=== PATIENT | male | born 1965 | race Caucasian/White ===

== ENCOUNTER 2021-02-02 06:10 | Day surgery (SDC) | payer MEDICARE, OTHER ==
[2021-01-31 15:20] VITALS: BMI 34.5
--- NOTE | 2021-02-01 19:02 | P.GSHP ---
History of Present Illness H&P Date: 02/01/21 55 yo with a history of urethral strictures. He has symptoms of bladder outlet obstruction. He refused in office cysto He comes for cysto with probable direct vision internal urethrotomy - Constitutional Constitutional: Denies chills, Denies fever - EENT Eyes: denies blurred vision, denies pain Ears, nose, mouth and throat: Denies headache, Denies sore throat - Cardiovascular Cardiovascular: Denies chest pain, Denies shortness of breath - Respiratory Respiratory: Denies cough, Denies 7 - Gastrointestinal Gastrointestinal: Denies abdominal pain, Denies diarrhea, Denies nausea, Denies vomiting - Genitourinary (Female) Genitourinary: Denies dysuria, Denies hematuria - Genitourinary (Male) Genitourinary: Denies dysuria, Denies hematuria - Musculoskeletal Musculoskeletal: Denies myalgias - Integumentary Integumentary: Denies pruritus, Denies rash - Neurological Neurological: Denies numbness, Denies weakness - Psychiatric Psychiatric: Denies anxiety, Denies depression - Endocrine Endocrine: Denies fatigue, Denies weight change Past Medical History Past Medical History: Hypertension, Neurologic Disorder, Sleep Apnea/CPAP/BIPAP Additional Past Medical History / Comment(s): developmentally delayed, infantile cerebral palsy, dysthmic disorder History of Any Multi-Drug Resistant Organisms: None Reported Past Surgical History: Joint Replacement Additional Past Surgical History / Comment(s): Right eye cataract surgery, left hip replacement Past Anesthesia/Blood Transfusion Reactions: No Reported Reaction Past Psychological History: Anxiety, Depression Additional Psychological History / Comment(s): lives in assisted living facility Smoking Status: Never smoker Past Alcohol Use History: None Reported Past Drug Use History: None Reported - Past Family History Mother Family Medical History: Cancer Additional Family Medical History / Comment(s): mother from lung cancer Father Family Medical History: No Reported History Brother(s) Family Medical History: Cancer Additional Family Medical History / Comment(s): from lung cancer Medications and Allergies Home Medications Medication Instructions Recorded Confirmed Type Cholecalciferol [Vitamin D3 (25 50 mcg PO DAILY 01/31/21 01/31/21 History Mcg = 1000 Iu)] FLUoxetine HCL [PROzac] 40 mg PO DAILY 01/31/21 01/31/21 History Levothyroxine Sodium [Synthroid] 50 mcg PO DAILY 01/31/21 01/31/21 History Losartan Potassium [Cozaar] 25 mg PO DAILY 01/31/21 01/31/21 History Metoprolol Succinate (ER) [Toprol 50 mg PO DAILY 01/31/21 01/31/21 History Xl] Multivitamins, Thera [Multivitamin 1 tab PO DAILY 01/31/21 01/31/21 History (formulary)] Nitrofurantoin Macrocrystal 100 mg PO BID 01/31/21 01/31/21 History [Nitrofurantoin] Tamsulosin [Flomax] 0.4 mg PO DAILY 01/31/21 01/31/21 History busPIRone HCL 10 mg PO TID 01/31/21 01/31/21 History risperiDONE [RisperDAL] 1 mg PO DAILY 01/31/21 01/31/21 History Allergies Allergy/AdvReac Type Severity Reaction Status Date / Time No Known Allergies Allergy Verified 01/31/21 14:57 Surgical - Exam - General well developed, well nourished - Eyes PERRL - ENT no hearing loss - Neck trachea midline - Respiratory normal expansion, normal respiratory effort - Cardiovascular Rhythm: regular - Abdomen Abdomen: soft, non tender - Genitourinary normal penis with no external lesions, testicles present - Integumentary no rash, no growths - Neurologic normal coordination, normal sensation - Musculoskeletal normal posture - Psychiatric oriented to time, oriented to person, oriented to place, speech is normal, memory intact Assessment and Plan Assessment: Impression: Hx of urethral stricture with symptoms of urinary outlet obstruction Plan: Cysto with possible direct vision urethrotomy
[~2021-02-02 06:10] MED LIST: AMPICILLIN 1,000 MG in SODIUM CHLORIDE 0.9% 50 ML IVPB PRN; DEXAMETHASONE SOD PHOSPHATE 4 MG/ML 1 ML VIAL IV ONE; GENTAMICIN 100 MG in SODIUM CHLORIDE 0.9% 100 ML IVPB PRN; LACTATED RINGERS 1,000 ML IV SCH; LIDOCAINE 1% (10MG/ML) FOR IV START INTRADERMA PRN
[2021-02-02] MEDS ORDERED: MORPHINE SULFATE 4 MG/ML SYRINGE IV PRN (07:00)
[2021-02-02] MEDS ORDERED: MIDAZOLAM 2 MG/2 ML VIAL IV PRN (07:00)
[2021-02-02] MEDS ORDERED: ONDANSETRON 4 MG/2 ML VIAL IVP PRN (07:00)
[2021-02-02] MEDS ORDERED: LIDOCAINE 1% INJ 10MG/ML (20 ML MDV) ONE (07:25)
[2021-02-02] MEDS ORDERED: fentaNYL (PF) 50 MCG/ML 2 ML AMP ONE (07:25)
[2021-02-02] MEDS ORDERED: PROPOFOL 10 MG/ML 20 ML VIAL IV ONE (07:25)
[2021-02-02 07:30] LABS: Basophils # (A) 0.1 k/uL (0-0.2); Basophils % (A) 1 %; Eosinophils # (A) 0.5 k/uL (0-0.7); Eosinophils % (A) 4 %; HGB 14.1 gm/dL (13.0-17.5); Lymphocytes # (A) 1.8 k/uL (1.0-4.8); Lymphocytes % (A) 17 %; MCHC 34.4 g/dL (31.0-37.0); Mean Platelet Volume 8.2; Monocytes # (A) 1.5 k/uL (0-1.0); Monocytes % (A) 14 %; Neutrophils # (A) 6.8 k/uL (1.3-7.7); Neutrophils % (A) 63 %; Platelet Count 218 k/uL (150-450); RBC 4.56 m/uL (4.30-5.90); RDW 13.5 % (11.5-15.5); WBC 10.8 k/uL (3.8-10.6)
[2021-02-02 07:43] LABS: Calcium 9.6 mg/dL (8.4-10.2); Potassium 4.3 mmol/L (3.5-5.1)
--- NOTE | 2021-02-02 08:09 | P.OP ---
Date of Procedure: 02/02/21 Preoperative Diagnosis: Recurrent urine infection, incomplete bladder emptying, history of bladder neck obstruction Postoperative Diagnosis: Same Procedure(s) Performed: Anesthetic cystoscopy Anesthesia: JUAN Surgeon: Lucien Blank Estimated Blood Loss (ml): 0 Pathology: none sent Condition: stable Disposition: PACU Indications for Procedure: The patient is a 55-year-old mentally handicapped individual who came to the office with recurring urinary infection. Apparently he had laser prostate surgery several years ago in [place]. He is not emptying his bladder adequately. He need cystoscopy but I did not feel that in office cystoscopy would be appropriate. Description of Procedure: The patient is brought to the operating suite. He was given general endotracheal anesthesia. The Smith catheter removed. Is prepped and draped sterilely. He is given preoperative antibiotics. Cystoscopy Foroblique lens and 22-Barbadian sheath identifies normal anterior urethra. The prostate shows previous work with a wide open bladder neck. There is a fair amount of fixation of the prostate and scarring probably due to the laser prostatectomy. The rest the bladder wall other than inflammation is unremarkable. the cystoscope was removed. The patient awake and returned recovery in good condition. A 16- Barbadian Smith catheter was introduced. Impression: I do not have an obvious cause for this patient's incomplete bladder emptying. He is on tamsulosin. I will have the [facility] remove his catheter in the next 24 hours and see him in the office in one week.
[2021-02-02 08:16] VITALS: TEMP 97
[2021-02-02 09:12] VITALS: BP 131/84; PULSE 71; RESP 16
== END 2021-02-02 09:42 ==
LOC: EEVIPCON 06:10 → OR 06:10
PROVIDERS: ATTEND Urology
DX: N39.0 Urinary tract infection, site not specified (principal); R33.9 Retention of urine, unspecified; I10 Essential (primary) hypertension; G47.30 Sleep apnea, unspecified; R62.50 Unspecified lack of expected normal physiological development in childhood; G80.8 Other cerebral palsy; F34.1 Dysthymic disorder; Z98.41 Cataract extraction status, right eye; Z96.642 Presence of left artificial hip joint; F41.9 Anxiety disorder, unspecified; F32.9 Major depressive disorder, single episode, unspecified; Z80.1 Family history of malignant neoplasm of trachea, bronchus and lung; J44.9 Chronic obstructive pulmonary disease, unspecified; E07.9 Disorder of thyroid, unspecified; Z79.890 Hormone replacement therapy; Z79.899 Other long term (current) drug therapy
CPT/HCPCS: 80048; 85025; 52000; J1100; J2405; J2001; J3010; J1580; J0290; J2704

== ENCOUNTER 2021-05-09 05:54 | Day surgery (SDC) | payer MEDICARE, OTHER ==
[2021-05-03 15:33] VITALS: BMI 34.6
[~2021-05-09 05:54] MED LIST changes: -AMPICILLIN 1,000 MG in SODIUM CHLORIDE 0.9% 50 ML IVPB PRN; -DEXAMETHASONE SOD PHOSPHATE 4 MG/ML 1 ML VIAL IV ONE; -GENTAMICIN 100 MG in SODIUM CHLORIDE 0.9% 100 ML IVPB PRN; -LACTATED RINGERS 1,000 ML IV SCH; -LIDOCAINE 1% (10MG/ML) FOR IV START INTRADERMA PRN; +metroNIDAZOLE-NS PMX 500 MG in SALINE 1 100ML.BAG IVPB PRN
[2021-05-09] MEDS ORDERED: LACTATED RINGERS 1,000 ML IV SCH (06:00)
[2021-05-09] MEDS ORDERED: ONDANSETRON 4 MG/2 ML VIAL ONE (07:03)
[2021-05-09] MEDS ORDERED: AMPICILLIN 2,000 MG in SODIUM CHLORIDE 0.9% 100 ML IVPB STA (07:30)
[2021-05-09] MEDS ORDERED: ePHEDrine SULFATE/0.9% NACL/PF 50 MG/5 ML SYRINGE IV ONE (07:40)
[2021-05-09] MEDS ORDERED: MIDAZOLAM 2 MG/2 ML VIAL ONE (07:40)
[2021-05-09] MEDS ORDERED: PROPOFOL 10 MG/ML 20 ML VIAL IV ONE (07:40)
[2021-05-09] MEDS ORDERED: HYDROmorphone (PF) 1 MG/ML ONE (07:40)
[2021-05-09] MEDS ORDERED: LIDOCAINE 1% INJ 10MG/ML (20 ML MDV) ONE (07:40)
[2021-05-09] MEDS ORDERED: fentaNYL (PF) 50 MCG/ML 2 ML AMP ONE (07:40)
[2021-05-09] MEDS ORDERED: SUCCINYLCHOLINE CHLORIDE 100 MG/5 ML SYR IV ONE (07:40)
[2021-05-09 09:39] VITALS: TEMP 97.5
[2021-05-09 10:11] VITALS: RESP 16
[2021-05-09 10:32] VITALS: BP 137/82; PULSE 88
--- NOTE | 2021-05-09 10:42 | P.GSCN ---
History of Present Illness Consult date: 05/09/21 Reason for Consult: -Periodic exam -#2 and #19 Root extractions -#4 MB, #5 DBM, #6 DB, #20 DO, #23 Core, #29 B, #30 B all resins with Filteck bulk shade A2. #20 and 23 had glass ionomer. Patient's parents and guardian given post op instruction. Called Ampicillin IV 2g 30 min before procedure, and prescribed Motrin 800 mg (24 tabs, Q6H PRN) for outdoor pharmacy where guardian would cook pickled meat. No complications. Past Medical History Past Medical History: Hypertension, Neurologic Disorder, Prostate Disorder, Sleep Apnea/CPAP/BIPAP Additional Past Medical History / Comment(s): has de jesus catheter,developmentally delayed, infantile cerebral palsy-uses walker, incontinent occas,able to follow simple directions,speech is understandible,OCD, dysthmic disorder History of Any Multi-Drug Resistant Organisms: None Reported Past Surgical History: Joint Replacement Additional Past Surgical History / Comment(s): cystoscopy,Right eye cataract surgery, left hip replacement Past Anesthesia/Blood Transfusion Reactions: No Reported Reaction Smoking Status: Never smoker - Past Family History Mother Family Medical History: Cancer Additional Family Medical History / Comment(s): mother from lung cancer Father Family Medical History: No Reported History Brother(s) Family Medical History: Cancer Additional Family Medical History / Comment(s): from lung cancer Medications and Allergies Home Medications Medication Instructions Recorded Confirmed Type Cholecalciferol [Vitamin D3 (25 50 mcg PO DAILY 01/31/21 05/03/21 History Mcg = 1000 Iu)] FLUoxetine HCL [PROzac] 40 mg PO QAM 01/31/21 05/03/21 History Levothyroxine Sodium [Synthroid] 50 mcg PO QAM 01/31/21 05/03/21 History Losartan Potassium [Cozaar] 25 mg PO 162901/31/21 05/09/21 History Metoprolol Succinate (ER) [Toprol 50 mg PO QAM 01/31/21 05/03/21 History Xl] Tamsulosin [Flomax] 0.4 mg PO 1630 01/31/21 05/03/21 History busPIRone HCL 10 mg PO TID 01/31/21 05/09/21 History risperiDONE [RisperDAL] 1 mg PO QAM 01/31/21 05/03/21 History Allergies Allergy/AdvReac Type Severity Reaction Status Date / Time No Known Allergies Allergy Verified 05/09/21 06:31 Surgical - Exam Vital Signs Temp Pulse Resp BP Pulse Ox 98.3 F 78 18 151/71 99 05/09/21 06:25 05/09/21 06:25 05/09/21 06:25 05/09/21 06:25 05/09/21 06:25
== END 2021-05-09 10:52 ==
LOC: OR 05:54
PROVIDERS: ATTEND Dentist
DX: K02.9 Dental caries, unspecified (principal); G80.9 Cerebral palsy, unspecified; I10 Essential (primary) hypertension; Z79.899 Other long term (current) drug therapy; Z80.1 Family history of malignant neoplasm of trachea, bronchus and lung
CPT/HCPCS: 41899; J2250; J2001; J3010; J0290; J1170; J0330; J2704; 80048; 81001; 85025; 87086

== ENCOUNTER 2021-05-18 07:49 | Day surgery (SDC) | payer MEDICARE, OTHER ==
[2021-05-03 15:14] VITALS: BMI 34.6
[2021-05-09 07:21] LABS: Basophils # (A) 0.1 k/uL (0-0.2); Basophils % (A) 1 %; Eosinophils # (A) 0.3 k/uL (0-0.7); Eosinophils % (A) 3 %; HCT 44.4 % (39.0-53.0); HGB 14.6 gm/dL (13.0-17.5); Hypochromasia Slight; Lymphocytes # (A) 2.8 k/uL (1.0-4.8); Lymphocytes % (A) 25 %; MCH 31.3 pg (25.0-35.0); MCV 94.8 fL (80.0-100.0); Mean Platelet Volume 8.8; Monocytes % (A) 9 %; Neutrophils # (A) 6.9 k/uL (1.3-7.7); Neutrophils % (A) 61 %; Platelet Count 218 k/uL (150-450); RBC 4.69 m/uL (4.30-5.90); RDW 14.6 % (11.5-15.5); WBC 11.3 k/uL (3.8-10.6)
[2021-05-09 07:32] LABS: Calcium 9.8 mg/dL (8.4-10.2); Potassium 4.4 mmol/L (3.5-5.1)
[2021-05-09 07:35] LABS: Appearance,Urine Turbid (Clear); Bacteria,Urine Occasional /hpf; Bilirubin,Urine Negative (Negative); Blood,Urine Small (Negative); Color,Urine Light Yellow; Glucose,Urine (UA) Negative (Negative); Ketones,Urine Negative (Negative); Leukocyte Esterase,Urine Large (Negative); Mucus,Urine Rare /hpf; Nitrite,Urine Positive (Negative); Protein,Urine 1+ (Negative); RBC,Urine 23 /hpf (0-5); Specific Gravity,Urine 1.012 (1.001-1.035); Urobilinogen,Urine <2.0 mg/dL (<2.0); WBC,Urine >182 /hpf (0-5)
--- NOTE | 2021-05-17 08:10 | P.GSHP ---
History of Present Illness H&P Date: 05/17/21 56 yo mentally handicapped male with chronic voiding difficulty. He had a laser turp years ago. He has recently had problems for urine retention. W appears to have shown some bladder function. The plan after discussing with the parents[guardians] is to proceed with a cystoscopy and probable turp if indicated. The risks and complications have been discussed. The patient is not a candidate for cic. - Review of Systems ROS unobtainable: Reports: due to mental status Past Medical History Past Medical History: Hypertension, Neurologic Disorder, Sleep Apnea/CPAP/BIPAP Additional Past Medical History / Comment(s): has de jesus catheter,developmentally delayed, infantile cerebral palsy-uses walker, incontinent occas,able to follow simple directions,speech is understandible,OCD, dysthmic disorder History of Any Multi-Drug Resistant Organisms: None Reported Past Surgical History: Joint Replacement Additional Past Surgical History / Comment(s): Right eye cataract surgery, left hip replacement Past Anesthesia/Blood Transfusion Reactions: No Reported Reaction Smoking Status: Never smoker - Past Family History Mother Family Medical History: Cancer Additional Family Medical History / Comment(s): mother from lung cancer Father Family Medical History: No Reported History Brother(s) Family Medical History: Cancer Additional Family Medical History / Comment(s): from lung cancer Medications and Allergies Home Medications Medication Instructions Recorded Confirmed Type Cholecalciferol [Vitamin D3 (25 50 mcg PO DAILY 01/31/21 05/13/21 History Mcg = 1000 Iu)] FLUoxetine HCL [PROzac] 40 mg PO QAM 01/31/21 05/13/21 History Levothyroxine Sodium [Synthroid] 50 mcg PO SUMOTUWETHFR 01/31/21 05/13/21 History Losartan Potassium [Cozaar] 25 mg PO 1630 01/31/21 05/13/21 History Metoprolol Succinate (ER) [Toprol 50 mg PO QAM 01/31/21 05/13/21 History Xl] Tamsulosin [Flomax] 0.4 mg PO 1630 01/31/21 05/13/21 History busPIRone HCL 10 mg PO TID 01/31/21 05/13/21 History risperiDONE [RisperDAL] 1 mg PO QAM 01/31/21 05/13/21 History Ibuprofen 800 mg PO Q8H PRN 05/13/21 05/13/21 History Multivitamins, Thera [Multivitamin 1 tab PO DAILY 05/13/21 05/13/21 History (formulary)] Allergies Allergy/AdvReac Type Severity Reaction Status Date / Time No Known Allergies Allergy Verified 05/09/21 06:31 Surgical - Exam - General well developed, well nourished, no distress - Eyes PERRL - ENT no hearing loss - Neck trachea midline - Respiratory normal expansion, normal respiratory effort - Cardiovascular Rhythm: regular - Abdomen Abdomen: soft, non tender - Genitourinary indwelling catheter. normal penis with no external lesions, testicles present - Integumentary no rash - Musculoskeletal normal posture - Psychiatric mentally handicapped. Knows his name. Is cooperative. other Results - Labs 05/09/21 06:48 05/09/21 06:48 Assessment and Plan Assessment: Impression: Urine retention acute and chronic. Plan: Cysto with possible turp
[~2021-05-18 07:49] MED LIST changes: +AMPICILLIN 1,000 MG in SODIUM CHLORIDE 0.9% 50 ML IVPB PRN; +DEXAMETHASONE SOD PHOSPHATE 4 MG/ML 1 ML VIAL IV ONE; +GENTAMICIN 100 MG in SODIUM CHLORIDE 0.9% 100 ML IVPB PRN; +HYDROmorphone 0.5 MG/0.5 ML SYRINGE IVP PRN; +LACTATED RINGERS 1,000 ML IV SCH; +LIDOCAINE 1% (10MG/ML) FOR IV START INTRADERMA PRN; +MIDAZOLAM 2 MG/2 ML VIAL IV PRN; +ONDANSETRON 4 MG/2 ML VIAL IVP ONE; -metroNIDAZOLE-NS PMX 500 MG in SALINE 1 100ML.BAG IVPB PRN
[2021-05-18] MEDS ORDERED: fentaNYL (PF) 50 MCG/ML 2 ML AMP ONE (09:00)
[2021-05-18] MEDS ORDERED: MIDAZOLAM 2 MG/2 ML VIAL ONE (09:00)
[2021-05-18] MEDS ORDERED: SUCCINYLCHOLINE CHLORIDE 100 MG/5 ML SYR IV ONE (09:00)
[2021-05-18] MEDS ORDERED: PROPOFOL 10 MG/ML 20 ML VIAL IV ONE (09:00)
--- NOTE | 2021-05-18 10:51 | P.OP ---
Date of Procedure: 05/18/21 Preoperative Diagnosis: Urine retention Postoperative Diagnosis: Same Procedure(s) Performed: Bipolar TURP Anesthesia: JUAN Surgeon: Lucien Blank Estimated Blood Loss (ml): 100 Pathology: other (Prostate) Condition: stable Disposition: PACU Indications for Procedure: The patient is 56. He is mentally handicapped and lives in an extended care facility. He is gone into urinary retention. Apparently the patient had a laser prostate surgery many years ago. He tried medication he still remain in retention. He come for cystoscopy and possible bipolar TURP Description of Procedure: The patient is brought to the operating suite. He is given a general endotracheal anesthesia. He's placed lithotomy position with sterile prep and drape. Attempts at passing the 25-Iraqi sheath and direct vision obturator failed due to scarring of the proximal urethra. I dilate the rectal urethra to 30-Iraqi. I then pass the direct vision obturator with a 25-Iraqi sheath into the day. Ross date is markedly scarred and distorted. There appears to be a l arge amount of left anterior wall tissue as well as right lateral tissue. The amount and seen. The bladder felton severely trabeculated.. The orientation is somewhat difficult. With the super sect bipolar loop I first resect the anterior and left lateral lobe down to more mobile looking prostatic tissue in orientation. I then resect into early in the right lobe. I make sure not to go the on what appears to be the scarred verumontanum. I the bladder of prostatic chips with the evacuator. I reinspecting control any bleeding. The prostate appears to be open at this point in time. I then pass an 18-Iraqi coud-tip catheter into the bladder with irrigation with clear to very minimally pink urine The patient's prostate no appears to be open. The scarring from the previous prostate surgery appears to be liberated. The patient is awake and returned recovery room good condition. Prostate blood loss is about 100 mL. The patient will be observed in the hospital for the next few hours and if he stable be discharged home later today.
[2021-05-18 10:57] VITALS: TEMP 96.8
[2021-05-18 12:36] VITALS: RESP 16
[2021-05-18] MEDS ORDERED: LACTATED RINGERS 1,000 ML IV ONE (12:39)
[2021-05-18 12:57] VITALS: BP 136/83; PULSE 91
== END 2021-05-18 13:20 ==
LOC: OR 07:49
PROVIDERS: ATTEND Urology
DX: N40.1 Benign prostatic hyperplasia with lower urinary tract symptoms (principal); R33.8 Other retention of urine; I10 Essential (primary) hypertension; G47.33 Obstructive sleep apnea (adult) (pediatric); E07.9 Disorder of thyroid, unspecified; R62.50 Unspecified lack of expected normal physiological development in childhood; G80.9 Cerebral palsy, unspecified; F34.1 Dysthymic disorder; F41.9 Anxiety disorder, unspecified; Z79.890 Hormone replacement therapy; Z79.899 Other long term (current) drug therapy; Z96.642 Presence of left artificial hip joint
CPT/HCPCS: 52601; 88305; 80048; 85025; 81001; 87086; C1769; J2250; J1100; J2405; J3010; J1580; J0290; J0330; J2704

== ENCOUNTER 2021-10-06 12:35 | Observation (INO) | payer MEDICARE, OTHER ==
[2021-10-06 13:32] LABS: Albumin 3.7 g/dL (3.5-5.0); Calcium 9.3 mg/dL (8.4-10.2); Potassium 3.9 mmol/L (3.5-5.1); Total Bilirubin 0.6 mg/dL (0.2-1.3); Total Protein 7.1 g/dL (6.3-8.2)
--- NOTE | 2021-10-06 13:47 | ED ---
Male Urogenital HPI - General Chief complaint: Urogenital Stated complaint: UTI Time Seen by Provider: 10/06/21 12:35 Source: EMS, RN notes reviewed, old records reviewed Mode of arrival: EMS Limitations: altered mental status - History of Present Illness Initial comments: 56-year-old male with a history of cervical palsy in neuro cognitive delay who was sent in from his facility due to having a positive urine culture for E. coli and Proteus he currently was sent in for IV antibiotics as the nature and I covered by oral medications reportedly. Patient himself is uncooperative per paramedics no reports of nausea vomiting fevers chills sweats or other symptoms patient himself is a poor historian. Information is gathered from the paperwork that was submitted. - Related Data Home Medications Medication Instructions Recorded Confirmed Cholecalciferol [Vitamin D3 (25 50 mcg PO HS 01/31/21 10/06/21 Mcg = 1000 Iu)] FLUoxetine HCL [PROzac] 40 mg PO QAM 01/31/21 10/06/21 Levothyroxine Sodium [Synthroid] 50 mcg PO SUMOTUWETHFR 01/31/21 10/06/21 Losartan Potassium [Cozaar] 25 mg PO DAILY@1630 01/31/21 10/06/21 Metoprolol Succinate (ER) [Toprol 50 mg PO QAM 01/31/21 10/06/21 Xl] Tamsulosin [Flomax] 0.4 mg PO DAILY@1630 01/31/21 10/06/21 busPIRone HCL 10 mg PO TID 01/31/21 10/06/21 risperiDONE [RisperDAL] 1 mg PO QAM 01/31/21 10/06/21 Multivitamins, Thera [Multivitamin 1 tab PO DAILY 05/13/21 10/06/21 (formulary)] Acetaminophen Tab [Tylenol Tab] 1,000 mg PO Q6H PRN 10/06/21 10/06/21 Allergies Allergy/AdvReac Type Severity Reaction Status Date / Time No Known Allergies Allergy Verified 10/06/21 13:31 Review of Systems ROS Statement: Those systems with pertinent positive or pertinent negative responses have been documented in the HPI. ROS Other: All systems not noted in ROS Statement are negative. Limitations: ROS unobtainable due to patients medical condition Past Medical History Past Medical History: Hypertension, Neurologic Disorder, Sleep Apnea/CPAP/BIPAP Additional Past Medical History / Comment(s): has de jesus catheter,developmentally delayed, infantile cerebral palsy-uses walker, incontinent occas,able to follow simple directions,speech is understandible,OCD, dysthmic disorder History of Any Multi-Drug Resistant Organisms: MRSA Date of last positivie culture/infection: 06/07/21 MDRO Source:: ESBL URINE Past Surgical History: Joint Replacement Additional Past Surgical History / Comment(s): Right eye cataract surgery, left hip replacement Past Anesthesia/Blood Transfusion Reactions: No Reported Reaction Past Psychological History: Anxiety, Depression Smoking Status: Never smoker - Past Family History Mother Family Medical History: Cancer Additional Family Medical History / Comment(s): mother from lung cancer Father Family Medical History: No Reported History Brother(s) Family Medical History: Cancer Additional Family Medical History / Comment(s): from lung cancer General Exam - General Exam Comments Initial Comments: Is a well-developed well-nourished pleasant 56-year-old male in no acute d istress Limitations: altered mental status General appearance: alert, in no apparent distress Head exam: Present: atraumatic, normocephalic, normal inspection Eye exam: Present: normal appearance, PERRL, EOMI. Absent: scleral icterus, conjunctival injection, periorbital swelling ENT exam: Present: mucous membranes dry Neck exam: Present: normal inspection. Absent: tenderness, meningismus, lymphadenopathy Respiratory exam: Present: normal lung sounds bilaterally. Absent: respiratory distress, wheezes, rales, rhonchi, stridor Cardiovascular Exam: Present: regular rate, normal rhythm, normal heart sounds. Absent: systolic murmur, diastolic murmur, rubs, gallop, clicks GI/Abdominal exam: Present: soft, normal bowel sounds. Absent: distended, tenderness, guarding, rebound, rigid Extremities exam: Present: normal inspection, full ROM, normal capillary refill. Absent: tenderness, pedal edema, joint swelling, calf tenderness Back exam: Present: normal inspection Neurological exam: Present: alert, altered, CN II-XII intact Psychiatric exam: Present: normal affect, normal mood Skin exam: Present: warm, dry, intact, normal color. Absent: rash Course Vital Signs 10/06/21 12:49 Temperature 97.4 F L Pulse Rate 89 Respiratory 18 Rate Blood Pressure 122/76 O2 Sat by Pulse 98 Oximetry Medical Decision Making - Medical Decision Making I did discuss the case with Dr. Espinoza patient did have a urine culture done showing E. coli as well as Proteus species. Since that the cefepime resistant to Unasyn and Rocephin. He does appear sensitive to Zosyn. - Lab Data Result diagrams: 10/06/21 13:01 10/06/21 13:01 Lab Results 10/06/21 10/06/21 Range/Units 13:01 13:01 WBC 8.6 (3.8-10.6) k/uL RBC 4.26 L (4.30-5.90) m/uL Hgb 13.2 (13.0-17.5) gm/dL Hct 40.9 (39.0-53.0) % MCV 96.0 (80.0-100.0) fL MCH 31.1 (25.0-35.0) pg MCHC 32.4 (31.0-37.0) g/dL RDW 14.4 (11.5-15.5) % Plt Count 205 (150-450) k/uL MPV 8.7 Neutrophils % 58 % Lymphocytes % 26 % Monocytes % 10 % Eosinophils % 2 % Basophils % 0 % Neutrophils # 5.0 (1.3-7.7) k/uL Lymphocytes # 2.2 (1.0-4.8) k/uL Monocytes # 0.9 (0-1.0) k/uL Eosinophils # 0.2 (0-0.7) k/uL Basophils # 0.0 (0-0.2) k/uL Sodium 136 L (137-145) mmol/L Potassium 3.9 (3.5-5.1) mmol/L Chloride 103 (98-107) mmol/L Carbon Dioxide 27 (22-30) mmol/L Anion Gap 6 mmol/L BUN 26 H (9-20) mg/dL Creatinine 1.37 H (0.66-1.25) mg/dL Est GFR (CKD-EPI)AfAm 66 (>60 ml/min/1.73 sqM) Est GFR (CKD-EPI)NonAf 57 (>60 ml/min/1.73 sqM) Glucose 96 (74-99) mg/dL Calcium 9.3 (8.4-10.2) mg/dL Total Bilirubin 0.6 (0.2-1.3) mg/dL AST 20 (17-59) U/L ALT 17 (4-49) U/L Alkaline Phosphatase 121 (38-126) U/L Total Protein 7.1 (6.3-8.2) g/dL Albumin 3.7 (3.5-5.0) g/dL Disposition Clinical Impression: Urinary tract infection Disposition: ADMITTED IP TO THIS HOSP Condition: Stable Referrals: Kyler Zaman MD [Primary Care Provider] - 1-2 days
[2021-10-06 13:52] LABS: HCT 40.9 % (39.0-53.0); HGB 13.2 gm/dL (13.0-17.5); MCH 31.1 pg (25.0-35.0); MCHC 32.4 g/dL (31.0-37.0); RBC 4.26 m/uL (4.30-5.90); RDW 14.4 % (11.5-15.5); WBC 8.6 k/uL (3.8-10.6)
[2021-10-06 13:53] LABS: Basophils % (A) 0 %; Eosinophils # (A) 0.2 k/uL (0-0.7); Eosinophils % (A) 2 %; Lymphocytes # (A) 2.2 k/uL (1.0-4.8); Lymphocytes % (A) 26 %; Mean Platelet Volume 8.7; Monocytes # (A) 0.9 k/uL (0-1.0); Monocytes % (A) 10 %; Neutrophils % (A) 58 %; Platelet Count 205 k/uL (150-450)
[2021-10-06] MEDS ORDERED: NALOXONE 0.4 MG/ML 1 ML VIAL IV PRN (14:50)
[2021-10-06] MEDS ORDERED: ACETAMINOPHEN TAB 325 MG TAB PO PRN (14:50)
[2021-10-06] MEDS ORDERED: PIPERACILLIN-TAZOBACTAM 3.375 GM in SODIUM CHLORIDE 0.9% 100 ML IVPB STA (14:52)
[2021-10-06] MEDS: SODIUM CHLORIDE 0.9% 1,000 ML IV SCH ×2 (15:24→23:32)
[2021-10-06 16:23] LABS: Appearance,Urine Turbid (Clear); Bacteria,Urine Occasional /hpf; Bilirubin,Urine Negative (Negative); Blood,Urine Small (Negative); Budding Yeast,Urine Many /hpf; Color,Urine Yellow; Glucose,Urine (UA) Negative (Negative); Ketones,Urine Negative (Negative); Leukocyte Esterase,Urine Large (Negative); Nitrite,Urine Positive (Negative); Protein,Urine 1+ (Negative); RBC,Urine 35 /hpf (0-5); Specific Gravity,Urine 1.018 (1.001-1.035); Urobilinogen,Urine <2.0 mg/dL (<2.0); WBC,Urine >182 /hpf (0-5)
[2021-10-06] MEDS ORDERED: ERTAPENEM 1 GM in SODIUM CHLORIDE 0.9% 50 ML IVPB SCH (17:30)
[2021-10-06] MEDS ORDERED: LEVOTHYROXINE 50 MCG TAB PO SCH (22:45)
[2021-10-06] MEDS ORDERED: CALCIUM CARBONATE 500 MG CHEWABLE PO PRN (22:46)
[2021-10-06] MEDS ORDERED: ONDANSETRON 4 MG/2 ML VIAL IVP PRN (22:46)
[2021-10-06] MEDS ORDERED: LACTULOSE 20 GM/30 ML CUP PO PRN (22:46)
--- NOTE | 2021-10-06 22:48 | P.HPIM ---
History of Present Illness H&P Date: 10/06/21 Chief Complaint: Positive urine culture for E. coli and Proteus. This is a pleasant 56-year-old patient who has known cerebral palsy with neurocognitive delay. He was sent in from his facility due to positive urine culture growing E. coli and Proteus. Cultures were not sensitizing oral antibiotic hence was sent in for IV antibiotic and IV consultation. Patient is not a detailed historian. There was no reported nausea vomiting no fever no chills or any urinary symptoms. Patient is able to answer simple questions. Appetite is fair. Possibly uses a walker. He said he has been in the past. Patient has known urinary bladder obstruction in the past with TURP done by Dr. Johnson Review of systems: GEN.: None EYES: None HEENT: None NECK: None RESPIRATORY: None CARDIOVASCULAR: None GASTROINTESTINAL: None GENITOURINARY: None MUSCULOSKELETAL: None LYMPHATICS: None HEMATOLOGICAL: None PSYCHIATRY: Cognitive impairment NEUROLOGICAL: None Past medical history to include: Hypertension, cerebral palsy with neurocognitive disorder, sleep apnea, infantile cerebral palsy, incontinent of urine sometimes, OCD, dysthymic disorder Social history: A sister living. No alcohol or smoking. Uses a walker. Family history: Mother had lung cancer Physical examination: VITAL SIGNS: 98.7, 93, 16, 125 with 78, 96% room air GENERAL: BMI 34.7, reclining in bed, awake, comfortable. EYES: Pupils equal. Conjunctiva normal. HEENT: External appearance of nose and ears normal, oral cavity grossly normal small lower jaw. NECK: JVD not raised; masses not palpable. HEART: First and second heart sounds are normal; no edema. LUNGS: Respiratory rate normal; clear to auscultation. ABDOMEN: Soft, nontender, liver spleen not palpable, no masses palpable. PSYCH: [Patient knows his name. Does not know where he is. Does not know why why he is here. MUSCULOSKELETAL:No Clubbing/cyanosis;muscles-grossly intact NEUROLOGICAL: Cranial nerves grossly intact; no facial asymmetry, power and sensation grossly intact. LYMPHATICS: No lymph nodes palpable in the axilla and neck INVESTIGATIONS, reviewed in the clinical context: White count 8.60 globin 13.2 platelets 205 potassium 3.9 BUN 26 creatinine 1.37 UA positive for leukoesterase, WBC, bacteria, yeast Coronavirus [PCR]: Not detected Assessment and plan: -Acute on chronic recurrent UTI with cultures growing Proteus and E. coli. I do not have access to the results. We'll obtain the same. Consult ID. -Cerebral palsy with neurocognitive delay -Essential hypertension Cozaar 25 mg daily Toprol-XL 50 mg daily -Chronic gait dysfunction uses a walker Fall precautions -Urinary bladder outflow obstruction Flomax 0.4 mg daily -Hypothyroid Synthroid 50 g -Depression Prozac 40 mg a day BuSpar 10 mg 3 times a day Resume all medications. IV ertapenem. I'll obtain culture results. IV fluids. Subcu Lovenox. Past Medical History Past Medical History: Hypertension, Neurologic Disorder, Sleep Apnea/CPAP/BIPAP Additional Past Medical History / Comment(s): has de jesus catheter,developmentally delayed, infantile cerebral palsy-uses walker, incontinent occas,able to follow simple directions,speech is understandible,OCD, dysthmic disorder History of Any Multi-Drug Resistant Organisms: MRSA Date of last positivie culture/infection: 06/07/21 MDRO Source:: ESBL URINE Past Surgical History: Joint Replacement Additional Past Surgical History / Comment(s): Right eye cataract surgery, left hip replacement Past Anesthesia/Blood Transfusion Reactions: No Reported Reaction Past Psychological History: Anxiety, Depression Smoking Status: Never smoker - Past Family History Mother Family Medical History: Cancer Additional Family Medical History / Comment(s): mother from lung cancer Father Family Medical History: No Reported History Brother(s) Family Medical History: Cancer Additional Family Medical History / Comment(s): from lung cancer Medications and Allergies Home Medications Medication Instructions Recorded Confirmed Type Cholecalciferol [Vitamin D3 (25 50 mcg PO HS 01/31/21 10/06/21 History Mcg = 1000 Iu)] FLUoxetine HCL [PROzac] 40 mg PO QAM 01/31/21 10/06/21 History Levothyroxine Sodium [Synthroid] 50 mcg PO SUMOTUWETHFR 01/31/21 10/06/21 History Losartan Potassium [Cozaar] 25 mg PO DAILY@162901/31/21 10/06/21 History Metoprolol Succinate (ER) [Toprol 50 mg PO QAM 01/31/21 10/06/21 History Xl] Tamsulosin [Flomax] 0.4 mg PO DAILY@162901/31/21 10/06/21 History busPIRone HCL 10 mg PO TID 01/31/21 10/06/21 History risperiDONE [RisperDAL] 1 mg PO QAM 01/31/21 10/06/21 History Multivitamins, Thera [Multivitamin 1 tab PO DAILY 05/13/21 10/06/21 History (formulary)] Acetaminophen Tab [Tylenol Tab] 1,000 mg PO Q6H PRN 10/06/21 10/06/21 History Allergies Allergy/AdvReac Type Severity Reaction Status Date / Time No Known Allergies Allergy Verified 10/06/21 13:31 Physical Exam Vitals: Vital Signs Temp Pulse Pulse Pulse Resp BP BP 10/06/21 20:00 93 16 10/06/21 19:16 98.7 F 93 16 125/78 10/06/21 17:10 86 18 10/06/21 16:37 97.6 F 85 18 152/91 10/06/21 12:49 97.4 F L 89 18 122/76 Pulse Ox 10/06/21 20:00 10/06/21 19:16 96 10/06/21 17:10 100 10/06/21 16:37 92 L 10/06/21 12:49 98 Intake and Output 10/06/21 10/06/21 10/06/21 06:59 14:59 22:59 Other: Voiding Method Toilet Urinal # Voids 1 Weight 88.813 kg 88.813 kg Results CBC & Chem 7: 10/06/21 13:01 10/06/21 13:01 Labs: Abnormal Lab Results - Last 24 Hours (Table) 10/06/21 10/06/21 10/06/21 Range/Units 13:01 13:01 13:01 RBC 4.26 L (4.30-5.90) m/uL Sodium 136 L (137-145) mmol/L BUN 26 H (9-20) mg/dL Creatinine 1.37 H (0.66-1.25) mg/dL Urine Protein 1+ H (Negative) Urine Blood Small H (Negative) Ur Leukocyte Esterase Large H (Negative) Urine RBC 35 H (0-5) /hpf Urine WBC >182 H (0-5) /hpf Urine WBC Clumps Many H (None) /hpf Urine Bacteria Occasional H (None) /hpf Urine Yeast (Budding) Many H (None) /hpf Thrombosis Risk Factor Assmnt - Choose All That Apply Any of the Below Risk Factors Present?: Yes Each Factor Represents 1 point: Age 41-60 years, Obesity (BMI >25) Other Risk Factors: No Thrombosis Risk Factor Assessment Total Risk Factor Score: 2 Thrombosis Risk Factor Assessment Level: Low Risk
[2021-10-06] MEDS: busPIRone HCl 10 MG TAB PO SCH (23:32)
[2021-10-06] MEDS: ENOXAPARIN 40 MG/0.4 ML SYRINGE SQ SCH (23:32)
--- NOTE | 2021-10-07 00:03 | P.CONS ---
History of Present Illness - Reason for Consult Consult date: 10/06/21 UTI Requesting physician: Bakari Espinoza - Chief Complaint mental status changes x 1 day - History of Present Illness History of Present Illness : Patient is a 56-year-old male with a history of cerebral palsy neurocognitive delay a assisted resident previous hi story of recurrent intake infection the patient has been sent to the ER from the assisted with concern for urine culture positive for E. coli and Proteus in need for IV antibiotic therapy, patient on presentation to the hospital was noncooperative with the ER physician however the patient did not have any fever or elevated white count did have a positive UA with large leukocyte esterase more than 182 WBC, patient received a dose of Zosyn and has been admitted to the hospital infectious disease was consulted for further management of antibiotic therapy patient at time of evaluation is not agitated however not a very good historian and answers no to most of the questions asked no vomiting or diarrhea has been reported and no De Jesus catheter Review of system: Positive points mentioned in history of present illness complete review could not be obtained because of his underlying medical condition Past medical history : Reviewed, documented below Past surgical history : Reviewed, documented below Social history: Reviewed, documented below Medications: Reviewed, as documented below EXAMINATION: Vital sigans= Reviewed and documented below GENERAL DESCRIPTION: Middle-aged male lying in bed, no distress. No tachypnea or accessory muscle of respiration use. HEENT: Shows Pallor , no scleral icterus. Oral mucous membrane is dry. NECK: Trachea central, no thyromegaly. LUNGS: Unlabored breathing. Clear to auscultation anteriorly. No wheeze or crackle. HEART: S1, S2, regular rate and rhythm. ABDOMEN: Soft, no tenderness , guarding or rigidity EXTREMITIES: No edema feet SKIN: No rash, no masses palpable. NEUROLOGICAL: The patient is awake, alert, orientation could not be determined because of underlying mental status LABS AND RADIOLOGY: Reviewed results see below Assessment : Patient presented to hospital with symptomatic urinary tract infection in this patient last urine culture positive for ESBL E. coli and will need to cover for while waiting for the repeat urine culture to finalize Plan: 1-Invanz 1 g daily 2-we will check ultrasound of the kidneys to make no sure evidence of any structural normality 3-gentle IV fluid We will follow on clinical condition and cultures to further adjust medication if needed Thank you for this consultation we will follow the patient along with you Past Medical History Past Medical History: Hypertension, Neurologic Disorder, Sleep Apnea/CPAP/BIPAP Additional Past Medical History / Comment(s): has de jesus catheter,developmentally delayed, infantile cerebral palsy-uses walker, incontinent occas,able to follow simple directions,speech is understandible,OCD, dysthmic disorder History of Any Multi-Drug Resistant Organisms: MRSA Year Discovered:: 06/07/21 MDRO Source:: ESBL URINE Past Surgical History: Joint Replacement Additional Past Surgical History / Comment(s): Right eye cataract surgery, left hip replacement Past Anesthesia/Blood Transfusion Reactions: No Reported Reaction Past Psychological History: Anxiety, Depression Smoking Status: Never smoker - Past Family History Mother Family Medical History: Cancer Additional Family Medical History / Comment(s): mother from lung cancer Father Family Medical History: No Reported History Brother(s) Family Medical History: Cancer Additional Family Medical History / Comment(s): from lung cancer Medications and Allergies Home Medications Medication Instructions Recorded Confirmed Type Cholecalciferol [Vitamin D3 (25 50 mcg PO HS 01/31/21 10/06/21 History Mcg = 1000 Iu)] FLUoxetine HCL [PROzac] 40 mg PO QAM 01/31/21 10/06/21 History Levothyroxine Sodium [Synthroid] 50 mcg PO SUMOTUWETHFR 01/31/21 10/06/21 History Losartan Potassium [Cozaar] 25 mg PO DAILY@1630 01/31/21 10/06/21 History Metoprolol Succinate (ER) [Toprol 50 mg PO QAM 01/31/21 10/06/21 History Xl] Tamsulosin [Flomax] 0.4 mg PO DAILY@1630 01/31/21 10/06/21 History busPIRone HCL 10 mg PO TID 01/31/21 10/06/21 History risperiDONE [RisperDAL] 1 mg PO QAM 01/31/21 10/06/21 History Multivitamins, Thera [Multivitamin 1 tab PO DAILY 05/13/21 10/06/21 History (formulary)] Acetaminophen Tab [Tylenol Tab] 1,000 mg PO Q6H PRN 10/06/21 10/06/21 History Allergies Allergy/AdvReac Type Severity Reaction Status Date / Time No Known Allergies Allergy Verified 10/06/21 13:31 Physical Exam Vitals: Vital Signs Temp Pulse Pulse Resp BP BP Pulse Ox 10/06/21 17:10 86 18 100 10/06/21 16:37 97.6 F 85 18 152/91 92 L 10/06/21 12:49 97.4 F L 89 18 122/76 98 Intake and Output 10/06/21 10/06/21 10/06/21 06:59 14:59 22:59 Other: Weight 88.813 kg Results CBC & Chem 7: 10/06/21 13:01 10/06/21 13:01 Labs: Abnormal Lab Results - Last 24 Hours (Table) 10/06/21 10/06/21 10/06/21 Range/Units 13:01 13:01 13:01 RBC 4.26 L (4.30-5.90) m/uL Sodium 136 L (137-145) mmol/L BUN 26 H (9-20) mg/dL Creatinine 1.37 H (0.66-1.25) mg/dL Urine Protein 1+ H (Negative) Urine Blood Small H (Negative) Ur Leukocyte Esterase Large H (Negative) Urine RBC 35 H (0-5) /hpf Urine WBC >182 H (0-5) /hpf Urine WBC Clumps Many H (None) /hpf Urine Bacteria Occasional H (None) /hpf Urine Yeast (Budding) Many H (None) /hpf
[2021-10-07] MEDS: LEVOTHYROXINE 50 MCG TAB PO SCH (05:28)
[2021-10-07] MEDS: SODIUM CHLORIDE 0.9% 1,000 ML IV SCH ×4 (05:29→17:27)
--- NOTE | 2021-10-07 07:53 | US ---
EXAMINATION TYPE: US kidneys/renal and bladder DATE OF EXAM: 10/07/2021 COMPARISON: CT 2014 CLINICAL HISTORY: uti and bacteremia. UTI EXAM MEASUREMENTS: Right Kidney: 8.6 x 4.5 x 4.8 cm Left Kidney: 8.7 x 4.5 x 4.0 cm Difficult scan, pt mentally challenged, gassy Right Kidney: No evidence of hydro, partially gassed out, small in size Left Kidney: No evidence of hydro, partially gassed, small in size, cortical thinning, possible calcu li lower pole Bladder: wnl Bilateral Jets seen: No IMPRESSION: 1. Limited renal ultrasound. No suspicious acute abnormality evident. 2. Possible left renal calcifications without obstruction.
[2021-10-07] MEDS: METOPROLOL SUCCINATE (ER) 50 MG TAB.ER.24H PO SCH (08:51)
[2021-10-07] MEDS: MULTIVITAMINS, THERA 1 EACH TAB PO SCH (08:52)
[2021-10-07] MEDS: busPIRone HCl 10 MG TAB PO SCH ×3 (08:52→21:15)
[2021-10-07] MEDS: risperiDONE 1 MG TAB PO SCH (08:52)
[2021-10-07] MEDS: FLUoxetine HCL 20 MG CAP PO SCH (08:52)
[2021-10-07] MEDS: TAMSULOSIN 0.4 MG CAP.ER.24H PO SCH (15:44)
[2021-10-07] MEDS: LOSARTAN 25 MG TAB PO SCH (15:44)
--- NOTE | 2021-10-07 15:45 | P.PN ---
Subjective Progress Note Date: 10/07/21 Principal diagnosis: Urinary tract infection Patient is a 56-year-old male with a past medical history of cerebral palsy, neurocognitive delay in a [facility] resident with a history of recurrent UTI has been admitted to the hospital with mental status changes and concern for a symptomatic urinary tract infection. On today's evaluation that is 10/07/2021, the patient is afebrile the patient seemed to be pleasantly confused and not a very good historian however no li mitation has been reported is currently has been on room air and no vomiting or diarrhea has been reported Objective - Vital Signs Vital signs: Vital Signs Temp 97.8 F 10/07/21 07:05 Pulse 82 10/07/21 07:05 Resp 15 10/07/21 07:05 BP 150/97 10/07/21 07:05 Pulse Ox 98 10/07/21 07:05 Intake & Output 10/06/21 10/07/21 10/07/21 18:59 06:59 18:59 Output Total 125 Balance -125 Weight 88.813 kg Output: Urine 125 Other: Voiding Method Toilet Diaper Urinal Incontinent # Voids 1 1 2 - Exam GENERAL DESCRIPTION:[ Patient is awake and alert in no distress] HEENT: [Oral mucosa is dry and no pharyngeal erythema] RESPIRATORY SYSTEM: [Unlabored breathing clear to auscultation] CARDIA VASCULAR SYSTEM: [S1-S2 regular rate and rhythm no murmur] GI: [Abdominal soft there's no tenderness no organomegaly] EXTREMITIES: [No edema feet] - Labs CBC & Chem 7: 10/06/21 13:01 10/06/21 13:01 Labs: Abnormal Lab Results - Last 24 Hours (Table) 10/06/21 10/06/21 10/06/21 Range/Units 13:01 13:01 13:01 RBC 4.26 L (4.30-5.90) m/uL Sodium 136 L (137-145) mmol/L BUN 26 H (9-20) mg/dL Creatinine 1.37 H (0.66-1.25) mg/dL Urine Protein 1+ H (Negative) Urine Blood Small H (Negative) Ur Leukocyte Esterase Large H (Negative) Urine RBC 35 H (0-5) /hpf Urine WBC >182 H (0-5) /hpf Urine WBC Clumps Many H (None) /hpf Urine Bacteria Occasional H (None) /hpf Urine Yeast (Budding) Many H (None) /hpf Microbiology - Last 24 Hours (Table) 10/06/21 13:01 Urine Culture - Preliminary Urine,Clean Catch Assessment and Plan (1) Urinary tract infection Current Visit: Yes Status: Acute Code(s): N39.0 - URINARY TRACT INFECTION, SITE NOT SPECIFIED SNOMED Code(s): 67364665 Plan: Patient with symptomatic urinary tract infection in this patient with a history of recurrent urinary tract infection, ultrasound did not show any structural abnormality, patient previous culture were positive for ESBL E. coli patient is currently covered with numerous to continue on waiting for the final culture to determine his discharge antibiotics Time with Patient: Less than 30
--- NOTE | 2021-10-07 16:36 | P.PN ---
Subjective This is a pleasant 56-year-old patient who has known cerebral palsy with neurocognitive delay. He was sent in from his facility due to positive urine culture growing E. coli and Proteus. Cultures were not sensitizing oral antibiotic hence was sent in for IV antibiotic and IV consultation. Patient is not a detailed historian. There was no reported nausea vomiting no fever no chills or any urinary symptoms. Patient is able to answer simple questions. Appetite is fair. Possibly uses a walker. He said he has been in the past. Patient has known urinary bladder obstruction in the past with TURP done by Dr. Johnson 10/07/2021 Patient was sent from his facility for urinary tract infection. He has history of ESBL E. coli and currently is covered with Invanz Clinically he is doing well, is awake and oriented, smiling and pleasant while s itting in chair, eating his diet very well, denies any specific symptoms, no dysuria or urgency. No suprapubic tenderness or fever. No sepsis. He is on normal saline was 30 mL per hour which can be discontinued today. He continued on Invanz as per ID team, urine culture is pending Objective - Vital Signs Vital signs: Vital Signs Temp 97.8 F 10/07/21 07:05 Pulse 82 10/07/21 07:05 Resp 15 10/07/21 07:05 BP 150/97 10/07/21 07:05 Pulse Ox 98 10/07/21 07:05 Intake & Output 10/06/21 10/07/21 10/07/21 18:59 06:59 18:59 Weight 88.813 kg Other: Voiding Method Toilet Diaper Urinal Incontinent # Voids 1 1 2 - Exam GENERAL: The patient is alert and oriented x3, not in any acute distress. Well developed, well nourished. HEENT: Pupils are round and equally reacting to light. EOMI. No scleral icterus. No conjunctival pallor. Normocephalic, atraumatic. No pharyngeal erythema. No thyromegaly. CARDIOVASCULAR: S1 and S2 present. No murmurs, rubs, or gallops. PULMONARY: Chest is clear to auscultation, no wheezing or crackles. ABDOMEN: Soft, nontender, nondistended, normoactive bowel sounds. No palpable organomegaly. MUSCULOSKELETAL: No joint swelling or deformity. EXTREMITIES: No cyanosis, clubbing, or pedal edema. NEUROLOGICAL: Gross neurological examination did not reveal any focal deficits. SKIN: No rashes. no petechiae. - Labs CBC & Chem 7: 10/06/21 13:10/06/21 13:01 Labs: Abnormal Lab Results - Last 24 Hours (Table) 10/06/21 10/06/21 10/06/21 Range/Units 13: 13: 13:01 RBC 4.26 L (4.30-5.90) m/uL Sodium 136 L (137-145) mmol/L BUN 26 H (9-20) mg/dL Creatinine 1.37 H (0.66-1.25) mg/dL Urine Protein 1+ H (Negative) Urine Blood Small H (Negative) Ur Leukocyte Esterase Large H (Negative) Urine RBC 35 H (0-5) /hpf Urine WBC >182 H (0-5) /hpf Urine WBC Clumps Many H (None) /hpf Urine Bacteria Occasional H (None) /hpf Urine Yeast (Budding) Many H (None) /hpf Microbiology - Last 24 Hours (Table) 10/06/21 13:01 Urine Culture - Preliminary Urine,Clean Catch Assessment and Plan Assessment: -Acute on chronic recurrent UTI with cultures growing Proteus and E. coli. I do not have access to the results. We'll obtain the same. Consult ID. -Cerebral palsy with neurocognitive delay -Essential hypertension Cozaar 25 mg daily Toprol-XL 50 mg daily -Chronic gait dysfunction uses a walker Fall precautions -Urinary bladder outflow obstruction Flomax 0.4 mg daily -Hypothyroid Synthroid 50 g -Depression Prozac 40 mg a day BuSpar 10 mg 3 times a day
[2021-10-07] MEDS: ERTAPENEM 1 GM in SODIUM CHLORIDE 0.9% 50 ML IVPB SCH (18:53)
[2021-10-07] MEDS: CHOLECALCIFEROL 25 MCG (1000 IU) TABLET PO SCH (21:15)
[2021-10-07] MEDS: ENOXAPARIN 40 MG/0.4 ML SYRINGE SQ SCH (21:15)
[2021-10-08] MEDS: MULTIVITAMINS, THERA 1 EACH TAB PO SCH (08:05)
[2021-10-08] MEDS: FLUoxetine HCL 20 MG CAP PO SCH (08:05)
[2021-10-08] MEDS: METOPROLOL SUCCINATE (ER) 50 MG TAB.ER.24H PO SCH (08:05)
[2021-10-08] MEDS: busPIRone HCl 10 MG TAB PO SCH ×3 (08:06→20:35)
[2021-10-08] MEDS: SODIUM CHLORIDE 0.9% 1,000 ML IV SCH (08:06)
[2021-10-08] MEDS: risperiDONE 1 MG TAB PO SCH (08:06)
[2021-10-08 13:01] LABS: African American GFR (CKD) 73.6 (60.0-200.0); BUN/Creat Ratio 14.16 Ratio (12.00-20.00); Blood Urea Nitrogen 17.7 mg/dL (9.0-27.0); C Reactive Protein 5.6 mg/dL (0.00-0.80); Calcium 9.3 mg/dL (8.7-10.3); Carbon Dioxide 23.8 mmol/L (20.0-27.5); Non-African American GFR(CKD) 63.5 (60.0-200.0); Potassium 4.4 mmol/L (3.5-5.5)
[2021-10-08] MEDS: LOSARTAN 25 MG TAB PO SCH (15:38)
[2021-10-08] MEDS: TAMSULOSIN 0.4 MG CAP.ER.24H PO SCH (15:38)
--- NOTE | 2021-10-08 20:05 | P.PN ---
Subjective This is a pleasant 56-year-old patient who has known cerebral palsy with neurocognitive delay. He was sent in from his facility due to positive urine culture growing E. coli and Proteus. Cultures were not sensitizing oral antibiotic hence was sent in for IV antibiotic and IV consultation. Patient is not a detailed historian. There was no reported nausea vomiting no fever no chills or any urinary symptoms. Patient is able to answer simple questions. Appetite is fair. Possibly uses a walker. He said he has been in the past. Patient has known urinary bladder obstruction in the past with TURP done by Dr. Johnson 10/07/2021 Patient was sent from his facility for urinary tract infection. He has history of ESBL E. coli and currently is covered with Invanz Clinically he is doing well, is awake and oriented, smiling and pleasant while s itting in chair, eating his diet very well, denies any specific symptoms, no dysuria or urgency. No suprapubic tenderness or fever. No sepsis. He is on normal saline was 30 mL per hour which can be discontinued today. He continued on Invanz as per ID team, urine culture is pending 10/08/2021 Urine culture came back with ESBL E. coli as expected. Patient remains on Invanz. Patient may need PICC line on discharge for IV antibiotics. If that is the case patient have to wait till Sunday to place a PICC line. We will await ID team final recommendation Objective - Vital Signs Vital signs: Vital Signs Temp 97.8 F 10/08/21 07:00 Pulse 83 10/08/21 07:00 Resp 18 10/08/21 07:00 BP 156/85 10/08/21 07:00 Pulse Ox 98 10/08/21 07:00 Intake & Output 10/07/21 10/08/21 10/08/21 18:59 06:59 18:59 Intake Total 118 1400 Output Total 125 Balance -7 1400 Intake: Intake, IV Titration 900 Amount Sodium Chloride 0.9% 1, 900 000 ml @ 75 mls/hr IV . [id number] [facility] Rx#:[id number] Oral 118 500 Output: Urine 125 Other: Voiding Method Diaper Diaper Diaper Incontinent Incontinent # Voids 2 1 2 - Exam GENERAL: The patient is alert and oriented x3, not in any acute distress. Well developed, well nourished. HEENT: Pupils are round and equally reacting to light. EOMI. No scleral icterus. No conjunctival pallor. Normocephalic, atraumatic. No pharyngeal erythema. No thyromegaly. CARDIOVASCULAR: S1 and S2 present. No murmurs, rubs, or gallops. PULMONARY: Chest is clear to auscultation, no wheezing or crackles. ABDOMEN: Soft, nontender, nondistended, normoactive bowel sounds. No palpable organomegaly. MUSCULOSKELETAL: No joint swelling or deformity. EXTREMITIES: No cyanosis, clubbing, or pedal edema. NEUROLOGICAL: Gross neurological examination did not reveal any focal deficits. SKIN: No rashes. no petechiae. - Labs CBC & Chem 7: 10/06/21 13:01 10/08/21 07:58 Labs: Abnormal Lab Results - Last 24 Hours (Table) 10/08/21 Range/Units 07:58 C-Reactive Protein 5.60 H (0.00-0.80) mg/dL Microbiology - Last 24 Hours (Table) 10/06/21 13:01 Urine Culture - Preliminary Urine,Clean Catch Gram Neg Bacilli 10/06/21 12:50 Blood Culture - Preliminary Blood No Growth after 24 hours Assessment and Plan Assessment: -Acute on chronic recurrent UTI with cultures growing ESBL E. coli. Continue with Emir. Consult ID. -Cerebral palsy with neurocognitive delay -Essential hypertension Cozaar 25 mg daily Toprol-XL 50 mg daily -Chronic gait dysfunction uses a walker Fall precautions -Urinary bladder outflow obstruction Flomax 0.4 mg daily -Hypothyroid Synthroid 50 g -Depression Prozac 40 mg a day BuSpar 10 mg 3 times a day
[2021-10-08] MEDS: ERTAPENEM 1 GM in SODIUM CHLORIDE 0.9% 50 ML IVPB SCH (20:34)
[2021-10-08] MEDS: CHOLECALCIFEROL 25 MCG (1000 IU) TABLET PO SCH (20:35)
[2021-10-08] MEDS: ENOXAPARIN 40 MG/0.4 ML SYRINGE SQ SCH (20:35)
[2021-10-09] MEDS: busPIRone HCl 10 MG TAB PO SCH ×3 (07:48→21:19)
[2021-10-09] MEDS: METOPROLOL SUCCINATE (ER) 50 MG TAB.ER.24H PO SCH (07:48)
[2021-10-09] MEDS: FLUoxetine HCL 20 MG CAP PO SCH (07:48)
[2021-10-09] MEDS: MULTIVITAMINS, THERA 1 EACH TAB PO SCH (07:49)
[2021-10-09] MEDS: LEVOTHYROXINE 50 MCG TAB PO SCH (07:49)
[2021-10-09] MEDS: risperiDONE 1 MG TAB PO SCH (07:49)
[2021-10-09] MEDS: LOSARTAN 25 MG TAB PO SCH (16:53)
[2021-10-09] MEDS: TAMSULOSIN 0.4 MG CAP.ER.24H PO SCH (16:53)
--- NOTE | 2021-10-09 17:24 | P.PN ---
Subjective Progress Note Date: 10/08/21 Principal diagnosis: Urinary tract infection Patient is a 56-year-old male with a past medical history of cerebral palsy, neurocognitive delay in a nursing home resident with a history of recurrent UTI has been admitted to the hospital with mental status changes and concern for a symptomatic urinary tract infection. On today's evaluation that is 10/08/2021, the patient remains to be afebrile the patient is breathing comfortably home, denies any chest pain shortness of breath or cough no abdominal pain and no diarrhea Objective - Vital Signs Vital signs: Vital Signs Temp 97.8 F 10/08/21 07:00 Pulse 83 10/08/21 07:00 Resp 18 10/08/21 07:00 BP 156/85 10/08/21 07:00 Pulse Ox 98 10/08/21 07:00 Intake & Output 10/07/21 10/08/21 10/08/21 18:59 06:59 18:59 Intake Total 118 1400 Output Total 125 Balance -7 1400 Intake: Intake, IV Titration 900 Amount Sodium Chloride 0.9% 1, 900 000 ml @ 75 mls/hr IV . [id number] [facility] Rx#:[id number] Oral 118 500 Output: Urine 125 Other: Voiding Method Diaper Diaper Diaper Incontinent Incontinent # Voids 2 1 2 - Exam GENERAL DESCRIPTION:[ Patient is awake and alert in no distress] HEENT: [Oral mucosa is dry and no pharyngeal erythema] RESPIRATORY SYSTEM: [Unlabored breathing clear to auscultation] CARDIA VASCULAR SYSTEM: [S1-S2 regular rate and rhythm no murmur] GI: [Abdominal soft there's no tenderness no organomegaly] EXTREMITIES: [No edema feet] - Labs CBC & Chem 7: 10/06/21 13:01 10/08/21 07:58 Labs: Abnormal Lab Results - Last 24 Hours (Table) 10/08/21 Range/Units 07:58 C-Reactive Protein 5.60 H (0.00-0.80) mg/dL Microbiology - Last 24 Hours (Table) 10/06/21 13:01 Urine Culture - Preliminary Urine,Clean Catch Gram Neg Bacilli 10/06/21 12:50 Blood Culture - Preliminary Blood No Growth after 24 hours Assessment and Plan (1) Urinary tract infection Current Visit: Yes Status: Acute Code(s): N39.0 - URINARY TRACT INFECTION, SITE NOT SPECIFIED SNOMED Code(s): 11485006 Plan: Patient with symptomatic urinary tract infection in this patient with a history of recurrent urinary tract infection, ultrasound did not show any structural abnormality, patient previous culture were positive for ESBL E. coli patient is currently covered with numerous to continue while waiting for the final culture to determine his discharge antibiotics and continue supportive care Time with Patient: Less than 30
--- NOTE | 2021-10-09 17:25 | P.PN ---
Subjective Progress Note Date: 10/09/21 Principal diagnosis: Urinary tract infection Patient is a 56-year-old male with a past medical history of cerebral palsy, neurocognitive delay in a custodial resident with a history of recurrent UTI has been admitted to the hospital with mental status changes and concern for a symptomatic urinary tract infection. On today's evaluation that is 10/09/2021, the patient continues to be afebrile the patient is breathing comfortably home, denies any chest pain shortness of breath or cough no abdominal pain and no diarrhea has been reported by nursing staff Objective - Vital Signs Vital signs: Vital Signs Temp 97.7 F 10/09/21 14:25 Pulse 84 10/09/21 14:25 Resp 18 10/09/21 14:25 BP 139/85 10/09/21 14:25 Pulse Ox 98 10/09/21 14:25 Intake & Output 10/08/21 10/09/21 10/09/21 18:59 06:59 18:59 Other: Voiding Method Toilet Toilet Diaper Diaper # Voids 2 4 2 # Bowel Movements 1 1 - Exam GENERAL DESCRIPTION:[ Patient is awake and alert in no distress] HEENT: [Oral mucosa is dry and no pharyngeal erythema] RESPIRATORY SYSTEM: [Unlabored breathing clear to auscultation] CARDIA VASCULAR SYSTEM: [S1-S2 regular rate and rhythm no murmur] GI: [Abdominal soft there's no tenderness no organomegaly] EXTREMITIES: [No edema feet] - Labs CBC & Chem 7: 10/06/21 13:01 10/08/21 07:58 Labs: Microbiology - Last 24 Hours (Table) 10/06/21 12:50 Blood Culture - Preliminary Blood No Growth after 72 hours 10/06/21 13:01 Urine Culture - Final Urine,Clean Catch Escherichia coli Assessment and Plan (1) Urinary tract infection Current Visit: Yes Status: Acute Code(s): N39.0 - URINARY TRACT INFECTION, SITE NOT SPECIFIED SNOMED Code(s): 25409251 Plan: Patient with symptomatic urinary tract infection in this patient with a history of recurrent urinary tract infection, ultrasound did not show any structural abnormality, patient previous culture were positive for ESBL E. coli patient cultures have been finalized with ESBL E. coli urinary , order midline and plan for a week of IV Invanz 1 g daily on discharge Time with Patient: Less than 30
--- NOTE | 2021-10-09 20:39 | P.PN ---
Subjective This is a pleasant 56-year-old patient who has known cerebral palsy with neurocognitive delay. He was sent in from his facility due to positive urine culture growing E. coli and Proteus. Cultures were not sensitizing oral antibiotic hence was sent in for IV antibiotic and IV consultation. Patient is not a detailed historian. There was no reported nausea vomiting no fever no chills or any urinary symptoms. Patient is able to answer simple questions. Appetite is fair. Possibly uses a walker. He said he has been in the past. Patient has known urinary bladder obstruction in the past with TURP done by Dr. Johnson 10/07/2021 Patient was sent from his facility for urinary tract infection. He has history of ESBL E. coli and currently is covered with Invanz Clinically he is doing well, is awake and oriented, smiling and pleasant while s itting in chair, eating his diet very well, denies any specific symptoms, no dysuria or urgency. No suprapubic tenderness or fever. No sepsis. He is on normal saline was 30 mL per hour which can be discontinued today. He continued on Invanz as per ID team, urine culture is pending 10/08/2021 Urine culture came back with ESBL E. coli as expected. Patient remains on Invanz. Patient may need PICC line on discharge for IV antibiotics. If that is the case patient have to wait till Sunday to place a PICC line. We will await ID team final recommendation 10/09/2021 Patient remains clinically stable. He is fully awake and oriented, he is asymptomatic. He does not have much insight into his illness, I tried to orient him and discussed with him his problems and management plan. Currently the plan is for him to be discharged on IV Invanz for his ESBL E. coli UTI Objective - Vital Signs Vital signs: Vital Signs Temp 97.4 F L 10/09/21 07:00 Pulse 74 10/09/21 07:00 Resp 17 10/09/21 07:00 BP 154/84 10/09/21 07:00 Pulse Ox 97 10/09/21 07:00 Intake & Output 10/08/21 10/09/21 10/09/21 18:59 06:59 18:59 Other: Voiding Method Toilet Toilet Diaper Diaper # Voids 2 4 # Bowel Movements 1 - Exam GENERAL: The patient is alert and oriented x3, not in any acute distress. Well developed, well nourished. HEENT: Pupils are round and equally reacting to light. EOMI. No scleral icterus. No conjunctival pallor. Normocephalic, atraumatic. No pharyngeal erythema. No thyromegaly. CARDIOVASCULAR: S1 and S2 present. No murmurs, rubs, or gallops. PULMONARY: Chest is clear to auscultation, no wheezing or crackles. ABDOMEN: Soft, nontender, nondistended, normoactive bowel sounds. No palpable organomegaly. MUSCULOSKELETAL: No joint swelling or deformity. EXTREMITIES: No cyanosis, clubbing, or pedal edema. NEUROLOGICAL: Gross neurological examination did not reveal any focal deficits. SKIN: No rashes. no petechiae. - Labs CBC & Chem 7: 10/06/21 13:01 10/08/21 07:58 Labs: Abnormal Lab Results - Last 24 Hours (Table) 10/08/21 Range/Units 07:58 C-Reactive Protein 5.60 H (0.00-0.80) mg/dL Microbiology - Last 24 Hours (Table) 10/06/21 13:01 Urine Culture - Final Urine,Clean Catch Escherichia coli 10/06/21 12:50 Blood Culture - Preliminary Blood No Growth after 48 hours Assessment and Plan Assessment: -Acute on chronic recurrent UTI with cultures growing ESBL E. coli. Continue with Emir. Consult ID. -Cerebral palsy with neurocognitive delay -Essential hypertension Cozaar 25 mg daily Toprol-XL 50 mg daily -Chronic gait dysfunction uses a walker Fall precautions -Urinary bladder outflow obstruction Flomax 0.4 mg daily -Hypothyroid Synthroid 50 g -Depression Prozac 40 mg a day BuSpar 10 mg 3 times a day
[2021-10-09] MEDS: CHOLECALCIFEROL 25 MCG (1000 IU) TABLET PO SCH (21:19)
[2021-10-09] MEDS: ENOXAPARIN 40 MG/0.4 ML SYRINGE SQ SCH (21:19)
[2021-10-09] MEDS: ERTAPENEM 1 GM in SODIUM CHLORIDE 0.9% 50 ML IVPB SCH (21:19)
[2021-10-10] MEDS: LEVOTHYROXINE 50 MCG TAB PO SCH (05:48)
[2021-10-10] MEDS: risperiDONE 1 MG TAB PO SCH (10:22)
[2021-10-10] MEDS: METOPROLOL SUCCINATE (ER) 50 MG TAB.ER.24H PO SCH (10:22)
[2021-10-10] MEDS: FLUoxetine HCL 20 MG CAP PO SCH (10:23)
[2021-10-10] MEDS: busPIRone HCl 10 MG TAB PO SCH (10:23)
[2021-10-10] MEDS: MULTIVITAMINS, THERA 1 EACH TAB PO SCH (10:23)
[2021-10-10] MEDS: ERTAPENEM 1 GM in SODIUM CHLORIDE 0.9% 50 ML IVPB SCH (12:56)
[2021-10-10 14:34] VITALS: BP 147/82; PULSE 94; RESP 18; TEMP 97.7
--- NOTE | 2021-10-10 21:54 | P.DS ---
Providers Date of admission: 10/06/21 14:52 Expected date of discharge: 10/10/21 Attending physician: Bakari Espinoza Consults: 10/06/21 14:51 Consult Physician Routine Consulting Provider: Sujatha Wilson Consult Reason/Comments: Antibiotics selection for urinary tract infection Do you want consulting provider notified?: Yes Primary care physician: Kyler Zaman MD Hospital Course: Chief Complaint: Positive urine culture for E. coli and Proteus. This is a pleasant 56-year-old patient who has known cerebral palsy with neurocognitive delay. He was sent in from his facility due to positive urine culture growing E. coli and Proteus. Cultures were not sensitizing oral antibiotic hence was sent in for IV antibiotic and IV consultation. Patient is not a detailed historian. There was no reported nausea vomiting no fever no chills or any urinary symptoms. Patient is able to answer simple questions. Appetite is fair. Possibly uses a walker. He said he has been in the past. Patient has known urinary bladder obstruction in the past with TURP done by Dr. Johnson Patient received IV Invanz. Midline was placed. October 10: Comfortable. Oral intake good. Patient did receive 7 more days of IV Invanz. Consultation: Dr. Wilson from ID Past medical history to include: Hypertension, cerebral palsy with neurocognitive disorder, sleep apnea, infantile cerebral palsy, incontinent of urine sometimes, OCD, dysthymic disorder Social history: senior living. No alcohol or smoking. Uses a walker. Family history: Mother had lung cancer Physical examination: VITAL SIGNS: 97.7, 94, 18, 1 4782, 97% room air GENERAL: , reclining in bed, awake, comfortable. EYES: Pupils equal. Conjunctiva normal. HEENT: External appearance of nose and ears normal, oral cavity grossly normal small lower jaw. NECK: JVD not raised; masses not palpable. HEART: First and second heart sounds are normal; no edema. LUNGS: Respiratory rate normal; clear to auscultation. ABDOMEN: Soft, nontender, liver spleen not palpable, no masses palpable. PSYCH: [Patient knows his name. Does not know where he is. Does not know why why he is here. MUSCULOSKELETAL:No Clubbing/cyanosis;muscles-grossly intact INVESTIGATIONS, reviewed in the clinical context: BUN 17.7 creatinine 1.3 CRP 5.6 Urine culture: Positive for E. coli/ESBL White count 8.60 globin 13.2 platelets 205 potassium 3.9 BUN 26 creatinine 1.37 UA positive for leukoesterase, WBC, bacteria, yeast Coronavirus [PCR]: Not detected Assessment and plan: -Acute on chronic recurrent UTI with cultures growing E. coli/ESBL 7 more days of IV Invanz -Cerebral palsy with neurocognitive delay -Essential hypertension Cozaar 25 mg daily Toprol-XL 50 mg daily -Chronic gait dysfunction uses a walker Fall precautions -Urinary bladder outflow obstruction Flomax 0.4 mg daily -Hypothyroid Synthroid 50 g -Depression Prozac 40 mg a day BuSpar 10 mg 3 times a day Disposition: senior living Plan - Discharge Summary Discharge Rx Participant: No New Discharge Prescriptions: New Ertapenem [INVanz] 1 gm IVPB Q24H #7 each Continue Cholecalciferol [Vitamin D3 (25 Mcg = 1000 Iu)] 50 mcg PO HS risperiDONE [RisperDAL] 1 mg PO QAM FLUoxetine HCL [PROzac] 40 mg PO QAM Acetaminophen Tab [Tylenol] 1,000 mg PO Q6H PRN PRN Reason: Fever busPIRone HCL 10 mg PO TID Tamsulosin [Flomax] 0.4 mg PO DAILY@1630 Levothyroxine Sodium [Synthroid] 50 mcg PO SUMOTUWETHFR Metoprolol Succinate (ER) [Toprol XL] 50 mg PO QAM Losartan Potassium [Cozaar] 25 mg PO DAILY@1630 Multivitamins, Thera [Multivitamin (formulary)] 1 tab PO DAILY Discharge Medication List Cholecalciferol [Vitamin D3 (25 Mcg = 1000 Iu)] 50 mcg PO HS 01/31/21 [History] FLUoxetine HCL [PROzac] 40 mg PO QAM 01/31/21 [History] Levothyroxine Sodium [Synthroid] 50 mcg PO SUMOTUWETHFR 01/31/21 [History] Losartan Potassium [Cozaar] 25 mg PO DAILY@162901/31/21 [History] Metoprolol Succinate (ER) [Toprol XL] 50 mg PO QAM 01/31/21 [History] Tamsulosin [Flomax] 0.4 mg PO DAILY@162901/31/21 [History] busPIRone HCL 10 mg PO TID 01/31/21 [History] risperiDONE [RisperDAL] 1 mg PO QAM 01/31/21 [History] Multivitamins, Thera [Multivitamin (formulary)] 1 tab PO DAILY 05/13/21 [History] Acetaminophen Tab [Tylenol] 1,000 mg PO Q6H PRN 10/06/21 [History] Ertapenem [INVanz] 1 gm IVPB Q24H #7 each 10/10/21 [Rx] Follow up Appointment(s)/Referral(s): Kyler Zaman MD [Primary Care Provider] - 1-2 days [facility], [REFERRING] - [facility] Cardoso [NON-STAFF] - Patient Instructions/Handouts: Heart Healthy Diet (DC) Activity/Diet/Wound Care/Special Instructions: heart healthy diet as tolerated. activity as tolerated. using walker. Home Care to continue Invanz antibiotic daily for 7 more days. via midline. follow up as directed, call the Primary Doctor with return or worsening of the symptoms that brought you here or any concerns. Discharge Disposition: HOME WITH HOME HEALTH SERVICES
--- NOTE | 2021-10-16 23:27 | P.PN ---
Subjective Progress Note Date: 10/10/21 Principal diagnosis: Urinary tract infection Patient is a 56-year-old male with a past medical history of cerebral palsy, neurocognitive delay in a shelter resident with a history of recurrent UTI has been admitted to the hospital with mental status changes and concern for a symptomatic urinary tract infection. On today's evaluation that is 09/12/2021, the patient remains to be afebrile the patient is breathing comfortably on room air, patient denies any chest pain shortness of breath or cough no abdominal pain and no diarrhea has been reported by nursing staff Objective - Vital Signs Vital signs: Vital Signs Temp 97.8 F 10/10/21 07:00 Pulse 72 10/10/21 10:25 Resp 17 10/10/21 07:00 BP 153/97 10/10/21 07:00 Pulse Ox 97 10/10/21 07:00 Intake & Output 10/09/21 10/10/21 10/10/21 18:59 06:59 18:59 Intake Total 118 Balance 118 Intake: Oral 118 Other: Voiding Method Toilet Diaper # Voids 2 2 # Bowel Movements 1 - Exam GENERAL DESCRIPTION:[ Patient is awake and alert in no distress] HEENT: [Oral mucosa is dry and no pharyngeal erythema] RESPIRATORY SYSTEM: [Unlabored breathing clear to auscultation] CARDIA VASCULAR SYSTEM: [S1-S2 regular rate and rhythm no murmur] GI: [Abdominal soft there's no tenderness no organomegaly] EXTREMITIES: [No edema feet] - Labs CBC & Chem 7: 10/06/21 13:01 10/08/21 07:58 Labs: Microbiology - Last 24 Hours (Table) 10/06/21 12:50 Blood Culture - Preliminary Blood No Growth after 72 hours Assessment and Plan (1) Urinary tract infection Status: Acute Code(s): N39.0 - URINARY TRACT INFECTION, SITE NOT SPECIFIED SNOMED Code(s): 28831578 Plan: Patient with symptomatic urinary tract infection in this patient with a history of recurrent urinary tract infection, ultrasound did not show any structural abnormality, patient previous culture were positive for ESBL E. coli patient cultures have been finalized with ESBL E. coli urinary , patient did got a midline and plan for a week of IV Invanz 1 g daily on discharge to finish his course of therapy Time with Patient: Less than 30
== END 2021-10-10 15:11 | disposition home health service (06) ==
LOC: EC 12:35 → 6NMEDSUR 14:52
PROVIDERS: ADMIT Hospitalist; ATTEND Hospitalist
DX: N39.0 Urinary tract infection, site not specified (principal); B96.20 Unspecified Escherichia coli [E. coli] as the cause of diseases classified elsewhere; B96.4 Proteus (mirabilis) (morganii) as the cause of diseases classified elsewhere; G80.9 Cerebral palsy, unspecified; I10 Essential (primary) hypertension; R26.9 Unspecified abnormalities of gait and mobility; N32.0 Bladder-neck obstruction; E03.9 Hypothyroidism, unspecified; R32 Unspecified urinary incontinence; F32.A Depression, unspecified; Z20.822 Contact with and (suspected) exposure to COVID-19; F41.9 Anxiety disorder, unspecified; F42.9 Obsessive-compulsive disorder, unspecified; F34.1 Dysthymic disorder; G47.30 Sleep apnea, unspecified; E66.9 Obesity, unspecified; Z68.34 Body mass index [BMI] 34.0-34.9, adult; Z79.890 Hormone replacement therapy; Z79.899 Other long term (current) drug therapy; Z96.642 Presence of left artificial hip joint; Z98.41 Cataract extraction status, right eye; Z16.12 Extended spectrum beta lactamase (ESBL) resistance; Z87.440 Personal history of urinary (tract) infections; Z96.1 Presence of intraocular lens; Z86.14 Personal history of Methicillin resistant Staphylococcus aureus infection; Z80.1 Family history of malignant neoplasm of trachea, bronchus and lung
CPT/HCPCS: 36410; 99285; 96361 ×2; 96366 ×4; 96367; 96372 ×4; 96365; 36415; 97162; 97166; 76937; 80053; 80048; 85025; 86140; 81001; 87040; 87086; 87077; 87186; 87635; 76770; G0378 ×5; C1751; J2543; J1650 ×4; J1335 ×5

== ENCOUNTER 2021-11-24 16:15 | Inpatient (IN) | payer MEDICARE, OTHER ==
[2021-11-24 17:41] LABS: Basophils # (A) 0.1 k/uL (0-0.2); Basophils % (A) 0 %; Eosinophils # (A) 0.1 k/uL (0-0.7); Eosinophils % (A) 1 %; HCT 41.9 % (39.0-53.0); HGB 13.8 gm/dL (13.0-17.5); Lymphocytes % (A) 9 %; MCH 31.1 pg (25.0-35.0); MCHC 32.9 g/dL (31.0-37.0); MCV 94.4 fL (80.0-100.0); Mean Platelet Volume 8.9; Monocytes # (A) 0.9 k/uL (0-1.0); Monocytes % (A) 4 %; Neutrophils # (A) 19.1 k/uL (1.3-7.7); Neutrophils % (A) 85 %; Platelet Count 212 k/uL (150-450); RBC 4.44 m/uL (4.30-5.90); RDW 13.7 % (11.5-15.5); WBC 22.3 k/uL (3.8-10.6)
[2021-11-24 17:45] LABS: Partial Thromboplastin Time 22.3 sec (22.0-30.0); Prothrombin Time 10.6 sec (9.0-12.0)
[2021-11-24 17:46] LABS: Albumin 3.9 g/dL (3.5-5.0); Calcium 9.4 mg/dL (8.4-10.2); Potassium 4.5 mmol/L (3.5-5.1); Total Bilirubin 0.4 mg/dL (0.2-1.3); Total Protein 7.5 g/dL (6.3-8.2)
[2021-11-24 17:52] LABS: Appearance,Urine Cloudy (Clear); Bacteria,Urine Many /hpf; Bilirubin,Urine Negative (Negative); Blood,Urine Trace (Negative); Color,Urine Yellow; Glucose,Urine (UA) Negative (Negative); Ketones,Urine Negative (Negative); Leukocyte Esterase,Urine Large (Negative); Mucus,Urine Few /hpf; Nitrite,Urine Positive (Negative); PH, Urine 5.5 (5.0-8.0); Protein,Urine Trace (Negative); RBC,Urine 10 /hpf (0-5); Specific Gravity,Urine 1.021 (1.001-1.035); Squamous Epithelial Cell,Urine 1 /hpf (0-4); Urobilinogen,Urine <2.0 mg/dL (<2.0); WBC,Urine >182 /hpf (0-5)
[2021-11-24] MEDS ORDERED: SODIUM CHLORIDE 0.9% 1,000 ML IV STA (18:13)
--- NOTE | 2021-11-24 18:47 | ED ---
General Adult HPI - General Chief complaint: Recheck/Abnormal Lab/Rx Stated complaint: Iv antibodics Time Seen by Provider: 11/24/21 16:46 Source: EMS Mode of arrival: wheelchair Limitations: altered mental status - History of Present Illness Initial comments: This 56-year-old male with past medical history of developmental delay presents emergency Department from his [place] [facility] for urinary tract infection. Facility states that he has an extensive history of urinary tract infections in his past and states that his urine culture came back today with ESBL positivity and sent him to the emergency department for IV antibiotics. They deny patient acting any different than usual and denies any changes in the patient. Patient denies any symptoms and is pleasant lying in bed. He denies any urinary changes, abdominal pain, chest pain, shortness of breath, change in appetite, change in bowel or bladder for headaches. Patient states "I feel great." - Related Data Home Medications Medication Instructions Recorded Confirmed Cholecalciferol [Vitamin D3 (25 50 mcg PO HS 01/31/21 10/06/21 Mcg = 1000 Iu)] FLUoxetine HCL [PROzac] 40 mg PO QAM 01/31/21 10/06/21 Levothyroxine Sodium [Synthroid] 50 mcg PO SUMOTUWETHFR 01/31/21 10/06/21 Losartan Potassium [Cozaar] 25 mg PO DAILY@1630 01/31/21 10/06/21 Metoprolol Succinate (ER) [Toprol 50 mg PO QAM 01/31/21 10/06/21 XL] Tamsulosin [Flomax] 0.4 mg PO DAILY@1630 01/31/21 10/06/21 busPIRone HCL 10 mg PO TID 01/31/21 10/06/21 risperiDONE [RisperDAL] 1 mg PO QAM 01/31/21 10/06/21 Multivitamins, Thera [Multivitamin 1 tab PO DAILY 05/13/21 10/06/21 (formulary)] Acetaminophen Tab [Tylenol] 1,000 mg PO Q6H PRN 10/06/21 10/06/21 Ammonium Lactate Lotion 1 applic TOPICAL BID PRN 11/24/21 11/24/21 [Lac-Hydrin 12% Lotion] Ibuprofen [Motrin] 800 mg PO Q6H PRN 11/24/21 11/24/21 Loperamide HCl [Loperamide] 2 - 4 mg PO QID PRN 11/24/21 11/24/21 Magnesium Hydroxide [Milk of 2,400 mg PO DAILY PRN 11/24/21 11/24/21 Magnesia] bisacodyL [Dulcolax] 10 mg RECTAL DAILY PRN 11/24/21 11/24/21 diphenhydrAMINE [Benadryl] 25 mg PO Q6H PRN 11/24/21 11/24/21 guaiFENesin SYRUP 100MG/5ML 200 mg PO Q6H PRN 11/24/21 11/24/21 [Robitussin] methylPREDNISolone [Medrol Dose See Taper PO DIRECTED 11/24/21 11/24/21 Pack] Allergies Allergy/AdvReac Type Severity Reaction Status Date / Time amoxicillin [From Augmentin] Allergy Rash/Hives Verified 11/24/21 19:04 clavulanic acid Allergy Rash/Hives Verified 11/24/21 19:04 [From Augmentin] Review of Systems ROS Statement: Those systems with pertinent positive or pertinent negative responses have been documented in the HPI. ROS Other: All systems not noted in ROS Statement are negative. Past Medical History Past Medical History: COPD, Hypertension, Neurologic Disorder, Sleep Apnea/CPAP/BIPAP Additional Past Medical History / Comment(s): has de jesus catheter,developmentally delayed, infantile cerebral palsy-uses walker, incontinent occas,able to follow simple directions,speech is understandible,OCD, dysthmic disorder History of Any Multi-Drug Resistant Organisms: ESBL Date of last positivie culture/infection: 10/06/21 ESBL E.coli MDRO Source:: URINE Past Surgical History: Joint Replacement Additional Past Surgical History / Comment(s): Right eye cataract surgery, left hip replacement Past Anesthesia/Blood Transfusion Reactions: No Reported Reaction Past Psychological History: Anxiety, Depression Smoking Status: Never smoker - Past Family History Mother Family Medical History: Cancer Additional Family Medical History / Comment(s): mother from lung cancer Father Family Medical History: No Reported History Brother(s) Family Medical History: Cancer Additional Family Medical History / Comment(s): from lung cancer General Exam Limitations: altered mental status General appearance: alert, in no apparent distress Head exam: Present: atraumatic, normocephalic, normal inspection Eye exam: Present: normal appearance, PERRL, EOMI. Absent: scleral icterus, conjunctival injection, periorbital swelling ENT exam: Present: normal exam, mucous membranes moist Neck exam: Present: normal inspection, full ROM. Absent: tenderness, me ningismus, lymphadenopathy Respiratory exam: Present: normal lung sounds bilaterally. Absent: respiratory distress, wheezes, rales, rhonchi, stridor Cardiovascular Exam: Present: regular rate, normal rhythm, normal heart sounds. Absent: systolic murmur, diastolic murmur, rubs, gallop, clicks GI/Abdominal exam: Present: soft, normal bowel sounds. Absent: distended, tenderness, guarding, rebound, rigid Extremities exam: Present: full ROM Back exam: Present: full ROM. Absent: CVA tenderness (R), CVA tenderness (L), paraspinal tenderness, vertebral tenderness Neurological exam: Present: alert, oriented X3 (Patient is able to say his name, his birthday and/or he is located at this time. Patient laughing with smile on his face.), CN II-XII intact Psychiatric exam: Present: normal affect, normal mood Skin exam: Present: warm, dry, intact, normal color. Absent: rash Course Vital Signs 11/24/21 16:16 Pulse Rate 84 Respiratory 16 Rate Blood Pressure 129/78 O2 Sat by Pulse 99 Oximetry Medical Decision Making - Medical Decision Making This 66-year-old male presents emergency Department presenting from his [place] [facility] for urinary tract infection. Labs reveal white blood cells 22.3, BUN 27, creatinine 1.40, last lactic acid 2.1, alkaline phosphatase 136. Urine with greater than 182 white blood cells, large leukocyte esterase, nitrite positive, many bacteria. Patient did bring culture report with sensitivity and resistance findings. Patient ESBL positive. Enterococcus faecialis, E. coli, Proteus mirabilis which were all sensitive to meropenem and Zosyn. Patient is ALLERGIC to amoxicillin therefore will not see Zosyn. I did speak to pharmacy who calculated meropenem dose to 500 every 8 hours and stated this medication would be the best due to his ALLERGIES. I did discuss case with my attending, . Patient will admitted to the hospital and assessed by infectious disease. I did speak with Dr. Espinoza who agreed to admit patient to his [facility] with infectious disease consulted. I did consult ID. Case was discussed in detail my attending, . Patient verbally agreed to be admitted to the hospital for further evaluation, workup and treatment. - Lab Data Result diagrams: 11/24/21 17:25 11/24/21 17:25 Lab Results 11/24/21 11/24/21 11/24/21 Range/Units 17:25 17:25 17:25 WBC 22.3 H (3.8-10.6) k/uL RBC 4.44 (4.30-5.90) m/uL Hgb 13.8 (13.0-17.5) gm/dL Hct 41.9 (39.0-53.0) % MCV 94.4 (80.0-100.0) fL MCH 31.1 (25.0-35.0) pg MCHC 32.9 (31.0-37.0) g/dL RDW 13.7 (11.5-15.5) % Plt Count 212 (150-450) k/uL MPV 8.9 Neutrophils % 85 % Lymphocytes % 9 % Monocytes % 4 % Eosinophils % 1 % Basophils % 0 % Neutrophils # 19.1 H (1.3-7.7) k/uL Lymphocytes # 2.0 (1.0-4.8) k/uL Monocytes # 0.9 (0-1.0) k/uL Eosinophils # 0.1 (0-0.7) k/uL Basophils # 0.1 (0-0.2) k/uL PT 10.6 (9.0-12.0) sec INR 1.0 (<1.2) APTT 22.3 (22.0-30.0) sec Sodium (137-145) mmol/L Potassium (3.5-5.1) mmol/L Chloride (98-107) mmol/L Carbon Dioxide (22-30) mmol/L Anion Gap mmol/L BUN (9-20) mg/dL Creatinine (0.66-1.25) mg/dL Est GFR (CKD-EPI)AfAm (>60 ml/min/1.73 sqM) Est GFR (CKD-EPI)NonAf (>60 ml/min/1.73 sqM) Glucose (74-99) mg/dL Plasma Lactic Acid Chris (0.7-2.0) mmol/L Calcium (8.4-10.2) mg/dL Total Bilirubin (0.2-1.3) mg/dL AST (17-59) U/L ALT (4-49) U/L Alkaline Phosphatase (38-126) U/L Total Protein (6.3-8.2) g/dL Albumin (3.5-5.0) g/dL Urine Color Yellow Urine Appearance Cloudy (Clear) Urine pH 5.5 (5.0-8.0) Ur Specific [place] 1.021 (1.001-1.035) Urine Protein Trace H (Negative) Urine Glucose (UA) Negative (Negative) Urine Ketones Negative (Negative) Urine Blood Trace H (Negative) Urine Nitrite Positive (Negative) Urine Bilirubin Negative (Negative) Urine Urobilinogen <2.0 (<2.0) mg/dL Ur Leukocyte Esterase Large H (Negative) Urine RBC 10 H (0-5) /hpf Urine WBC >182 H (0-5) /hpf Urine WBC Clumps Moderate H (None) /hpf Ur Squamous Epith Cells 1 (0-4) /hpf Urine Bacteria Many H (None) /hpf Urine Mucus Few H (None) /hpf 11/24/21 11/24/21 Range/Units 17:25 17:25 WBC (3.8-10.6) k/uL RBC (4.30-5.90) m/uL Hgb (13.0-17.5) gm/dL Hct (39.0-53.0) % MCV (80.0-100.0) fL MCH (25.0-35.0) pg MCHC (31.0-37.0) g/dL RDW (11.5-15.5) % Plt Count (150-450) k/uL MPV Neutrophils % % Lymphocytes % % Monocytes % % Eosinophils % % Basophils % % Neutrophils # (1.3-7.7) k/uL Lymphocytes # (1.0-4.8) k/uL Monocytes # (0-1.0) k/uL Eosinophils # (0-0.7) k/uL Basophils # (0-0.2) k/uL PT (9.0-12.0) sec INR (<1.2) APTT (22.0-30.0) sec Sodium 138 (137-145) mmol/L Potassium 4.5 (3.5-5.1) mmol/L Chloride 104 (98-107) mmol/L Carbon Dioxide 24 (22-30) mmol/L Anion Gap 10 mmol/L BUN 27 H (9-20) mg/dL Creatinine 1.40 H (0.66-1.25) mg/dL Est GFR (CKD-EPI)AfAm 64 (>60 ml/min/1.73 sqM) Est GFR (CKD-EPI)NonAf 56 (>60 ml/min/1.73 sqM) Glucose 109 H (74-99) mg/dL Plasma Lactic Acid Chris 2.1 H* (0.7-2.0) mmol/L Calcium 9.4 (8.4-10.2) mg/dL Total Bilirubin 0.4 (0.2-1.3) mg/dL AST 19 (17-59) U/L ALT 14 (4-49) U/L Alkaline Phosphatase 136 H (38-126) U/L Total Protein 7.5 (6.3-8.2) g/dL Albumin 3.9 (3.5-5.0) g/dL Urine Color Urine Appearance (Clear) Urine pH (5.0-8.0) Ur Specific [place] (1.001-1.035) Urine Protein (Negative) Urine Glucose (UA) (Negative) Urine Ketones (Negative) Urine Blood (Negative) Urine Nitrite (Negative) Urine Bilirubin (Negative) Urine Urobilinogen (<2.0) mg/dL Ur Leukocyte Esterase (Negative) Urine RBC (0-5) /hpf Urine WBC (0-5) /hpf Urine WBC Clumps (None) /hpf Ur Squamous Epith Cells (0-4) /hpf Urine Bacteria (None) /hpf Urine Mucus (None) /hpf Disposition Clinical Impression: ESBL (extended spectrum beta-lactamase) producing bacteria infection, Urinary tract infection Disposition: ADMITTED IP TO THIS HOSP Condition: Serious Referrals: Kyler Zaman MD [Primary Care Provider] - 1-2 days Time of Disposition: 19:48
[2021-11-24] MEDS ORDERED: NALOXONE 0.4 MG/ML 1 ML VIAL IV PRN (19:48)
[2021-11-24] MEDS: SODIUM CHLORIDE 0.9% 1,000 ML IV SCH (20:44)
[2021-11-24] MEDS: MEROPENEM 500 MG in SODIUM CHLORIDE 0.9% 100 ML IVPB SCH (20:44)
[2021-11-25] MEDS: MEROPENEM 500 MG in SODIUM CHLORIDE 0.9% 100 ML IVPB SCH ×3 (00:31→14:10)
[2021-11-25] MEDS: SODIUM CHLORIDE 0.9% 1,000 ML IV SCH ×3 (04:19→19:55)
[2021-11-25] MEDS ORDERED: ACETAMINOPHEN TAB 500 MG TAB PO PRN (10:25)
[2021-11-25] MEDS ORDERED: MAGNESIUM HYDROXIDE 2,400 MG/10 ML CUP PO PRN (10:25)
[2021-11-25] MEDS ORDERED: bisacodyL 10 MG SUPP RECTAL PRN (10:25)
[2021-11-25] MEDS ORDERED: AMMONIUM LACTATE 12% LOTION 225 GM BTL TOPICAL PRN (10:25)
[2021-11-25] MEDS ORDERED: diphenhydrAMINE 25 MG CAP PO PRN (10:25)
[2021-11-25] MEDS: LEVOTHYROXINE 50 MCG TAB PO SCH (12:06)
[2021-11-25] MEDS: risperiDONE 1 MG TAB PO SCH (12:06)
[2021-11-25] MEDS: METOPROLOL SUCCINATE (ER) 50 MG TAB.ER.24H PO SCH (12:06)
[2021-11-25] MEDS: FLUoxetine HCL 20 MG CAP PO SCH (12:06)
[2021-11-25] MEDS: busPIRone HCl 10 MG TAB PO SCH ×3 (12:07→19:54)
[2021-11-25] MEDS: ENOXAPARIN 40 MG/0.4 ML SYRINGE SQ SCH (12:09)
[2021-11-25] MEDS: ERTAPENEM 1 GM in SODIUM CHLORIDE 0.9% 50 ML IVPB SCH (16:41)
--- NOTE | 2021-11-25 17:35 | P.HPIM ---
History of Present Illness H&P Date: 11/25/21 Chief Complaint: Positive urine culture History of presenting complaint This is a pleasant 56-year-old patient who has known cerebral palsy with neurocognitive delay. Chronic stable medical conditions include hypertension, chronic gait dysfunction uses a walker, hypothyroid, depression. Patient's had multiple UTIs in the past. Patient urine culture came back positive for ESBL and patient sent of the ER for the same. Patient denies any fever or chills. Able tonsil simple questions. Appetite is good. Was started on meropenem in the ER. Denies any abdominal pain. Review of systems: GEN.: None EYES: None HEENT: None NECK: None RESPIRATORY: None CARDIOVASCULAR: None GASTROINTESTINAL: None GENITOURINARY: None MUSCULOSKELETAL: None LYMPHATICS: None HEMATOLOGICAL: None PSYCHIATRY: Cognitive impairment NEUROLOGICAL: None Past medical history to include: Hypertension, cerebral palsy with neurocognitive disorder, sleep apnea, infantile cerebral palsy, incontinent of urine sometimes, OCD, dysthymic disorder, recurrent UTI Social history: retirement. No alcohol or smoking. Uses a walker. Family history: Mother had lung cancer Physical examination: VITAL SIGNS: Afebrile, M.D. 1, 17, 156/88, 96% room air GENERAL: BMI 34.7, reclining in bed, awake, comfortable. EYES: Pupils equal. Conjunctiva normal. HEENT: External appearance of nose and ears normal, oral cavity grossly normal small lower jaw. NECK: JVD not raised; masses not palpable. HEART: First and second heart sounds are normal; no edema. LUNGS: Respiratory rate normal; clear to auscultation. ABDOMEN: Soft, nontender, liver spleen not palpable, no masses palpable. PSYCH: [Patient knows his name. Does not know where he is. Does not know why why he is here. MUSCULOSKELETAL:No Clubbing/cyanosis;muscles-grossly intact NEUROLOGICAL: Cranial nerves grossly intact; no facial asymmetry, power and sensation grossly intact. LYMPHATICS: No lymph nodes palpable in the axilla and neck INVESTIGATIONS, reviewed in the clinical context: White count 22.3 hemoglobin 13.8 left shift, platelets 212 potassium 4.5 BUN 27 creatinine 1.40 Lactic acid 2.1 UA positive Previous labs: Creatinine 1.3 on September 2021 Assessment and plan: -Acute on chronic recurrent UTI with cultures growing E. coli/ESBL IV ertapenem started -Cerebral palsy with neurocognitive delay -Essential hypertension Cozaar 25 mg daily Toprol-XL 50 mg daily -Chronic gait dysfunction uses a walker Fall precautions -Urinary bladder outflow obstruction Flomax 0.4 mg daily -Hypothyroid Synthroid 50 g -Depression Prozac 40 mg a day BuSpar 10 mg 3 times a day Resume home medications. IV ertapenem. Consult ID. Discussed with patient. Given the complexity and severity of patient's condition expect the patient to be in the hospital at least for 2 overnights Past Medical History Past Medical History: COPD, Hypertension, Neurologic Disorder, Sleep Apnea/CPAP/BIPAP Additional Past Medical History / Comment(s): developmentally delayed, infantile cerebral palsy-uses walker, incontinent occas,able to follow simple directions,speech is understandible,OCD, dysthmic disorder History of Any Multi-Drug Resistant Organisms: ESBL Date of last positivie culture/infection: 10/06/21 ESBL E.coli MDRO Source:: URINE Past Surgical History: Joint Replacement Additional Past Surgical History / Comment(s): Right eye cataract surgery, left hip replacement Past Anesthesia/Blood Transfusion Reactions: No Reported Reaction Past Psychological History: Anxiety, Depression Additional Psychological History / Comment(s): lives in assisted living facility Smoking Status: Never smoker Past Alcohol Use History: None Reported Past Drug Use History: None Reported - Past Family History Mother Family Medical History: Cancer Additional Family Medical History / Comment(s): mother from lung ca ncer Father Family Medical History: No Reported History Brother(s) Family Medical History: Cancer Additional Family Medical History / Comment(s): from lung cancer Medications and Allergies Home Medications Medication Instructions Recorded Confirmed Type Cholecalciferol [Vitamin D3 (25 50 mcg PO HS 01/31/21 11/24/21 History Mcg = 1000 Iu)] FLUoxetine HCL [PROzac] 40 mg PO DAILY 01/31/21 11/24/21 History Levothyroxine Sodium [Synthroid] 50 mcg PO SUMOTUWETHFR 01/31/21 11/24/21 History Losartan Potassium [Cozaar] 25 mg PO PC-SUPPER 01/31/21 11/24/21 History Metoprolol Succinate (ER) [Toprol 50 mg PO DAILY 01/31/21 11/24/21 History XL] Tamsulosin [Flomax] 0.4 mg PO PC-SUPPER 01/31/21 11/24/21 History busPIRone HCL 10 mg PO TID 01/31/21 11/24/21 History risperiDONE [RisperDAL] 1 mg PO DAILY 01/31/21 11/24/21 History Multivitamins, Thera [Multivitamin 1 tab PO DAILY 05/13/21 11/24/21 History (formulary)] Acetaminophen Tab [Tylenol] 1,000 mg PO Q6H PRN 10/06/21 11/24/21 History Ammonium Lactate Lotion 1 applic TOPICAL BID PRN 11/24/21 11/24/21 History [Lac-Hydrin 12% Lotion] Ibuprofen [Motrin] 800 mg PO Q6H PRN 11/24/21 11/24/21 History Loperamide HCl [Loperamide] 2 - 4 mg PO QID PRN 11/24/21 11/24/21 History Magnesium Hydroxide [Milk of 2,400 mg PO DAILY PRN 11/24/21 11/24/21 History Magnesia] bisacodyL [Dulcolax] 10 mg RECTAL DAILY PRN 11/24/21 11/24/21 History diphenhydrAMINE [Benadryl] 25 mg PO Q6H PRN 11/24/21 11/24/21 History guaiFENesin SYRUP 100MG/5ML 200 mg PO Q6H PRN 11/24/21 11/24/21 History [Robitussin] methylPREDNISolone [Medrol Dose See Taper PO DIRECTED 11/24/21 11/24/21 History Pack] Allergies Allergy/AdvReac Type Severity Reaction Status Date / Time amoxicillin [From Augmentin] Allergy Rash/Hives Verified 11/24/21 19:04 clavulanic acid Allergy Rash/Hives Verified 11/24/21 19:04 [From Augmentin] Physical Exam Vitals: Vital Signs Temp Pulse Pulse Resp BP BP Pulse Ox 11/25/21 04:20 97.5 F L 78 18 154/84 96 11/24/21 23:20 98.2 F 89 20 157/95 96 11/24/21 22:30 18 11/24/21 20:42 97.7 F 78 18 161/94 96 11/24/21 16:16 84 16 129/78 99 Intake and Output 11/24/21 11/25/21 11/25/21 22:59 06:59 14:59 Intake Total 1100 Balance 1100 Intake: Intake, IV Titration 1100 Amount Meropenem 500 mg In 100 Sodium Chloride 0.9% 100 ml @ 200 mls/hr IVPB Q8H [facility] Rx#:[id number] Sodium Chloride 0.9% 1, 1000 000 ml @ 130 mls/hr IV . [id number] [facility] Rx#:[id number] Other: Voiding Method Urinal Diaper # Voids 3 Weight 88.813 kg 88.813 kg Results CBC & Chem 7: 11/24/21 17:25 11/24/21 17:25 Labs: Abnormal Lab Results - Last 24 Hours (Table) 11/24/21 11/24/21 11/24/21 Range/Units 17:25 17:25 17:25 WBC 22.3 H (3.8-10.6) k/uL Neutrophils # 19.1 H (1.3-7.7) k/uL BUN 27 H (9-20) mg/dL Creatinine 1.40 H (0.66-1.25) mg/dL Glucose 109 H (74-99) mg/dL Plasma Lactic Acid Chris (0.7-2.0) mmol/L Alkaline Phosphatase 136 H (38-126) U/L Urine Protein Trace H (Negative) Urine Blood Trace H (Negative) Ur Leukocyte Esterase Large H (Negative) Urine RBC 10 H (0-5) /hpf Urine WBC >182 H (0-5) /hpf Urine WBC Clumps Moderate H (None) /hpf Urine Bacteria Many H (None) /hpf Urine Mucus Few H (None) /hpf 11/24/21 Range/Units 17:25 WBC (3.8-10.6) k/uL Neutrophils # (1.3-7.7) k/uL BUN (9-20) mg/dL Creatinine (0.66-1.25) mg/dL Glucose (74-99) mg/dL Plasma Lactic Acid Chris 2.1 H* (0.7-2.0) mmol/L Alkaline Phosphatase (38-126) U/L Urine Protein (Negative) Urine Blood (Negative) Ur Leukocyte Esterase (Negative) Urine RBC (0-5) /hpf Urine WBC (0-5) /hpf Urine WBC Clumps (None) /hpf Urine Bacteria (None) /hpf Urine Mucus (None) /hpf Microbiology - Last 24 Hours (Table) 11/24/21 17:25 Urine Culture - Preliminary Urine,Clean Catch Thrombosis Risk Factor Assmnt - Choose All That Apply Any of the Below Risk Factors Present?: Yes Each Factor Represents 1 point: Age 41-60 years, Obesity (BMI >25) Other Risk Factors: No Other congenital or acquired thrombophilia - If yes, enter type in comment: No Thrombosis Risk Factor Assessment Total Risk Factor Score: 2 Thrombosis Risk Factor Assessment Level: Low Risk
[2021-11-25] MEDS: TAMSULOSIN 0.4 MG CAP.ER.24H PO SCH (17:42)
[2021-11-25] MEDS: LOSARTAN 25 MG TAB PO SCH (17:44)
[2021-11-25] MEDS: CHOLECALCIFEROL 25 MCG (1000 IU) TABLET PO SCH (19:54)
--- NOTE | 2021-11-25 23:43 | P.CONS ---
History of Present Illness - Reason for Consult Consult date: 11/25/21 ESBL E. coli urinary tract infection Requesting physician: Bakari Espinoza - Chief Complaint Abnormal urine culture - History of Present Illness Patient is 56-year-old male with a past medical history significant for cerebral palsy with neurocognitive delay history of depression recurrent UTI and has been treated with multiple courses of antibiotic apparently the patient did have urine culture done in the outpatient setting and came back positive with ESBL with the patient was sent to the ER it is not clear what exactly the reason was for doing a UA as the ER report mention patient did not have any change needs mentation or any fever patient at the time of my evaluation is afebrile but not specifically patient denies having any headache no chest pain shortness of breath or cough no abdominal pain no diarrhea patient did not have any fever during this admission he did have a white count of 22.3.with a left shift BUN and creatinine was mildly elevated as well as elevated lactic acid repeat urine has been positive he was started on meropenem has been admitted to hospital infectious disease was consulted for further management of antibiotic therapy Review of Systems Positive points has been mentioned in HPI complete review could not be obtained because of his underlying mental status Past Medical History Past Medical History: COPD, Hypertension, Neurologic Disorder, Sleep Apnea /CPAP/BIPAP Additional Past Medical History / Comment(s): developmentally delayed, infantile cerebral palsy-uses walker, incontinent occas,able to follow simple directions,speech is understandible,OCD, dysthmic disorder History of Any Multi-Drug Resistant Organisms: ESBL Year Discovered:: 10/06/21 ESBL E.coli MDRO Source:: URINE Past Surgical History: Joint Replacement Additional Past Surgical History / Comment(s): Right eye cataract surgery, left hip replacement Past Anesthesia/Blood Transfusion Reactions: No Reported Reaction Past Psychological History: Anxiety, Depression Additional Psychological History / Comment(s): lives in assisted living facility Smoking Status: Never smoker Past Alcohol Use History: None Reported Past Drug Use History: None Reported - Past Family History Mother Family Medical History: Cancer Additional Family Medical History / Comment(s): mother from lung cancer Father Family Medical History: No Reported History Brother(s) Family Medical History: Cancer Additional Family Medical History / Comment(s): from lung cancer Medications and Allergies Home Medications Medication Instructions Recorded Confirmed Type Cholecalciferol [Vitamin D3 (25 50 mcg PO HS 01/31/21 11/24/21 History Mcg = 1000 Iu)] FLUoxetine HCL [PROzac] 40 mg PO DAILY 01/31/21 11/24/21 History Levothyroxine Sodium [Synthroid] 50 mcg PO SUMOTUWETHFR 01/31/21 11/24/21 History Losartan Potassium [Cozaar] 25 mg PO PC-SUPPER 01/31/21 11/24/21 History Metoprolol Succinate (ER) [Toprol 50 mg PO DAILY 01/31/21 11/24/21 History XL] Tamsulosin [Flomax] 0.4 mg PO PC-SUPPER 01/31/21 11/24/21 History busPIRone HCL 10 mg PO TID 01/31/21 11/24/21 History risperiDONE [RisperDAL] 1 mg PO DAILY 01/31/21 11/24/21 History Multivitamins, Thera [Multivitamin 1 tab PO DAILY 05/13/21 11/24/21 History (formulary)] Acetaminophen Tab [Tylenol] 1,000 mg PO Q6H PRN 10/06/21 11/24/21 History Ammonium Lactate Lotion 1 applic TOPICAL BID PRN 11/24/21 11/24/21 History [Lac-Hydrin 12% Lotion] Ibuprofen [Motrin] 800 mg PO Q6H PRN 11/24/21 11/24/21 History Loperamide HCl [Loperamide] 2 - 4 mg PO QID PRN 11/24/21 11/24/21 History Magnesium Hydroxide [Milk of 2,400 mg PO DAILY PRN 11/24/21 11/24/21 History Magnesia] bisacodyL [Dulcolax] 10 mg RECTAL DAILY PRN 11/24/21 11/24/21 History diphenhydrAMINE [Benadryl] 25 mg PO Q6H PRN 11/24/21 11/24/21 History guaiFENesin SYRUP 100MG/5ML 200 mg PO Q6H PRN 11/24/21 11/24/21 History [Robitussin] methylPREDNISolone [Medrol Dose See Taper PO DIRECTED 11/24/21 11/24/21 History Pack] Allergies Allergy/AdvReac Type Severity Reaction Status Date / Time amoxicillin [From Augmentin] Allergy Rash/Hives Verified 11/24/21 19:04 clavulanic acid Allergy Rash/Hives Verified 11/24/21 19:04 [From Augmentin] Physical Exam Vitals: Vital Signs Temp Pulse Pulse Resp BP BP Pulse Ox 11/25/21 12:36 97.8 F 71 17 156/88 96 11/25/21 04:20 97.5 F L 78 18 154/84 96 11/24/21 23:20 98.2 F 89 20 157/95 96 11/24/21 22:30 18 11/24/21 20:42 97.7 F 78 18 161/94 96 11/24/21 16:16 84 16 129/78 99 Intake and Output 11/24/21 11/25/21 11/25/21 22:59 06:59 14:59 Intake Total 1100 Balance 1100 Intake: Intake, IV Titration 1100 Amount Meropenem 500 mg In 100 Sodium Chloride 0.9% 100 ml @ 200 mls/hr IVPB Q8H [facility] Rx#:[id number] Sodium Chloride 0.9% 1, 1000 000 ml @ 130 mls/hr IV . Q7H42M [facility] Rx#:[id number] Other: Voiding Method Urinal Urinal Diaper Diaper # Voids 3 Weight 88.813 kg 88.813 kg GENERAL DESCRIPTION: Middle-aged male lying in bed, no distress. No tachypnea or accessory muscle of respiration use. HEENT: Shows Pallor , no scleral icterus. Oral mucous membrane is dry. No pharyngeal erythema or thrush NECK: Trachea central, no thyromegaly. LUNGS: Unlabored breathing. Clear to auscultation anteriorly. No wheeze or crackle. HEART: S1, S2, regular rate and rhythm. No loud murmur ABDOMEN: Soft, no tenderness , guarding or rigidity, no organomegaly EXTREMITIES: No edema of feet. SKIN: No rash, no masses palpable. NEUROLOGICAL: The patient is awake, alert, oriented x3, mood and affect normal. Results CBC & Chem 7: 11/24/21 17:25 11/24/21 17:25 Labs: Abnormal Lab Results - Last 24 Hours (Table) 11/24/21 11/24/21 11/24/21 Range/Units 17:25 17:25 17:25 WBC 22.3 H (3.8-10.6) k/uL Neutrophils # 19.1 H (1.3-7.7) k/uL BUN 27 H (9-20) mg/dL Creatinine 1.40 H (0.66-1.25) mg/dL Glucose 109 H (74-99) mg/dL Plasma Lactic Acid Chris (0.7-2.0) mmol/L Alkaline Phosphatase 136 H (38-126) U/L Urine Protein Trace H (Negative) Urine Blood Trace H (Negative) Ur Leukocyte Esterase Large H (Negative) Urine RBC 10 H (0-5) /hpf Urine WBC >182 H (0-5) /hpf Urine WBC Clumps Moderate H (None) /hpf Urine Bacteria Many H (None) /hpf Urine Mucus Few H (None) /hpf 11/24/21 Range/Units 17:25 WBC (3.8-10.6) k/uL Neutrophils # (1.3-7.7) k/uL BUN (9-20) mg/dL Creatinine (0.66-1.25) mg/dL Glucose (74-99) mg/dL Plasma Lactic Acid Chris 2.1 H* (0.7-2.0) mmol/L Alkaline Phosphatase (38-126) U/L Urine Protein (Negative) Urine Blood (Negative) Ur Leukocyte Esterase (Negative) Urine RBC (0-5) /hpf Urine WBC (0-5) /hpf Urine WBC Clumps (None) /hpf Urine Bacteria (None) /hpf Urine Mucus (None) /hpf Microbiology - Last 24 Hours (Table) 11/24/21 17:25 Urine Culture - Preliminary Urine,Clean Catch Assessment and Plan (1) Urinary tract infection Current Visit: Yes Status: Acute Code(s): N39.0 - URINARY TRACT INFECTION, SITE NOT SPECIFIED SNOMED Code(s): 08116564 Plan: 1patient presented to hospital with abnormal urine culture done in the outpatient setting in this patient on presentation to the hospital did have elevated white count elevated BUN/creatinine a slight lactic acidosis concerning for possible symptomatic and deep urinary tract infection. 2we will check ultrasound of the kidney and bladder to make sure no evidence of any structural normality responsible for these recurrent UTIs. 3gentle IV fluid 4discontinue meropenem 5start the patient on Invanz 1 g daily We will follow on clinical condition and cultures to further adjust medication if needed Thank you for this consultation will follow this patient along with you Time with Patient: Greater than 30
[2021-11-26] MEDS: SODIUM CHLORIDE 0.9% 1,000 ML IV SCH ×2 (05:10→12:09)
[2021-11-26] MEDS: ERTAPENEM 1 GM in SODIUM CHLORIDE 0.9% 50 ML IVPB SCH (08:15)
[2021-11-26] MEDS: METOPROLOL SUCCINATE (ER) 50 MG TAB.ER.24H PO SCH (08:15)
[2021-11-26] MEDS: FLUoxetine HCL 20 MG CAP PO SCH (08:15)
[2021-11-26] MEDS: MULTIVITAMINS, THERA 1 EACH TAB PO SCH (08:15)
[2021-11-26] MEDS: busPIRone HCl 10 MG TAB PO SCH ×3 (08:15→21:05)
[2021-11-26] MEDS: risperiDONE 1 MG TAB PO SCH (08:16)
[2021-11-26] MEDS: ENOXAPARIN 40 MG/0.4 ML SYRINGE SQ SCH (08:16)
[2021-11-26 08:56] LABS: HCT 41.1 % (39.6-50.0); MCH 30.2 pg (27.0-32.0); MCHC 31.6 g/dL (32.0-37.0); MCV 95.4 fL (80.0-97.0); Mean Platelet Volume 12.2 fL (9.5-12.2); NRBC Per 100 WBC 0 /100 WBCS (0.0-0.0); Platelet Count 214 X 10*3/uL (140-440); RBC 4.31 X 10*6/uL (4.40-5.60); RDW 13.7 % (11.5-14.5); WBC 17.09 X 10*3/uL (4.50-10.00)
[2021-11-26 09:21] LABS: African American GFR (CKD) 70.2 (60.0-200.0); Anion Gap 12.2 mmol/L (10.00-18.00); BUN/Creat Ratio 14.23 Ratio (12.00-20.00); Blood Urea Nitrogen 18.5 mg/dL (9.0-27.0); C Reactive Protein 5.5 mg/dL (0.00-0.80); Carbon Dioxide 20.8 mmol/L (20.0-27.5); Non-African American GFR(CKD) 60.6 (60.0-200.0); Potassium 4.1 mmol/L (3.5-5.5)
[2021-11-26 10:06] LABS: Basophils # (A) 0.05 X 10*3/uL (0.00-0.10); Basophils % (A) 0.3 %; Eosinophils # (A) 0.11 X 10*3/uL (0.04-0.35); Eosinophils % (A) 0.6 %; Immature Grans, Automated 0.5 %; Lymphocytes # (A) 3.69 X 10*3/uL (0.90-5.00); Lymphocytes % (A) 21.6 %; Monocytes # (A) 2.09 X 10*3/uL (0.20-1.00); Monocytes % (A) 12.2 %; Neutrophils # (A) 11.07 X 10*3/uL (1.80-7.70); Neutrophils % (A) 64.8 %; RBC Morphology NORMAL
--- NOTE | 2021-11-26 10:31 | US ---
EXAMINATION TYPE: US kidneys/renal and bladder DATE OF EXAM: 11/26/2021 COMPARISON: CT 2014 CLINICAL HISTORY: uti and bacteremia. UTI EXAM MEASUREMENTS: Right Kidney: 7.7 x 4.1 x 3.3 cm Left Kidney: 7.8 x 3.4 x 4.1 cm Llimited exam due to overlying bowel gas. Right Kidney: No hydronephrosis or masses seen limited due to bowel gas. Left Kidney: cortical thinning limited due to bowel gas. Bladder: Anechoic Bilateral Jets seen: no Suboptimal study. Kidneys symmetric and small in size. Increased cortical echogenicity and cortical t hinning in the left kidney is present. No suspicious masses on images saved. No hydronephrosis bilate rally. Bladder not greatly distended without intraluminal mass. Mild concentric wall thickening is fe lt present. Bilateral distal ureter jets are not not seen. IMPRESSION: Evidence of chronic medical renal disease. No hydronephrosis seen bilaterally. Mild nj ntric wall thickening in the bladder could be product of acute cystitis or bladder infection.
--- NOTE | 2021-11-26 13:19 | P.PN ---
Progress Note - Text Progress Note Date: 11/26/21 Chief Complaint: Positive urine culture History of presenting complaint This is a pleasant 56-year-old patient who has known cerebral palsy with neurocognitive delay. Chronic stable medical conditions include hypertension, chronic gait dysfunction uses a walker, hypothyroid, depression. Patient's had multiple UTIs in the past. Patient urine culture came back positive for ESBL and patient sent of the ER for the same. Patient denies any fever or chills. Able tonsil simple questions. Appetite is good. Was started on meropenem in the ER. Denies any abdominal pain. November 26: Getting IV ertapenem. Tolerating diet. Laying in bed, no acute. No pain or fever. Repeat cultures pending. Active Medications Acetaminophen (Acetaminophen Tab 500 Mg Tab) 1,000 mg PO Q6H PRN PRN Reason: Fever Bisacodyl (Bisacodyl 10 Mg Supp) 10 mg RECTAL DAILY PRN PRN Reason: Constipation Buspirone HCl (Buspirone Hcl 10 Mg Tab) 10 mg PO TID [facility] Last Admin: 11/26/21 08:15 Dose: 10 mg Documented by: Cholecalciferol (Cholecalciferol 25 Mcg (1000 Iu) Tablet) 50 mcg PO HS [facility] Last Admin: 11/25/21 19:54 Dose: 50 mcg Documented by: Diphenhydramine HCl (Diphenhydramine 25 Mg Cap) 25 mg PO Q6H PRN PRN Reason: Allergic Reaction Enoxaparin Sodium (Enoxaparin 40 Mg/0.4 Ml Syringe) 40 mg SQ DAILY [facility] Last Admin: 11/26/21 08:16 Dose: 40 mg Documented by: Fluoxetine HCl (Fluoxetine Hcl 20 Mg Cap) 40 mg PO DAILY [facility] Last Admin: 11/26/21 08:15 Dose: 40 mg Documented by: Sodium Chloride (Saline 0.9%) 1,000 mls @ 130 mls/hr IV .Q7H42M [facility] Last Admin: 11/26/21 12:09 Dose: 130 mls/hr Documented by: Ertapenem 1 gm/ Sodium (Chloride) 50 mls @ 100 mls/hr IVPB DAILY [facility]; Protocol Last Admin: 11/26/21 08:15 Dose: 100 mls/hr Documented by: Lactic Acid (Ammonium Lactate 12% Lotion 225 Gm Btl) 1 applic TOPICAL BID PRN; Protocol PRN Reason: Legs & Feet Levothyroxine Sodium (Levothyroxine 50 Mcg Tab) 50 mcg PO [id number]@0630 [facility] Last Admin: 11/25/21 12:06 Dose: 50 mcg Documented by: Losartan Potassium (Losartan 25 Mg Tab) 25 mg PO PC-SUPPER [facility] Last Admin: 11/25/21 17:44 Dose: 25 mg Documented by: Magnesium Hydroxide (Magnesium Hydroxide 2,400 Mg/10 Ml Cup) 2,400 mg PO DAILY PRN PRN Reason: Constipation Metoprolol Succinate (Metoprolol Succinate (Er) 50 Mg Tab.Er.24h) 50 mg PO DAILY [facility] Last Admin: 11/26/21 08:15 Dose: 50 mg Documented by: Multivitamins (Multivitamins, Thera 1 Each Tab) 1 each PO DAILY [facility] Last Admin: 11/26/21 08:15 Dose: 1 each Documented by: Naloxone HCl (Naloxone 0.4 Mg/Ml 1 Ml Vial) 0.2 mg IV Q2M PRN PRN Reason: Opioid Reversal Risperidone (Risperidone 1 Mg Tab) 1 mg PO DAILY [facility] Last Admin: 11/26/21 08:16 Dose: 1 mg Documented by: Tamsulosin HCl (Tamsulosin 0.4 Mg Cap.Er.24h) 0.4 mg PO PC-SUPPER [facility] Last Admin: 11/25/21 17:42 Dose: 0.4 mg Documented by: Past medical history to include: Hypertension, cerebral palsy with neurocognitive disorder, sleep apnea, infantile cerebral palsy, incontinent of urine sometimes, OCD, dysthymic disorder, recurrent UTI Social history: assisted. No alcohol or smoking. Uses a walker. Family history: Mother had lung cancer Physical examination: VITAL SIGNS: 97.8, 84, 18, 165-97, 95% room air GENERAL: reclining in bed, awake, comfortable. EYES: Pupils equal. Conjunctiva normal. HEENT: External appearance of nose and ears normal, oral cavity grossly normal small lower jaw. NECK: JVD not raised; masses not palpable. HEART: First and second heart sounds are normal; no edema. LUNGS: Respiratory rate normal; clear to auscultation. ABDOMEN: Soft, nontender, liver spleen not palpable, no masses palpable. PSYCH: [Patient knows his name. Does not know where he is. Does not know why why he is here. MUSCULOSKELETAL:No Clubbing/cyanosis;muscles-grossly intact NEUROLOGICAL: Cranial nerves grossly intact; no facial asymmetry, power and sensation grossly intact. INVESTIGATIONS, reviewed in the clinical context: November 26: White count 17.0 hemoglobin 13 potassium 4.1 creatinine 1.3 White count 22.3 hemoglobin 13.8 left shift, platelets 212 potassium 4.5 BUN 27 creatinine 1.40 Lactic acid 2.1 UA positive Previous labs: Creatinine 1.3 on September 2021 Assessment and plan: -Acute on chronic recurrent UTI with cultures growing E. coli/ESBL IV ertapenem -Sepsis from acute UTI IV fluids -Cerebral palsy with neurocognitive delay -Essential hypertension Cozaar 25 mg daily Toprol-XL 50 mg daily -Chronic gait dysfunction uses a walker Fall precautions -Urinary bladder outflow obstruction Flomax 0.4 mg daily -Hypothyroid Synthroid 50 g -Depression Prozac 40 mg a day BuSpar 10 mg 3 times a day IV ertapenem. Repeat cultures pending. Continue other medications.
[2021-11-26] MEDS: LOSARTAN 25 MG TAB PO SCH (17:23)
[2021-11-26] MEDS: TAMSULOSIN 0.4 MG CAP.ER.24H PO SCH (17:23)
[2021-11-26] MEDS: CHOLECALCIFEROL 25 MCG (1000 IU) TABLET PO SCH (21:05)
--- NOTE | 2021-11-27 00:03 | P.PN ---
Subjective Progress Note Date: 11/26/21 Principal diagnosis: ESBL E. coli urinary tract infection Patient is a 56-year-old male with developmental delay history of recurrent UTI admitted to the hospital with outpatient urine culture positive for ESBL in this patient did have a elevated white count and lactic acid. Patient did have ultrasound completed did not show any hydronephrosis or structural abnormality On today's evaluation that is 11/26/2021, the patient denies having any fever or any chills, the patient denies having any chest pain shortness of breath or cough no abdominal pain no diarrhea Objective - Vital Signs Vital signs: Vital Signs Temp 97.8 F 11/26/21 07:45 Pulse 84 11/26/21 07:45 Resp 18 11/26/21 07:45 BP 165/97 11/26/21 07:45 Pulse Ox 92 L 11/26/21 05:00 Intake & Output 11/25/21 11/26/21 11/26/21 18:59 06:59 18:59 Intake Total 1710 1560 Balance 1710 1560 Intake: Intake, IV Titration 1710 1560 Amount Ertapenem 1 gm In Sodium 50 Chloride 0.9% 50 ml @ 100 mls/hr IVPB DAILY [facility] Rx #:[id number] Meropenem 500 mg In 100 Sodium Chloride 0.9% 100 ml @ 200 mls/hr IVPB Q8H [facility] Rx#:[id number] Sodium Chloride 0.9% 1, 1560 1560 000 ml @ 130 mls/hr IV . Q7H42M [facility] Rx#:[id number] Other: Voiding Method Urinal Toilet Toilet Diaper Urinal Urinal Diaper Diaper Incontinent # Voids 3 2 1 # Bowel Movements 1 - Exam GENERAL DESCRIPTION: A middle-age male lying in bed in no distress RESPIRATORY SYSTEM: Unlabored breathing , decreased breath sounds at bases HEART: S1 S2 regular rate and rhythm , ABDOMEN: Soft , no tenderness EXTREMITIES: No edema feet - Labs CBC & Chem 7: 11/26/21 04:18 11/26/21 04:18 Labs: Abnormal Lab Results - Last 24 Hours (Table) 11/26/21 11/26/21 Range/Units 04:18 04:18 WBC 17.09 H (4.50-10.00) X 10*3/uL RBC 4.31 L (4.40-5.60) X 10*6/uL MCHC 31.6 L (32.0-37.0) g/dL Immature Gran # 0.08 H (0.00-0.04) X 10*3/uL Neutrophils # 11.07 H (1.80-7.70) X 10*3/uL Monocytes # 2.09 H (0.20-1.00) X 10*3/uL C-Reactive Protein 5.50 H (0.00-0.80) mg/dL Microbiology - Last 24 Hours (Table) 11/24/21 17:25 Blood Culture - Preliminary Blood No Growth after 24 hours 11/24/21 17:25 Blood Culture - Preliminary Blood No Growth after 24 hours Assessment and Plan (1) Urinary tract infection Current Visit: Yes Status: Acute Code(s): N39.0 - URINARY TRACT INFECTION, SITE NOT SPECIFIED SNOMED Code(s): 21958504 Plan: 1patient presented to hospital with abnormal urine culture done in the outpatient setting in this patient on presentation to the hospital did have elevated white count elevated BUN/creatinine a slight lactic acidosis concerning for possible symptomatic and deep urinary tract infection. 2 ultrasound of the kidney and bladder did not show any hydronephrosis and thickening of the bladder wall 3gentle IV fluid 4patient to continue with Invanz 1 g daily Time with Patient: Less than 30
[2021-11-27] MEDS: SODIUM CHLORIDE 0.9% 1,000 ML IV SCH ×3 (02:04→12:30)
[2021-11-27] MEDS: LEVOTHYROXINE 50 MCG TAB PO SCH (06:04)
[2021-11-27] MEDS: MULTIVITAMINS, THERA 1 EACH TAB PO SCH (07:13)
[2021-11-27] MEDS: FLUoxetine HCL 20 MG CAP PO SCH (07:13)
[2021-11-27] MEDS: busPIRone HCl 10 MG TAB PO SCH ×3 (07:13→20:00)
[2021-11-27] MEDS: ENOXAPARIN 40 MG/0.4 ML SYRINGE SQ SCH (07:13)
[2021-11-27] MEDS: ERTAPENEM 1 GM in SODIUM CHLORIDE 0.9% 50 ML IVPB SCH (07:14)
[2021-11-27] MEDS: risperiDONE 1 MG TAB PO SCH (07:15)
[2021-11-27] MEDS: METOPROLOL SUCCINATE (ER) 50 MG TAB.ER.24H PO SCH (07:15)
--- NOTE | 2021-11-27 16:17 | P.PN ---
Progress Note - Text Progress Note Date: 11/27/21 Chief Complaint: Positive urine culture History of presenting complaint This is a pleasant 56-year-old patient who has known cerebral palsy with neurocognitive delay. Chronic stable medical conditions include hypertension, chronic gait dysfunction uses a walker, hypothyroid, depression. Patient's had multiple UTIs in the past. Patient urine culture came back positive for ESBL and patient sent of the ER for the same. Patient denies any fever or chills. Able tonsil simple questions. Appetite is good. Was started on meropenem in the ER. Denies any abdominal pain. November 26: Getting IV ertapenem. Tolerating diet. Laying in bed, no acute. No pain or fever. Repeat cultures pending. November 27: Comfort. Up in a chair. No fever no chills. IV ertapenem. Cultures growing gram-negative bacilli. Active Medications Acetaminophen (Acetaminophen Tab 500 Mg Tab) 1,000 mg PO Q6H PRN PRN Reason: Fever Bisacodyl (Bisacodyl 10 Mg Supp) 10 mg RECTAL DAILY PRN PRN Reason: Constipation Buspirone HCl (Buspirone Hcl 10 Mg Tab) 10 mg PO TID [facility] Last Admin: 11/27/21 16:05 Dose: 10 mg Documented by: Cholecalciferol (Cholecalciferol 25 Mcg (1000 Iu) Tablet) 50 mcg PO HS [facility] Last Admin: 11/26/21 21:05 Dose: 50 mcg Documented by: Diphenhydramine HCl (Diphenhydramine 25 Mg Cap) 25 mg PO Q6H PRN PRN Reason: Allergic Reaction Enoxaparin Sodium (Enoxaparin 40 Mg/0.4 Ml Syringe) 40 mg SQ DAILY [facility] Last Admin: 11/27/21 07:13 Dose: 40 mg Documented by: Fluoxetine HCl (Fluoxetine Hcl 20 Mg Cap) 40 mg PO DAILY [facility] Last Admin: 11/27/21 07:13 Dose: 40 mg Documented by: Ertapenem 1 gm/ Sodium (Chloride) 50 mls @ 100 mls/hr IVPB DAILY [facility]; Protocol Last Admin: 11/27/21 07:14 Dose: 100 mls/hr Documented by: Lactic Acid (Ammonium Lactate 12% Lotion 225 Gm Btl) 1 applic TOPICAL BID PRN; Protocol PRN Reason: Legs & Feet Levothyroxine Sodium (Levothyroxine 50 Mcg Tab) 50 mcg PO [id number]@0630 [facility] Last Admin: 11/27/21 06:04 Dose: 50 mcg Documented by: Losartan Potassium (Losartan 25 Mg Tab) 25 mg PO PC-SUPPER [facility] Last Admin: 11/26/21 17:23 Dose: 25 mg Documented by: Magnesium Hydroxide (Magnesium Hydroxide 2,400 Mg/10 Ml Cup) 2,400 mg PO DAILY PRN PRN Reason: Constipation Metoprolol Succinate (Metoprolol Succinate (Er) 50 Mg Tab.Er.24h) 50 mg PO DAILY [facility] Last Admin: 11/27/21 07:15 Dose: 50 mg Documented by: Multivitamins (Multivitamins, Thera 1 Each Tab) 1 each PO DAILY [facility] Last Admin: 11/27/21 07:13 Dose: 1 each Documented by: Naloxone HCl (Naloxone 0.4 Mg/Ml 1 Ml Vial) 0.2 mg IV Q2M PRN PRN Reason: Opioid Reversal Risperidone (Risperidone 1 Mg Tab) 1 mg PO DAILY [facility] Last Admin: 11/27/21 07:15 Dose: 1 mg Documented by: Tamsulosin HCl (Tamsulosin 0.4 Mg Cap.Er.24h) 0.4 mg PO PC-SUPPER [facility] Last Admin: 11/26/21 17:23 Dose: 0.4 mg Documented by: Past medical history to include: Hypertension, cerebral palsy with neurocognitive disorder, sleep apnea, infantile cerebral palsy, incontinent of urine sometimes, OCD, dysthymic disorder, recurrent UTI Social history: half-way. No alcohol or smoking. Uses a walker. Family history: Mother had lung cancer Physical examination: VITAL SIGNS: 97.9, 76, 18, 145/87, 95% room air GENERAL: reclining in a recliner awake, comfortable. EYES: Pupils equal. Conjunctiva normal. HEENT: External appearance of nose and ears normal, oral cavity grossly normal small lower jaw. NECK: JVD not raised; masses not palpable. HEART: First and second heart sounds are normal; no edema. LUNGS: Respiratory rate normal; clear to auscultation. ABDOMEN: Soft, nontender, liver spleen not palpable, no masses palpable. PSYCH: [Patient knows his name. Does not know where he is. Does not know why why he is here. MUSCULOSKELETAL:No Clubbing/cyanosis;muscles-grossly intact NEUROLOGICAL: Cranial nerves grossly intact; no facial asymmetry, power and sensation grossly intact. INVESTIGATIONS, reviewed in the clinical context: Urine culture: E. coli/ESBL, Proteus mirabilis November 26: White count 17.0 hemoglobin 13 potassium 4.1 creatinine 1.3 White count 22.3 hemoglobin 13.8 left shift, platelets 212 potassium 4.5 BUN 27 creatinine 1.40 Lactic acid 2.1 UA positive Previous labs: Creatinine 1.3 on September 2021 Assessment and plan: -Acute on chronic recurrent UTI with cultures growing E. coli/ESBL and Proteus mirabilis IV ertapenem -Sepsis from acute UTI IV fluids -Cerebral palsy with neurocognitive delay -Essential hypertension Cozaar 25 mg daily Toprol-XL 50 mg daily -Chronic gait dysfunction uses a walker Fall precautions -Urinary bladder outflow obstruction Flomax 0.4 mg daily -Hypothyroid Synthroid 50 g -Depression Prozac 40 mg a day BuSpar 10 mg 3 times a day IV ertapenem. Continue other medications. DC antibiotics per Dr. Manrique
[2021-11-27] MEDS: TAMSULOSIN 0.4 MG CAP.ER.24H PO SCH (17:27)
[2021-11-27] MEDS: LOSARTAN 25 MG TAB PO SCH (17:27)
[2021-11-27] MEDS: CHOLECALCIFEROL 25 MCG (1000 IU) TABLET PO SCH (20:00)
--- NOTE | 2021-11-27 23:48 | P.PN ---
Subjective Progress Note Date: 11/27/21 Principal diagnosis: ESBL E. coli urinary tract infection Patient is a 56-year-old male with developmental delay history of recurrent UTI admitted to the hospital with outpatient urine culture positive for ESBL in this patient did have a elevated white count and lactic acid. Patient did have ultrasound completed did not show any hydronephrosis or structural abnormality On today's evaluation that is 11/27/2021, the patient remains to be afebrile, the patient denies having any chest pain shortness of breath or cough, the patient denies abdominal pain no diarrhea Objective - Vital Signs Vital signs: Vital Signs Temp 97.9 F 11/27/21 11:22 Pulse 76 11/27/21 11:22 Resp 18 11/27/21 11:22 BP 145/87 11/27/21 11:22 Pulse Ox 95 11/27/21 11:22 Intake & Output 11/26/21 11/27/21 11/27/21 18:59 06:59 18:59 Intake Total 3060 Balance 3060 Intake: Intake, IV Titration 1480 Amount Ertapenem 1 gm In Sodium 50 Chloride 0.9% 50 ml @ 100 mls/hr IVPB DAILY [facility] Rx #:[id number] Sodium Chloride 0.9% 1, 1430 000 ml @ 130 mls/hr IV . Q7H42M [facility] Rx#:[id number] Oral 1580 Other: Voiding Method Toilet Toilet Toilet Urinal Urinal Urinal Diaper Diaper Diaper Incontinent Incontinent Incontinent # Voids 8 3 2 - Exam GENERAL DESCRIPTION: A middle-age male lying in bed in no distress RESPIRATORY SYSTEM: Unlabored breathing , decreased breath sounds at bases HEART: S1 S2 regular rate and rhythm , ABDOMEN: Soft , no tenderness EXTREMITIES: No edema feet - Labs CBC & Chem 7: 11/26/21 04:18 11/26/21 04:18 Labs: Microbiology - Last 24 Hours (Table) 11/24/21 17:25 Blood Culture - Preliminary Blood No Growth after 48 hours 11/24/21 17:25 Blood Culture - Preliminary Blood No Growth after 48 hours 11/24/21 17:25 Urine Culture - Preliminary Urine,Clean Catch Gram Neg Bacilli Assessment and Plan (1) Urinary tract infection Current Visit: Yes Status: Acute Code(s): N39.0 - URINARY TRACT INFECTION, SITE NOT SPECIFIED SNOMED Code(s): 67172883 Plan: 1patient presented to hospital with abnormal urine culture done in the outpatient setting in this patient on presentation to the hospital did have elevated white count elevated BUN/creatinine a slight lactic acidosis concerning for possible symptomatic and deep urinary tract infection. 2 ultrasound of the kidney and bladder did not show any hydronephrosis and thickening of the bladder wall 3 patient to continue with Invanz 1 g daily, plan is for midline and outpatient IV antibiotics Time with Patient: Less than 30
[2021-11-28] MEDS: LEVOTHYROXINE 50 MCG TAB PO SCH (06:11)
[2021-11-28] MEDS: METOPROLOL SUCCINATE (ER) 50 MG TAB.ER.24H PO SCH (08:01)
[2021-11-28] MEDS: MULTIVITAMINS, THERA 1 EACH TAB PO SCH (08:01)
[2021-11-28] MEDS: FLUoxetine HCL 20 MG CAP PO SCH (08:01)
[2021-11-28] MEDS: busPIRone HCl 10 MG TAB PO SCH ×3 (08:01→21:03)
[2021-11-28] MEDS: ERTAPENEM 1 GM in SODIUM CHLORIDE 0.9% 50 ML IVPB SCH (08:02)
[2021-11-28] MEDS: risperiDONE 1 MG TAB PO SCH (08:02)
[2021-11-28] MEDS: ENOXAPARIN 40 MG/0.4 ML SYRINGE SQ SCH (08:02)
--- NOTE | 2021-11-28 16:37 | P.PN ---
Progress Note - Text Progress Note Date: 11/28/21 Chief Complaint: Positive urine culture History of presenting complaint This is a pleasant 56-year-old patient who has known cerebral palsy with neurocognitive delay. Chronic stable medical conditions include hypertension, chronic gait dysfunction uses a walker, hypothyroid, depression. Patient's had multiple UTIs in the past. Patient urine culture came back positive for ESBL and patient sent of the ER for the same. Patient denies any fever or chills. Able tonsil simple questions. Appetite is good. Was started on meropenem in the ER. Denies any abdominal pain. November 26: Getting IV ertapenem. Tolerating diet. Laying in bed, no acute. No pain or fever. Repeat cultures pending. November 27: Comfort. Up in a chair. No fever no chills. IV ertapenem. Cultures growing gram-negative bacilli. November 28: Midline was ordered this morning. Patient comfortable. No fever no chills. Eating well. Cleared for discharge. Active Medications Acetaminophen (Acetaminophen Tab 500 Mg Tab) 1,000 mg PO Q6H PRN PRN Reason: Fever Bisacodyl (Bisacodyl 10 Mg Supp) 10 mg RECTAL DAILY PRN PRN Reason: Constipation Buspirone HCl (Buspirone Hcl 10 Mg Tab) 10 mg PO TID [facility] Last Admin: 11/28/21 08:01 Dose: 10 mg Documented by: Cholecalciferol (Cholecalciferol 25 Mcg (1000 Iu) Tablet) 50 mcg PO HS [facility] Last Admin: 11/27/21 20:00 Dose: 50 mcg Documented by: Diphenhydramine HCl (Diphenhydramine 25 Mg Cap) 25 mg PO Q6H PRN PRN Reason: Allergic Reaction Enoxaparin Sodium (Enoxaparin 40 Mg/0.4 Ml Syringe) 40 mg SQ DAILY [facility] Last Admin: 11/28/21 08:02 Dose: 40 mg Documented by: Fluoxetine HCl (Fluoxetine Hcl 20 Mg Cap) 40 mg PO DAILY [facility] Last Admin: 11/28/21 08:01 Dose: 40 mg Documented by: Ertapenem 1 gm/ Sodium (Chloride) 50 mls @ 100 mls/hr IVPB DAILY [facility]; Protocol Last Admin: 11/28/21 08:02 Dose: 100 mls/hr Documented by: Lactic Acid (Ammonium Lactate 12% Lotion 225 Gm Btl) 1 applic TOPICAL BID PRN; Protocol PRN Reason: Legs & Feet Levothyroxine Sodium (Levothyroxine 50 Mcg Tab) 50 mcg PO [email or web address] [facility] Last Admin: 11/28/21 06:11 Dose: 50 mcg Documented by: Losartan Potassium (Losartan 25 Mg Tab) 25 mg PO PC-SUPPER [facility] Last Admin: 11/27/21 17:27 Dose: 25 mg Documented by: Magnesium Hydroxide (Magnesium Hydroxide 2,400 Mg/10 Ml Cup) 2,400 mg PO DAILY PRN PRN Reason: Constipation Metoprolol Succinate (Metoprolol Succinate (Er) 50 Mg Tab.Er.24h) 50 mg PO DAILY [facility] Last Admin: 11/28/21 08:01 Dose: 50 mg Documented by: Multivitamins (Multivitamins, Thera 1 Each Tab) 1 each PO DAILY [facility] Last Admin: 11/28/21 08:01 Dose: 1 each Documented by: Naloxone HCl (Naloxone 0.4 Mg/Ml 1 Ml Vial) 0.2 mg IV Q2M PRN PRN Reason: Opioid Reversal Risperidone (Risperidone 1 Mg Tab) 1 mg PO DAILY [facility] Last Admin: 11/28/21 08:02 Dose: 1 mg Documented by: Tamsulosin HCl (Tamsulosin 0.4 Mg Cap.Er.24h) 0.4 mg PO PC-SUPPER [facility] Last Admin: 11/27/21 17:27 Dose: 0.4 mg Documented by: Past medical history to include: Hypertension, cerebral palsy with neurocognitive disorder, sleep apnea, infantile cerebral palsy, incontinent of urine sometimes, OCD, dysthymic disorder, recurrent UTI Social history: custodial. No alcohol or smoking. Uses a walker. Family history: Mother had lung cancer Physical examination: VITAL SIGNS: 97.8, 74, 18, 120/70, 96% room air GENERAL: reclining in a recliner awake, comfortable. EYES: Pupils equal. Conjunctiva normal. HEENT: External appearance of nose and ears normal, oral cavity grossly normal small lower jaw. NECK: JVD not raised; masses not palpable. HEART: First and second heart sounds are normal; no edema. LUNGS: Respiratory rate normal; clear to auscultation. ABDOMEN: Soft, nontender, liver spleen not palpable, no masses palpable. PSYCH: [Patient knows his name. Does not know where he is. Does not know why why he is here. MUSCULOSKELETAL:No Clubbing/cyanosis;muscles-grossly intact NEUROLOGICAL: Cranial nerves grossly intact; no facial asymmetry, power and sensation grossly intact. INVESTIGATIONS, reviewed in the clinical context: Urine culture: E. coli/ESBL, Proteus mirabilis November 26: White count 17.0 hemoglobin 13 potassium 4.1 creatinine 1.3 White count 22.3 hemoglobin 13.8 left shift, platelets 212 potassium 4.5 BUN 27 creatinine 1.40 Lactic acid 2.1 UA positive Previous labs: Creatinine 1.3 on September 2021 Assessment and plan: -Acute on chronic recurrent UTI with cultures growing E. coli/ESBL and Proteus mirabilis IV ertapenem -Sepsis from acute UTI IV fluids -Cerebral palsy with neurocognitive delay -Essential hypertension Cozaar 25 mg daily Toprol-XL 50 mg daily -Chronic gait dysfunction uses a walker Fall precautions -Urinary bladder outflow obstruction Flomax 0.4 mg daily -Hypothyroid Synthroid 50 g -Depression Prozac 40 mg a day BuSpar 10 mg 3 times a day IV ertapenem. Midline was ordered this morning. Later was called and it cannot be done today. Discharge held till tomorrow.
[2021-11-28] MEDS: TAMSULOSIN 0.4 MG CAP.ER.24H PO SCH (17:44)
[2021-11-28] MEDS: LOSARTAN 25 MG TAB PO SCH (17:44)
[2021-11-28] MEDS: CHOLECALCIFEROL 25 MCG (1000 IU) TABLET PO SCH (21:03)
--- NOTE | 2021-11-28 22:50 | P.PN ---
Subjective Progress Note Date: 11/28/21 Principal diagnosis: ESBL E. coli urinary tract infection Patient is a 56-year-old male with developmental delay history of recurrent UTI admitted to the hospital with outpatient urine culture positive for ESBL in this patient did have a elevated white count and lactic acid. Patient did have ultrasound completed did not show any hydronephrosis or structural abnormality On today's evaluation that is 11/28/2021, the patient continues to be afebrile, the patient denies chest pain shortness of breath or cough, the patient denies abdominal pain and no diarrhea with antibiotic therapy Objective - Vital Signs Vital signs: Vital Signs Temp 97.8 F 11/28/21 13:00 Pulse 74 11/28/21 13:00 Resp 18 11/28/21 13:00 BP 128/70 11/28/21 13:00 Pulse Ox 96 11/28/21 13:00 Intake & Output 11/27/21 11/28/21 11/28/21 18:59 06:59 18:59 Intake Total 2250 Balance 2250 Intake: Intake, IV Titration 700 Amount Ertapenem 1 gm In Sodium 50 Chloride 0.9% 50 ml @ 100 mls/hr IVPB DAILY [facility] Rx #:[id number] Sodium Chloride 0.9% 1, 650 000 ml @ 130 mls/hr IV . Q7H42M [facility] Rx#:[id number] Oral 1550 Other: Voiding Method Toilet Toilet Toilet Urinal Urinal Urinal Diaper Diaper Diaper Incontinent Incontinent Incontinent # Voids 7 3 - Exam GENERAL DESCRIPTION: A middle-age male lying in bed in no distress RESPIRATORY SYSTEM: Unlabored breathing , decreased breath sounds at bases HEART: S1 S2 regular rate and rhythm , ABDOMEN: Soft , no tenderness EXTREMITIES: No edema feet - Labs CBC & Chem 7: 11/26/21 04:18 11/26/21 04:18 Labs: Microbiology - Last 24 Hours (Table) 11/24/21 17:25 Urine Culture - Final Urine,Clean Catch Escherichia coli Proteus mirabilis 11/24/21 17:25 Blood Culture - Preliminary Blood No Growth after 72 hours 11/24/21 17:25 Blood Culture - Preliminary Blood No Growth after 72 hours Assessment and Plan (1) Urinary tract infection Current Visit: Yes Status: Acute Code(s): N39.0 - URINARY TRACT INFECTION, SITE NOT SPECIFIED SNOMED Code(s): 64930411 Plan: 1patient presented to hospital with abnormal urine culture done in the outpatient setting in this patient on presentation to the hospital did have elevated white count elevated BUN/creatinine a slight lactic acidosis concerning for possible symptomatic and deep urinary tract infection. 2 ultrasound of the kidney and bladder did not show any hydronephrosis and thickening of the bladder wall 3 patient to continue with Invanz 1 g daily, plan is for midline and two-week course of IV Invanz on discharge, discussed with the admitting physician Time with Patient: Less than 30
[2021-11-29] MEDS: LEVOTHYROXINE 50 MCG TAB PO SCH (04:48)
[2021-11-29] MEDS: ENOXAPARIN 40 MG/0.4 ML SYRINGE SQ SCH (08:43)
[2021-11-29] MEDS: ERTAPENEM 1 GM in SODIUM CHLORIDE 0.9% 50 ML IVPB SCH (08:43)
[2021-11-29] MEDS: FLUoxetine HCL 20 MG CAP PO SCH (08:43)
[2021-11-29] MEDS: risperiDONE 1 MG TAB PO SCH (08:43)
[2021-11-29] MEDS: busPIRone HCl 10 MG TAB PO SCH (08:43)
[2021-11-29] MEDS: METOPROLOL SUCCINATE (ER) 50 MG TAB.ER.24H PO SCH (08:43)
[2021-11-29] MEDS: MULTIVITAMINS, THERA 1 EACH TAB PO SCH (08:43)
[2021-11-29 12:43] VITALS: BP 106/65; PULSE 77; RESP 16; TEMP 98.4
--- NOTE | 2021-11-29 17:29 | P.DS ---
Providers Date of admission: 11/24/21 18:35 Expected date of discharge: 11/29/21 Attending physician: Bakari Espinoza Consults: 11/24/21 19:49 Consult Physician Routine Consulting Provider: Sujatha Wilson Consult Reason/Comments: ESBL positive, urinary tract infection Do you want consulting provider notified?: Yes Primary care physician: Kyler Zaman MD Hospital Course: Chief Complaint: Positive urine culture History of presenting complaint This is a pleasant 56-year-old patient who has known cerebral palsy with neurocognitive delay. Chronic stable medical conditions include hypertension, chronic gait dysfunction uses a walker, hypothyroid, depression. Patient's had multiple UTIs in the past. Patient urine culture came back positive for ESBL and patient sent of the ER for the same. Patient denies any fever or chills. Able tonsil simple questions. Appetite is good. Was started on meropenem in the ER. Denies any abdominal pain. Repeat urine culture came back positive for ESBL/E. coli, Proteus mirabilis. Put on IV ertapenem. November 29: Patient has a midline.. We will complete 2 weeks of IV antibiotic. Discussed with ID. Discussion and discharge planning more than 35 minutes Past medical history to include: Hypertension, cerebral palsy with neurocognitive disorder, sleep apnea, infantile cerebral palsy, incontinent of urine sometimes, OCD, dysthymic disorder, recurrent UTI Social history: residential. No alcohol or smoking. Uses a walker. Family history: Mother had lung cancer Physical examination: VITAL SIGNS: 98.4, 77, 16, 106/65, 94% room air GENERAL: Sitting up, comfortable. EYES: Pupils equal. Conjunctiva normal. HEENT: External appearance of nose and ears normal, oral cavity grossly normal small lower jaw. NECK: JVD not raised; masses not palpable. HEART: First and second heart sounds are normal; no edema. LUNGS: Respiratory rate normal; clear to auscultation. ABDOMEN: Soft, nontender, liver spleen not palpable, no masses palpable. PSYCH: [Patient knows his name. Does not know where he is. Does not know why why he is here. MUSCULOSKELETAL:No Clubbing/cyanosis;muscles-grossly intact NEUROLOGICAL: Cranial nerves grossly intact; no facial asymmetry, power and sensation grossly intact. INVESTIGATIONS, reviewed in the clinical context: Urine culture: E. coli/ESBL, Proteus mirabilis November 26: White count 17.0 hemoglobin 13 potassium 4.1 creatinine 1.3 White count 22.3 hemoglobin 13.8 left shift, platelets 212 potassium 4.5 BUN 27 creatinine 1.40 Lactic acid 2.1 UA positive Previous labs: Creatinine 1.3 on September 2021 Assessment and plan: -Acute on chronic recurrent UTI with cultures growing E. coli/ESBL and Proteus mirabilis IV ertapenem-for 2 weeks -Sepsis from acute UTI IV fluids -Cerebral palsy with neurocognitive delay -Essential hypertension Cozaar 25 mg daily Toprol-XL 50 mg daily -Chronic gait dysfunction uses a walker Fall precautions -Urinary bladder outflow obstruction Flomax 0.4 mg daily -Hypothyroid Synthroid 50 g -Depression Prozac 40 mg a day BuSpar 10 mg 3 times a day Disposition: Home Plan - Discharge Summary Discharge Rx Participant: No New Discharge Prescriptions: New Ertapenem [INVanz] 1 gm IVPB DAILY #14 each Continue risperiDONE [RisperDAL] 1 mg PO DAILY FLUoxetine HCL [PROzac] 40 mg PO DAILY Acetaminophen Tab [Tylenol] 1,000 mg PO Q6H PRN PRN Reason: Fever Loperamide HCl [Loperamide] 2 - 4 mg PO QID PRN PRN Reason: Diarrhea Ibuprofen [Motrin] 800 mg PO Q6H PRN PRN Reason: Pain Ammonium Lactate Lotion [Lac-Hydrin 12% Lotion] 1 applic TOPICAL BID PRN PRN Reason: Legs & Feet busPIRone HCL 10 mg PO TID Tamsulosin [Flomax] 0.4 mg PO PC-SUPPER Levothyroxine Sodium [Synthroid] 50 mcg PO SUMOTUWETHFR Metoprolol Succinate (ER) [Toprol XL] 50 mg PO DAILY Losartan Potassium [Cozaar] 25 mg PO PC-SUPPER bisacodyL [Dulcolax] 10 mg RECTAL DAILY PRN PRN Reason: Constipation Magnesium Hydroxide [Milk of Magnesia] 2,400 mg PO DAILY PRN PRN Reason: Constipation diphenhydrAMINE [Benadryl] 25 mg PO Q6H PRN PRN Reason: Allergic Reaction guaiFENesin SYRUP 100MG/5ML [Robitussin] 200 mg PO Q6H PRN PRN Reason: Cough Discontinued methylPREDNISolone [Medrol Dose Pack] See Taper PO DIRECTED No Action Cholecalciferol [Vitamin D3 (25 Mcg = 1000 Iu)] 50 mcg PO HS Multivitamins, Thera [Multivitamin (formulary)] 1 tab PO DAILY Discharge Medication List Cholecalciferol [Vitamin D3 (25 Mcg = 1000 Iu)] 50 mcg PO HS 01/31/21 [History] FLUoxetine HCL [PROzac] 40 mg PO DAILY 01/31/21 [History] Levothyroxine Sodium [Synthroid] 50 mcg PO SUMOTUWETHFR 01/31/21 [History] Losartan Potassium [Cozaar] 25 mg PO PC-SUPPER 01/31/21 [History] Metoprolol Succinate (ER) [Toprol XL] 50 mg PO DAILY 01/31/21 [History] Tamsulosin [Flomax] 0.4 mg PO PC-SUPPER 01/31/21 [History] busPIRone HCL 10 mg PO TID 01/31/21 [History] risperiDONE [RisperDAL] 1 mg PO DAILY 01/31/21 [History] Multivitamins, Thera [Multivitamin (formulary)] 1 tab PO DAILY 05/13/21 [History] Acetaminophen Tab [Tylenol] 1,000 mg PO Q6H PRN 10/06/21 [History] Ammonium Lactate Lotion [Lac-Hydrin 12% Lotion] 1 applic TOPICAL BID PRN 11/24/21 [History] Ibuprofen [Motrin] 800 mg PO Q6H PRN 11/24/21 [History] Loperamide HCl [Loperamide] 2 - 4 mg PO QID PRN 11/24/21 [History] Magnesium Hydroxide [Milk of Magnesia] 2,400 mg PO DAILY PRN 11/24/21 [History] bisacodyL [Dulcolax] 10 mg RECTAL DAILY PRN 11/24/21 [History] diphenhydrAMINE [Benadryl] 25 mg PO Q6H PRN 11/24/21 [History] guaiFENesin SYRUP 100MG/5ML [Robitussin] 200 mg PO Q6H PRN 11/24/21 [History] Ertapenem [INVanz] 1 gm IVPB DAILY #14 each 11/29/21 [Rx] Follow up Appointment(s)/Referral(s): Kyler Zaman MD [Primary Care Provider] - 1-2 days (notified office of patient discharge.office will call patient to schedule house call) Patient Instructions/Handouts: Ertapenem (By injection), Urinary Tract Infection in Men (DC), Extended Spectrum Beta Lactamase (GEN) Activity/Diet/Wound Care/Special Instructions: [facility] - [phone] Discharge Disposition: HOME SELF-CARE
== END 2021-11-29 14:10 | disposition home or self-care (01) | DRG 872 ==
LOC: EC 16:15 → 5NMEDONC 18:35
PROVIDERS: ADMIT Hospitalist; ATTEND Hospitalist
DX: A41.51 Sepsis due to Escherichia coli [E. coli] (principal); N39.0 Urinary tract infection, site not specified; Z16.12 Extended spectrum beta lactamase (ESBL) resistance; E87.2 Acidosis; A41.89 Other specified sepsis; E03.9 Hypothyroidism, unspecified; F34.1 Dysthymic disorder; F41.9 Anxiety disorder, unspecified; F42.9 Obsessive-compulsive disorder, unspecified; G47.30 Sleep apnea, unspecified; R26.9 Unspecified abnormalities of gait and mobility; G80.8 Other cerebral palsy; I10 Essential (primary) hypertension; R62.50 Unspecified lack of expected normal physiological development in childhood; J44.9 Chronic obstructive pulmonary disease, unspecified; K59.00 Constipation, unspecified; N32.0 Bladder-neck obstruction; R32 Unspecified urinary incontinence; Z79.890 Hormone replacement therapy; Z79.899 Other long term (current) drug therapy; Z80.1 Family history of malignant neoplasm of trachea, bronchus and lung; Z87.440 Personal history of urinary (tract) infections; Z88.0 Allergy status to penicillin; Z96.642 Presence of left artificial hip joint; Z98.41 Cataract extraction status, right eye
CPT/HCPCS: 36415; 76770; 80048; 80053; 81001; 83605; 85025; 85610; 85730; 86140; 87040; 87077; 87086; 87186; 96360; 99285

== ENCOUNTER 2021-12-07 14:11 | Emergency (ER) | payer MEDICARE, OTHER ==
--- NOTE | 2021-12-07 14:21 | ED ---
General Adult HPI - General Stated complaint: Picc Line Procedure Time Seen by Provider: 12/07/21 14:13 Source: patient, EMS, RN notes reviewed Mode of arrival: EMS Limitations: altered mental status - History of Present Illness Initial comments: Patient is a pleasant 56-year-old male presenting to the emergency Department with nonfunctional PICC line. Patient recently had PICC line placed for urinary tract infection. They did try to use it today however unable to provide patient's antibiotics. Patient is extremely poor historian and available and offers no additional history. - Related Data Home Medications Medication Instructions Recorded Confirmed Cholecalciferol [Vitamin D3 (25 50 mcg PO HS 01/31/21 12/07/21 Mcg = 1000 Iu)] FLUoxetine HCL [PROzac] 40 mg PO DAILY 01/31/21 12/07/21 Levothyroxine Sodium [Synthroid] 50 mcg PO SUMOTUWETHFR 01/31/21 12/07/21 Losartan Potassium [Cozaar] 25 mg PO PC-SUPPER 01/31/21 12/07/21 Metoprolol Succinate (ER) [Toprol 50 mg PO DAILY 01/31/21 12/07/21 XL] Tamsulosin [Flomax] 0.4 mg PO PC-SUPPER 01/31/21 12/07/21 busPIRone HCL 10 mg PO TID 01/31/21 12/07/21 risperiDONE [RisperDAL] 1 mg PO DAILY 01/31/21 12/07/21 Multivitamins, Thera [Multivitamin 1 tab PO DAILY 05/13/21 12/07/21 (formulary)] Acetaminophen Tab [Tylenol] 1,000 mg PO Q6H PRN 10/06/21 12/07/21 Ammonium Lactate Lotion 1 applic TOPICAL BID PRN 11/24/21 12/07/21 [Lac-Hydrin 12% Lotion] Ibuprofen [Motrin] 800 mg PO Q6H PRN 11/24/21 12/07/21 Loperamide HCl [Loperamide] 2 - 4 mg PO QID PRN 11/24/21 12/07/21 Magnesium Hydroxide [Milk of 2,400 mg PO DAILY PRN 11/24/21 12/07/21 Magnesia] bisacodyL [Dulcolax] 10 mg RECTAL DAILY PRN 11/24/21 12/07/21 diphenhydrAMINE [Benadryl] 25 mg PO Q6H PRN 11/24/21 12/07/21 guaiFENesin SYRUP 100MG/5ML 200 mg PO Q6H PRN 11/24/21 12/07/21 [Robitussin] Previous Rx's Medication Instructions Recorded Ertapenem [INVanz] 1 gm IVPB DAILY #14 each 11/29/21 Allergies Allergy/AdvReac Type Severity Reaction Status Date / Time amoxicillin [From Augmentin] Allergy Rash/Hives Verified 12/07/21 14:44 clavulanic acid Allergy Rash/Hives Verified 12/07/21 14:44 [From Augmentin] Review of Systems ROS Statement: Those systems with pertinent positive or pertinent negative responses have been documented in the HPI. ROS Other: All systems not noted in ROS Statement are negative. Limitations: ROS unobtainable due to patients medical condition Past Medical History Past Medical History: Hypertension, Neurologic Disorder, Sleep Apnea/CPAP/BIPAP Additional Past Medical History / Comment(s): developmentally delayed, infantile cerebral palsy-uses walker, incontinent occas,able to follow simple directions,s peech is understandible,OCD, dysthmic disorder History of Any Multi-Drug Resistant Organisms: ESBL Date of last positivie culture/infection: 11/24/21 ESBL E.coli MDRO Source:: URINE Past Surgical History: Joint Replacement Additional Past Surgical History / Comment(s): Right eye cataract surgery, left hip replacement Past Anesthesia/Blood Transfusion Reactions: No Reported Reaction Past Psychological History: Anxiety, Depression Additional Psychological History / Comment(s): lives in assisted living facility Smoking Status: Never smoker Past Alcohol Use History: None Reported Past Drug Use History: None Reported - Past Family History Mother Family Medical History: Cancer Additional Family Medical History / Comment(s): mother from lung cancer Father Family Medical History: No Reported History Brother(s) Family Medical History: Cancer Additional Family Medical History / Comment(s): from lung cancer General Exam Limitations: altered mental status General appearance: alert, in no apparent distress Head exam: Present: atraumatic Eye exam: Present: normal appearance Neck exam: Present: normal inspection Respiratory exam: Present: normal lung sounds bilaterally Cardiovascular Exam: Present: regular rate, normal rhythm GI/Abdominal exam: Present: soft. Absent: tenderness Extremities exam: Present: other (PICC line right upper extremity without erythema or swelling or drainage) Neurological exam: Present: alert Psychiatric exam: Present: normal affect, normal mood Skin exam: Present: normal color Course Vital Signs 12/07/21 14:20 Temperature 98.3 F Pulse Rate 86 Respiratory 18 Rate Blood Pressure 133/80 O2 Sat by Pulse 99 Oximetry Medical Decision Making - Medical Decision Making Nursing did dressing change and found the line kinked. Was straightened and function properly. Patient will be given a dose of Invanz prior to discharge. Disposition Clinical Impression: Occluded PICC line Disposition: HOME SELF-CARE Condition: Stable Instructions (If sedation given, give patient instructions): How to Care for Your PICC (Peripherally Inserted Central Catheter) (ED) Additional Instructions: Please follow-up with primary care physician in the next day or 2 for recheck. Return for PICC line not working, fevers, worsening symptoms or other concerns. Is patient prescribed a controlled substance at d/c from ED?: No Referrals: Kyler Zaman MD [Primary Care Provider] - 1-2 days Time of Disposition: 15:37
[2021-12-07 14:24] VITALS: RESP 18; TEMP 98.3
[2021-12-07] MEDS ORDERED: ERTAPENEM 1 GM in SODIUM CHLORIDE 0.9% 50 ML IVPB STA (14:34)
[2021-12-07] MEDS: ALTEPLASE 2 MG VIAL (CATHFLO) IV STA ×2 (15:14→15:34)
[2021-12-07 17:44] VITALS: BP 142/82; PULSE 58
== END 2021-12-07 17:44 | disposition home or self-care (01) ==
LOC: EC 14:11
DX: T82.594A Other mechanical complication of infusion catheter, initial encounter (principal); I10 Essential (primary) hypertension; F32.A Depression, unspecified; F41.9 Anxiety disorder, unspecified; Z79.890 Hormone replacement therapy; Z79.899 Other long term (current) drug therapy
CPT/HCPCS: 99283; 96365; J1335

== ENCOUNTER 2023-10-25 13:17 | Inpatient (IN) | payer MEDICARE, OTHER ==
[2023-10-25] MEDS ORDERED: ACETAMINOPHEN TAB 325 MG TAB PO PRN (13:59)
[2023-10-25] MEDS ORDERED: NALOXONE 0.4 MG/ML 1 ML VIAL IV PRN (13:59)
[2023-10-25] MEDS ORDERED: ONDANSETRON 4 MG/2 ML VIAL IVP PRN (13:59)
--- NOTE | 2023-10-25 13:59 | ED ---
General Adult HPI - General Chief complaint: Recheck/Abnormal Lab/Rx Stated complaint: uti Time Seen by Provider: 10/25/23 13:19 Source: patient, EMS, RN notes reviewed Mode of arrival: EMS Limitations: no limitations - History of Present Illness Initial comments: 58-year-old male presents emergency department from [facility] for admission for UTI. Patient has suprapubic catheter in which he is unsure when this has been exchanged last. Patient tested positive for ESBL which she has had in the past culture reads that its only sensitive to meropenem and Zosyn. Patient reports allergy to Augmentin. Patient denies any fevers he states he has no other complaints. - Related Data Home Medications Medication Instructions Recorded Confirmed Cholecalciferol [Vitamin D3 (25 50 mcg PO HS 01/31/21 12/07/21 Mcg = 1000 Iu)] FLUoxetine HCL [PROzac] 40 mg PO DAILY 01/31/21 12/07/21 Levothyroxine Sodium [Synthroid] 50 mcg PO SUMOTUWETHFR 01/31/21 12/07/21 Losartan Potassium [Cozaar] 25 mg PO PC-SUPPER 01/31/21 12/07/21 Metoprolol Succinate (ER) [Toprol 50 mg PO DAILY 01/31/21 12/07/21 XL] Tamsulosin [Flomax] 0.4 mg PO PC-SUPPER 01/31/21 12/07/21 busPIRone HCL 10 mg PO TID 01/31/21 12/07/21 risperiDONE [RisperDAL] 1 mg PO DAILY 01/31/21 12/07/21 Multivitamins, Thera [Multivitamin 1 tab PO DAILY 05/13/21 12/07/21 (formulary)] Acetaminophen Tab [Tylenol] 1,000 mg PO Q6H PRN 10/06/21 12/07/21 Ammonium Lactate Lotion 1 applic TOPICAL BID PRN 11/24/21 12/07/21 [Lac-Hydrin 12% Lotion] Ibuprofen [Motrin] 800 mg PO Q6H PRN 11/24/21 12/07/21 Loperamide HCl [Loperamide] 2 - 4 mg PO QID PRN 11/24/21 12/07/21 Magnesium Hydroxide [Milk of 2,400 mg PO DAILY PRN 11/24/21 12/07/21 Magnesia] bisacodyL [Dulcolax] 10 mg RECTAL DAILY PRN 11/24/21 12/07/21 diphenhydrAMINE [Benadryl] 25 mg PO Q6H PRN 11/24/21 12/07/21 guaiFENesin SYRUP 100MG/5ML 200 mg PO Q6H PRN 11/24/21 12/07/21 [Robitussin] Previous Rx's Medication Instructions Recorded Ertapenem [INVanz] 1 gm IVPB DAILY #14 each 11/29/21 Allergies Allergy/AdvReac Type Severity Reaction Status Date / Time amoxicillin [From Augmentin] Allergy Rash/Hives Verified 12/07/21 14:44 clavulanic acid Allergy Rash/Hives Verified 12/07/21 14:44 [From Augmentin] Review of Systems ROS Statement: Those systems with pertinent positive or pertinent negative responses have been documented in the HPI. ROS Other: All systems not noted in ROS Statement are negative. Past Medical History Past Medical History: Hypertension, Neurologic Disorder, Sleep Apnea/CPAP/BIPAP Additional Past Medical History / Comment(s): developmentally delayed, infantile cerebral palsy-uses walker, incontinent occas,able to follow simple directions,speech is understandible,OCD, dysthmic disorder History of Any Multi-Drug Resistant Organisms: ESBL Date of last positivie culture/infection: 01/24/22 MDRO Source:: URINE ESBL Past Surgical History: Joint Replacement Additional Past Surgical History / Comment(s): Right eye cataract surgery, left hip replacement Past Anesthesia/Blood Transfusion Reactions: No Reported Reaction Past Psychological History: Anxiety, Depression Smoking Status: Never smoker Past Alcohol Use History: None Reported Past Drug Use History: None Reported - Past Family History Mother Family Medical History: Cancer Additional Family Medical History / Comment(s): mother from lung cancer Father Family Medical History: No Reported History Brother(s) Family Medical History: Cancer Additional Family Medical History / Comment(s): from lung cancer General Exam Limitations: no limitations General appearance: alert, in no apparent distress Head exam: Present: atraumatic, normocephalic, normal inspection Eye exam: Present: normal appearance, PERRL, EOMI. Absent: scleral icterus, conjunctival injection, periorbital swelling Respiratory exam: Present: normal lung sounds bilaterally. Absent: respiratory distress, wheezes, rales, rhonchi, stridor Cardiovascular Exam: Present: regular rate, normal rhythm, normal heart sounds. Absent: systolic murmur, diastolic murmur, rubs, gallop, clicks GI/Abdominal exam: Present: soft, normal bowel sounds. Absent: distended, tenderness, guarding, rebound, rigid Neurological exam: Present: alert Skin exam: Present: warm, dry, intact, normal color. Absent: rash Course Vital Signs 10/25/23 13:37 Temperature 98.0 F Pulse Rate 83 Respiratory 18 Rate Blood Pressure 121/77 O2 Sat by Pulse 98 Oximetry Medical Decision Making - Medical Decision Making Was pt. sent in by a medical professional or institution (, PA, PROOF LOAD MECHANIC, urgent care, hospital, or jail...) When possible be specific @ -[Visiting physician Did you speak to anyone other than the patient for history (EMS, parent, family, police, friend...)? What history was obtained from this source @ -No Did you review nursing and triage notes (agree or disagree)? Why? @ -I reviewed and agree with nursing and triage notes Were old charts reviewed (outside hosp., previous admission, EMS record, old EKG, old radiological studies, urgent care reports/EKG's, jail records)? Report findings @ -[Reviewed outpatient urinary culture, prior laboratory studies Differential Diagnosis (chest pain, altered mental status, abdominal pain women, abdominal pain men, vaginal bleeding, weakness, fever, dyspnea, syncope, headache, dizziness, GI bleed, back pain, seizure, CVA, palpatations, mental health, musculoskeletal)? @ -Differential Abdominal Pain Men: Appendicitis, cholecystitis, diverticulosis, ischemic bowel, pancreatitis, hepatitis, UTI, gastroenteritis, AAA, incarcerated hernia, bowel obstruction, constipation, inflammatory bowel, hepatitis, peptic ulcer disease, splenic infarction, perforated viscus, testicular torsion, this is not meant to be an all-inclusive list EKG interpreted by me (3pts min.). @ -None X-rays interpreted by me (1pt min.). @ -[None done CT interpreted by me (1pt min.). @ -None done U/S interpreted by me (1pt. min.). @ -None done What testing was considered but not performed or refused? (CT, X-rays, U/S, labs)? Why? @ -None What meds were considered but not given or refused? Why? @ -None Did you discuss the management of the patient with other professionals (professionals i.e. , PA, PROOF LOAD MECHANIC, lab, RT, psych nurse, psychiatric social worker supervisor, food service hotel runner, teacher, chief lending officer, shelter case manager)? Give summary @ -[Dr. Espinoza for admission Was smoking cessation discussed for >3mins.? @ -No Was critical care preformed (if so, how long)? @ -No Were there social determinants of health that impacted care today? How? (Homelessness, low income, unemployed, alcoholism, drug addiction, transportation, low edu. Level, literacy, decrease access to med. care, nursing home, rehab)? @ -No Was there de-escalation of care discussed even if they declined (Discuss DNR or withdrawal of care, Hospice)? DNR status @ -No What co-morbidities impacted this encounter? (DM, HTN, Smoking, COPD, CAD, Cancer, CVA, ARF, Chemo, Hep., AIDS, mental health diagnosis, sleep apnea, morbid obesity)? @ -None Was patient admitted / discharged? Hospital course, mention meds given and r oute, prescriptions, significant lab abnormalities, going to OR and other pertinent info. @ -Admitted patient has ESBL patient ESBL culture shows multiple resistance this. Patient will be started on meropenem patient will have infectious disease possible PICC line placed. Undiagnosed new problem with uncertain prognosis? @ -No Drug Therapy requiring intensive monitoring for toxicity (Heparin, Nitro, Insulin, Cardizem)? @ -No Were any procedures done? @ -No Diagnosis/symptom? @ -[ESBL UTI Acute, or Chronic, or Acute on Chronic? @ -Acute Uncomplicated (without systemic symptoms) or Complicated (systemic symptoms)? @ -[Complicated Side effects of treatment? @ -[No Exacerbation, Progression, or Severe Exacerbation? @ -No Poses a threat to life or bodily function? How? (Chest pain, [place], [place], pneumonia, PE, COPD, DKA, ARF, appy, cholecystitis, CVA, Diverticulitis, Homicidal, Suicidal, threat to staff... and all critical care pts) @ -No Disposition Clinical Impression: UTI due to extended-spectrum beta lactamase (ESBL) producing Escherichia coli Disposition: ADMITTED IP TO THIS HOSP Condition: Fair Referrals: Junie,Kyler Jabari, MD [Primary Care Provider] - 1-2 days Time of Disposition: 13:59
[2023-10-25 14:42] LABS: Basophils % (A) 0 %; Eosinophils # (A) 0.2 k/uL (0-0.7); Eosinophils % (A) 2 %; HCT 39.1 % (39.0-53.0); Lymphocytes # (A) 2.7 k/uL (1.0-4.8); Lymphocytes % (A) 23 %; MCH 30.8 pg (25.0-35.0); MCHC 33.3 g/dL (31.0-37.0); MCV 92.3 fL (80.0-100.0); Monocytes # (A) 0.9 k/uL (0-1.0); Monocytes % (A) 8 %; Neutrophils # (A) 7.4 k/uL (1.3-7.7); Neutrophils % (A) 64 %; Platelet Count 224 k/uL (150-450); RBC 4.24 m/uL (4.30-5.90); RDW 13.9 % (11.5-15.5); WBC 11.6 k/uL (3.8-10.6)
[2023-10-25 14:49] LABS: Appearance,Urine Cloudy (Clear); Bacteria,Urine Moderate /hpf; Bilirubin,Urine Negative (Negative); Blood,Urine Small (Negative); Color,Urine Yellow; Glucose,Urine (UA) Negative (Negative); Ketones,Urine Negative (Negative); Leukocyte Esterase,Urine Large (Negative); Mucus,Urine Occasional /hpf; Nitrite,Urine Positive (Negative); PH, Urine 6.5 (5.0-8.0); Protein,Urine 3+ (Negative); RBC,Urine 13 /hpf (0-5); Specific Gravity,Urine 1.027 (1.001-1.035); Urobilinogen,Urine <2.0 mg/dL (<2.0); WBC,Urine 137 /hpf (0-5)
[2023-10-25 15:04] LABS: ALT 13 U/L (4-49); AST 23 U/L (17-59); African American GFR (CKD) 59 (>60 ml/min/1.73 sqM); Albumin 1.8 g/dL (3.5-5.0); Alkaline Phosphatase 132 U/L (38-126); Anion Gap -1 mmol/L; Blood Urea Nitrogen 26 mg/dL (9-20); Calcium 8.3 mg/dL (8.4-10.2); Carbon Dioxide 26 mmol/L (22-30); Chloride 108 mmol/L (98-107); Glucose 93 mg/dL (74-99); Non-African American GFR(CKD) 51 (>60 ml/min/1.73 sqM); Potassium 4.4 mmol/L (3.5-5.1); Sodium 133 mmol/L (137-145); Total Bilirubin 0.3 mg/dL (0.2-1.3); Total Protein 4.4 g/dL (6.3-8.2)
[2023-10-25] MEDS: MEROPENEM 2 GM in SODIUM CHLORIDE 0.9% 100 ML IVPB ONE (15:29)
[2023-10-25] MEDS ORDERED: MELATONIN 3 MG TABLET PO PRN (18:00)
[2023-10-25] MEDS ORDERED: CALCIUM CARBONATE 500 MG CHEWABLE PO PRN (18:00)
[2023-10-25] MEDS ORDERED: LACTULOSE 20 GM/30 ML CUP PO PRN (18:00)
[2023-10-25] MEDS ORDERED: ALPRAZolam 0.25 MG TAB PO PRN (18:00)
[2023-10-25] MEDS: ENOXAPARIN 40 MG/0.4 ML SYRINGE SQ SCH (19:54)
[2023-10-25] MEDS: busPIRone HCl 10 MG TAB PO SCH (20:16)
--- NOTE | 2023-10-25 20:29 | P.HPIM ---
History of Present Illness H&P Date: 10/25/23 Chief Complaint: UTI This is a pleasant 58-year-old patient who has known cerebral palsy with neurocognitive delay. Followed by visiting physician Dr. Zaman Chronic stable medical conditions include hypertension, chronic gait dysfunction uses a walker, hypothyroid, depression. Has a suprapubic catheter. Patient's had multiple UTIs in the past. Patient urine culture came back positive for ESBL-only sensitive to meropenem and Zosyn. And patient sent of the ER for the same. Laying in bed. Pleasant. Unable to give much of a history. Can answer simple questions. Denies any abdominal pain. Review of systems: Difficult to obtain because of underlying cognitive impai rment Past medical history to include: Hypertension, cerebral palsy with neurocognitive disorder, sleep apnea, infantile cerebral palsy, i suprapubic catheter., OCD, dysthymic disorder, recurrent UTI Social history: [facility]. No alcohol or smoking. Uses a walker. Physical examination: VITAL SIGNS: 98, 83, 18, 1 3582, 97% room air GENERAL: Reclining in bed p, comfortable. EYES: Pupils equal. Conjunctiva normal. HEENT: External appearance of nose and ears normal, oral cavity grossly normal small lower jaw. NECK: JVD not raised; masses not palpable. HEART: First and second heart sounds are normal; no edema. LUNGS: Respiratory rate normal; clear to auscultation. ABDOMEN: Soft, nontender, liver spleen not palpable, no masses palpable. Suprapubic catheter. PSYCH: Patient cannot tell his name. Does not know why he is here or where he is.. MUSCULOSKELETAL:No Clubbing/cyanosis;muscles-grossly intact NEUROLOGICAL: Cranial nerves grossly intact; no facial asymmetry, power and sensation grossly intact. INVESTIGATIONS, reviewed in the clinical context: October 25: White count 11.6 hemoglobin 13 potassium 4.4 BUN 26 creatinine 1.49 Previous labs: Creatinine 1.10 November 2021 Outside labs reported to be positive for ESBL E. coli at Assessment and plan: -Acute on recurrent UTI with cultures growing E. coli/ESBL reported from outside. Caused by suprapubic catheter Reported only to be sensitive to meropenem and IV Zosyn. Started on IV ertapenem -Chronic bladder dysfunction with a suprapubic catheter -Cerebral palsy with neurocognitive delay -Essential hypertension Cozaar 25 mg daily Toprol-XL 50 mg daily -Chronic gait dysfunction uses a walker Fall precautions -Urinary bladder outflow obstruction Flomax 0.4 mg daily -Hypothyroid Synthroid 50 g -Depression BuSpar 10 mg 3 times daily. Risperdal 1 mg daily. Prozac 40 mg daily. -Full code Past Medical History Past Medical History: Hypertension, Neurologic Disorder, Sleep Apnea/CPAP/BIPAP Additional Past Medical History / Comment(s): developmentally delayed, infantile cerebral palsy-uses walker, incontinent occas,able to follow simple directions,speech is understandible,OCD, dysthmic disorder History of Any Multi-Drug Resistant Organisms: ESBL Date of last positivie culture/infection: 01/24/22 MDRO Source:: URINE ESBL Past Surgical History: Joint Replacement Additional Past Surgical History / Comment(s): Right eye cataract surgery, left hip replacement Past Anesthesia/Blood Transfusion Reactions: No Reported Reaction Past Psychological History: Anxiety, Depression Smoking Status: Never smoker Past Alcohol Use History: None Reported Past Drug Use History: None Reported - Past Family History Mother Family Medical History: Cancer Additional Family Medical History / Comment(s): mother from lung cancer Father Family Medical History: No Reported History Brother(s) Family Medical History: Cancer Additional Family Medical History / Comment(s): from lung cancer Medications and Allergies Home Medications Medication Instructions Recorded Confirmed Type Cholecalciferol [Vitamin D3 (25 50 mcg PO HS@212901/31/21 10/25/23 History Mcg = 1000 Iu)] FLUoxetine HCL [PROzac] 40 mg PO DAILY@0801/31/21 10/25/23 History Levothyroxine Sodium [Synthroid] 50 mcg PO DAILY@0801/31/21 10/25/23 History Losartan Potassium [Cozaar] 25 mg PO DAILY@159901/31/21 10/25/23 History Metoprolol Succinate (ER) [Toprol 50 mg PO DAILY@79901/31/21 10/25/23 History XL] busPIRone HCL 10 mg PO TID@0800,1600,212901/31/21 10/25/23 History risperiDONE [RisperDAL] 1 mg PO DAILY@79901/31/21 10/25/23 History Multivitamins, Thera [Multivitamin 1 tab PO DAILY@0800 05/13/21 10/25/23 History (formulary)] Ammonium Lactate Lotion 1 applic TOPICAL BID PRN 11/24/21 10/25/23 History [Lac-Hydrin 12% Lotion] Doxazosin [Cardura] 2 mg PO DAILY@0800 10/25/23 10/25/23 History Senna-Time 8.6mg 8.6 mg PO HS@2130 10/25/23 10/25/23 History Allergies Allergy/AdvReac Type Severity Reaction Status Date / Time amoxicillin [From Augmentin] Allergy Rash/Hives Verified 10/25/23 14:39 clavulanic acid Allergy Rash/Hives Verified 10/25/23 14:39 [From Augmentin] Physical Exam Vitals: Vital Signs Temp Pulse Resp BP Pulse Ox 10/25/23 19:33 77 18 135/82 97 10/25/23 16:56 77 18 147/91 95 10/25/23 13:37 98.0 F 83 18 121/77 98 Intake and Output 10/25/23 10/25/23 10/25/23 06:59 14:59 22:59 Other: Weight 86.001 kg Results CBC & Chem 7: 10/25/23 14:14 10/25/23 14:14 Labs: Abnormal Lab Results - Last 24 Hours (Table) 10/25/23 10/25/23 10/25/23 Range/Units 14:14 14:14 14:14 WBC 11.6 H (3.8-10.6) k/uL RBC 4.24 L (4.30-5.90) m/uL Sodium 133 L (137-145) mmol/L Chloride 108 H (98-107) mmol/L BUN 26 H (9-20) mg/dL Creatinine 1.49 H (0.66-1.25) mg/dL Calcium 8.3 L (8.4-10.2) mg/dL Alkaline Phosphatase 132 H (38-126) U/L Total Protein 4.4 L (6.3-8.2) g/dL Albumin 1.8 L (3.5-5.0) g/dL Urine Protein 3+ H (Negative) Urine Blood Small H (Negative) Ur Leukocyte Esterase Large H (Negative) Urine RBC 13 H (0-5) /hpf Urine WBC 137 H (0-5) /hpf Urine WBC Clumps Many H (None) /hpf Urine Bacteria Moderate H (None) /hpf Urine Mucus Occasional H (None) /hpf
--- NOTE | 2023-10-25 21:30 | P.CONS ---
History of Present Illness - Reason for Consult Consult date: 10/25/23 ESBL UTI Requesting physician: Rodney Corona - Chief Complaint Positive culture x 1 day - History of Present Illness Patient is a 58-year-old male with a past medical history significant for developmental delay infantile cerebral palsy patient is a [facility] re sident sleep apnea and hypertension, the patient did have a suprapubic catheter and apparently patient did have outpatient urine culture positive for ESBL E. coli that has been treated with oral Augmentin without improvement hence the patient has been sent to the ER for further evaluation. Patient elevated good historian with oral specifically denies any headache no URI symptoms no chest pain shortness of breath or cough no nausea no vomiting no abdominal pain he denies any problem with the suprapubic catheter is not very clear why the catheter was changed last on presentation the hospital the patient was afebrile patient was not tachycardic hypotensive or hypoxic he did have white count of 11.6 BUN/creatinine mildly elevated liver isms are normal urine has been positive patient was given a dose of meropenem 2 g x 1 continued at every 12 hours, infectious disease was consulted for further management of antibiotic therapy Review of Systems Positive point and negatives has been mentioned in the HPI, complete review of systems was performed and all other systems are negative Past Medical History Past Medical History: Hypertension, Neurologic Disorder, Sleep Apnea/CPAP/BIPAP Additional Past Medical History / Comment(s): developmentally delayed, infantile cerebral palsy-uses walker, incontinent occas,able to follow simple directions,speech is understandible,OCD, dysthmic disorder History of Any Multi-Drug Resistant Organisms: ESBL Year Discovered:: 01/24/22 MDRO Source:: URINE ESBL Past Surgical History: Joint Replacement Additional Past Surgical History / Comment(s): Right eye cataract surgery, left hip replacement Past Anesthesia/Blood Transfusion Reactions: No Reported Reaction Past Psychological History: Anxiety, Depression Smoking Status: Never smoker Past Alcohol Use History: None Reported Past Drug Use History: None Reported - Past Family History Mother Family Medical History: Cancer Additional Family Medical History / Comment(s): mother from lung cancer Father Family Medical History: No Reported History Brother(s) Family Medical History: Cancer Additional Family Medical History / Comment(s): from lung cancer Medications and Allergies Home Medications Medication Instructions Recorded Confirmed Type Cholecalciferol [Vitamin D3 (25 50 mcg PO HS@212901/31/21 10/25/23 History Mcg = 1000 Iu)] FLUoxetine HCL [PROzac] 40 mg PO DAILY@0800 01/31/21 10/25/23 History Levothyroxine Sodium [Synthroid] 50 mcg PO DAILY@0800 01/31/21 10/25/23 History Losartan Potassium [Cozaar] 25 mg PO DAILY@1600 01/31/21 10/25/23 History Metoprolol Succinate (ER) [Toprol 50 mg PO DAILY@0801/31/21 10/25/23 History XL] busPIRone HCL 10 mg PO TID@0800,1600,212901/31/21 10/25/23 History risperiDONE [RisperDAL] 1 mg PO DAILY@0801/31/21 10/25/23 History Multivitamins, Thera [Multivitamin 1 tab PO DAILY@0800 05/13/21 10/25/23 History (formulary)] Ammonium Lactate Lotion 1 applic TOPICAL BID PRN 11/24/21 10/25/23 History [Lac-Hydrin 12% Lotion] Doxazosin [Cardura] 2 mg PO DAILY@79910/25/23 10/25/23 History Senna-Time 8.6mg 8.6 mg PO HS@212910/25/23 10/25/23 History Allergies Allergy/AdvReac Type Severity Reaction Status Date / Time amoxicillin [From Augmentin] Allergy Rash/Hives Verified 10/25/23 14:39 clavulanic acid Allergy Rash/Hives Verified 10/25/23 14:39 [From Augmentin] Physical Exam Vitals: Vital Signs Temp Pulse Resp BP Pulse Ox 10/25/23 13:37 98.0 F 83 18 121/77 98 Intake and Output 10/25/23 10/25/23 10/25/23 06:59 14:59 22:59 Other: Weight 86.001 kg GENERAL DESCRIPTION: Middle-aged male lying in bed, no distress. No tachypnea or accessory muscle of respiration use. HEENT: Shows Pallor , no scleral icterus. Oral mucous membrane is dry. No pharyngeal erythema or thrush NECK: Trachea central, no thyromegaly. LUNGS: Unlabored breathing. Clear to auscultation anteriorly. No wheeze or crackle. HEART: S1, S2, regular rate and rhythm. No loud murmur ABDOMEN: Soft, no tenderness , guarding or rigidity, no organomegaly EXTREMITIES: No edema of feet. SKIN: No rash, no masses palpable. NEUROLOGICAL: The patient is awake, alert, mood and affect normal. Results CBC & Chem 7: 10/25/23 14:14 10/25/23 14:14 Labs: Abnormal Lab Results - Last 24 Hours (Table) 10/25/23 10/25/23 10/25/23 Range/Units 14:14 14:14 14:14 WBC 11.6 H (3.8-10.6) k/uL RBC 4.24 L (4.30-5.90) m/uL Sodium 133 L (137-145) mmol/L Chloride 108 H (98-107) mmol/L BUN 26 H (9-20) mg/dL Creatinine 1.49 H (0.66-1.25) mg/dL Calcium 8.3 L (8.4-10.2) mg/dL Alkaline Phosphatase 132 H (38-126) U/L Total Protein 4.4 L (6.3-8.2) g/dL Albumin 1.8 L (3.5-5.0) g/dL Urine Protein 3+ H (Negative) Urine Blood Small H (Negative) Ur Leukocyte Esterase Large H (Negative) Urine RBC 13 H (0-5) /hpf Urine WBC 137 H (0-5) /hpf Urine WBC Clumps Many H (None) /hpf Urine Bacteria Moderate H (None) /hpf Urine Mucus Occasional H (None) /hpf Assessment and Plan (1) UTI due to extended-spectrum beta lactamase (ESBL) producing Escherichia coli Current Visit: Yes Status: Acute Code(s): N39.0 - URINARY TRACT INFECTION, SITE NOT SPECIFIED; B96.29 - OTH ESCHERICHIA COLI THE CAUSE OF DISEASES CLASSD ELSWHR; Z16.12 - EXTENDED SPECTRUM BETA LACTAMASE (ESBL) RESISTANCE SNOMED Code(s): 825194610 Plan: 1patient presented to hospital for outpatient urine culture positive for ESBL E. coli in this patient who did have a mildly elevated white count however not regular fever question of possible cystitis not behaving as a deep infection 2-mild renal insufficiency 3-we will check an ultrasound of the kidney and bladder to make sure no evidence of any structural abnormality 4-discontinue meropenem and start the patient on Invanz 1 g daily We will follow on clinical condition and cultures to further adjust medication if needed Thank you for this consultation we will follow the patient along with you Dictation was produced using [employer] software. please excuse any grammatical, word or spelling errors. Time with Patient: Greater than 30
[2023-10-26] MEDS ORDERED: MEROPENEM 2 GM in SODIUM CHLORIDE 0.9% 100 ML IVPB SCH
[2023-10-26] MEDS: ERTAPENEM 1 GM in SODIUM CHLORIDE 0.9% 50 ML IVPB SCH (05:03)
[2023-10-26] MEDS: FLUoxetine HCL 20 MG CAP PO SCH (08:32)
[2023-10-26] MEDS: MULTIVITAMINS, THERA 1 EACH TAB PO SCH (08:32)
[2023-10-26] MEDS: DOXAZOSIN 2 MG TAB PO SCH (08:32)
[2023-10-26] MEDS: LEVOTHYROXINE 50 MCG TAB PO SCH (08:32)
[2023-10-26] MEDS: risperiDONE 1 MG TAB PO SCH (08:32)
[2023-10-26] MEDS: METOPROLOL SUCCINATE (ER) 50 MG TAB.ER.24H PO SCH (08:32)
--- NOTE | 2023-10-26 09:54 | US ---
EXAMINATION TYPE: US kidneys/renal and bladder DATE OF EXAM: 10/25/2023 COMPARISON: US 2021 CLINICAL INDICATION: Male, 58 years old with history of uti and bacteremia; UTI and bacteremia. EXAM MEASUREMENTS: Right Kidney: 8.7 x 4.6 x 4.6 cm Left Kidney: 11.1 x 5.4 x 5.3 cm Right Kidney: Measures small. Anechoic area seen upper pole: 1.7 x 0.7 x 0.9 cm. Left Kidney: Multiple anechoic and complex areas seen within. Largest complex area seen lower pole me asures: 4.1 x 3.5 x 2.7 cm. Hyperechoic area seen adjacent to anechoic areas: 1.4 x 0.8 x 0.5 cm. No hydronephrosis increased renal echotexture. Bladder: Catheter seen, unable to evaluate. Bilateral Jets seen: No Incidental finding: Complex area seen within the right lobe of the liver: 3.1 x 2.3 x 2.2 cm. IMPRESSION: 1. Bilateral renal cysts on the left slightly complex. Consider renal mass protocol MRI for complete evaluation of the kidneys. 2. No evidence for hydronephrosis.
--- NOTE | 2023-10-26 14:58 | P.PN ---
Subjective Progress Note Date: 10/26/23 Principal diagnosis: Reason for follow-up is ESBL E. coli UTI Patient is a 58-year-old male with a past medical history significant for developmental delay infantile cerebral palsy patient is a jail resident sleep apnea and hypertension, the patient did have a suprapubic catheter and apparently patient did have outpatient urine culture positive for ESBL E. coli 4 the patient has been admitted to the hospital. On today's evaluation that is 10/26/2023, the patient continues to be afebrile, the patient is on room air and breathing comfortably, the Pt denies having any chest pain or cough, the patient denies having any abdominal pain no vomiting or any diarrhea has been reported by the nursing staff No new labs has been obtained today repeat urine cultures pending Objective - Vital Signs Vital signs: Vital Signs Temp 97.6 F 10/26/23 07:12 Pulse 73 10/26/23 07:12 Resp 16 10/26/23 07:12 BP 137/88 10/26/23 07:12 Pulse Ox 96 10/26/23 07:12 FiO2 Intake & Output 10/25/23 10/26/23 10/26/23 18:59 06:59 18:59 Output Total 675 Balance -675 Weight 86.001 kg 86.001 kg Output: Urine 675 Other: Voiding Method Indwelling Catheter Indwelling Catheter - Exam GENERAL DESCRIPTION: Middle-age male lying in bed in no distress RESPIRATORY SYSTEM: Unlabored breathing , decreased breath sounds at bases HEART: S1 S2 regular rate and rhythm , ABDOMEN: Soft , no tenderness EXTREMITIES: No edema feet - Labs CBC & Chem 7: 10/25/23 14:14 10/25/23 14:14 Labs: Abnormal Lab Results - Last 24 Hours (Table) 10/25/23 10/25/23 Range/Units 14:14 14:14 Sodium 133 L (137-145) mmol/L Chloride 108 H (98-107) mmol/L BUN 26 H (9-20) mg/dL Creatinine 1.49 H (0.66-1.25) mg/dL Calcium 8.3 L (8.4-10.2) mg/dL Alkaline Phosphatase 132 H (38-126) U/L Total Protein 4.4 L (6.3-8.2) g/dL Albumin 1.8 L (3.5-5.0) g/dL Urine Protein 3+ H (Negative) Urine Blood Small H (Negative) Ur Leukocyte Esterase Large H (Negative) Urine RBC 13 H (0-5) /hpf Urine WBC 137 H (0-5) /hpf Urine WBC Clumps Many H (None) /hpf Urine Bacteria Moderate H (None) /hpf Urine Mucus Occasional H (None) /hpf Assessment and Plan (1) UTI due to extended-spectrum beta lactamase (ESBL) producing Escherichia coli Current Visit: Yes Status: Acute Code(s): N39.0 - URINARY TRACT INFECTION, SITE NOT SPECIFIED; B96.29 - OTH ESCHERICHIA COLI THE CAUSE OF DISEASES CLASSD ELSWHR; Z16.12 - EXTENDED SPECTRUM BETA LACTAMASE (ESBL) RESISTANCE SNOMED Code(s): 320080648 Plan: 1patient presented to hospital for outpatient urine culture positive for ESBL E. coli in this patient who did have a mildly elevated white count however not regular fever question of possible cystitis not behaving as a deep infection 2-mild renal insufficiency 3-ultrasound of the kidney bladder area tissues bilateral renal cyst no evidence of hydronephrosis 4-patient to continue with Invanz 1 g daily, while waiting for repeat culture to finalize Dictation was produced using [employer] dictation software. please excuse any grammatical, word or spelling errors. Time with Patient: Less than 30
--- NOTE | 2023-10-26 15:45 | P.PN ---
Progress Note - Text Progress Note Date: 10/26/23 Chief Complaint: UTI This is a pleasant 58-year-old patient who has known cerebral palsy with neurocognitive delay. Followed by visiting physician Dr. Zaman Chronic stable medical conditions include hypertension, chronic gait dysfunction uses a walker, hypothyroid, depression. Has a suprapubic catheter. Patient's had multiple UTIs in the past. Patient urine culture came back positive for ESBL-only sensitive to meropenem and Zosyn. And patient sent of the ER for the same. Laying in bed. Pleasant. Unable to give much of a history. Can answer simple questions. Denies any abdominal pain. October 26: Reclining in bed. Comfortable. Tolerating diet. Smiling. On IV ertapenem. Patient is arms are only very simple questions. Review of systems: Difficult to obtain because of underlying cognitive impairment Past medical history to include: Hypertension, cerebral palsy with neurocognitive disorder, sleep apnea, infantile cerebral palsy, i suprapubic catheter., OCD, dysthymic disorder, recurrent UTI Social history: [facility] home. No alcohol or smoking. Uses a walker. Physical examination: VITAL SIGNS: 97.6, 73, 16, 137 x 88, 96% room air GENERAL: Reclining in bed p, comfortable. EYES: Pupils equal. Conjunctiva normal. HEENT: External appearance of nose and ears normal, oral cavity grossly normal small lower jaw. NECK: JVD not raised; masses not palpable. HEART: First and second heart sounds are normal; no edema. LUNGS: Respiratory rate normal; clear to auscultation. ABDOMEN: Soft, nontender, liver spleen not palpable, no masses palpable. Suprapubic catheter. PSYCH: Patient cannot tell his name. Does not know why he is here or where he is.. Can answer some very simple questions MUSCULOSKELETAL:No Clubbing/cyanosis;muscles-grossly intact NEUROLOGICAL: Cranial nerves grossly intact; no facial asymmetry, power and se nsation grossly intact. INVESTIGATIONS, reviewed in the clinical context: October 25: White count 11.6 hemoglobin 13 potassium 4.4 BUN 26 creatinine 1.49 Previous labs: Creatinine 1.10 November 2021 Outside labs reported to be positive for ESBL E. coli at Assessment and plan: -Acute on recurrent UTI with cultures growing E. coli/ESBL reported from outside. Caused by suprapubic catheter Reported only to be sensitive to meropenem and IV Zosyn. IV ertapenem -Chronic bladder dysfunction with a suprapubic catheter -Cerebral palsy with neurocognitive delay -Chronic kidney disease stage III likely nephrosclerosis Baseline creatinine around 1.4 -Essential hypertension Cozaar 25 mg daily Toprol-XL 50 mg daily -Chronic gait dysfunction uses a walker Fall precautions -Urinary bladder outflow obstruction Flomax 0.4 mg daily -Hypothyroid Synthroid 50 g -Depression BuSpar 10 mg 3 times daily. Risperdal 1 mg daily. Prozac 40 mg daily. -Full code Continue current medication treatment plan. Follow with ID Past Medical History Past Medical History: Hypertension, Neurologic Disorder, Sleep Apnea/CPAP/BIPAP Additional Past Medical History / Comment(s): developmentally delayed, infantile cerebral palsy-uses walker, incontinent occas,able to follow simple directions,speech is understandible,OCD, dysthmic disorder History of Any Multi-Drug Resistant Organisms: ESBL Date of last positivie culture/infection: 01/24/22 MDRO Source:: URINE ESBL Past Surgical History: Joint Replacement Additional Past Surgical History / Comment(s): Right eye cataract surgery, left hip replacement Past Anesthesia/Blood Transfusion Reactions: No Reported Reaction Past Psychological History: Anxiety, Depression Smoking Status: Never smoker Past Alcohol Use History: None Reported Past Drug Use History: None Reported
[2023-10-26] MEDS: LOSARTAN 25 MG TAB PO SCH (16:02)
[2023-10-27 10:53] LABS: African American GFR (CKD) 52 (>60 ml/min/1.73 sqM); Anion Gap 3 mmol/L; Blood Urea Nitrogen 32 mg/dL (9-20); Carbon Dioxide 24 mmol/L (22-30); Chloride 109 mmol/L (98-107); Glucose 93 mg/dL (74-99); Non-African American GFR(CKD) 45 (>60 ml/min/1.73 sqM); Potassium 4.4 mmol/L (3.5-5.1); Sodium 136 mmol/L (137-145)
--- NOTE | 2023-10-27 12:06 | P.PN ---
Subjective Progress Note Date: 10/27/23 Principal diagnosis: Reason for follow-up is ESBL E. coli UTI Patient is a 58-year-old male with a past medical history significant for developmental delay infantile cerebral palsy patient is a long term resident sleep apnea and hypertension, the patient did have a suprapubic catheter and apparently patient did have outpatient urine culture positive for ESBL E. coli 4 the patient has been admitted to the hospital. On today's evaluation that is 10/27/2023, Patient is afebrile patient is currently on room air and denies having any shortness of breath, the patient d enies any chest pain or cough, the patient denies any nausea vomiting did not have any abdominal pain and no diarrhea. Creatinine 1.65 as of this morning blood culture negative Objective - Vital Signs Vital signs: Vital Signs Temp 97.9 F 10/27/23 06:59 Pulse 75 10/27/23 08:50 Resp 18 10/27/23 08:50 BP 141/86 10/27/23 06:59 Pulse Ox 95 10/27/23 06:59 FiO2 Intake & Output 10/26/23 10/27/23 10/27/23 18:59 06:59 18:59 Output Total 300 250 Balance -300 -250 Output: Urine 300 250 Other: Voiding Method Indwelling Catheter Indwelling Catheter Indwelling Catheter - Exam GENERAL DESCRIPTION: Middle-age male lying in bed in no distress RESPIRATORY SYSTEM: Unlabored breathing , decreased breath sounds at bases HEART: S1 S2 regular rate and rhythm , ABDOMEN: Soft , no tenderness EXTREMITIES: No edema feet - Labs CBC & Chem 7: 10/25/23 14:14 10/27/23 09:48 Labs: Abnormal Lab Results - Last 24 Hours (Table) 10/27/23 Range/Units 09:48 Sodium 136 L (137-145) mmol/L Chloride 109 H (98-107) mmol/L BUN 32 H (9-20) mg/dL Creatinine 1.65 H (0.66-1.25) mg/dL Calcium 8.0 L (8.4-10.2) mg/dL Microbiology - Last 24 Hours (Table) 10/25/23 13:50 Blood Culture - Preliminary Blood 10/25/23 14:14 Blood Culture - Preliminary Blood Assessment and Plan (1) UTI due to extended-spectrum beta lactamase (ESBL) producing Escherichia coli Current Visit: Yes Status: Acute Code(s): N39.0 - URINARY TRACT INFECTION, SITE NOT SPECIFIED; B96.29 - OTH ESCHERICHIA COLI THE CAUSE OF DISEASES CLAS SD ELSWHR; Z16.12 - EXTENDED SPECTRUM BETA LACTAMASE (ESBL) RESISTANCE SNOMED Code(s): 773744517 Plan: 1patient presented to hospital for outpatient urine culture positive for ESBL E. coli in this patient who did have a mildly elevated white count however not regular fever question of possible cystitis not behaving as a deep infection 2-mild renal insufficiency 3-ultrasound of the kidney bladder area tissues bilateral renal cyst no evidence of hydronephrosis 4-patient to continue with Invanz 1 g daily, nursing staff has been advised to change his Smith catheter and obtain urine culture for new Smith Dictation was produced using [employer] dictation software. please excuse any grammatical, word or spelling errors. Time with Patient: Less than 30
--- NOTE | 2023-10-27 13:57 | P.PN ---
Subjective Progress Note Date: 10/27/23 This is a 58-year-old male with history of cerebral palsy comes in for antibiotic treatment for an ESBL urinary tract infection found on outpatient urine culture. Infectious diseases following and is recommending to repeat the urine culture which is currently pending at this time. Suprapubic catheter rem ains in place. Patient has been afebrile. Review of Systems Constitutional: Denied any fatigue denied any fever. Cardio vascular: denied any chest pain, palpitations Gastrointestinal: denied any nausea, vomiting, diarrhea Pulmonary: Denied any shortness of breath cough Neurologic denied any new focal deficits All inpatient medications were reviewed and appropriate changes in these medications as dictated in the interval history and assessment and plan. PHYSICAL EXAMINATION: GENERAL: The patient is alert and oriented x2, not in any acute distress. Well developed, well nourished. HEENT: Pupils are round and equally reacting to light. EOMI. No scleral icterus. No conjunctival pallor. Normocephalic, atraumatic. No pharyngeal erythema. No thyromegaly. CARDIOVASCULAR: S1 and S2 present. No murmurs, rubs, or gallops. PULMONARY: Chest is clear to auscultation, no wheezing or crackles. ABDOMEN: Soft, nontender, nondistended, normoactive bowel sounds. No palpable organomegaly. MUSCULOSKELETAL: No joint swelling or deformity. EXTREMITIES: No cyanosis, clubbing, or pedal edema. NEUROLOGICAL: Gross neurological examination did not reveal any focal deficits. SKIN: No rashes. Assessment and plan: -Acute on recurrent UTI with cultures growing E. coli/ESBL reported from outside. Caused by suprapubic catheter sensitive to IV ertapenem, ID following and repeat urine culture pending. -Chronic bladder dysfunction with a suprapubic catheter -Cerebral palsy with neurocognitive delay -Chronic kidney disease stage III likely nephrosclerosis Baseline creatinine around 1.4 -Essential hypertension continue cozaar and toprol -Chronic gait dysfunction uses a walker -Urinary bladder outflow obstruction continue on flomax -Hypothyroid -Depression -Full code Continue current medication treatment plan. Follow with ID and pending repeat urine culture. Patient will return to shelter on discharge. The impression and plan of care has been dictated by Nurse Krystal Son ctitioner as directed. Dr. Louise MD I have performed a history and physical examination and medical decision making of this patient, discussed the same with the dictator, and agree with the dictat ors assessment and plan as written, documented as a scribe. Based on total visit time, I have performed more than 50% of this visit. Objective - Vital Signs Vital signs: Vital Signs Temp 97.9 F 10/27/23 06:59 Pulse 75 10/27/23 06:59 Resp 18 10/27/23 06:59 BP 141/86 10/27/23 06:59 Pulse Ox 95 10/27/23 06:59 FiO2 Intake & Output 10/26/23 10/27/23 10/27/23 18:59 06:59 18:59 Output Total 300 250 Balance -300 -250 Output: Urine 300 250 Other: Voiding Method Indwelling Catheter Indwelling Catheter - Labs CBC & Chem 7: 10/25/23 14:14 10/27/23 09:48 Labs: Microbiology - Last 24 Hours (Table) 10/25/23 13:50 Blood Culture - Preliminary Blood 10/25/23 14:14 Blood Culture - Preliminary Blood Assessment and Plan Time with Patient: Less than 30
[2023-10-28 09:53] LABS: Basophils # (A) 0.06 X 10*3/uL (0.00-0.10); Basophils % (A) 0.5 %; Eosinophils % (A) 1.8 %; HCT 44.3 % (39.6-50.0); HGB 14.2 g/dL (13.0-17.0); Lymphocytes # (A) 2.49 X 10*3/uL (0.90-5.00); Lymphocytes % (A) 22.5 %; MCH 30.1 pg (27.0-32.0); MCHC 32.1 g/dL (32.0-37.0); MCV 94.1 FL (80.0-97.0); Mean Platelet Volume 11.6 FL (9.5-12.2); Monocytes # (A) 1.33 X 10*3/uL (0.20-1.00); NRBC Per 100 WBC 0 X 10*3/uL (0.00-0.01); Neutrophils # (A) 6.94 X 10*3/uL (1.80-7.70); Neutrophils % (A) 62.8 %; Platelet Count 197 X 10*3/uL (140-440); RBC 4.71 X 10*6/uL (4.40-5.60); RDW 13.7 % (11.5-14.5); WBC 11.06 X 10*3/uL (4.50-10.00)
[2023-10-28 10:07] LABS: BUN/Creat Ratio 20.82 Ratio (12.00-20.00); Blood Urea Nitrogen 35.4 mg/dL (9.0-27.0); Calcium 7.6 mg/dL (8.7-10.3); Carbon Dioxide 23.5 mmol/L (21.6-31.8); Chloride 107 mmol/L (96-109); Glucose 100 mg/dL (70-110); Potassium 4.4 mmol/L (3.5-5.5); Sodium 137 mmol/L (135-145)
[2023-10-28] MEDS: SODIUM CHLORIDE 0.9% 1,000 ML IV SCH (14:47)
--- NOTE | 2023-10-28 16:09 | P.PN ---
Subjective Progress Note Date: 10/28/23 This is a 58-year-old male with history of cerebral palsy comes in for antibiotic treatment for an ESBL urinary tract infection found on outpatient urine culture. Infectious diseases following and is recommending to repeat the urine culture which is currently pending at this time. Suprapubic catheter rem ains in place. Patient has been afebrile. 10/28/2023 Patient is evaluated today resting in bed on the medical floor no acute complaints. His suprapubic catheter was changed out and a repeat urine culture has been taken. He remains on a course of IV Invanz with infectious disease following closely. His creatinine is up to 1.7 today he has been placed on IV fluids and will recommend repeat labs in the morning. Review of Systems Constitutional: Denied any fatigue denied any fever. Cardio vascular: denied any chest pain, palpitations Gastrointestinal: denied any nausea, vomiting, diarrhea Pulmonary: Denied any shortness of breath cough Neurologic denied any new focal deficits All inpatient medications were reviewed and appropriate changes in these medications as dictated in the interval history and assessment and plan. PHYSICAL EXAMINATION: GENERAL: The patient is alert and oriented x2, not in any acute distress. Well developed, well nourished. HEENT: Pupils are round and equally reacting to light. EOMI. No scleral icterus. No conjunctival pallor. Normocephalic, atraumatic. No pharyngeal erythema. No thyromegaly. CARDIOVASCULAR: S1 and S2 present. No murmurs, rubs, or gallops. PULMONARY: Chest is clear to auscultation, no wheezing or crackles. ABDOMEN: Soft, nontender, nondistended, normoactive bowel sounds. No palpable organomegaly. MUSCULOSKELETAL: No joint swelling or deformity. EXTREMITIES: No cyanosis, clubbing, or pedal edema. NEUROLOGICAL: Gross neurological examination did not reveal any focal deficits. SKIN: No rashes. Assessment and plan: -Acute on recurrent UTI with cultures growing E. coli/ESBL reported from outside. Caused by suprapubic catheter sensitive to IV ertapenem, ID following and repeat urine culture pending. Suprapubic catheter has been changed out and repeat culture is again taken. -Chronic bladder dysfunction with a suprapubic catheter -Cerebral palsy with neurocognitive delay -Chronic kidney disease stage III likely nephrosclerosis -Acute on chronic kidney injury likely prerenal, baseline creatinine is around 1.4 patient will be hydrated and recommend to repeat labs in the morning. -Essential hypertension continue cozaar and toprol, recommending to hold losartan at this time due to the acute kidney injury and normotensive blood pressure. -Chronic gait dysfunction uses a walker -Urinary bladder outflow obstruction continue on flomax -Hypothyroid -Depression -Full code Continue current medication treatment plan. Follow with ID and pending repeat urine culture. Patient will return to intermediate on discharge. The impression and plan of care has been dictated by Priyanka Kraus, Nurse Practitioner as directed. Dr. Louise MD I have performed a history and physical examination and medical decision making of this patient, discussed the same with the dictator, and agree with the dictators assessment and plan as written, documented as a scribe. Based on total visit time, I have performed more than 50% of this visit. Objective - Vital Signs Vital signs: Vital Signs Temp 97.6 F 10/28/23 07:07 Pulse 68 10/28/23 07:07 Resp 16 10/28/23 07:07 BP 124/87 10/28/23 07:07 Pulse Ox 100 10/28/23 07:07 FiO2 Intake & Output 10/27/23 10/28/23 10/28/23 18:59 06:59 18:59 Output Total 225 250 Balance -225 -250 Output: Urine 225 250 Other: Voiding Method Indwelling Catheter Indwelling Catheter # Voids 2 - Labs CBC & Chem 7: 10/28/23 05:52 10/28/23 05:52 Labs: Abnormal Lab Results - Last 24 Hours (Table) 10/27/23 Range/Units 09:48 Sodium 136 L (137-145) mmol/L Chloride 109 H (98-107) mmol/L BUN 32 H (9-20) mg/dL Creatinine 1.65 H (0.66-1.25) mg/dL Calcium 8.0 L (8.4-10.2) mg/dL Microbiology - Last 24 Hours (Table) 10/25/23 14:14 Urine Culture - Final Urine,Voided 10/25/23 13:50 Blood Culture - Preliminary Blood 10/25/23 14:14 Blood Culture - Preliminary Blood Assessment and Plan Time with Patient: Less than 30
--- NOTE | 2023-10-28 22:52 | P.PN ---
Subjective Progress Note Date: 10/28/23 Principal diagnosis: Reason for follow-up is ESBL E. coli UTI Patient is a 58-year-old male with a past medical history significant for developmental delay infantile cerebral palsy patient is a detention resident sleep apnea and hypertension, the patient did have a suprapubic catheter and apparently patient did have outpatient urine culture positive for ESBL E. coli 4 the patient has been admitted to the hospital. On today's evaluation that is 10/28/2023,the patient denies any fever or any chills, patient is breathing comfortably on room air, the patient denies chest pain shortness of breath and no significant cough, patient denies abdominal pain, no nausea vomiting or diarrhea. Patient did have white count of 11.06, creatinine is 1.7 urine culture so far ne gative Objective - Vital Signs Vital signs: Vital Signs Temp 97.6 F 10/28/23 07:07 Pulse 68 10/28/23 08:00 Resp 16 10/28/23 08:00 BP 124/87 10/28/23 07:07 Pulse Ox 100 10/28/23 07:07 FiO2 Intake & Output 10/27/23 10/28/23 10/28/23 18:59 06:59 18:59 Output Total 225 250 Balance -225 -250 Output: Urine 225 250 Other: Voiding Method Indwelling Catheter Indwelling Catheter Indwelling Catheter # Voids 2 - Exam GENERAL DESCRIPTION: Middle-age male lying in bed in no distress RESPIRATORY SYSTEM: Unlabored breathing , decreased breath sounds at bases HEART: S1 S2 regular rate and rhythm , ABDOMEN: Soft , no tenderness EXTREMITIES: No edema feet - Labs CBC & Chem 7: 10/28/23 05:52 10/28/23 05:52 Labs: Abnormal Lab Results - Last 24 Hours (Table) 10/28/23 10/28/23 Range/Units 05:52 05:52 WBC 11.06 H (4.50-10.00) X 10*3/uL Monocytes # 1.33 H (0.20-1.00) X 10*3/uL BUN 35.4 H (9.0-27.0) mg/dL Creatinine 1.7 H (0.6-1.5) mg/dL Est GFR (CKD-EPI) 46 L (>=60) BUN/Creatinine Ratio 20.82 H (12.00-20.00) Ratio Calcium 7.6 L (8.7-10.3) mg/dL Microbiology - Last 24 Hours (Table) 10/25/23 14:14 Urine Culture - Final Urine,Voided 10/25/23 13:50 Blood Culture - Preliminary Blood 10/25/23 14:14 Blood Culture - Preliminary Blood Assessment and Plan (1) UTI due to extended-spectrum beta lactamase (ESBL) producing Escherichia coli Current Visit: Yes Status: Acute Code(s): N39.0 - URINARY TRACT INFECTION, SITE NOT SPECIFIED; B96.29 - OTH ESCHERICHIA COLI THE CAUSE OF DISEASES CLASSD ELSWHR; Z16.12 - EXTENDED SPECTRUM BETA LACTAMASE (ESBL) RESISTANCE SNOMED Code(s): 509417508 Plan: 1patient presented to hospital for outpatient urine culture positive for ESBL E. coli in this patient who did have a mildly elevated white count however not regular fever question of possible cystitis not behaving as a deep infection 2-mild renal insufficiency 3-ultrasound of the kidney bladder area tissues bilateral renal cyst no evidence of hydronephrosis 4-patient Smith catheter has been changed repeat UA was requested but not done urine culture this admission has been negative so far, Invanz can be discontinued on discharge and no need for IV antibiotic on discharge Dictation was produced using [employer] dictation software. please excuse any grammatical, word or spelling errors.
[2023-10-29 11:11] LABS: BUN/Creat Ratio 22.53 Ratio (12.00-20.00); Blood Urea Nitrogen 38.3 mg/dL (9.0-27.0); Calcium 7.7 mg/dL (8.7-10.3); Carbon Dioxide 22.1 mmol/L (21.6-31.8); Chloride 107 mmol/L (96-109); Glucose 90 mg/dL (70-110); Potassium 4.4 mmol/L (3.5-5.5); Sodium 138 mmol/L (135-145)
--- NOTE | 2023-10-29 12:34 | P.PN ---
Subjective Progress Note Date: 10/29/23 Principal diagnosis: Reason for follow-up is ESBL E. coli UTI Patient is a 58-year-old male with a past medical history significant for developmental delay infantile cerebral palsy patient is a correction resident sleep apnea and hypertension, the patient did have a suprapubic catheter and apparently patient did have outpatient urine culture positive for ESBL E. coli 4 the patient has been admitted to the hospital. On today's evaluation that is 10/29/2023,the patient remains to be afebrile, patient is on room air not requiring supplemental oxygen and denies any sh ortness of breath no chest pain or cough.Patient denies having any nausea or vomiting, no abdominal pain and no diarrhea has been reported. Patient did have a creatinine 1.7 Objective - Vital Signs Vital signs: Vital Signs Temp 97.6 F 10/29/23 08:00 Pulse 80 10/29/23 08:00 Resp 18 10/29/23 08:00 BP 129/75 10/29/23 08:00 Pulse Ox 96 10/29/23 08:00 FiO2 Intake & Output 10/28/23 10/29/23 10/29/23 18:59 06:59 18:59 Intake Total 420 Output Total 300 300 Balance -300 -300 420 Intake: Oral 420 Output: Urine 300 300 Stool 0 Other: Voiding Method Indwelling Catheter Indwelling Catheter Indwelling Catheter - Exam GENERAL DESCRIPTION: Middle-age male lying in bed in no distress RESPIRATORY SYSTEM: Unlabored breathing , decreased breath sounds at bases HEART: S1 S2 regular rate and rhythm , ABDOMEN: Soft , no tenderness EXTREMITIES: No edema feet - Labs CBC & Chem 7: 10/28/23 05:52 10/29/23 06:06 Labs: Abnormal Lab Results - Last 24 Hours (Table) 10/29/23 Range/Units 06:06 BUN 38.3 H (9.0-27.0) mg/dL Creatinine 1.7 H (0.6-1.5) mg/dL Est GFR (CKD-EPI) 46 L (>=60) BUN/Creatinine Ratio 22.53 H (12.00-20.00) Ratio Calcium 7.7 L (8.7-10.3) mg/dL Microbiology - Last 24 Hours (Table) 10/25/23 14:14 Urine Culture - Final Urine,Voided 10/25/23 13:50 Blood Culture - Preliminary Blood 10/25/23 14:14 Blood Culture - Preliminary Blood Assessment and Plan (1) UTI due to extended-spectrum beta lactamase (ESBL) producing Escherichia coli Current Visit: Yes Status: Acute Code(s): N39.0 - URINARY TRACT INFECTION, SITE NOT SPECIFIED; B96.29 - OTH ESCHERICHIA COLI THE CAUSE OF DISEASES CLASSD ELSWHR; Z16.12 - EXTENDED SPECTRUM BETA LACTAMASE (ESBL) RESISTANCE SNOMED Code(s): 146014686 Plan: 1patient presented to hospital for outpatient urine culture positive for ESBL E. coli in this patient who did have a mildly elevated white count however not regular fever question of possible cystitis not behaving as a deep infection 2--ultrasound of the kidney bladder area tissues bilateral renal cyst no evidence of hydronephrosis 3-patient Smith catheter has been changed repeat UA was requested but not done urine culture this admission has been negative so far, no need for IV Invanz on discharge and can be safely discontinued Dictation was produced using [employer] dictation software. please excuse any grammatical, word or spelling errors. Time with Patient: Less than 30
[2023-10-29 14:15] VITALS: BP 108/76; PULSE 74; RESP 15; TEMP 97.3
== END 2023-10-29 16:27 | disposition home or self-care (01) | DRG 699 ==
LOC: EC 13:17 → 4SSUR 14:20
PROVIDERS: ADMIT Hospitalist; ATTEND Hospitalist
PROC: 05HA33Z Insertion of Infusion Device into Left Brachial Vein, Percutaneous Approach (ICD-10-PCS; principal; 2023-10-26 15:40)
DX: T83.518A Infection and inflammatory reaction due to other urinary catheter, initial encounter (principal); N17.9 Acute kidney failure, unspecified; N39.0 Urinary tract infection, site not specified; Z16.12 Extended spectrum beta lactamase (ESBL) resistance; Y84.6 Urinary catheterization as the cause of abnormal reaction of the patient, or of later complication, without mention of misadventure at the time of the procedure; B96.20 Unspecified Escherichia coli [E. coli] as the cause of diseases classified elsewhere; G80.9 Cerebral palsy, unspecified; E03.9 Hypothyroidism, unspecified; Z79.890 Hormone replacement therapy; F32.A Depression, unspecified; F42.9 Obsessive-compulsive disorder, unspecified; E11.22 Type 2 diabetes mellitus with diabetic chronic kidney disease; I12.9 Hypertensive chronic kidney disease with stage 1 through stage 4 chronic kidney disease, or unspecified chronic kidney disease; N18.30 Chronic kidney disease, stage 3 unspecified; N32.0 Bladder-neck obstruction; N28.1 Cyst of kidney, acquired; Z96.642 Presence of left artificial hip joint; Z88.1 Allergy status to other antibiotic agents; Z87.440 Personal history of urinary (tract) infections; Z80.1 Family history of malignant neoplasm of trachea, bronchus and lung; Z79.899 Other long term (current) drug therapy; F41.9 Anxiety disorder, unspecified; Z98.41 Cataract extraction status, right eye; Z88.0 Allergy status to penicillin; R26.2 Difficulty in walking, not elsewhere classified
CPT/HCPCS: 36410; 36415; 76770; 76937; 80048; 80053; 81001; 83605; 85025; 87040; 87086; 96365; 96366; 96372; 99285

== ENCOUNTER 2023-12-16 12:12 | Inpatient (IN) | payer MEDICARE, OTHER ==
[2023-12-16] MEDS: SODIUM CHLORIDE 0.9% 1,000 ML IV STA (12:57)
[2023-12-16 13:19] LABS: Basophils % (A) 0 %; Eosinophils # (A) 0.1 k/uL (0-0.7); Eosinophils % (A) 0 %; HCT 38.1 % (39.0-53.0); HGB 12.3 gm/dL (13.0-17.5); Lymphocytes # (A) 2.5 k/uL (1.0-4.8); Lymphocytes % (A) 14 %; MCH 30.9 pg (25.0-35.0); MCHC 32.2 g/dL (31.0-37.0); MCV 95.9 fL (80.0-100.0); Mean Platelet Volume 8.3; Monocytes # (A) 0.9 k/uL (0-1.0); Monocytes % (A) 5 %; Neutrophils # (A) 14.6 k/uL (1.3-7.7); Neutrophils % (A) 80 %; Platelet Count 298 k/uL (150-450); RBC 3.97 m/uL (4.30-5.90); RDW 14.3 % (11.5-15.5); WBC 18.4 k/uL (3.8-10.6)
--- NOTE | 2023-12-16 13:26 | ED ---
Recheck HPI - General Chief Complaint: Recheck/Abnormal Lab/Rx Stated Complaint: Fluid retention Time Seen by Provider: 12/16/23 12:26 Source: patient, RN notes reviewed, old records reviewed Mode of arrival: EMS Limitations: no limitations - History of Present Illness Initial Comments: This is a 58-year-old male to the ER for evaluation today. He presents today for evaluation of increasing swelling increasing abdominal pain decreased urinary output cloudy urine with altered mental status. Patient is unable to provide history secondary to underlying developmental delay MD Complaint: abnormal lab (Urinary retention cloudy urine, overall fluid retention and weight gain) Returns Today for: needs IV antibiotics Symptoms Since Prior Visit: worsening pain, worsening swelling Context: called for abnormal lab result Associated Symptoms: none - Related Data Home Medications Medication Instructions Recorded Confirmed Cholecalciferol [Vitamin D3 (25 50 mcg PO HS 01/31/21 12/20/23 Mcg = 1000 Iu)] FLUoxetine HCL [PROzac] 40 mg PO DAILY 01/31/21 12/20/23 Levothyroxine Sodium [Synthroid] 50 mcg PO DAILY 01/31/21 12/20/23 Metoprolol Succinate (ER) [Toprol 50 mg PO DAILY 01/31/21 12/20/23 XL] busPIRone HCL 10 mg PO TID 01/31/21 12/20/23 risperiDONE [RisperDAL] 1 mg PO DAILY 01/31/21 12/20/23 Multivitamins, Thera [Multivitamin 1 tab PO DAILY 05/13/21 12/20/23 (formulary)] Doxazosin [Cardura] 2 mg PO DAILY 10/25/23 12/20/23 Senna-Time 8.6mg 8.6 mg PO HS 10/25/23 12/20/23 Delsym Cough And Congestion Dm 10 ml PO Q6H PRN 12/16/23 12/20/23 Ipratropium-Albuterol Nebulize 3 ml INHALATION RT-Q4H PRN 12/16/23 12/20/23 [Duoneb 0.5 mg-3 mg/3 ml Soln] Loperamide HCl [Imodium A-D] 2 - 4 mg PO QID PRN 12/16/23 12/20/23 Potassium Chloride ER [K-Dur 20] 20 meq PO DAILY 12/16/23 12/20/23 Previous Rx's Medication Instructions Recorded Furosemide [Lasix] 40 mg PO DAILY #30 tablet 12/19/23 Sodium Bicarbonate Tab 650 mg PO BID #60 tablet 12/19/23 cefUROXime axetiL [Ceftin] 500 mg PO BID #8 tab 12/19/23 Allergies Allergy/AdvReac Type Severity Reaction Status Date / Time amoxicillin [From Augmentin] Allergy Rash/Hives Verified 12/16/23 16:24 clavulanic acid Allergy Rash/Hives Verified 12/16/23 16:24 [From Augmentin] Review of Systems ROS Statement: Those systems with pertinent positive or pertinent negative responses have been documented in the HPI. ROS Other: All systems not noted in ROS Statement are negative. Past Medical History Past Medical History: Hypertension, Neurologic Disorder, Sleep Apnea/CPAP/BIPAP Additional Past Medical History / Comment(s): developmentally delayed, infantile cerebral palsy-uses walker, incontinent occas,able to follow simple directions,speech is understandible,OCD, dysthmic disorder History of Any Multi-Drug Resistant Organisms: ESBL Date of last positivie culture/infection: 01/24/22 MDRO Source:: URINE ESBL Past Surgical History: Joint Replacement Additional Past Surgical History / Comment(s): Right eye cataract surgery, left hip replacement Past Anesthesia/Blood Transfusion Reactions: No Reported Reaction Past Psychological History: Anxiety, Depression Smoking Status: Never smoker Past Alcohol Use History: None Reported Past Drug Use History: None Reported - Past Family History Mother Family Medical History: Cancer Additional Family Medical History / Comment(s): mother from lung cancer Father Family Medical History: No Reported History Brother(s) Family Medical History: Cancer Additional Family Medical History / Comment(s): from lung cancer General Exam Limitations: no limitations General appearance: alert, in no apparent distress Head exam: Present: atraumatic, normocephalic, normal inspection Eye exam: Present: normal appearance, PERRL, EOMI. Absent: scleral icterus, conjunctival injection, periorbital swelling ENT exam: Present: normal exam, mucous membranes moist Neck exam: Present: normal inspection. Absent: tenderness, meningismus, lymphadenopathy Respiratory exam: Present: normal lung sounds bilaterally. Absent: respiratory distress, wheezes, rales, rhonchi, stridor Cardiovascular Exam: Present: regular rate, normal rhythm, normal heart sounds. Absent: systolic murmur, diastolic murmur, rubs, gallop, clicks GI/Abdominal exam: Present: soft, normal bowel sounds. Absent: distended, tenderness, guarding, rebound, rigid Extremities exam: Present: normal inspection, full ROM, normal capillary refill. Absent: tenderness, pedal edema, joint swelling, calf tenderness Back exam: Present: normal inspection Neurological exam: Present: alert, oriented X3, CN II-XII intact Psychiatric exam: Present: normal affect, normal mood Skin exam: Present: warm, dry, intact, normal color. Absent: rash Course Vital Signs 12/16/23 12/16/23 12/16/23 12:14 12:18 14:18 Temperature 98 F Pulse Rate 90 82 80 Pulse Rate [ Pulse Oximetery ] Respiratory 18 18 18 Rate Blood Pressure 136/87 116/70 126/78 Blood Pressure [Right Arm] O2 Sat by Pulse 99 98 98 Oximetry 12/16/23 17:40 Temperature 98.3 F Pulse Rate Pulse Rate [ 86 Pulse Oximetery ] Respiratory 16 Rate Blood Pressure Blood Pressure 126/75 [Right Arm] O2 Sat by Pulse 99 Oximetry - Reevaluation(s) Reevaluation #1: 12/16/23 14:32 Medical records reviewed Reevaluation #2: 12/16/23 14:32 Patient symptoms are unchanged Reevaluation #3: 12/16/23 14:32 Patient informed of results questions answered Reevaluation #4: 12/16/23 14:33 Was pt. sent in by a medical professional or institution (, PA, SECURITIES TRADER, urgent care, hospital, or jail...) When possible be specific @ -no Did you speak to anyone other than the patient for history (EMS, parent, family, police, friend...)? What history was obtained from this source @ -no Did you review nursing and triage notes (agree or disagree)? Why? @ -agree Are old charts reviewed (outside hosp., previous admission, EMS record, old EKG, old radiological studies, urgent care reports/EKG's, jail records)? Report findings @ -yes Differential Diagnosis (chest pain, altered mental status, abdominal pain women, abdominal pain men, vaginal bleeding, weakness, fever, dyspnea, syncope, headache, dizziness, GI bleed, back pain, seizure, CVA, palpatations, mental health, musculoskeletal)? @ -prior EKG interpreted by me (3pts min.). @ -yes X-rays interpreted by me (1pt min.). @ -yes negative for acute disease CT interpreted by me (1pt min.). @ -no U/S interpreted by me (1pt. min.). @ -no What testing was considered but not performed or refused? (CT, X-rays, U/S, labs)? Why? @ -none What meds were considered but not given or refused? Why? @ -none Did you discuss the management of the patient with other professionals (professionals i.e. DrChiqui, PA, SECURITIES TRADER, lab, RT, psych nurse, criminal justice social worker, cue selector, teacher, animal control officer, case reviewer)? Give summary @ -no Was smoking cessation discussed for >3mins.? @ -no Was critical care preformed (if so, how long)? @ -no Were there social determinants of health that impacted care today? How? (Homelessness, low income, unemployed, alcoholism, drug addiction, transportation, low edu. Level, literacy, decrease access to med. care, fci, rehab)? @ -none Was there de-escalation of care discussed even if they declined (Discuss DNR or withdrawal of care, Hospice)? DNR status @ -no What co-morbidities impacted this encounter? (DM, HTN, Smoking, COPD, CAD, Cancer, CVA, ARF, Chemo, Hep., AIDS, mental health diagnosis, sleep apnea, morbid obesity)? @ -none Was patient admitted / discharged? Hospital course, mention meds given and route, prescriptions, significant lab abnormalities, going to OR and other pertinent info. @ - 58 male to the ER for evaluation today. Patient presents today for evaluation regards to weakness. Does have urinary tract infection with his history of difficult urination, patient is a poor historian unable to provide history but does have a complicated medical history. Patient himself has no current complaints. Patient admitted for IV antibiotics Admitted Undiagnosed new problem with uncertain prognosis? @ -no Drug Therapy requiring intensive monitoring for toxicity (Heparin, Nitro, Insulin, Cardizem)? @ -no Were any procedures done? @ -no Diagnosis/symptom? @ -Urinary tract infection with significant resistance Acute, or Chronic, or Acute on Chronic? @ -Acute Uncomplicated (without systemic symptoms) or Complicated (systemic symptoms)? @ -Complicated Side effects of treatment? @ -no Exacerbation, Progression, or Severe Exacerbation? @ -exacerbation Poses a threat to life or bodily function? How? (Chest pain, USA, NV, pneumonia, PE, COPD, DKA, ARF, appy, cholecystitis, CVA, Diverticulitis, Homicidal, Suicidal, threat to staff... and all critical care pts) @ -yes Reevaluation #5: Differential Weakness: Hypoglycemia, shock, sepsis, hyponatremia, anemia, infection, NV, ETOH, adverse medicine reaction, overdose, stroke, this is not meant to be an all-inclusive list. - Consultations Consultation #1: spoke with Dr. Espinoza agrees to admit this patient Medical Decision Making - Medical Decision Making 58 male to the ER for evaluation today. Patient presents today for evaluation regards to weakness. Does have urinary tract infection with his history of difficult urination, patient is a poor historian unable to provide history but does have a complicated medical history. Patient himself has no current complaints. Patient admitted for IV antibiotics - Lab Data Result diagrams: 12/18/23 08:30 12/19/23 04:59 Lab Results 12/16/23 12/16/23 12/16/23 Range/Units 13:09 13:09 13:09 WBC 18.4 H (3.8-10.6) k/uL RBC 3.97 L (4.30-5.90) m/uL Hgb 12.3 L (13.0-17.5) gm/dL Hct 38.1 L (39.0-53.0) % MCV 95.9 (80.0-100.0) fL MCH 30.9 (25.0-35.0) pg MCHC 32.2 (31.0-37.0) g/dL RDW 14.3 (11.5-15.5) % Plt Count 298 (150-450) k/uL MPV 8.3 Neutrophils % 80 % Lymphocytes % 14 % Monocytes % 5 % Eosinophils % 0 % Basophils % 0 % Neutrophils # 14.6 H (1.3-7.7) k/uL Lymphocytes # 2.5 (1.0-4.8) k/uL Monocytes # 0.9 (0-1.0) k/uL Eosinophils # 0.1 (0-0.7) k/uL Basophils # 0.0 (0-0.2) k/uL PT 10.5 (10.0-12.5) sec INR 0.9 (<1.2) APTT 24.5 (22.0-30.0) sec Sodium 134 L (137-145) mmol/L Potassium 4.4 (3.5-5.1) mmol/L Chloride 115 H (98-107) mmol/L Carbon Dioxide 21 L (22-30) mmol/L Anion Gap -2 mmol/L BUN 34 H (9-20) mg/dL Creatinine 2.21 H (0.66-1.25) mg/dL Est GFR (CKD-EPI)AfAm 36 (>60 ml/min/1.73 sqM) Est GFR (CKD-EPI)NonAf 32 (>60 ml/min/1.73 sqM) Glucose 78 (74-99) mg/dL Calcium 7.5 L (8.4-10.2) mg/dL Phosphorus 4.9 H (2.5-4.5) mg/dL Magnesium 2.3 (1.6-2.3) mg/dL Total Bilirubin 0.2 (0.2-1.3) mg/dL AST 17 (17-59) U/L ALT 11 (4-49) U/L Alkaline Phosphatase 113 (38-126) U/L Troponin I (0.000-0.034) ng/mL NT-Pro-B Natriuret Pep 2710 pg/mL Total Protein 3.5 L (6.3-8.2) g/dL Albumin 1.4 L (3.5-5.0) g/dL Urine Color Urine Appearance (Clear) Urine pH (5.0-8.0) Ur Specific [place] (1.001-1.035) Urine Protein (Negative) Urine Glucose (UA) (Negative) Urine Ketones (Negative) Urine Blood (Negative) Urine Nitrite (Negative) Urine Bilirubin (Negative) Urine Urobilinogen (<2.0) mg/dL Ur Leukocyte Esterase (Negative) Urine RBC (0-5) /hpf Urine WBC (0-5) /hpf Urine WBC Clumps (None) /hpf Urine Bacteria (None) /hpf Granular Casts (0) /lpf 12/16/23 12/16/23 Range/Units 13:09 13:12 WBC (3.8-10.6) k/uL RBC (4.30-5.90) m/uL Hgb (13.0-17.5) gm/dL Hct (39.0-53.0) % MCV (80.0-100.0) fL MCH (25.0-35.0) pg MCHC (31.0-37.0) g/dL RDW (11.5-15.5) % Plt Count (150-450) k/uL MPV Neutrophils % % Lymphocytes % % Monocytes % % Eosinophils % % Basophils % % Neutrophils # (1.3-7.7) k/uL Lymphocytes # (1.0-4.8) k/uL Monocytes # (0-1.0) k/uL Eosinophils # (0-0.7) k/uL Basophils # (0-0.2) k/uL PT (10.0-12.5) sec INR (<1.2) APTT (22.0-30.0) sec Sodium (137-145) mmol/L Potassium (3.5-5.1) mmol/L Chloride (98-107) mmol/L Carbon Dioxide (22-30) mmol/L Anion Gap mmol/L BUN (9-20) mg/dL Creatinine (0.66-1.25) mg/dL Est GFR (CKD-EPI)AfAm (>60 ml/min/1.73 sqM) Est GFR (CKD-EPI)NonAf (>60 ml/min/1.73 sqM) Glucose (74-99) mg/dL Calcium (8.4-10.2) mg/dL Phosphorus (2.5-4.5) mg/dL Magnesium (1.6-2.3) mg/dL Total Bilirubin (0.2-1.3) mg/dL AST (17-59) U/L ALT (4-49) U/L Alkaline Phosphatase (38-126) U/L Troponin I <0.012 (0.000-0.034) ng/mL NT-Pro-B Natriuret Pep pg/mL Total Protein (6.3-8.2) g/dL Albumin (3.5-5.0) g/dL Urine Color Light Yellow Urine Appearance Turbid (Clear) Urine pH 6.5 (5.0-8.0) Ur Specific [place] 1.020 (1.001-1.035) Urine Protein 3+ H (Negative) Urine Glucose (UA) Negative (Negative) Urine Ketones Negative (Negative) Urine Blood Moderate H (Negative) Urine Nitrite Negative (Negative) Urine Bilirubin Negative (Negative) Urine Urobilinogen <2.0 (<2.0) mg/dL Ur Leukocyte Esterase Large H (Negative) Urine RBC 16 H (0-5) /hpf Urine WBC >182 H (0-5) /hpf Urine WBC Clumps Many H (None) /hpf Urine Bacteria Many H (None) /hpf Granular Casts 21 (0) /lpf - EKG Data -: EKG Interpreted by Me (EKG is sinus 79 IL 174 QRS 121 QTc 429) - Radiology Data Radiology results: report reviewed (Chest x-ray is negative for acute disease), image reviewed Disposition Clinical Impression: Urinary tract infection, ESBL (extended spectrum beta-lactamase) producing bacteria infection, UTI due to extended-spectrum beta lactamase (ESBL) producing Escherichia coli, Edema Disposition: HOME SELF-CARE Is patient prescribed a controlled substance at d/c from ED?: No
[2023-12-16 13:32] LABS: Appearance,Urine Turbid (Clear); Bacteria,Urine Many /hpf; Bilirubin,Urine Negative (Negative); Blood,Urine Moderate (Negative); Color,Urine Light Yellow; Glucose,Urine (UA) Negative (Negative); Granular Casts,Urine 21 /lpf (0); Ketones,Urine Negative (Negative); Leukocyte Esterase,Urine Large (Negative); Nitrite,Urine Negative (Negative); PH, Urine 6.5 (5.0-8.0); Protein,Urine 3+ (Negative); RBC,Urine 16 /hpf (0-5); Urobilinogen,Urine <2.0 mg/dL (<2.0); WBC,Urine >182 /hpf (0-5)
--- NOTE | 2023-12-16 13:35 | XR ---
EXAMINATION TYPE: XR chest 1V DATE OF EXAM: 12/16/2023 1:08 PM CLINICAL INDICATION:Male, 58 years old with history of chf; COMPARISON: Chest radiographs from 06/16/2016 TECHNIQUE: XR chest 1V Frontal view of the chest. FINDINGS: Lungs/Pleura: Scattered streaky atelectasis throughout the lungs. There is no evidence of pleural eff usion, focal consolidation, or pneumothorax. Pulmonary vascularity: Mild pulmonary vascular congestion. Heart/mediastinum: Cardiomediastinal silhouette is enlarged and stable. Musculoskeletal: No acute osseous pathology. Other findings: None IMPRESSION: Cardiomegaly and mild pulmonary vascular congestion. Correlate with BNP for congestive heart failure.
[2023-12-16 13:38] LABS: ALT 11 U/L (4-49); AST 17 U/L (17-59); African American GFR (CKD) 36 (>60 ml/min/1.73 sqM); Albumin 1.4 g/dL (3.5-5.0); Alkaline Phosphatase 113 U/L (38-126); Anion Gap -2 mmol/L; Blood Urea Nitrogen 34 mg/dL (9-20); Calcium 7.5 mg/dL (8.4-10.2); Carbon Dioxide 21 mmol/L (22-30); Chloride 115 mmol/L (98-107); Glucose 78 mg/dL (74-99); Magnesium 2.3 mg/dL (1.6-2.3); Non-African American GFR(CKD) 32 (>60 ml/min/1.73 sqM); Phosphorus 4.9 mg/dL (2.5-4.5); Potassium 4.4 mmol/L (3.5-5.1); Sodium 134 mmol/L (137-145); Total Bilirubin 0.2 mg/dL (0.2-1.3); Total Protein 3.5 g/dL (6.3-8.2)
[2023-12-16 13:47] LABS: NT-Pro-B-Type Natriuretic Pept 2710 pg/mL
[2023-12-16 14:11] LABS: INR 0.9 (<1.2); Partial Thromboplastin Time 24.5 sec (22.0-30.0); Prothrombin Time 10.5 sec (10.0-12.5)
[2023-12-16] MEDS ORDERED: NALOXONE 0.4 MG/ML 1 ML VIAL IV PRN (14:30)
[2023-12-16] MEDS ORDERED: MORPHINE SULFATE 4 MG/ML SYRINGE IV PRN (14:30)
[2023-12-16] MEDS ORDERED: ONDANSETRON 4 MG/2 ML VIAL IVP PRN (14:30)
[2023-12-16] MEDS: MEROPENEM 1 GM in SODIUM CHLORIDE 0.9% 100 ML IVPB STA (16:16)
[2023-12-16] MEDS ORDERED: IPRATROPIUM-ALBUTEROL 3 ML NEB INHALATION PRN (18:20)
[2023-12-16] MEDS: busPIRone HCl 10 MG TAB PO SCH (21:36)
[2023-12-16] MEDS: FUROSEMIDE 40 MG TAB PO SCH (21:36)
[2023-12-16] MEDS: CHOLECALCIFEROL 25 MCG (1000 IU) TABLET PO SCH (21:36)
[2023-12-17] MEDS: MEROPENEM 1 GM in SODIUM CHLORIDE 0.9% 100 ML IVPB SCH (05:35)
[2023-12-17] MEDS: LEVOTHYROXINE 50 MCG TAB PO SCH (05:35)
[2023-12-17 06:33] LABS: Basophils # (A) 0.1 k/uL (0-0.2); Basophils % (A) 1 %; Eosinophils # (A) 0.5 k/uL (0-0.7); Eosinophils % (A) 4 %; HCT 40.5 % (39.0-53.0); HGB 13.2 gm/dL (13.0-17.5); Lymphocytes # (A) 3.5 k/uL (1.0-4.8); Lymphocytes % (A) 24 %; MCH 30.8 pg (25.0-35.0); MCHC 32.5 g/dL (31.0-37.0); MCV 94.6 fL (80.0-100.0); Mean Platelet Volume 8.7; Monocytes # (A) 1.4 k/uL (0-1.0); Monocytes % (A) 10 %; Neutrophils # (A) 8.7 k/uL (1.3-7.7); Neutrophils % (A) 60 %; Platelet Count 282 k/uL (150-450); RBC 4.28 m/uL (4.30-5.90); RDW 14.7 % (11.5-15.5); WBC 14.5 k/uL (3.8-10.6)
[2023-12-17 06:53] LABS: ALT 9 U/L (4-49); AST 18 U/L (17-59); African American GFR (CKD) 42 (>60 ml/min/1.73 sqM); Albumin 1.3 g/dL (3.5-5.0); Albumin/Globulin Ratio 0.6; Alkaline Phosphatase 97 U/L (38-126); Anion Gap 2 mmol/L; Blood Urea Nitrogen 35 mg/dL (9-20); Calcium 7.3 mg/dL (8.4-10.2); Carbon Dioxide 15 mmol/L (22-30); Chloride 118 mmol/L (98-107); Globulin 2.2 g/dL; Glucose 71 mg/dL (74-99); Magnesium 2.2 mg/dL (1.6-2.3); Non-African American GFR(CKD) 36 (>60 ml/min/1.73 sqM); Phosphorus 4.3 mg/dL (2.5-4.5); Potassium 4.5 mmol/L (3.5-5.1); Sodium 135 mmol/L (137-145); Total Bilirubin 0.2 mg/dL (0.2-1.3); Total Protein 3.5 g/dL (6.3-8.2)
[2023-12-17] MEDS: MULTIVITAMINS, THERA 1 EACH TAB PO SCH (09:25)
[2023-12-17] MEDS: POTASSIUM CHLORIDE ER 20 MEQ TAB.ER PO SCH (09:25)
[2023-12-17] MEDS: FLUoxetine HCL 20 MG CAP PO SCH (09:25)
[2023-12-17] MEDS: METOPROLOL SUCCINATE (ER) 50 MG TAB.ER.24H PO SCH (09:25)
[2023-12-17] MEDS: DOXAZOSIN 2 MG TAB PO SCH (09:25)
[2023-12-17] MEDS: risperiDONE 1 MG TAB PO SCH (09:26)
[2023-12-17] MEDS: DEXTROSE 5% IN WATER 1,000 ML with SODIUM BICARB (1 MEQ/ML) 100 ML IV SCH (12:52)
[2023-12-17] MEDS: ENOXAPARIN 40 MG/0.4 ML SYRINGE SQ SCH (12:53)
--- NOTE | 2023-12-17 20:13 | P.HPIM ---
History of Present Illness H&P Date: 12/17/23 Chief Complaint: Abdominal pain decreased urine output This is a pleasant 58-year-old patient who has known cerebral palsy with neurocognitive delay. Followed by visiting physician Dr. Zaman Chronic stable medical conditions include hypertension, chronic gait dysfunction uses a walker, hypothyroid, depression. Has a suprapubic catheter. Patient's had multiple UTIs in the past. .. Can answer simple questions. Patient was sent to the ER for increasing abdominal discomfort pain decreased urine output. There was cloudy and some altered mentation. Found to have UTI. Started on meropenem in the ER. This morning patient is looking a bit better. Review of systems: Difficult to obtain because of underlying cognitive impairment Past medical history to include: Hypertension, cerebral palsy with neurocognitive disorder, sleep apnea, infantile cerebral palsy, i suprapubic catheter., OCD, dysthymic disorder, recurrent UTI Social history: [facility]. No alcohol or smoking. Uses a walker. Physical examination: VITAL SIGNS: 97.5, 79, 16, 132 x 75, 95% room air GENERAL: Reclining in bed , comfortable. EYES: Pupils equal. Conjunctiva normal. HEENT: External appearance of nose and ears normal, oral cavity grossly normal small lower jaw. NECK: JVD not raised; masses not palpable. HEART: First and second heart sounds are normal; no edema. LUNGS: Respiratory rate normal; clear to auscultation. ABDOMEN: Soft, nontender, liver spleen not palpable, no masses palpable. Suprapubic catheter. PSYCH: Patient can answer yes no one-word answers. MUSCULOSKELETAL:No Clubbing/cyanosis;muscles-grossly intact NEUROLOGICAL: Cranial nerves grossly intact; no facial asymmetry, power and sensation grossly intact. INVESTIGATIONS, reviewed in the clinical context: December 16: White count 14.5 hemoglobin 13.2 platelets 22 potassium 4.5 BUN 35 creatinine 1.98 bicarb 15 December 15: White count 18.4 platelets 298 potassium 4.4 BUN 34 creatinine 2.21 Previous labs: Creatinine 1.7 on October 29, 2023 Assessment and plan: -Acute on recurrent UTI-caused by suprapubic catheter IV meropenem. -Chronic bladder dysfunction with a suprapubic catheter -Cerebral palsy with neurocognitive delay -Acute kidney injury likely ATN IV fluids -Chronic kidney disease stage III likely nephrosclerosis Baseline creatinine around 1.7 on October 2023 -Essential hypertension Toprol-XL 50 mg daily -Chronic gait dysfunction uses a walker Fall precautions -Urinary bladder outflow obstruction Suprapubic catheter -Hypothyroid Synthroid 50 g -Depression BuSpar 10 mg 3 times daily. Risperdal 1 mg daily. Prozac 40 mg daily. -Full code IV meropenem. IV fluids. Cultures in progress. Past Medical History Past Medical History: Hypertension, Neurologic Disorder, Sleep Apnea/CPAP/BIPAP Additional Past Medical History / Comment(s): developmentally delayed, infantile cerebral palsy-uses walker, incontinent occas,able to follow simple directions,speech is understandible,OCD, dysthmic disorder History of Any Multi-Drug Resistant Organisms: ESBL Date of last positivie culture/infection: 01/24/22 MDRO Source:: URINE ESBL Past Surgical History: Joint Replacement Additional Past Surgical History / Comment(s): Right eye cataract surgery, left hip replacement Past Anesthesia/Blood Transfusion Reactions: No Reported Reaction Past Psychological History: Anxiety, Depression Additional Psychological History [facility] Comment[facility] Smoking Status: Never smoker Past Alcohol Use History: None Reported Past Drug Use History: None Reported - Past Family History Mother Family Medical History: Cancer Additional Family Medical History / Comment(s): mother from lung cancer Father Family Medical History: No Reported History Brother(s) Family Medical History: Cancer Additional Family Medical History / Comment(s): from lung cancer Medications and Allergies Home Medications Medication Instructions Recorded Confirmed Type Cholecalciferol [Vitamin D3 (25 50 mcg PO HS 01/31/21 12/16/23 History Mcg = 1000 Iu)] FLUoxetine HCL [PROzac] 40 mg PO DAILY 01/31/21 12/16/23 History Levothyroxine Sodium [Synthroid] 50 mcg PO DAILY 01/31/21 12/16/23 History Metoprolol Succinate (ER) [Toprol 50 mg PO DAILY 01/31/21 12/16/23 History XL] busPIRone HCL 10 mg PO TID 01/31/21 12/16/23 History risperiDONE [RisperDAL] 1 mg PO DAILY 01/31/21 12/16/23 History Multivitamins, Thera [Multivitamin 1 tab PO DAILY 05/13/21 12/16/23 History (formulary)] Doxazosin [Cardura] 2 mg PO DAILY 10/25/23 12/16/23 History Senna-Time 8.6mg 8.6 mg PO HS 10/25/23 12/16/23 History Cefpodoxime Proxetil [Vantin] 200 mg PO Q12HR 12/16/23 12/16/23 History Delsym Cough And Congestion Dm 10 ml PO Q6H PRN 12/16/23 12/16/23 History Furosemide [Lasix] 40 mg PO BID 12/16/23 12/16/23 History Ipratropium-Albuterol Nebulize 3 ml INHALATION RT-Q4H PRN 12/16/23 12/16/23 History [Duoneb 0.5 mg-3 mg/3 ml Soln] Loperamide HCl [Imodium A-D] 2 - 4 mg PO QID PRN 12/16/23 12/16/23 History Potassium Chloride ER [K-Dur 20] 20 meq PO DAILY 12/16/23 12/16/23 History methylPREDNISolone [Medrol Dose See Taper PO DIRECTED 12/16/23 12/16/23 H istory Pack] Allergies Allergy/AdvReac Type Severity Reaction Status Date / Time amoxicillin [From Augmentin] Allergy Rash/Hives Verified 12/16/23 16:24 clavulanic acid Allergy Rash/Hives Verified 12/16/23 16:24 [From Augmentin] Physical Exam Vitals: Vital Signs Temp Pulse Pulse Resp BP BP Pulse Ox 12/17/23 07:30 97.5 F L 71 18 144/90 98 12/17/23 01:10 97.5 F L 79 16 132/75 95 12/16/23 17:40 98.3 F 86 16 126/75 99 12/16/23 14:18 80 18 126/78 98 12/16/23 12:18 82 18 116/70 98 12/16/23 12:14 98 F 90 18 136/87 99 Intake and Output 12/16/23 12/17/23 12/17/23 22:59 06:59 14:59 Output Total 450 Balance -450 Output: Urine 450 Other: Voiding Method Indwelling Catheter # Voids 0 Weight 86.183 kg 90.9 kg Results CBC & Chem 7: 12/17/23 05:54 12/17/23 05:54 Labs: Abnormal Lab Results - Last 24 Hours (Table) 12/16/23 12/16/23 12/16/23 Range/Units 13:09 13:09 13:12 WBC 18.4 H (3.8-10.6) k/uL RBC 3.97 L (4.30-5.90) m/uL Hgb 12.3 L (13.0-17.5) gm/dL Hct 38.1 L (39.0-53.0) % Neutrophils # 14.6 H (1.3-7.7) k/uL Monocytes # (0-1.0) k/uL Sodium 134 L (137-145) mmol/L Chloride 115 H (98-107) mmol/L Carbon Dioxide 21 L (22-30) mmol/L BUN 34 H (9-20) mg/dL Creatinine 2.21 H (0.66-1.25) mg/dL Glucose (74-99) mg/dL Calcium 7.5 L (8.4-10.2) mg/dL Phosphorus 4.9 H (2.5-4.5) mg/dL Total Protein 3.5 L (6.3-8.2) g/dL Albumin 1.4 L (3.5-5.0) g/dL Urine Protein 3+ H (Negative) Urine Blood Moderate H (Negative) Ur Leukocyte Esterase Large H (Negative) Urine RBC 16 H (0-5) /hpf Urine WBC >182 H (0-5) /hpf Urine WBC Clumps Many H (None) /hpf Urine Bacteria Many H (None) /hpf 12/17/23 12/17/23 Range/Units 05:54 05:54 WBC 14.5 H (3.8-10.6) k/uL RBC 4.28 L (4.30-5.90) m/uL Hgb (13.0-17.5) gm/dL Hct (39.0-53.0) % Neutrophils # 8.7 H (1.3-7.7) k/uL Monocytes # 1.4 H (0-1.0) k/uL Sodium 135 L (137-145) mmol/L Chloride 118 H (98-107) mmol/L Carbon Dioxide 15 L (22-30) mmol/L BUN 35 H (9-20) mg/dL Creatinine 1.98 H (0.66-1.25) mg/dL Glucose 71 L (74-99) mg/dL Calcium 7.3 L (8.4-10.2) mg/dL Phosphorus (2.5-4.5) mg/dL Total Protein 3.5 L (6.3-8.2) g/dL Albumin 1.3 L (3.5-5.0) g/dL Urine Protein (Negative) Urine Blood (Negative) Ur Leukocyte Esterase (Negative) Urine RBC (0-5) /hpf Urine WBC (0-5) /hpf Urine WBC Clumps (None) /hpf Urine Bacteria (None) /hpf Thrombosis Risk Factor Assmnt - Choose All That Apply Any of the Below Risk Factors Present?: Yes Each Factor Represents 1 point: Age 41-60 years Thrombosis Risk Factor Assessment Total Risk Factor Score: 1 Thrombosis Risk Factor Assessment Level: Low Risk
[2023-12-18] MEDS: SODIUM CHLORIDE 0.9% 1,000 ML IV SCH (03:08)
[2023-12-18 08:59] LABS: Basophils # (A) 0.1 k/uL (0-0.2); Basophils % (A) 1 %; Eosinophils # (A) 0.5 k/uL (0-0.7); Eosinophils % (A) 4 %; HCT 38.3 % (39.0-53.0); Lymphocytes # (A) 2.8 k/uL (1.0-4.8); Lymphocytes % (A) 21 %; MCH 30.4 pg (25.0-35.0); MCHC 31.4 g/dL (31.0-37.0); MCV 96.8 fL (80.0-100.0); Mean Platelet Volume 8.4; Monocytes # (A) 1.4 k/uL (0-1.0); Monocytes % (A) 10 %; Neutrophils # (A) 8.5 k/uL (1.3-7.7); Neutrophils % (A) 62 %; Platelet Count 231 k/uL (150-450); RBC 3.96 m/uL (4.30-5.90); RDW 14.2 % (11.5-15.5); WBC 13.6 k/uL (3.8-10.6)
[2023-12-18 09:53] LABS: African American GFR (CKD) 42 (>60 ml/min/1.73 sqM); Anion Gap -2 mmol/L; Blood Urea Nitrogen 35 mg/dL (9-20); Calcium 7.1 mg/dL (8.4-10.2); Carbon Dioxide 20 mmol/L (22-30); Chloride 117 mmol/L (98-107); Glucose 84 mg/dL (74-99); Non-African American GFR(CKD) 36 (>60 ml/min/1.73 sqM); Sodium 135 mmol/L (137-145)
--- NOTE | 2023-12-18 16:33 | P.PN ---
Progress Note - Text Progress Note Date: 12/18/23 Chief Complaint: Abdominal pain decreased urine output This is a pleasant 58-year-old patient who has known cerebral palsy with neurocognitive delay. Followed by visiting physician Dr. Zaman Chronic stable medical conditions include hypertension, chronic gait dysfunction uses a walker, hypothyroid, depression. Has a suprapubic catheter. Patient's had multiple UTIs in the past. .. Can answer simple questions. Patient was sent to the ER for increasing abdominal discomfort pain decreased urine output. There was cloudy and some altered mentation. Found to have UTI. Started on meropenem in the ER. This morning patient is looking a bit better. December 17: Admitted with acute UTI. Cystitis. Remains on IV meropenem. Clinically doing better. Oral intake better. Continue with sodium bicarbonate drip for metabolic acidosis. Increase to 100 cc an hour. Active Medications Albuterol/Ipratropium (Ipratropium-Albuterol 3 Ml Neb) 3 ml INHALATION RT-Q4H PRN PRN Reason: Shortness Of Breath Buspirone HCl (Buspirone Hcl 10 Mg Tab) 10 mg PO TID [facility] Last Admin: 12/18/23 08:03 Dose: 10 mg Cholecalciferol (Cholecalciferol 25 Mcg (1000 Iu) Tablet) 50 mcg PO HS [facility] Last Admin: 12/17/23 21:04 Dose: 50 mcg Doxazosin Mesylate (Doxazosin 2 Mg Tab) 2 mg PO DAILY [facility] Last Admin: 12/18/23 08:03 Dose: 2 mg Enoxaparin Sodium (Enoxaparin 40 Mg/0.4 Ml Syringe) 40 mg SQ DAILY [facility] Last Admin: 12/18/23 08:03 Dose: 40 mg Fluoxetine HCl (Fluoxetine Hcl 20 Mg Cap) 40 mg PO DAILY [facility] Last Admin: 12/18/23 08:03 Dose: 40 mg Meropenem 1 gm/ Sodium (Chloride) 100 mls @ 33.3 mls/hr IVPB Q12H [facility]; Protocol Last Admin: 12/18/23 06:31 Dose: 33.3 mls/hr Sodium Bicarbonate 100 ml/ (Dextrose/Water) 1,100 mls @ 100 mls/hr IV .Q11H [facility] Last Admin: 12/18/23 12:12 Dose: Not Given Sodium Chloride (Saline 0.9%) 1,000 mls @ 100 mls/hr IV .Q10H [facility] Last Admin: 12/18/23 06:36 Dose: Not Given Levothyroxine Sodium (Levothyroxine 50 Mcg Tab) 50 mcg PO DAILY@0600 [facility] Last Admin: 12/18/23 06:31 Dose: 50 mcg Metoprolol Succinate (Metoprolol Succinate (Er) 50 Mg Tab.Er.24h) 50 mg PO DAILY [facility] Last Admin: 12/18/23 08:03 Dose: 50 mg Multivitamins (Multivitamins, Thera 1 Each Tab) 1 each PO DAILY [facility] Last Admin: 12/18/23 08:03 Dose: 1 each Naloxone HCl (Naloxone 0.4 Mg/Ml 1 Ml Vial) 0.2 mg IV Q2M PRN PRN Reason: Opioid Reversal Ondansetron HCl (Ondansetron 4 Mg/2 Ml Vial) 4 mg IVP Q8HR PRN PRN Reason: Nausea And Vomiting Potassium Chloride (Potassium Chloride Er 20 Meq Tab.Er) 20 meq PO DAILY [facility] Last Admin: 12/18/23 08:03 Dose: 20 meq Risperidone (Risperidone 1 Mg Tab) 1 mg PO DAILY [facility] Last Admin: 12/18/23 08:03 Dose: 1 mg Past medical history to include: Hypertension, cerebral palsy with neurocognitive disorder, sleep apnea, infantile cerebral palsy, i suprapubic catheter., OCD, dysthymic disorder, recurrent UTI Social history: [facility] home. No alcohol or smoking. Uses a walker. Physical examination: VITAL SIGNS: 98, 84, 18, 130/85, 98% room air GENERAL: Reclining in bed , comfortable. EYES: Pupils equal. Conjunctiva normal. HEENT: External appearance of nose and ears normal, oral cavity grossly normal small lower jaw. NECK: JVD not raised; masses not palpable. HEART: First and second heart sounds are normal; no edema. LUNGS: Respiratory rate normal; clear to auscultation. ABDOMEN: Soft, nontender, liver spleen not palpable, no masses palpable. Sup rapubic catheter. PSYCH: Patient can answer yes no one-word answers. MUSCULOSKELETAL:No Clubbing/cyanosis;muscles-grossly intact NEUROLOGICAL: Cranial nerves grossly intact; no facial asymmetry, power and sensation grossly intact. INVESTIGATIONS, reviewed in the clinical context: December 17: White count 13.6 hemoglobin 12 platelets 231 sodium 135 potassium 4 BUN 35 creatinine 1.97 December 16: White count 14.5 hemoglobin 13.2 platelets 22 potassium 4.5 BUN 35 creatinine 1.98 bicarb 15 December 15: White count 18.4 platelets 298 potassium 4.4 BUN 34 creatinine 2.21 Previous labs: Creatinine 1.7 on October 29, 2023 Assessment and plan: -Acute on recurrent UTI-caused by suprapubic catheter IV meropenem. -Chronic bladder dysfunction with a suprapubic catheter -Cerebral palsy with neurocognitive delay -Acute kidney injury likely ATN IV fluids -Metabolic acidosis secondary to kidney disease IV sodium bicarbonate drip running -Chronic kidney disease stage III likely nephrosclerosis Baseline creatinine around 1.7 on October 2023 -Essential hypertension Toprol-XL 50 mg daily -Chronic gait dysfunction uses a walker Fall precautions -Urinary bladder outflow obstruction Suprapubic catheter -Hypothyroid Synthroid 50 g -Depression BuSpar 10 mg 3 times daily. Risperdal 1 mg daily. Prozac 40 mg daily. -Full code IV meropenem. Increase sodium bicarbonate drip to 100 cc an hour. Doing better Past Medical History Past Medical History: Hypertension, Neurologic Disorder, Sleep Apnea/CPAP/BIPAP Additional Past Medical History / Comment(s): developmentally delayed, infantile cerebral palsy-uses walker, incontinent occas,able to follow simple directions,speech is understandible,OCD, dysthmic disorder History of Any Multi-Drug Resistant Organisms: ESBL Date of last positivie culture/infection: 01/24/22 MDRO Source:: URINE ESBL Past Surgical History: Joint Replacement Additional Past Surgical History / Comment(s): Right eye cataract surgery, left hip replacement Past Anesthesia/Blood Transfusion Reactions: No Reported Reaction Past Psychological History: Anxiety, Depression Additional [facility] Smoking Status: Never smoker Past Alcohol Use History: None Reported Past Drug Use History: None Reported
[2023-12-19 05:29] LABS: African American GFR (CKD) 45 (>60 ml/min/1.73 sqM); Anion Gap 0 mmol/L; Blood Urea Nitrogen 35 mg/dL (9-20); Carbon Dioxide 19 mmol/L (22-30); Chloride 115 mmol/L (98-107); Glucose 90 mg/dL (74-99); Non-African American GFR(CKD) 39 (>60 ml/min/1.73 sqM); Sodium 134 mmol/L (137-145)
[2023-12-19 08:02] VITALS: BP 127/85; PULSE 85; RESP 18; TEMP 98
--- NOTE | 2023-12-19 22:06 | P.DS ---
Providers Date of admission: 12/16/23 14:30 Expected date of discharge: 12/19/23 Attending physician: Bakari Espinoza Primary care physician: Kyler Zaman MD Hospital Course: Chief Complaint: Abdominal pain decreased urine output This is a pleasant 58-year-old patient who has known cerebral palsy with neurocognitive delay. Followed by visiting physician Dr. Zaman Chronic stable medical conditions include hypertension, chronic gait dysfunction uses a walker, hypothyroid, depression. Has a suprapubic catheter. Patient's had multiple UTIs in the past. .. Can answer simple questions. Patient was sent to the ER for increasing abdominal discomfort pain decreased urine output. There was cloudy and some altered mentation. Found to have UTI. Started on meropenem in the ER. This morning patient is looking a bit better. December 17: Admitted with acute UTI. Cystitis. Remains on IV meropenem. Clinically doing better. Oral intake better. Continue with sodium bicarbonate drip for metabolic acidosis. Increase to 100 cc an hour. December 18: Patient doing well. Will complete 4 more days of Ceftin. Tolerating diet. Patient is outpatient nephrology consultation. Past medical history to include: Hypertension, cerebral palsy with neurocognitive disorder, sleep apnea, infantile cerebral palsy, i suprapubic catheter., OCD, dysthymic disorder, recurrent UTI Social history: [facility] home. No alcohol or smoking. Uses a walker. Physical examination: VITAL SIGNS: 98, 85, 18, 127 x 85, 95% room air GENERAL: Reclining in bed , comfortable. EYES: Pupils equal. Conjunctiva normal. HEENT: External appearance of nose and ears normal, oral cavity grossly normal small lower jaw. NECK: JVD not raised; masses not palpable. HEART: First and second heart sounds are normal; no edema. LUNGS: Respiratory rate normal; clear to auscultation. ABDOMEN: Soft, nontender, liver spleen not palpable, no masses palpable. Suprapubic catheter. PSYCH: Patient can answer yes no one-word answers. MUSCULOSKELETAL:No Clubbing/cyanosis;muscles-grossly intact NEUROLOGICAL: Cranial nerves grossly intact; no facial asymmetry, power and sensation grossly intact. INVESTIGATIONS, reviewed in the clinical context: December 17: White count 13.6 hemoglobin 12 platelets 231 sodium 135 potassium 4 BUN 35 creatinine 1.97 December 16: White count 14.5 hemoglobin 13.2 platelets 22 potassium 4.5 BUN 35 creatinine 1.98 bicarb December 15: White count 18.4 platelets 298 potassium 4.4 BUN 34 creatinine 2.21 Previous labs: Creatinine 1.7 on October 29, 2023 Assessment and plan: -Acute on recurrent UTI-caused by suprapubic catheter IV meropenem. Complete 4 more days of Ceftin 5 mg twice daily -Chronic bladder dysfunction with a suprapubic catheter -Cerebral palsy with neurocognitive delay -Acute kidney injury likely ATN: Better IV fluids -Metabolic acidosis secondary to kidney disease IV sodium bicarbonate drip running -Chronic kidney disease stage III likely nephrosclerosis Baseline creatinine around 1.7 on October 2023 Due to follow-up with nephrology outpatient -Essential hypertension Toprol-XL 50 mg daily -Chronic gait dysfunction uses a walker Fall precautions -Urinary bladder outflow obstruction Suprapubic catheter -Hypothyroid Synthroid 50 g -Depression BuSpar 10 mg 3 times daily. Risperdal 1 mg daily. Prozac 40 mg daily. -Full code Disposition: [facility] Past Medical History Past Medical History: Hypertension, Neurologic Disorder, Sleep Apnea/CPAP/BIPAP Additional Past Medical History / Comment(s): developmentally delayed, infantile cerebral palsy-uses walker, incontinent occas,able to follow simple directions,speech is understandible,OCD, dysthmic disorder History of Any Multi-Drug Resistant Organisms: ESBL Date of last positivie culture/infection: 01/24/22 MDRO Source:: URINE ESBL Past Surgical History: Joint Replacement Additional Past Surgical History / Comment(s): Right eye cataract surgery, left hip replacement Past Anesthesia/Blood Transfusion Reactions: No Reported Reaction Past Psychological History: Anxiety, Depression Additional [facility] History / Comment[facility] Smoking Status: Never smoker Past Alcohol Use History: None Reported Past Drug Use History: None Reported Plan - Discharge Summary Discharge Rx Participant: Yes New Discharge Prescriptions: New Sodium Bicarbonate Tab 650 mg PO BID #60 tablet cefUROXime axetiL [Ceftin] 500 mg PO BID #8 tab Furosemide [Lasix] 40 mg PO DAILY #30 tablet Continue Cholecalciferol [Vitamin D3 (25 Mcg = 1000 Iu)] 50 mcg PO HS risperiDONE [RisperDAL] 1 mg PO DAILY FLUoxetine HCL [PROzac] 40 mg PO DAILY Doxazosin [Cardura] 2 mg PO DAILY Loperamide HCl [Imodium A-D] 2 - 4 mg PO QID PRN PRN Reason: Diarrhea busPIRone HCL 10 mg PO TID Levothyroxine Sodium [Synthroid] 50 mcg PO DAILY Metoprolol Succinate (ER) [Toprol XL] 50 mg PO DAILY Multivitamins, Thera [Multivitamin (formulary)] 1 tab PO DAILY Potassium Chloride ER [K-Dur 20] 20 meq PO DAILY Ipratropium-Albuterol Nebulize [Duoneb 0.5 mg-3 mg/3 ml Soln] 3 ml INHALATION RT-Q4H PRN PRN Reason: Shortness Of Breath Discontinued methylPREDNISolone [Medrol Dose Pack] See Taper PO DIRECTED Furosemide [Lasix] 40 mg PO BID Cefpodoxime Proxetil [Vantin] 200 mg PO Q12HR No Action Senna-Time 8.6mg 8.6 mg PO HS Delsym Cough And Congestion Dm 10 ml PO Q6H PRN PRN Reason: Cough Discharge Medication List Cholecalciferol [Vitamin D3 (25 Mcg = 1000 Iu)] 50 mcg PO HS 01/31/21 [History] FLUoxetine HCL [PROzac] 40 mg PO DAILY 01/31/21 [History] Levothyroxine Sodium [Synthroid] 50 mcg PO DAILY 01/31/21 [History] Metoprolol Succinate (ER) [Toprol XL] 50 mg PO DAILY 01/31/21 [History] busPIRone HCL 10 mg PO TID 01/31/21 [History] risperiDONE [RisperDAL] 1 mg PO DAILY 01/31/21 [History] Multivitamins, Thera [Multivitamin (formulary)] 1 tab PO DAILY 05/13/21 [History] Doxazosin [Cardura] 2 mg PO DAILY 10/25/23 [History] Senna-Time 8.6mg 8.6 mg PO HS 10/25/23 [History] Delsym Cough And Congestion Dm 10 ml PO Q6H PRN 12/16/23 [History] Ipratropium-Albuterol Nebulize [Duoneb 0.5 mg-3 mg/3 ml Soln] 3 ml INHALATION RT-Q4H PRN 12/16/23 [History] Loperamide HCl [Imodium A-D] 2 - 4 mg PO QID PRN 12/16/23 [History] Potassium Chloride ER [K-Dur 20] 20 meq PO DAILY 12/16/23 [History] Furosemide [Lasix] 40 mg PO DAILY #30 tablet 12/19/23 [Rx] Sodium Bicarbonate Tab 650 mg PO BID #60 tablet 12/19/23 [Rx] cefUROXime axetiL [Ceftin] 500 mg PO BID #8 tab 12/19/23 [Rx] Follow up Appointment(s)/Referral(s): Kyler Zaman MD [Primary Care Provider] - 1-2 days Norm Rodriguez DO [STAFF PHYSICIAN] - 1 Week Discharge Disposition: HOME WITH HOME HEALTH SERVICES
== END 2023-12-19 13:13 | disposition home health service (06) | DRG 698 ==
LOC: EC 12:12 → 5NMEDONC 14:30 → 4SSUR 15:36
PROVIDERS: ADMIT Hospitalist; ATTEND Hospitalist
DX: T83.518A Infection and inflammatory reaction due to other urinary catheter, initial encounter (principal); N17.0 Acute kidney failure with tubular necrosis; N39.0 Urinary tract infection, site not specified; Z16.12 Extended spectrum beta lactamase (ESBL) resistance; E87.20 Acidosis, unspecified; B96.20 Unspecified Escherichia coli [E. coli] as the cause of diseases classified elsewhere; G80.9 Cerebral palsy, unspecified; I12.9 Hypertensive chronic kidney disease with stage 1 through stage 4 chronic kidney disease, or unspecified chronic kidney disease; N18.30 Chronic kidney disease, stage 3 unspecified; E03.9 Hypothyroidism, unspecified; F32.A Depression, unspecified; F34.1 Dysthymic disorder; N32.0 Bladder-neck obstruction; N31.9 Neuromuscular dysfunction of bladder, unspecified; R26.9 Unspecified abnormalities of gait and mobility; F41.9 Anxiety disorder, unspecified; F42.9 Obsessive-compulsive disorder, unspecified; Z66 Do not resuscitate; G47.30 Sleep apnea, unspecified; F89 Unspecified disorder of psychological development; R33.9 Retention of urine, unspecified; R32 Unspecified urinary incontinence; Z96.642 Presence of left artificial hip joint; Z87.440 Personal history of urinary (tract) infections; Z79.899 Other long term (current) drug therapy; Z79.890 Hormone replacement therapy; Z88.0 Allergy status to penicillin; Z88.1 Allergy status to other antibiotic agents
CPT/HCPCS: 36415; 71045; 80048; 80053; 81001; 83735; 83880; 84100; 84484; 85025; 85610; 85730; 93005; 96361; 96365; 96366; 96367; 99285

== ENCOUNTER 2023-12-19 21:00 | Inpatient (IN) | payer MEDICARE, OTHER ==
[2023-12-19] MEDS ORDERED: ACETAMINOPHEN TAB 325 MG TAB PO PRN (21:31)
[2023-12-19] MEDS ORDERED: NALOXONE 0.4 MG/ML 1 ML VIAL IV PRN (21:31)
--- NOTE | 2023-12-19 21:47 | ED ---
General Adult HPI - General Chief complaint: Recheck/Abnormal Lab/Rx Stated complaint: FLUID RETENTION Time Seen by Provider: 12/19/23 21:07 Source: patient, EMS, RN notes reviewed, old records reviewed Mode of arrival: EMS Limitations: no limitations - History of Present Illness Initial comments: 58-year-old male transferred from [facility] for treatment of CHF, weight gain and fluid overload. Patient had presented to [facility] with 20 pound weight gain over the past several days. Apparently his lower Lasix dose had been adjusted recently. Patient himself has no complaints. He was noted to have pulmonary edema on x-ray, elevated BNP, and significant peripheral edema. - Related Data Home Medications Medication Instructions Recorded Confirmed Cholecalciferol [Vitamin D3 (25 50 mcg PO HS 01/31/21 12/16/23 Mcg = 1000 Iu)] FLUoxetine HCL [PROzac] 40 mg PO DAILY 01/31/21 12/16/23 Levothyroxine Sodium [Synthroid] 50 mcg PO DAILY 01/31/21 12/16/23 Metoprolol Succinate (ER) [Toprol 50 mg PO DAILY 01/31/21 12/16/23 XL] busPIRone HCL 10 mg PO TID 01/31/21 12/16/23 risperiDONE [RisperDAL] 1 mg PO DAILY 01/31/21 12/16/23 Multivitamins, Thera [Multivitamin 1 tab PO DAILY 05/13/21 12/16/23 (formulary)] Doxazosin [Cardura] 2 mg PO DAILY 10/25/23 12/16/23 Senna-Time 8.6mg 8.6 mg PO HS 10/25/23 12/16/23 Delsym Cough And Congestion Dm 10 ml PO Q6H PRN 12/16/23 12/16/23 Ipratropium-Albuterol Nebulize 3 ml INHALATION RT-Q4H PRN 12/16/23 12/16/23 [Duoneb 0.5 mg-3 mg/3 ml Soln] Loperamide HCl [Imodium A-D] 2 - 4 mg PO QID PRN 12/16/23 12/16/23 Potassium Chloride ER [K-Dur 20] 20 meq PO DAILY 12/16/23 12/16/23 Previous Rx's Medication Instructions Recorded Furosemide [Lasix] 40 mg PO DAILY #30 tablet 12/19/23 Sodium Bicarbonate Tab 650 mg PO BID #60 tablet 12/19/23 cefUROXime axetiL [Ceftin] 500 mg PO BID #8 tab 12/19/23 Allergies Allergy/AdvReac Type Severity Reaction Status Date / Time amoxicillin [From Augmentin] Allergy Rash/Hives Verified 12/16/23 16:24 clavulanic acid Allergy Rash/Hives Verified 12/16/23 16:24 [From Augmentin] Review of Systems ROS Statement: Those systems with pertinent positive or pertinent negative responses have been documented in the HPI. ROS Other: All systems not noted in ROS Statement are negative. Past Medical History Past Medical History: Hypertension, Neurologic Disorder, Sleep Apnea/CPAP/BIPAP Additional Past Medical History / Comment(s): developmentally delayed, infantile cerebral palsy-uses walker, incontinent occas,able to follow simple directions,speech is understandible,OCD, dysthmic disorder History of Any Multi-Drug Resistant Organisms: ESBL Date of last positivie culture/infection: 01/24/22 MDRO Source:: URINE ESBL Past Surgical History: Joint Replacement Additional Past Surgical History / Comment(s): Right eye cataract surgery, left hip replacement Past Anesthesia/Blood Transfusion Reactions: No Reported Reaction Past Psychological History: Anxiety, Depression Additional Psychological History / Comment[facility] Smoking Status: Never smoker Past Alcohol Use History: None Reported Past Drug Use History: None Reported - Past Family History Mother Family Medical History: Cancer Additional Family Medical History / Comment(s): mother from lung cancer Father Family Medical History: No Reported History Brother(s) Family Medical History: Cancer Additional Family Medical History / Comment(s): from lung cancer General Exam General appearance: alert, in no apparent distress Head exam: Present: atraumatic, normocephalic Eye exam: Present: normal appearance, PERRL ENT exam: Present: normal exam Neck exam: Present: normal inspection. Absent: tenderness, meningismus Respiratory exam: Present: rales, decreased breath sounds. Absent: respiratory distress Cardiovascular Exam: Present: regular rate, normal rhythm GI/Abdominal exam: Present: soft. Absent: distended, tenderness, guarding Extremities exam: Present: pedal edema Neurological exam: Present: alert Skin exam: Present: warm, dry Course Vital Signs 12/19/23 12/19/23 21:03 21:57 Temperature 97.7 F Pulse Rate 83 64 Respiratory 18 18 Rate Blood Pressure 119/68 121/66 O2 Sat by Pulse 98 97 Oximetry Medical Decision Making - Medical Decision Making Was pt. sent in by a medical professional or institution (MARA Gillespie, DRY CLEANER HELPER, urgent care, hospital, or long-term...) When possible be specific @ -Transfer from [facility] Did you speak to anyone other than the patient for history (EMS, parent, family, police, friend...)? What history was obtained from this source @ -No Did you review nursing and triage notes (agree or disagree)? Why? @ -I reviewed and agree with nursing and triage notes Were old charts reviewed (outside hosp., previous admission, EMS record, old EKG, old radiological studies, urgent care reports/EKG's, long-term records)? Report findings @ -No old charts were reviewed Differential Diagnosis (chest pain, altered mental status, abdominal pain women, abdominal pain men, vaginal bleeding, weakness, fever, dyspnea, syncope, headache, dizziness, GI bleed, back pain, seizure, CVA, palpatations, mental health, musculoskeletal)? @ -Differential Dyspnea: Coronary syndrome, arrhythmia, tamponade, asthma, COPD, pulmonary embolism, pneumonia, pneumothorax, pulmonary effusion, anaphylaxis, diabetic ketoacidosis, flailed chest, pulmonary contusion, diaphragmatic rupture, anemia, neuromuscular, this is not meant to be an all-inclusive list. EKG interpreted by me (3pts min.). @ -Sinus rhythm rate of 79, FL interval 171, QRS duration 126, QTc 431 right bundle branch block X-rays interpreted by me (1pt min.). @ -Chest x-ray from [facility] reported as CHF. CT interpreted by me (1pt min.). @ -None done U/S interpreted by me (1pt. min.). @ -None done What testing was considered but not performed or refused? (CT, X-rays, U/S, labs)? Why? @ -None What meds were considered but not given or refused? Why? @ -None Did you discuss the management of the patient with other professionals (professionals i.e. MARA Gillespie, DRY CLEANER HELPER, lab, RT, psych nurse, geriatric social work professor, tailer off, teacher, special weapons unit officer, shoe caser)? Give summary @ -Dr. Espinoza, familiar with this patient, will admit. Was smoking cessation discussed for >3mins.? @ -No Was critical care preformed (if so, how long)? @ -No Were there social determinants of health that impacted care today? How? (Homelessness, low income, unemployed, alcoholism, drug addiction, transportation, low edu. Level, literacy, decrease access to med. care, half-way, rehab)? @ -No Was there de-escalation of care discussed even if they declined (Discuss DNR or withdrawal of care, Hospice)? DNR status @ -No What co-morbidities impacted this encounter? (DM, HTN, Smoking, COPD, CAD, Cancer, CVA, ARF, Chemo, Hep., AIDS, mental health diagnosis, sleep apnea, morbid obesity)? @ -CHF. Was patient admitted / discharged? Hospital course, mention meds given and route, prescriptions, significant lab abnormalities, going to OR and other pertinent info. @ -58-year-old male transferred from [facility] for CHF, weight gain and fluid overload. Patient has no complaints. Vital signs are stable. Review of the medical record does indicate that the patient had chest x-ray consistent with CHF and elevated BNP. Repeat laboratory test will be obtained including CBC, CMP, troponin and BNP level. He will be admitted for IV diuresis. Case discussed with Dr. Espinoza who will admit. Undiagnosed new problem with uncertain prognosis? @ -No Drug Therapy requiring intensive monitoring for toxicity (Heparin, Nitro, Insulin, Cardizem)? @ -No Were any procedures done? @ -No Diagnosis/symptom? @ -[CHF, fluid overload Acute, or Chronic, or Acute on Chronic? @ -Acute on chronic Uncomplicated (without systemic symptoms) or Complicated (systemic symptoms)? @ -Default Side effects of treatment? @ -No Exacerbation, Progression, or Severe Exacerbation? @ -No Poses a threat to life or bodily function? How? (Chest pain, USA, MS, pneumonia, PE, COPD, DKA, ARF, appy, cholecystitis, CVA, Diverticulitis, Homicidal, Suicidal, threat to staff... and all critical care pts) @Yes, CHF - Lab Data Result diagrams: 12/19/23 21:48 Disposition Clinical Impression: Developmental delay, moderate, CHF (congestive heart failure) Disposition: ADMITTED IP TO THIS HOSP Condition: Stable Is patient prescribed a controlled substance at d/c from ED?: No Time of Disposition: 21:46
[2023-12-19 22:01] LABS: Basophils # (A) 0.1 k/uL (0-0.2); Basophils % (A) 0 %; Eosinophils # (A) 0.6 k/uL (0-0.7); Eosinophils % (A) 4 %; HCT 37.1 % (39.0-53.0); HGB 12.1 gm/dL (13.0-17.5); Lymphocytes # (A) 3.2 k/uL (1.0-4.8); Lymphocytes % (A) 21 %; MCHC 32.6 g/dL (31.0-37.0); Mean Platelet Volume 8.6; Monocytes # (A) 1.2 k/uL (0-1.0); Monocytes % (A) 8 %; Neutrophils # (A) 9.7 k/uL (1.3-7.7); Neutrophils % (A) 64 %; Platelet Count 246 k/uL (150-450); RDW 14.2 % (11.5-15.5); WBC 15.2 k/uL (3.8-10.6)
[2023-12-19] MEDS ORDERED: IPRATROPIUM-ALBUTEROL 3 ML NEB INHALATION PRN (22:09)
[2023-12-19 22:10] LABS: Appearance,Urine Cloudy (Clear); Bilirubin,Urine Negative (Negative); Blood,Urine Small (Negative); Color,Urine Colorless; Glucose,Urine (UA) Negative (Negative); Hyaline Casts,Urine 1 /lpf (0-2); Ketones,Urine Negative (Negative); Leukocyte Esterase,Urine Large (Negative); Nitrite,Urine Negative (Negative); PH, Urine 5.5 (5.0-8.0); Protein,Urine 2+ (Negative); RBC,Urine 7 /hpf (0-5); Urobilinogen,Urine <2.0 mg/dL (<2.0); WBC,Urine 141 /hpf (0-5)
[2023-12-19] MEDS ORDERED: LACTULOSE 20 GM/30 ML CUP PO PRN (22:11)
[2023-12-19] MEDS ORDERED: MELATONIN 3 MG TABLET PO PRN (22:11)
[2023-12-19] MEDS ORDERED: ONDANSETRON 4 MG/2 ML VIAL IVP PRN (22:11)
[2023-12-19] MEDS ORDERED: LORazepam 0.5 MG TAB PO PRN (22:11)
[2023-12-19] MEDS ORDERED: CALCIUM CARBONATE 500 MG CHEWABLE PO PRN (22:11)
[2023-12-19 22:13] LABS: Partial Thromboplastin Time 28.3 sec (22.0-30.0); Prothrombin Time 10.9 sec (10.0-12.5)
[2023-12-19 22:16] LABS: ALT 9 U/L (4-49); AST 16 U/L (17-59); African American GFR (CKD) 44 (>60 ml/min/1.73 sqM); Albumin 1.2 g/dL (3.5-5.0); Alkaline Phosphatase 104 U/L (38-126); Anion Gap -3 mmol/L; Blood Urea Nitrogen 32 mg/dL (9-20); Calcium 7.1 mg/dL (8.4-10.2); Carbon Dioxide 20 mmol/L (22-30); Chloride 116 mmol/L (98-107); Glucose 89 mg/dL (74-99); Magnesium 2.2 mg/dL (1.6-2.3); Non-African American GFR(CKD) 38 (>60 ml/min/1.73 sqM); Potassium 4.4 mmol/L (3.5-5.1); Sodium 133 mmol/L (137-145); Total Bilirubin 0.2 mg/dL (0.2-1.3); Total Protein 3.1 g/dL (6.3-8.2)
[2023-12-19 22:25] LABS: NT-Pro-B-Type Natriuretic Pept 1870 pg/mL
[2023-12-19] MEDS: SODIUM BICARBONATE TAB 650 MG TAB PO SCH (22:46)
[2023-12-19] MEDS: CEFDINIR 300 MG CAP PO SCH (22:46)
[2023-12-19] MEDS: SENNOSIDES 8.6 MG TAB PO SCH (22:46)
[2023-12-19] MEDS: busPIRone HCl 10 MG TAB PO SCH (22:46)
[2023-12-20] MEDS: LEVOTHYROXINE 50 MCG TAB PO SCH (06:15)
[2023-12-20 08:28] LABS: African American GFR (CKD) 48 (>60 ml/min/1.73 sqM); Anion Gap 1 mmol/L; Blood Urea Nitrogen 34 mg/dL (9-20); Calcium 7.3 mg/dL (8.4-10.2); Carbon Dioxide 19 mmol/L (22-30); Chloride 115 mmol/L (98-107); Glucose 79 mg/dL (74-99); Non-African American GFR(CKD) 42 (>60 ml/min/1.73 sqM); Potassium 4.5 mmol/L (3.5-5.1); Sodium 135 mmol/L (137-145)
[2023-12-20] MEDS: FLUoxetine HCL 20 MG CAP PO SCH (09:13)
[2023-12-20] MEDS: MULTIVITAMINS, THERA 1 EACH TAB PO SCH (09:13)
[2023-12-20] MEDS: FUROSEMIDE 10 MG/ML 4 ML VIAL IV SCH ×2 (09:13→14:21)
[2023-12-20] MEDS: ENOXAPARIN 40 MG/0.4 ML SYRINGE SQ SCH (09:13)
[2023-12-20] MEDS: DOXAZOSIN 2 MG TAB PO SCH (09:13)
[2023-12-20] MEDS: POTASSIUM CHLORIDE ER 20 MEQ TAB.ER PO SCH (09:13)
[2023-12-20] MEDS: METOPROLOL SUCCINATE (ER) 50 MG TAB.ER.24H PO SCH (09:13)
[2023-12-20] MEDS: risperiDONE 1 MG TAB PO SCH (09:13)
[2023-12-20] MEDS: SPIRONOLACTONE 25 MG TAB PO SCH (11:35)
[2023-12-20] MEDS: hydrALAZINE HCL 50 MG TAB PO SCH (11:35)
--- NOTE | 2023-12-20 12:18 | XR ---
EXAMINATION TYPE: XR chest 2V DATE OF EXAM: 12/20/2023 COMPARISON: 12/16/2023 TECHNIQUE: PA and lateral views submitted. HISTORY: Fluid overload FINDINGS: Heart size stable. Underlying COPD. No pneumothorax. Right lower lobe infiltrate and small effusion. Diffuse osteopenia. Degenerative change of the spine. Arthropathy of the shoulder. A nodular prominence along left hilum may be some due to slight rotation. IMPRESSION: 1. Right lower lobe infiltrate superimposed on a background of COPD. 2. A nodular prominence of the left hilum possibly related to rotation. Recommend short-term follow-u p PA and lateral views of the chest..
--- NOTE | 2023-12-20 13:55 | CA ---
Transthoracic Echo Report Name: Ander Hutton Age: 58 Gender: M : 1965 Exam Date: 12/20/2023 10:57 Exam Location: [facility] Ht (in): 64 Wt (lb): 231 Ordering Physician: Fortino Lincoln MD ([id number]) Attending/Referring Phys: Documentation Billing Clerk Genevieve Martel RDCS Procedure CPT: Indications: chf Cardiac Hx: Technical Quality: Fair Contrast 1: Total Dose (mL): Contrast 2: Total Dose (mL): MEASUREMENTS (Male / Female) Normal Values 2D ECHO LV Diastolic Diameter PLAX 4.6 cm 4.2 - 5.9 / 3.9 - 5.3 cm LV Systolic Diameter PLAX 3.0 cm IVS Diastolic Thickness 1.3 cm 0.6 - 1.0 / 0.6 - 0.9 cm LVPW Diastolic Thickness 1.4 cm 0.6 - 1.0 / 0.6 - 0.9 cm LV Relative Wall Thickness 0.6 RV Internal Dim ED PLAX 2.8 cm LA Systolic Diameter LX 3.5 cm 3.0 - 4.0 / 2.7 - 3.8 cm LV Diastolic Volume MOD 4C 132.2 cm??? LV Systolic Volume MOD 4C 63.1 cm??? LV Ejection Fraction MOD 4C 52.3 % LV Cardiac Index MOD 4C 2701.4 cm???/min???m??? LV Diastolic Length 4C 8.2 cm LV Systolic Length 4C 6.9 cm LV Diastolic Volume MOD 2C 87.2 cm??? LV Systolic Volume MOD 2C 42.2 cm??? LV Ejection Fraction MOD 2C 51.6 % LV Cardiac Index MOD 2C 1756.9 cm???/min???m??? LV Diastolic Length 2C 8.1 cm LV Systolic Length 2C 6.6 cm LA Volume 44.9 cm??? 18 - 58 / 22 - 52 cm??? LA Volume Index 20.1 cm???/m??? 16 - 28 cm???/m??? M-MODE Aortic Root Diameter MM 3.7 cm AV Cusp Separation MM 2.1 cm DOPPLER AV Peak Velocity 86.1 cm/s AV Peak Gradient 3.0 mmHg MV Area PHT 4.1 cm??? Mitral E Point Velocity 50.6 cm/s Mitral A Point Velocity 66.3 cm/s Mitral E to A Ratio 0.8 MV Deceleration Time 184.9 ms MV E' Velocity 6.4 cm/s Mitral E to MV E' Ratio 8.0 FINDINGS Left Ventricle Left ventricular ejection fraction is estimated at 50-55 %. Left ventricular cavity size normal. Moderate concentric left ventricular hypertrophy. No obvious regional wall motion abnormalities. Right Ventricle Normal right ventricular size. Unable to estimate the right ventricular systolic pressure. Right Atrium Right atrium not well visualized. Left Atrium Normal left atrial size. Mitral Valve Mitral annular calcification. Trace mitral regurgitation. Aortic Valve Trileaflet aortic valve. No aortic valve stenosis or regurgitation. Tricuspid Valve Structurally normal tricuspid valve. No tricuspid regurgitation. Pulmonic Valve Pulmonic valve not well visualized. No pulmonic regurgitation. Pericardium Small pericardial effusion. Aorta Normal size aortic root and proximal ascending aorta. CONCLUSIONS Technically difficult study. Left ventricle systolic function is well- preserved. There is probably some diastolic dysfunction. RV size is normal pressures could not be quantified. Doppler exam is suboptimal possible trivial pericardial effusion. Previewed by: Dr. Fortino Lincoln MD (Electronically Signed) Final Date: 20 December 2023 13:54
--- NOTE | 2023-12-20 17:18 | P.HPIM ---
History of Present Illness H&P Date: 12/20/23 Chief Complaint: Increase water retention This is a pleasant 58-year-old patient who has known cerebral palsy with neurocognitive delay. Followed by visiting physician Dr. Zaman Chronic stable medical conditions include hypertension, chronic gait dysfunction uses a walker, hypothyroid, depression. Has a suprapubic catheter. Patient's had multiple UTIs in the past. .. Can answer simple questions. Patient was just discharged from hospital yesterday. Being admitted from December 15 through December 18. Had a UTI. Cultures are negative. Received IV meropenem. Was discharged on Ceftin. Patient did receive IV fluids. Was: Patient was felt to be in fluid retention. No fever no chills. Has edema. Review of system: Difficult to obtain as patient only speaks a word here and there Past medical history to include: Hypertension, cerebral palsy with neurocognitive disorder, sleep apnea, infantile cerebral palsy, i suprapubic catheter., OCD, dysthymic disorder, recurrent UTI Social history: [facility] home. No alcohol or smoking. Uses a walker. Physical examination: VITAL SIGNS: 97.5, 84, 18, 161 x 67, 96% room air upon presentation GENERAL: Reclining in bed , comfortable. EYES: Pupils equal. Conjunctiva normal. HEENT: External appearance of nose and ears normal, oral cavity grossly normal small lower jaw. NECK: JVD not raised; masses not palpable. HEART: First and second heart sounds are normal; edema present LUNGS: Respiratory rate normal; clear to auscultation. ABDOMEN: Soft, nontender, liver spleen not palpable, no masses palpable. Supra pubic catheter. PSYCH: Patient can answer, one-word answers. MUSCULOSKELETAL:No Clubbing/cyanosis;muscles-grossly intact NEUROLOGICAL: Cranial nerves grossly intact; no facial asymmetry, power and s ensation grossly intact. INVESTIGATIONS, reviewed in the clinical context: 2D echocardiogram: EF 50-55%. Moderate concentric LVH. EKG tracing personally reviewed by me-normal sinus rhythm. Right bundle asahish block. Chest x-ray film personally reviewed by me-fluid in the fissure December 19: BUN 34 creatinine 1.75 December 18: White count 15.2 hemoglobin 12.1 platelets 246 sodium 133 BUN 32 creatinine 1.89 Recent labs December 17: White count 13.6 hemoglobin 12 platelets 231 sodium 135 potassium 4 BUN 35 creatinine 1.97 Assessment and plan: -Acute congestive heart failure exacerbation from diastolic dysfunction EF 50 to 55% precipitated by IV fluids IV Lasix 40 mg every 8 Fluid restriction 1500 cc a day -Send UTI caused by I-caused by suprapubic catheter Culture was negative Omnicef for 4 more doses -Chronic bladder dysfunction with a suprapubic catheter -Cerebral palsy with neurocognitive delay -Metabolic acidosis secondary to kidney disease Odium bicarbonate -Chronic kidney disease stage III likely nephrosclerosis Baseline creatinine around 1.7 on October 2023 Due to follow-up with nephrology outpatient -Essential hypertension Toprol-XL 50 mg daily -Chronic gait dysfunction uses a walker Fall precautions -Urinary bladder outflow obstruction Suprapubic catheter -Hypothyroid Synthroid 50 g -Depression BuSpar 10 mg 3 times daily. Risperdal 1 mg daily. Prozac 40 mg daily. -Full code IV Lasix. Follow renal function. Home medication resumed. Past Medical History Past Medical History: Hypertension, Neurologic Disorder, Sleep Apnea/CPAP/BIPAP Additional Past Medical History / Comment(s): developmentally delayed, infantile cerebral palsy-uses walker, incontinent occas,able to follow simple dir ections,speech is understandible,OCD, dysthmic disorder History of Any Multi-Drug Resistant Organisms: ESBL Date of last positivie culture/infection: 01/24/22 MDRO Source:: URINE ESBL Past Surgical History: Joint Replacement Additional Past Surgical History / Comment(s): Right eye cataract surgery, left hip replacement Past Anesthesia/Blood Transfusion Reactions: No Reported Reaction Past Psychological History: Anxiety, Depression Additional [facility] History / Comment[facility] Smoking Status: Never smoker Past Alcohol Use History: None Reported Past Drug Use History: None Reported Past Medical History Past Medical History: Hypertension, Neurologic Disorder, Sleep Apnea/CPAP/BIPAP Additional Past Medical History / Comment(s): developmentally delayed, infantile cerebral palsy-uses walker, incontinent occas,able to follow simple directions,speech is understandible,OCD, dysthmic disorder History of Any Multi-Drug Resistant Organisms: ESBL Date of last positivie culture/infection: 01/24/22 MDRO Source:: URINE ESBL Past Surgical History: Joint Replacement Additional Past Surgical History / Comment(s): Right eye cataract surgery, left hip replacement Past Anesthesia/Blood Transfusion Reactions: No Reported Reaction Past Psychological History: Anxiety, Depression Additional Psychological History / Comment(s[facility] Smoking Status: Never smoker Past Alcohol Use History: None Reported Past Drug Use History: None Reported - Past Family History Mother Family Medical History: Cancer Additional Family Medical History / Comment(s): mother from lung cancer Father Family Medical History: No Reported History Brother(s) Family Medical History: Cancer Additional Family Medical History / Comment(s): from lung cancer Medications and Allergies Home Medications Medication Instructions Recorded Confirmed Type Cholecalciferol [Vitamin D3 (25 50 mcg PO HS 01/31/21 12/20/23 History Mcg = 1000 Iu)] FLUoxetine HCL [PROzac] 40 mg PO DAILY 01/31/21 12/20/23 History Levothyroxine Sodium [Synthroid] 50 mcg PO DAILY 01/31/21 12/20/23 History Metoprolol Succinate (ER) [Toprol 50 mg PO DAILY 01/31/21 12/20/23 History XL] busPIRone HCL 10 mg PO TID 01/31/21 12/20/23 History risperiDONE [RisperDAL] 1 mg PO DAILY 01/31/21 12/20/23 History Multivitamins, Thera [Multivitamin 1 tab PO DAILY 05/13/21 12/20/23 History (formulary)] Doxazosin [Cardura] 2 mg PO DAILY 10/25/23 12/20/23 History Senna-Time 8.6mg 8.6 mg PO HS 10/25/23 12/20/23 History Delsym Cough And Congestion Dm 10 ml PO Q6H PRN 12/16/23 12/20/23 History Ipratropium-Albuterol Nebulize 3 ml INHALATION RT-Q4H PRN 12/16/23 12/20/23 History [Duoneb 0.5 mg-3 mg/3 ml Soln] Loperamide HCl [Imodium A-D] 2 - 4 mg PO QID PRN 12/16/23 12/20/23 History Potassium Chloride ER [K-Dur 20] 20 meq PO DAILY 12/16/23 12/20/23 History Furosemide [Lasix] 40 mg PO DAILY #30 tablet 12/19/23 12/20/23 Rx Sodium Bicarbonate Tab 650 mg PO BID #60 tablet 12/19/23 12/20/23 Rx cefUROXime axetiL [Ceftin] 500 mg PO BID #8 tab 12/19/23 12/20/23 Rx Allergies Allergy/AdvReac Type Severity Reaction Status Date / Time amoxicillin [From Augmentin] Allergy Rash/Hives Verified 12/16/23 16:24 clavulanic acid Allergy Rash/Hives Verified 12/16/23 16:24 [From Augmentin] Physical Exam Vitals: Vital Signs Temp Pulse Pulse Resp BP BP Pulse Ox 12/20/23 08:25 96 12/20/23 07:47 97.7 F 82 20 146/82 98 12/19/23 23:26 97.5 F L 84 18 161/67 96 12/19/23 21:57 64 18 121/66 97 12/19/23 21:03 97.7 F 83 18 119/68 98 Intake and Output 12/19/23 12/20/23 12/20/23 22:59 06:59 14:59 Intake Total 240 Balance 240 Intake: Oral 240 Other: Voiding Method Indwelling Catheter Indwelling Catheter Weight 104.78 kg 104.78 kg Results CBC & Chem 7: 12/19/23 21:48 12/20/23 07:24 Labs: Abnormal Lab Results - Last 24 Hours (Table) 12/19/23 12/19/23 12/19/23 Range/Units 21:48 21:48 21:48 WBC 15.2 H (3.8-10.6) k/uL RBC 3.90 L (4.30-5.90) m/uL Hgb 12.1 L (13.0-17.5) gm/dL Hct 37.1 L (39.0-53.0) % Neutrophils # 9.7 H (1.3-7.7) k/uL Monocytes # 1.2 H (0-1.0) k/uL Sodium 133 L (137-145) mmol/L Chloride 116 H (98-107) mmol/L Carbon Dioxide 20 L (22-30) mmol/L BUN 32 H (9-20) mg/dL Creatinine 1.89 H (0.66-1.25) mg/dL Calcium 7.1 L (8.4-10.2) mg/dL AST 16 L (17-59) U/L Total Protein 3.1 L (6.3-8.2) g/dL Albumin 1.2 L (3.5-5.0) g/dL Urine Protein 2+ H (Negative) Urine Blood Small H (Negative) Ur Leukocyte Esterase Large H (Negative) Urine RBC 7 H (0-5) /hpf Urine WBC 141 H (0-5) /hpf Urine WBC Clumps Occasional H (None) /hpf 12/20/23 Range/Units 07:24 WBC (3.8-10.6) k/uL RBC (4.30-5.90) m/uL Hgb (13.0-17.5) gm/dL Hct (39.0-53.0) % Neutrophils # (1.3-7.7) k/uL Monocytes # (0-1.0) k/uL Sodium 135 L (137-145) mmol/L Chloride 115 H (98-107) mmol/L Carbon Dioxide 19 L (22-30) mmol/L BUN 34 H (9-20) mg/dL Creatinine 1.75 H (0.66-1.25) mg/dL Calcium 7.3 L (8.4-10.2) mg/dL AST (17-59) U/L Total Protein (6.3-8.2) g/dL Albumin (3.5-5.0) g/dL Urine Protein (Negative) Urine Blood (Negative) Ur Leukocyte Esterase (Negative) Urine RBC (0-5) /hpf Urine WBC (0-5) /hpf Urine WBC Clumps (None) /hpf Thrombosis Risk Factor Assmnt - Choose All That Apply Any of the Below Risk Factors Present?: Yes Each Factor Represents 1 point: Age 41-60 years, Swollen legs (current) Other Risk Factors: No Other congenital or acquired thrombophilia - If yes, enter type in comment: No Thrombosis Risk Factor Assessment Total Risk Factor Score: 2 Thrombosis Risk Factor Assessment Level: Low Risk
[2023-12-20] MEDS ORDERED: FUROSEMIDE 10 MG/ML 10 ML VIAL IV SCH (17:30)
[2023-12-20] MEDS: CHOLECALCIFEROL 25 MCG (1000 IU) TABLET PO SCH (21:01)
[2023-12-20] MEDS: FUROSEMIDE 10 MG/ML 10 ML VIAL IV SCH (23:00)
--- NOTE | 2023-12-20 23:29 | CONS ---
CONSULTATION HISTORY OF PRESENT ILLNESS: Mr. Ander Hutton is a gentleman who is somewhat mentally challenged, 58 years of age, admitted because of exacerbation of congestive heart failure, apparently spent some time in [facility] recently and was discharged and then comes back in. Only available note is that of the emergency room doctor. The patient is not a good historian, indicates in the note that says a 20-pound weight gain. The patient has edema of lower extremities. He is not short of breath, is resting comfortably. He has chronic kidney disease I believe with a creatinine in the range of 1.6 or 1.7. He has also been started on diuretics and he is on 40 mg of Lasix IV push q.12 hours. The patient feels well. His BNP was modestly elevated at 1890, which is significant for somebody in his age group. PAST MEDICAL HISTORY: 1. The patient is somewhat mentally challenged and is not a good historian. He has obstructive sleep apnea, wears CPAP. 2. He is developmentally delayed, has infantile cerebral palsy. 3. Probable diastolic heart failure. 4. Left hip arthroplasty and right cataract surgery according to the chart. MEDICATIONS: At home include, 1. Metoprolol succinate 50 mg daily. 2. Risperdal. 3. Ceftin. 4. Prozac. 5. Cardura. 6. Levothyroxine. PHYSICAL EXAMINATION: VITAL SIGNS: Blood pressure is 140/70, pulse rate is 80 per minute. HEENT: Unremarkable, fundus was not examined. NECK: Supple. No JVD. HEART: Reveals S1, S2 with a short systolic murmur at left sternal border. LUNGS: Reveal bilateral diminished air entry. ABDOMEN: Soft, nontender. EXTREMITIES: Lower extremities reveal diminished pulses. NEUROLOGIC: Central nervous system is grossly within normal limits. I did not do a detailed exam. IMPRESSION: 1. Probable exacerbation of diastolic heart failure. 2. Hypertension. 3. The patient is mentally challenged, has some cerebral palsy by history, details unclear. 4. Benign hypertension. RECOMMENDATIONS: I am recommending hydralazine 50 mg t.i.d., Aldactone 12.5 mg daily and echocardiogram. Based on these findings and based on hospital course, I will make further recommendations. Thank you very much for the consult indication. MMODL / IJN: [id number] /
[2023-12-21 06:26] LABS: African American GFR (CKD) 45 (>60 ml/min/1.73 sqM); Anion Gap -3 mmol/L; Blood Urea Nitrogen 37 mg/dL (9-20); Calcium 7.2 mg/dL (8.4-10.2); Carbon Dioxide 22 mmol/L (22-30); Chloride 115 mmol/L (98-107); Glucose 84 mg/dL (74-99); Non-African American GFR(CKD) 39 (>60 ml/min/1.73 sqM); Potassium 4.5 mmol/L (3.5-5.1); Sodium 134 mmol/L (137-145)
--- NOTE | 2023-12-21 11:54 | P.NPCON ---
History of Present Illness - Reason for Consult chronic renal failure - History of Present Illness Reason for consultation: Chronic kidney disease History of present illness: Patient is a 58-year-old male seen in renal consultation for chronic kidney disease. Patient has chronic kidney disease stage IIIb with baseline creatinine 1.7-1.8. Etiology is glomerulonephritis. Patient is scheduled to have kidney biopsy January 08, 2024. Creatinine this admission has been stable in the range of 1.7-1.8. Patient came to the hospital on December 19, 2023 due to weight gain and fluid overload. Patient had apparently gained 20 pounds prior to coming to the hospital. Patient was transferred from [facility]. Patient is not a very reliable historian and has developmental delay. Patient is maintained on IV Lasix 60 mg every 8 hours. Echocardiogram showed ejection fraction of 50 to 55%. Albumin noted to be low at 1.2. UA shows 2+ protein with small blood and 7 RBCs this admission. Patient has history of urinary retention. Has indwelling catheter. Nonoliguric. No history of diabetes. I do not see any NSAIDs on his home medication list. Vital signs are stable. General: No acute distress. HEENT: Head exam is unremarkable. LUNGS: No audible rhonchi or wheezes. HEART: Rate and Rhythm are regular. ABDOMEN: Nontender. EXTREMITITES: 2+ edema. Past Medical History Past Medical History: Hypertension, Neurologic Disorder, Sleep Apnea/CPAP/BIPAP Additional Past Medical History / Comment(s): developmentally delayed, infantile cerebral palsy-uses walker, incontinent occas,able to follow simple directions,speech is understandible,OCD, dysthmic disorder History of Any Multi-Drug Resistant Organisms: ESBL Date of last positivie culture/infection: 01/24/22 MDRO Source:: URINE ESBL Past Surgical History: Joint Replacement Additional Past Surgical History / Comment(s): Right eye cataract surgery, left hip replacement Past Anesthesia/Blood Transfusion Reactions: No Reported Reaction Past Psychological History: Anxiety, Depression Additional Psychological History / Comment[facility] Smoking Status: Never smoker Past Alcohol Use History: None Reported Past Drug Use History: None Reported - Past Family History Mother Family Medical History: Cancer Additional Family Medical History / Comment(s): mother from lung cancer Father Family Medical History: No Reported History Brother(s) Family Medical History: Cancer Additional Family Medical History / Comment(s): from lung cancer Medications and Allergies Home Medications Medication Instructions Recorded Confirmed Type Cholecalciferol [Vitamin D3 (25 50 mcg PO HS 01/31/21 12/20/23 History Mcg = 1000 Iu)] FLUoxetine HCL [PROzac] 40 mg PO DAILY 01/31/21 12/20/23 History Levothyroxine Sodium [Synthroid] 50 mcg PO DAILY 01/31/21 12/20/23 History Metoprolol Succinate (ER) [Toprol 50 mg PO DAILY 01/31/21 12/20/23 History XL] busPIRone HCL 10 mg PO TID 01/31/21 12/20/23 History risperiDONE [RisperDAL] 1 mg PO DAILY 01/31/21 12/20/23 History Multivitamins, Thera [Multivitamin 1 tab PO DAILY 05/13/21 12/20/23 History (formulary)] Doxazosin [Cardura] 2 mg PO DAILY 10/25/23 12/20/23 History Senna-Time 8.6mg 8.6 mg PO HS 10/25/23 12/20/23 History Delsym Cough And Congestion Dm 10 ml PO Q6H PRN 12/16/23 12/20/23 History Ipratropium-Albuterol Nebulize 3 ml INHALATION RT-Q4H PRN 12/16/23 12/20/23 History [Duoneb 0.5 mg-3 mg/3 ml Soln] Loperamide HCl [Imodium A-D] 2 - 4 mg PO QID PRN 12/16/23 12/20/23 History Potassium Chloride ER [K-Dur 20] 20 meq PO DAILY 12/16/23 12/20/23 History Furosemide [Lasix] 40 mg PO DAILY #30 tablet 12/19/23 12/20/23 Rx Sodium Bicarbonate Tab 650 mg PO BID #60 tablet 12/19/23 12/20/23 Rx cefUROXime axetiL [Ceftin] 500 mg PO BID #8 tab 12/19/23 12/20/23 Rx Allergies Allergy/AdvReac Type Severity Reaction Status Date / Time amoxicillin [From Augmentin] Allergy Rash/Hives Verified 12/16/23 16:24 clavulanic acid Allergy Rash/Hives Verified 12/16/23 16:24 [From Augmentin] Physical Exam Vitals: Vital Signs Temp Pulse Resp BP Pulse Ox 12/21/23 07:41 98 F 82 17 124/89 97 12/21/23 06:43 118/82 12/21/23 02:00 97.5 F L 71 16 119/73 96 12/20/23 22:59 139/79 12/20/23 21:00 86 102/64 12/20/23 19:45 98.4 F 90 16 97/66 95 12/20/23 14:00 97.5 F L 59 L 20 112/73 Intake and Output 12/20/23 12/21/23 12/21/23 22:59 06:59 14:59 Intake Total 240 120 Output Total 600 Balance -360 120 Intake: Oral 240 120 Output: Urine 600 Other: Voiding Method Indwelling Catheter Indwelling Catheter # Bowel Movements 1 Weight 98.3 kg Results - Lab Results Most recent lab results Calcium 7.2 mg/dL (8.4-10.2) L 12/21/23 05:47 Magnesium 2.2 mg/dL (1.6-2.3) 12/19/23 21:48 12/19/23 21:48 12/21/23 05:47 Assessment and Plan Plan: Assessment: 1. Chronic kidney disease stage IIIb with baseline creatinine 1.7-1.8. Suspect underlying glomerulonephritis. 2. Volume overload secondary to nephrotic syndrome. 3. Hypervolemic hyponatremia. 4. Developmental delay. Plan: Decrease Lasix to 60 mg IV twice daily. Low-salt diet and fluid restriction. Add SGLT2 inhibitor. Add Lipitor. 25 g IV albumin x 2 doses today. Check serologies. Schedule for CT-guided renal biopsy. Will give IV DDAVP prior to biopsy. Patient scheduled to get the biopsy done January 08, 2024 but will try to get it done inpatient. Thank you for the consultation. I will continue to follow the patient with you during his hospital stay.
[2023-12-21] MEDS ORDERED: ALBUMIN HUMAN 25% 50 ML in EMPTY BAG 1 BAG IVPB SCH (12:00)
--- NOTE | 2023-12-21 12:44 | PN ---
PROGRESS NOTE SUBJECTIVE: Mr. Hutton is comfortable resting today, breathing easier. His edema is improved, but he still has bilateral lower extremity edema. I am not sure if this reflects any pulmonary hypertension. Ejection fraction is about 50%. He does not have any significant pulmonary hypertension. He may have some diastolic heart failure. Right- sided pressures were not easily quantified. I am suggesting that we can switch him from 60 mg q.8 hours IV Lasix that was increased by Dr. Espinoza to 40 mg p.o. b.i.d. from tomorrow. Continue his other medications including Aldactone and watch the potassium level. OBJECTIVE: VITALS: Stable. NECK: No JVD. HEART: S1-S2 heard normally, short systolic murmur noted. LUNGS: Revealed decent air entry. ABDOMEN: Soft. EXTREMITIES: Lower extremity edema is present, mild to moderate, but improved. I will see the patient as needed. Would recommend to switch him to oral Lasix from tomorrow and check his electrolytes and potassium. Dr. Espinoza, the admitting doctor will manage this, and I will be happy to see the patient if needed. MMODL / IJN: [id number] /
[2023-12-21] MEDS: ALBUMIN HUMAN 25% 50 ML in EMPTY BAG 1 BAG IVPB SCH ×2 (13:02→20:02)
[2023-12-21] MEDS: DAPAGLIFLOZIN PROPANEDIOL 5 MG TABLET PO SCH (13:13)
--- NOTE | 2023-12-21 15:37 | P.PN ---
Progress Note - Text Progress Note Date: 12/21/23 Chief Complaint: Increase water retention This is a pleasant 58-year-old patient who has known cerebral palsy with neurocognitive delay. Followed by visiting physician Dr. Zaman Chronic stable medical conditions include hypertension, chronic gait dysfunction uses a walker, hypothyroid, depression. Has a suprapubic catheter. Patient's had multiple UTIs in the past. .. Can answer simple questions. Patient was just discharged from hospital yesterday. Being admitted from December 15 through December 18. Had a UTI. Cultures are negative. Received IV meropenem. Was discharged on Ceftin. Patient did receive IV fluids. Was: Patient was felt to be in fluid retention. No fever no chills. Has edema. December 20: Remains on IV Lasix. [place] to be diastolic dysfunction. Given dose of desmopressin per nephrology. Some decrease in edema. Not short of breath significantly. IV Lasix 60 mg every 12. Active Medications Acetaminophen (Acetaminophen Tab 325 Mg Tab) 650 mg PO Q6HR PRN PRN Reason: Mild Pain or Fever > 100.5 Albuterol/Ipratropium (Ipratropium-Albuterol 3 Ml Neb) 3 ml INHALATION RT-Q4H PRN PRN Reason: Shortness Of Breath Atorvastatin Calcium (Atorvastatin 20 Mg Tab) 20 mg PO DAILY [facility] Buspirone HCl (Buspirone Hcl 10 Mg Tab) 10 mg PO TID [facility] Last Admin: 12/21/23 09:01 Dose: 10 mg Calcium Carbonate/Glycine (Calcium Carbonate 500 Mg Chewable) 1,000 mg PO Q4HR PRN PRN Reason: Dyspepsia Cholecalciferol (Cholecalciferol 25 Mcg (1000 Iu) Tablet) [address] [facility] Last Admin: 12/20/23 21:01 Dose: 50 mcg Dapagliflozin (Dapagliflozin Propanediol 5 Mg Tablet) 5 mg PO DAILY [facility] Last Admin: 12/21/23 13:13 Dose: 5 mg Doxazosin Mesylate (Doxazosin 2 Mg Tab) 2 mg PO DAILY [facility] Last Admin: 12/21/23 09:01 Dose: 2 mg Enoxaparin Sodium (Enoxaparin 40 Mg/0.4 Ml Syringe) 40 mg SQ DAILY [facility] Last Admin: 12/21/23 09:01 Dose: 40 mg Fluoxetine HCl (Fluoxetine Hcl 20 Mg Cap) 40 mg PO DAILY [facility] Last Admin: 12/21/23 09:01 Dose: 40 mg Furosemide (Furosemide 10 Mg/Ml 10 Ml Vial) 60 mg IV Q12HR [facility] Hydralazine HCl (Hydralazine Hcl 50 Mg Tab) 50 mg PO BID [facility] Last Admin: 12/21/23 09:01 Dose: 50 mg Desmopressin Acetate 28 mcg/ (Sodium Chloride) 57 mls @ 200 mls/hr IVPB ONCE ONE Stop: 12/24/23 08:17 Albumin Human 50 ml/ IV (Solution) 50 mls @ 50 mls/hr IVPB Q1H [facility] Stop: 12/21/23 21:59 Lactulose (Lactulose 20 Gm/30 Ml Cup) 20 gm PO DAILY PRN PRN Reason: Constipation Levothyroxine Sodium (Levothyroxine 50 Mcg Tab) 50 mcg PO DAILY@0630 [facility] Last Admin: 12/21/23 06:44 Dose: 50 mcg Lorazepam (Lorazepam 0.5 Mg Tab) 0.5 mg PO Q6HR PRN PRN Reason: Anxiety Melatonin (Melatonin 3 Mg Tablet) 3 mg PO HS PRN PRN Reason: Insomnia Metoprolol Succinate (Metoprolol Succinate (Er) 50 Mg Tab.Er.24h) 50 mg PO DAILY [facility] Last Admin: 12/21/23 09:01 Dose: 50 mg Multivitamins (Multivitamins, Thera 1 Each Tab) 1 each PO DAILY [facility] Last Admin: 12/21/23 09:01 Dose: 1 each Naloxone HCl (Naloxone 0.4 Mg/Ml 1 Ml Vial) 0.2 mg IV Q2M PRN PRN Reason: Opioid Reversal Ondansetron HCl (Ondansetron 4 Mg/2 Ml Vial) 4 mg IVP Q8HR PRN PRN Reason: Nausea And Vomiting Potassium Chloride (Potassium Chloride Er 20 Meq Tab.Er) 20 meq PO DAILY [facility] Last Admin: 12/21/23 09:01 Dose: 20 meq Risperidone (Risperidone 1 Mg Tab) 1 mg PO DAILY [facility] Last Admin: 12/21/23 09:01 Dose: 1 mg Senna (Sennosides 8.6 Mg Tab) 8.6 mg PO HS [facility] Last Admin: 12/20/23 21:01 Dose: 8.6 mg Sodium Bicarbonate (Sodium Bicarbonate Tab 650 Mg Tab) 650 mg PO BID [facility] Last Admin: 12/21/23 09:01 Dose: 650 mg Spironolactone (Spironolactone 25 Mg Tab) 12.5 mg PO DAILY [facility] Last Admin: 12/21/23 09:01 Dose: 12.5 mg Past medical history to include: Hypertension, cerebral palsy with neurocognitive disorder, sleep apnea, infantile cerebral palsy, i suprapubic catheter., OCD, dysthymic disorder, recurrent UTI Social history: [facility] home. No alcohol or smoking. Uses a walker. Physical examination: VITAL SIGNS: 97.7, 94, 20, 1 one 3 x 78, 97% room air GENERAL: Reclining in bed , comfortable. EYES: Pupils equal. Conjunctiva normal. HEENT: External appearance of nose and ears normal, oral cavity grossly normal small lower jaw. NECK: JVD not raised; masses not palpable. HEART: First and second heart sounds are normal; edema present LUNGS: Respiratory rate normal; clear to auscultation. ABDOMEN: Soft, nontender, liver spleen not palpable, no masses palpable. Suprapubic catheter. PSYCH: Patient can answer, one-word answers. MUSCULOSKELETAL:No Clubbing/cyanosis;muscles-grossly intact NEUROLOGICAL: Cranial nerves grossly intact; no facial asymmetry, power and sensation grossly intact. INVESTIGATIONS, reviewed in the clinical context: December 20: Sodium 134 potassium 4.5 BUN 37 creatinine 1.85 2D echocardiogram: EF 50-55%. Moderate concentric LVH. EKG tracing personally reviewed by me-normal sinus rhythm. Right bundle aashish block. Chest x-ray film personally reviewed by me-fluid in the fissure December 19: BUN 34 creatinine 1.75 December 18: White count 15.2 hemoglobin 12.1 platelets 246 sodium 133 BUN 32 creatinine 1.89 Recent labs December 17: White count 13.6 hemoglobin 12 platelets 231 sodium 135 potassium 4 BUN 35 creatinine 1.97 Assessment and plan: -Acute congestive heart failure exacerbation from diastolic dysfunction EF 50 to 55% precipitated by IV fluids: Slow to respond Increase IV Lasix history mg every 8 Fluid restriction 1500 cc a day -Recent UTI caused by I-caused by suprapubic catheter Culture was negative Omnicef f-complete course -Chronic bladder dysfunction with a suprapubic catheter -Cerebral palsy with neurocognitive delay -Metabolic acidosis secondary to kidney disease Sodium bicarbonate -Chronic kidney disease stage III likely nephrosclerosis Baseline creatinine around 1.7 on October 2023 Nephrology consulted -Essential hypertension Toprol-XL 50 mg daily -Chronic gait dysfunction uses a walker Fall precautions -Urinary bladder outflow obstruction Suprapubic catheter -Hypothyroid Synthroid 50 g -Depression BuSpar 10 mg 3 times daily. Risperdal 1 mg daily. Prozac 40 mg daily. -Full code IV Lasix. Continue. Not ready for discharge
[2023-12-21 17:54] LABS: Hepatitis A Antibody IgM Nonreactive (Nonreactive); Hepatitis B Core IgM Nonreactive (Nonreactive); Hepatitis B Surface Antigen Nonreactive (Nonreactive); Hepatitis C IgG Antibody Nonreactive (Nonreactive)
[2023-12-21 18:08] LABS: Protein, Total 2.9 g/dL (6.2-8.2)
[2023-12-21 19:59] LABS: Anti-DNA, DS unit <1.0 IU/mL; DNA Double-Stranded Negative (Negative)
[2023-12-21] MEDS: FUROSEMIDE 10 MG/ML 10 ML VIAL IV SCH (20:03)
[2023-12-22 06:38] LABS: African American GFR (CKD) 49 (>60 ml/min/1.73 sqM); Anion Gap 1 mmol/L; Blood Urea Nitrogen 34 mg/dL (9-20); Calcium 7.4 mg/dL (8.4-10.2); Carbon Dioxide 19 mmol/L (22-30); Chloride 116 mmol/L (98-107); Glucose 81 mg/dL (74-99); Non-African American GFR(CKD) 42 (>60 ml/min/1.73 sqM); Sodium 136 mmol/L (137-145)
[2023-12-22] MEDS ORDERED: FUROSEMIDE 40 MG TAB PO SCH (09:00)
--- NOTE | 2023-12-22 10:18 | P.PN ---
Subjective Patient is seen in follow-up for chronic kidney disease. Renal function stable. On IV Lasix. Nonoliguric. Oral intake fair. Vital signs are stable. General: No acute distress. HEENT: Head exam is unremarkable. LUNGS: No audible rhonchi or wheezes. HEART: Rate and Rhythm are regular. ABDOMEN: Nontender. EXTREMITITES: 2+ edema. Objective - Vital Signs Vital signs: Vital Signs Temp 98.2 F 12/22/23 07:35 Pulse 91 12/22/23 07:35 Resp 17 12/22/23 07:35 BP 136/82 12/22/23 07:35 Pulse Ox 96 12/22/23 07:35 FiO2 Intake & Output 12/21/23 12/22/23 12/22/23 18:59 06:59 18:59 Intake Total 600 Output Total 400 1220 Balance 200 -1220 Weight 96.9 kg Intake: Oral 600 Output: Urine 400 1220 Other: Voiding Method Indwelling Catheter Indwelling Catheter # Voids 1 - Labs CBC & Chem 7: 12/19/23 21:48 12/22/23 06:03 Labs: Abnormal Lab Results - Last 24 Hours (Table) 12/21/23 12/22/23 Range/Units 05:47 06:03 Sodium 136 L (137-145) mmol/L Chloride 116 H (98-107) mmol/L Carbon Dioxide 19 L (22-30) mmol/L BUN 34 H (9-20) mg/dL Creatinine 1.74 H (0.66-1.25) mg/dL Calcium 7.4 L (8.4-10.2) mg/dL Total Protein (PEP) 2.9 L (6.2-8.2) g/dL Assessment and Plan Plan: Assessment: 1. Chronic kidney disease stage IIIb with baseline creatinine 1.7-1.8. Suspect underlying glomerulonephritis. 2. Volume overload secondary to nephrotic syndrome. 3. Hypervolemic hyponatremia. Better. 4. Developmental delay. Plan: Maintain IV Lasix. Low-salt diet and fluid restriction. Maintain SGLT2 inhibitor. Maintain Lipitor. Status post IV albumin given December 21, 2023. Follow-up serologies. Negative so far. Kidney biopsy scheduled for Sunday. Will give IV DDAVP prior to biopsy.
[2023-12-22] MEDS: ATORVASTATIN 20 MG TAB PO SCH (10:29)
--- NOTE | 2023-12-22 18:44 | P.PN ---
Subjective Progress Note Date: 12/22/23 58-year-old patient who has known cerebral palsy with neurocognitive delay. Followed by visiting physician Dr. Zaman Chronic stable medical conditions include hypertension, chronic gait dysfunction uses a walker, hypothyroid, depression. Has a suprapubic catheter. Patient's had multiple UTIs in the past. .. Can answer simple questions. Patient was just discharged from hospital yesterday. Being admitted from December 15 through December 18. Had a UTI. Cultures are negative. Received IV meropenem. Was discharged on Ceftin. Patient did receive IV fluids. Was: Patient was felt to be in fluid retention. No fever no chills. Has edema. Objective - Vital Signs Vital signs: Vital Signs Temp 98.2 F 12/22/23 07:35 Pulse 91 12/22/23 10:30 Resp 17 12/22/23 07:35 BP 136/82 12/22/23 07:35 Pulse Ox 96 12/22/23 07:35 FiO2 Intake & Output 12/21/23 12/22/23 12/22/23 18:59 06:59 18:59 Intake Total 600 Output Total 400 1220 Balance 200 -1220 Weight 96.9 kg Intake: Oral 600 Output: Urine 400 1220 Other: Voiding Method Indwelling Catheter Indwelling Catheter Indwelling Catheter # Voids 1 # Bowel Movements 1 - Exam GENERAL: Reclining in bed , comfortable. EYES: Pupils equal. Conjunctiva normal. HEENT: External appearance of nose and ears normal, oral cavity grossly normal small lower jaw. NECK: JVD not raised; masses not palpable. HEART: First and second heart sounds are normal; edema present LUNGS: Respiratory rate normal; clear to auscultation. ABDOMEN: Soft, nontender, liver spleen not palpable, no masses palpable. Suprapubic catheter. PSYCH: Patient can answer, one-word answers. MUSCULOSKELETAL:No Clubbing/cyanosis;muscles-grossly intact NEUROLOGICAL: Cranial nerves grossly intact; no facial asymmetry, power and sensation grossly intact. - Labs CBC & Chem 7: 12/19/23 21:48 12/22/23 06:03 Labs: Abnormal Lab Results - Last 24 Hours (Table) 12/21/23 12/22/23 Range/Units 05:47 06:03 Sodium 136 L (137-145) mmol/L Chloride 116 H (98-107) mmol/L Carbon Dioxide 19 L (22-30) mmol/L BUN 34 H (9-20) mg/dL Creatinine 1.74 H (0.66-1.25) mg/dL Calcium 7.4 L (8.4-10.2) mg/dL Total Protein (PEP) 2.9 L (6.2-8.2) g/dL Assessment and Plan Assessment: 1. Acute congestive heart failure exacerbation from diastolic dysfunction EF 50 to 55% precipitated by IV fluids: Slow to respond Increase IV Lasix history mg every 8 Fluid restriction 1500 cc a day 2. Recent UTI caused by I-caused by suprapubic catheter Culture was negative Omnicef f-complete course 3. Cerebral palsy with neurocognitive delay 4. Metabolic acidosis secondary to kidney disease Sodium bicarbonate 5. Chronic kidney disease stage III likely nephrosclerosis; Baseline creatinine around 1.7 on October 2023 Nephrology consulted 6. Hypertension; Toprol-XL 50 mg daily 7. Urinary bladder outflow obstruction; patient has suprapubic catheter in place 8. Hypothyroidism; continue with home dose of Synthroid 50 g daily 9. Depression/anxiety; BuSpar 10 mg 3 times daily. Risperdal 1 mg daily. Prozac 40 mg daily. DVT prophylaxis; SCDs CODE STATUS full code
[2023-12-22] MEDS ORDERED: ZINC OXIDE PASTE (Z-GUARD) 1 APPLIC TOPICAL PRN (22:17)
[2023-12-23 09:29] LABS: ALT 8 U/L (10-49); AST 12 U/L (14-35); Albumin 1.6 g/dL (3.8-4.9); Albumin/Globulin Ratio 1.23 Ratio (1.60-3.17); Alkaline Phosphatase 96 U/L (41-126); Blood Urea Nitrogen 31.7 mg/dL (9.0-27.0); Calcium 7.3 mg/dL (8.7-10.3); Carbon Dioxide 22.2 mmol/L (21.6-31.8); Chloride 114 mmol/L (96-109); Globulin 1.3 g/dL (1.6-3.3); Glucose 91 mg/dL (70-110); Magnesium 2.1 mg/dL (1.5-2.4); Potassium 4.5 mmol/L (3.5-5.5); Sodium 144 mmol/L (135-145); Total Bilirubin 0.2 mg/dL (0.3-1.2); Total Protein 2.9 g/dL (6.2-8.2)
--- NOTE | 2023-12-23 10:34 | P.PN ---
Subjective Patient is seen in follow-up for chronic kidney disease. Renal function worse from diuresis. On IV Lasix. Nonoliguric. Oral intake fair. Kidney biopsy tomorrow. Vital signs are stable. General: No acute distress. HEENT: Head exam is unremarkable. LUNGS: No audible rhonchi or wheezes. HEART: Rate and Rhythm are regular. ABDOMEN: Nontender. EXTREMITITES: 1+ edema. Lower extremities wrapped. Objective - Vital Signs Vital signs: Vital Signs Temp 97.8 F 12/23/23 07:13 Pulse 88 12/23/23 07:13 Resp 17 12/23/23 07:13 BP 154/81 12/23/23 07:13 Pulse Ox 95 12/23/23 07:13 FiO2 Intake & Output 12/22/23 12/23/23 12/23/23 18:59 06:59 18:59 Intake Total 358 100 Output Total 700 850 Balance -342 -750 Weight 95.9 kg Intake: Oral 358 100 Output: Urine 700 850 Other: Voiding Method Indwelling Catheter Indwelling Catheter # Bowel Movements 3 1 1 - Labs CBC & Chem 7: 12/19/23 21:48 12/23/23 05:55 Labs: Abnormal Lab Results - Last 24 Hours (Table) 12/23/23 Range/Units 05:55 Chloride 114 H (96-109) mmol/L BUN 31.7 H (9.0-27.0) mg/dL Creatinine 2.1 H (0.6-1.5) mg/dL Est GFR (CKD-EPI) 36 L (>=60) Calcium 7.3 L (8.7-10.3) mg/dL Total Bilirubin 0.2 L (0.3-1.2) mg/dL AST 12 L (14-35) U/L ALT 8 L (10-49) U/L Total Protein 2.9 L (6.2-8.2) g/dL Albumin 1.6 L (3.8-4.9) g/dL Globulin 1.3 L (1.6-3.3) g/dL Albumin/Globulin Ratio 1.23 L (1.60-3.17) Ratio Assessment and Plan Plan: Assessment: 1. Chronic kidney disease stage IIIb with baseline creatinine 1.7-1.8. Suspect underlying glomerulonephritis. 2. Volume overload secondary to nephrotic syndrome. Improving with diuresis. 3. Hypervolemic hyponatremia. Better. 4. Developmental delay. 5. Acute kidney injury secondary to vasomotor nephropathy from diuresis. Creatinine 2.1 today. 6. Metabolic acidosis secondary to chronic kidney disease maintained on oral bicarb. Plan: Change Lasix to 60 mg orally twice daily. Low-salt diet and fluid restriction. Maintain SGLT2 inhibitor. Maintain Lipitor. Repeat IV albumin 25 g x 2 doses today. Follow-up serologies. Negative so far. Kidney biopsy scheduled for Sunday. Will give IV DDAVP prior to biopsy.
[2023-12-23] MEDS: ALBUMIN HUMAN 25% 50 ML in EMPTY BAG 1 BAG IVPB SCH (11:02)
[2023-12-23] MEDS: FUROSEMIDE 20 MG TAB PO SCH (15:58)
--- NOTE | 2023-12-23 17:36 | P.PN ---
Subjective Progress Note Date: 12/23/23 58-year-old patient who has known cerebral palsy with neurocognitive delay. Followed by visiting physician Dr. Zaman Chronic stable medical conditions include hypertension, chronic gait dysfunction uses a walker, hypothyroid, depression. Has a suprapubic catheter. Patient's had multiple UTIs in the past. .. Can answer simple questions. Patient was just discharged from hospital yesterday. Being admitted from December 15 through December 18. Had a UTI. Cultures are negative. Received IV meropenem. Was discharged on Ceftin. Patient did receive IV fluids. Was: Patient was felt to be in fluid retention. No fever no chills. Has edema. 12/23/2023 Patient is seen and evaluated in room at bedside; no specific complaints reported Signs are stable temperature 97.8, pulse 88, respirations 17 and blood pressure 154/81 Lab review shows sodium 144, potassium 4.5, BUNs/creatinine of 31.7/2.1 Nephrology is on board; it is scheduled for renal biopsy tomorrow Objective - Vital Signs Vital signs: Vital Signs Temp 97.8 F 12/23/23 07:13 Pulse 88 12/23/23 07:13 Resp 17 12/23/23 07:13 BP 154/81 12/23/23 07:13 Pulse Ox 95 12/23/23 07:13 FiO2 Intake & Output 12/22/23 12/23/23 12/23/23 18:59 06:59 18:59 Intake Total 358 100 Output Total 700 850 Balance -342 -750 Weight 95.9 kg Intake: Oral 358 100 Output: Urine 700 850 Other: Voiding Method Indwelling Catheter Indwelling Catheter Indwelling Catheter # Bowel Movements 3 1 1 - Exam GENERAL: Reclining in bed , comfortable. EYES: Pupils equal. Conjunctiva normal. HEENT: External appearance of nose and ears normal, oral cavity grossly normal small lower jaw. NECK: JVD not raised; masses not palpable. HEART: First and second heart sounds are normal; edema present LUNGS: Respiratory rate normal; clear to auscultation. ABDOMEN: Soft, nontender, liver spleen not palpable, no masses palpable. Suprapubic catheter. PSYCH: Patient can answer, one-word answers. MUSCULOSKELETAL:No Clubbing/cyanosis;muscles-grossly intact NEUROLOGICAL: Cranial nerves grossly intact; no facial asymmetry, power and sensation grossly intact. - Labs CBC & Chem 7: 12/19/23 21:48 12/23/23 05:55 Labs: Abnormal Lab Results - Last 24 Hours (Table) 12/23/23 Range/Units 05:55 Chloride 114 H (96-109) mmol/L BUN 31.7 H (9.0-27.0) mg/dL Creatinine 2.1 H (0.6-1.5) mg/dL Est GFR (CKD-EPI) 36 L (>=60) Calcium 7.3 L (8.7-10.3) mg/dL Total Bilirubin 0.2 L (0.3-1.2) mg/dL AST 12 L (14-35) U/L ALT 8 L (10-49) U/L Total Protein 2.9 L (6.2-8.2) g/dL Albumin 1.6 L (3.8-4.9) g/dL Globulin 1.3 L (1.6-3.3) g/dL Albumin/Globulin Ratio 1.23 L (1.60-3.17) Ratio Assessment and Plan Assessment: 1. Acute congestive heart failure exacerbation from diastolic dysfunction EF 50 to 55% precipitated by IV fluids: Slow to respond Increase IV Lasix history mg every 8 Fluid restriction 1500 cc a day 2. Recent UTI caused by I-caused by suprapubic catheter Culture was negative Omnicef f-complete course 3. Cerebral palsy with neurocognitive delay 4. Metabolic acidosis secondary to kidney disease Sodium bicarbonate 5. Chronic kidney disease stage III likely nephrosclerosis; Baseline creatinine around 1.7 on October 2023 Nephrology consulted 6. Hypertension; Toprol-XL 50 mg daily 7. Urinary bladder outflow obstruction; patient has suprapubic catheter in place 8. Hypothyroidism; continue with home dose of Synthroid 50 g daily 9. Depression/anxiety; BuSpar 10 mg 3 times daily. Risperdal 1 mg daily. Prozac 40 mg daily. DVT prophylaxis; SCDs CODE STATUS full code
[2023-12-24 08:52] LABS: ALT 8 U/L (10-49); AST 11 U/L (14-35); Albumin 1.7 g/dL (3.8-4.9); Albumin/Globulin Ratio 1.31 Ratio (1.60-3.17); Alkaline Phosphatase 89 U/L (41-126); BUN/Creat Ratio 13.57 Ratio (12.00-20.00); Blood Urea Nitrogen 28.5 mg/dL (9.0-27.0); Calcium 7.4 mg/dL (8.7-10.3); Carbon Dioxide 21.8 mmol/L (21.6-31.8); Chloride 114 mmol/L (96-109); Globulin 1.3 g/dL (1.6-3.3); Glucose 91 mg/dL (70-110); Magnesium 2.1 mg/dL (1.5-2.4); Potassium 4.5 mmol/L (3.5-5.5); Sodium 143 mmol/L (135-145); Total Bilirubin 0.3 mg/dL (0.3-1.2)
[2023-12-24] MEDS: DESMOPRESSIN ACETATE 28 MCG in SODIUM CHLORIDE 0.9% 50 ML IVPB ONE (09:40)
--- NOTE | 2023-12-24 11:18 | CT ---
EXAMINATION TYPE: CT biopsy renal LT DATE OF EXAM: 12/24/2023 11:15 AM CLINICAL INDICATION:Male, 58 years old with history of nephrotic syndrome; left renal biopsy COMPARISON: 01/21/2015 CT DLP: 1739 mGycm, Automated exposure control for dose reduction was used. Contrast used: mL of , none Oral contrast used: none ATTENDING: Dr. Elvin Ray TECHNIQUE: CT guided percutaneous biopsy of using coaxial method. One or more CT dose reduction strategies were utilized during this examination. Total CT dose 1739 mGycm. Total fluoroscopy time was 0 seconds. FINDINGS: The procedure was explained to the patient including risks of bleeding, bruising, infection, damage t o nearby organs and need for additional therapy including potential surgery. All questions were answ ered and consent was obtained. The previous studies were reviewed. The patient was placed on the CT couch in the supine position. The overlying skin was marked and prepped using sterile method. Timeout was taken per protocol. Follo wing administration of conscious sedation and local anesthesia a 19 gauge coaxial needle was introd uced on the left kidney cortex. The coaxial needle tip was directed into the left kidney: with CT gu idance. Multiple 20 gauge coaxial biopsies were then obtained. Touch prep of portions of the speci men were reviewed by pathology department personnel during the procedure to evaluate for cellularity of the samples. The biopsy samples were sent in appropriate containers for lab analysis. Following t he procedure the needle was removed and sterile dressing was applied to the percutaneous site. Patien t was taken for postprocedure observation in stable condition. IMPRESSIONS: Status post percutaneous drain and left kidney cortex biopsy as described above. Pathology results leah pina.
[2023-12-24 14:46] LABS: C-ANCA <1:20 Titer (<1:20)
[2023-12-24 17:53] LABS: Albumin 1.14 g/dL (3.80-4.90); Gamma Globulin 0.32 g/dL (0.70-1.50)
--- NOTE | 2023-12-25 06:08 | P.PN ---
Subjective Progress Note Date: 12/24/23 58-year-old patient who has known cerebral palsy with neurocognitive delay. Followed by visiting physician Dr. Zaman Chronic stable medical conditions include hypertension, chronic gait dysfunction uses a walker, hypothyroid, depression. Has a suprapubic catheter. Patient's had multiple UTIs in the past. .. Can answer simple questions. Patient was just discharged from hospital yesterday. Being admitted from December 15 through December 18. Had a UTI. Cultures are negative. Received IV meropenem. Was discharged on Ceftin. Patient did receive IV fluids. Was: Patient was felt to be in fluid retention. No fever no chills. Has edema. 12/23/2023 Patient is seen and evaluated in room at bedside; no specific complaints reported Signs are stable temperature 97.8, pulse 88, respirations 17 and blood pressure 154/81 Lab review shows sodium 144, potassium 4.5, BUNs/creatinine of 31.7/2.1 Nephrology is on board; it is scheduled for renal biopsy tomorrow 12/24/2023 Patient is seen in follow-up this morning currently undergoing renal biopsy today. Nephrology following and will need follow-up in the outpatient setting for biopsy results. Patient has been transition to oral Lasix with worsening kidney functions. Patient continues with some volume overload and will monitor overnight and discussed possible discharge planning in 24 hours. Patient is afebrile with no reports of chest pain or shortness of breath. Tolerating oral diet. review of systems: Unable to completely assess Physical exam: GENERAL: Reclining in bed , comfortable. Awake and alert, elderly appearing, obese EYES: Pupils equal. Conjunctiva normal. HEENT: External appearance of nose and ears normal, oral cavity grossly normal small lower jaw. NECK: JVD not raised; masses not palpable. HEART: First and second heart sounds are normal; edema present LUNGS: Respiratory rate normal; clear to auscultation. ABDOMEN: Soft, nontender, liver spleen not palpable, no masses palpable. Suprapubic catheter. PSYCH: Patient can answer, one-word answers. MUSCULOSKELETAL:No Clubbing/cyanosis;muscles-grossly intact NEUROLOGICAL: Cranial nerves grossly intact; no facial asymmetry, power and sensation grossly intact. Assessment: 1. Acute congestive heart failure exacerbation from diastolic dysfunction EF 50 to 55%, precipitated by IV fluids: Slow to respond transition to oral Lasix, continue fluid restrictions 2. Recent UTI caused by suprapubic catheter 3. Cerebral palsy with neurocognitive delay 4. Metabolic acidosis secondary to kidney disease 5. Chronic kidney disease stage III likely nephrosclerosis; Baseline creatinine around 1.7 on October 2023, nephrology following, renal biopsy today 6. Hypertension 7. Urinary bladder outflow obstruction; patient has suprapubic catheter in place 8. Hypothyroidism 9. Depression/anxiety history DVT prophylaxis; SCDs GI prophylaxis No code Plan: Patient is status post renal biopsy today which is pending and we will follow-up with nephrology outpatient. Nephrology following and patient has been transition to oral Lasix and will continue Continue fluid restrictions Monitor overnight with likely discharge planning in 24 hours Due to multiple complex medical issues, prognosis is guarded The impression and plan of care has been dictated by Dipti Gaytan, Nurse Practitioner as directed. Dr. Hoang MD I have performed a history and examination and MDM of this patient, discussed the same with the dictator, and agree with the dictator's assessment and plan as written ,documented as a scribe. Based on total visit time, I have performed more than 50% of the visit. Objective - Vital Signs Vital signs: Vital Signs Temp 97.8 F 12/24/23 11:08 Pulse 87 12/24/23 11:53 Resp 18 12/24/23 11:08 BP 115/69 12/24/23 12:08 Pulse Ox 96 12/24/23 11:08 FiO2 Intake & Output 12/23/23 12/24/23 12/24/23 18:59 06:59 18:59 Intake Total 240 240 120 Output Total 500 325 Balance -260 -85 120 Intake: Oral 240 240 120 Output: Urine 500 325 Other: Voiding Method Indwelling Catheter Indwelling Catheter Indwelling Catheter # Bowel Movements 1 1 - Labs CBC & Chem 7: 12/19/23 21:48 12/24/23 06:10 Labs: Abnormal Lab Results - Last 24 Hours (Table) 12/24/23 Range/Units 06:10 Chloride 114 H (96-109) mmol/L BUN 28.5 H (9.0-27.0) mg/dL Creatinine 2.1 H (0.6-1.5) mg/dL Est GFR (CKD-EPI) 36 L (>=60) Calcium 7.4 L (8.7-10.3) mg/dL AST 11 L (14-35) U/L ALT 8 L (10-49) U/L Total Protein 3.0 L (6.2-8.2) g/dL Albumin 1.7 L (3.8-4.9) g/dL Globulin 1.3 L (1.6-3.3) g/dL Albumin/Globulin Ratio 1.31 L (1.60-3.17) Ratio
[2023-12-25 09:48] LABS: African American GFR (CKD) 42 (>60 ml/min/1.73 sqM); Anion Gap 4 mmol/L; Blood Urea Nitrogen 30 mg/dL (9-20); Calcium 7.4 mg/dL (8.4-10.2); Carbon Dioxide 15 mmol/L (22-30); Chloride 119 mmol/L (98-107); Glucose 81 mg/dL (74-99); Magnesium 2.1 mg/dL (1.6-2.3); Non-African American GFR(CKD) 37 (>60 ml/min/1.73 sqM); Potassium 4.4 mmol/L (3.5-5.1); Sodium 138 mmol/L (137-145)
[2023-12-25 10:43] LABS: Basophils # (A) 0.1 k/uL (0-0.2); Basophils % (A) 1 %; Eosinophils # (A) 0.4 k/uL (0-0.7); Eosinophils % (A) 3 %; HCT 37.8 % (39.0-53.0); HGB 11.2 gm/dL (13.0-17.5); Hypochromasia Marked; Lymphocytes # (A) 2.3 k/uL (1.0-4.8); Lymphocytes % (A) 18 %; MCH 31.3 pg (25.0-35.0); MCHC 29.6 g/dL (31.0-37.0); Macrocytosis Moderate; Mean Platelet Volume 9.4; Monocytes # (A) 1.1 k/uL (0-1.0); Monocytes % (A) 8 %; Neutrophils # (A) 8.4 k/uL (1.3-7.7); Neutrophils % (A) 67 %; Platelet Count 212 k/uL (150-450); RBC 3.57 m/uL (4.30-5.90); RDW 14.3 % (11.5-15.5); WBC 12.5 k/uL (3.8-10.6)
[2023-12-25 10:48] LABS: MCV 105.9 fL (80.0-100.0)
--- NOTE | 2023-12-25 12:24 | P.PN ---
Subjective patient is seen for follow-up for chronic kidney disease and volume overload. He is currently being diuresed. Status post kidney biopsy performed yesterday. patient is comfortable with no acute distress. He has an indwelling Smith catheter. renal function is fairly stable with serum creatinine at 1.9 which is down from 2.1 yesterday. Objective - Vital Signs Vital signs: Vital Signs Temp 98.4 F 12/25/23 07:13 Pulse 91 12/25/23 07:13 Resp 24 12/25/23 07:13 BP 144/84 12/25/23 07:13 Pulse Ox 96 12/25/23 07:49 FiO2 Intake & Output 12/24/23 12/25/23 12/25/23 18:59 06:59 18:59 Intake Total 480 240 Output Total 350 300 Balance 130 -60 Weight 96.2 kg Intake: Oral 480 240 Output: Urine 350 300 Other: Voiding Method Indwelling Catheter Indwelling Catheter Indwelling Catheter # Bowel Movements 1 - Exam patient is awake, comfortable, no acute distress Intellectual disability Examination of the heart S1 and S2 Examination of the lungs decreased breath sounds at the bases Abdomen is soft nontender Examination lower extremity shows edema 2-3+ bilaterally. Both extremities are wrapped - Labs CBC & Chem 7: 12/25/23 08:00 12/25/23 08:00 Labs: Abnormal Lab Results - Last 24 Hours (Table) 12/21/23 12/25/23 12/25/23 Range/Units 05:47 08:00 08:00 WBC 12.5 H (3.8-10.6) k/uL RBC 3.57 L (4.30-5.90) m/uL Hgb 11.2 L (13.0-17.5) gm/dL Hct 37.8 L (39.0-53.0) % MCV 105.9 H D (80.0-100.0) fL MCHC 29.6 L (31.0-37.0) g/dL Neutrophils # 8.4 H (1.3-7.7) k/uL Monocytes # 1.1 H (0-1.0) k/uL Chloride 119 H (98-107) mmol/L Carbon Dioxide 15 L (22-30) mmol/L BUN 30 H (9-20) mg/dL Creatinine 1.95 H (0.66-1.25) mg/dL Calcium 7.4 L (8.4-10.2) mg/dL Albumin (PEP) 1.14 L (3.80-4.90) g/dL Beta Globulins 0.46 L (0.60-1.30) g/dL Gamma Globulins 0.32 L (0.70-1.50) g/dL Assessment and Plan Assessment: 1. Chronic kidney disease stage IIIb with baseline creatinine 1.7-1.8. Suspect underlying glomerulonephritis. status post kidney biopsy 12/24/2023 2. Volume overload secondary to nephrotic syndrome. Improving with diuresis. 3. Hypervolemic hyponatremia. Better. 4. Developmental delay. 5. Acute kidney injury secondary to vasomotor nephropathy from diuresis. Creatinine 1.9 today. 6. Metabolic acidosis secondary to chronic kidney disease maintained on oral bicarb. Plan: increase sodium bicarb Follow-up on results of kidney biopsy Add oral steroids
[2023-12-25] MEDS: predniSONE 50 MG TAB PO SCH (12:57)
[2023-12-25 13:55] VITALS: RESP 16
--- NOTE | 2023-12-26 06:23 | P.PN ---
Subjective Progress Note Date: 12/25/23 58-year-old patient who has known cerebral palsy with neurocognitive delay. Followed by visiting physician Dr. Zaman Chronic stable medical conditions include hypertension, chronic gait dysfunction uses a walker, hypothyroid, depression. Has a suprapubic catheter. Patient's had multiple UTIs in the past. .. Can answer simple questions. Patient was just discharged from hospital yesterday. Being admitted from December 15 through December 18. Had a UTI. Cultures are negative. Received IV meropenem. Was discharged on Ceftin. Patient did receive IV fluids. Was: Patient was felt to be in fluid retention. No fever no chills. Has edema. 12/23/2023 Patient is seen and evaluated in room at bedside; no specific complaints reported Signs are stable temperature 97.8, pulse 88, respirations 17 and blood pressure 154/81 Lab review shows sodium 144, potassium 4.5, BUNs/creatinine of 31.7/2.1 Nephrology is on board; it is scheduled for renal biopsy tomorrow 12/24/2023 Patient is seen in follow-up this morning currently undergoing renal biopsy today. Nephrology following and will need follow-up in the outpatient setting for biopsy results. Patient has been transition to oral Lasix with worsening kidney functions. Patient continues with some volume overload and will monitor overnight and discussed possible discharge planning in 24 hours. Patient is afebrile with no reports of chest pain or shortness of breath. Tolerating oral diet. 12/25/2023 Patient is seen this morning status post doing relatively well with no reported issues per nursing staff. Patient is tolerating diet as of breath. Initial plan was for discharge today although [facility] unable to obtain his medications that are new to him until a.m. and prefer discharge planning in the morning so they can arrange for transportation as well. Will monitor overnight and work on discharge planning in the a.m. Nephrology following and will need outpatient follow-up regarding biopsy results. Medications adjusted and will need repeat labs as well. review of systems: Unable to completely assess Physical exam: GENERAL: Reclining in bed , comfortable. Awake and alert, elderly appearing, obese EYES: Pupils equal. Conjunctiva normal. HEENT: External appearance of nose and ears normal, oral cavity grossly normal small lower jaw. NECK: JVD not raised; masses not palpable. HEART: First and second heart sounds are normal; edema present LUNGS: Respiratory rate normal; clear to auscultation. ABDOMEN: Soft, nontender, liver spleen not palpable, no masses palpable. Suprapubic catheter. PSYCH: Patient can answer, one-word answers. MUSCULOSKELETAL:No Clubbing/cyanosis;muscles-grossly intact NEUROLOGICAL: Cranial nerves grossly intact; no facial asymmetry, power and sensation grossly intact. Assessment: -Acute congestive heart failure exacerbation from diastolic dysfunction EF 50 to 55%, precipitated by IV fluids: Slow to respond transition to oral Lasix, continue fluid restrictions -Recent UTI caused by suprapubic catheter -Cerebral palsy with neurocognitive delay -Metabolic acidosis secondary to kidney disease -Chronic kidney disease stage III likely nephrosclerosis; Baseline creatinine around 1.7 on October 2023, nephrology following, renal biopsy done on 12/24/2023 -Hypertension -Urinary bladder outflow obstruction; patient has suprapubic catheter in place -Hypothyroidism -Depression/anxiety history -DVT prophylaxis; SCDs -GI prophylaxis -No code Plan: Patient is status post renal biopsy on 12/23 which is pending and will follow-up with nephrology outpatient. Nephrology following and patient has been transitioned to oral Lasix and will continue, continue sodium bicarb tablets Continue fluid restrictions Monitor overnight with discharge planning in 24 hours. [facility] arranging for transportation as well as picking up his medications that are new to him Due to multiple complex medical issues, prognosis is guarded The impression and plan of care has been dictated by Dipti Gaytan, Nurse Practitioner as directed. Dr. Hoang MD I have performed a history and examination and MDM of this patient, discussed the same with the dictator, and agree with the dictator's assessment and plan as written ,documented as a scribe. Based on total visit time, I have performed more than 50% of the visit. Objective - Vital Signs Vital signs: Vital Signs Temp 97.5 F L 12/25/23 12:43 Pulse 78 12/25/23 12:43 Resp 16 12/25/23 12:43 BP 137/83 12/25/23 12:43 Pulse Ox 95 12/25/23 12:43 FiO2 Intake & Output 12/24/23 12/25/23 12/25/23 18:59 06:59 18:59 Intake Total 480 240 Output Total 350 300 Balance 130 -60 Weight 96.2 kg Intake: Oral 480 240 Output: Urine 350 300 Other: Voiding Method Indwelling Catheter Indwelling Catheter Indwelling Catheter # Bowel Movements 1 - Labs CBC & Chem 7: 12/25/23 08:00 12/25/23 08:00 Labs: Abnormal Lab Results - Last 24 Hours (Table) 12/21/23 12/25/23 12/25/23 Range/Units 05:47 08:00 08:00 WBC 12.5 H (3.8-10.6) k/uL RBC 3.57 L (4.30-5.90) m/uL Hgb 11.2 L (13.0-17.5) gm/dL Hct 37.8 L (39.0-53.0) % MCV 105.9 H D (80.0-100.0) fL MCHC 29.6 L (31.0-37.0) g/dL Neutrophils # 8.4 H (1.3-7.7) k/uL Monocytes # 1.1 H (0-1.0) k/uL Chloride 119 H (98-107) mmol/L Carbon Dioxide 15 L (22-30) mmol/L BUN 30 H (9-20) mg/dL Creatinine 1.95 H (0.66-1.25) mg/dL Calcium 7.4 L (8.4-10.2) mg/dL Albumin (PEP) 1.14 L (3.80-4.90) g/dL Beta Globulins 0.46 L (0.60-1.30) g/dL Gamma Globulins 0.32 L (0.70-1.50) g/dL
[2023-12-26 08:09] LABS: Basophils % (A) 0 %; Eosinophils % (A) 0 %; HCT 38.5 % (39.0-53.0); Hypochromasia Slight; Lymphocytes # (A) 2.1 k/uL (1.0-4.8); Lymphocytes % (A) 19 %; MCH 30.9 pg (25.0-35.0); MCHC 31.1 g/dL (31.0-37.0); Macrocytosis Slight; Mean Platelet Volume 9.3; Monocytes # (A) 0.6 k/uL (0-1.0); Monocytes % (A) 6 %; Neutrophils # (A) 8.5 k/uL (1.3-7.7); Neutrophils % (A) 74 %; Platelet Count 217 k/uL (150-450); RBC 3.89 m/uL (4.30-5.90); RDW 14.6 % (11.5-15.5); WBC 11.4 k/uL (3.8-10.6)
[2023-12-26 08:10] LABS: MCV 99.2 fL (80.0-100.0)
[2023-12-26 08:16] LABS: African American GFR (CKD) 41 (>60 ml/min/1.73 sqM); Anion Gap 2 mmol/L; Blood Urea Nitrogen 32 mg/dL (9-20); Calcium 7.4 mg/dL (8.4-10.2); Carbon Dioxide 18 mmol/L (22-30); Chloride 117 mmol/L (98-107); Glucose 103 mg/dL (74-99); Non-African American GFR(CKD) 35 (>60 ml/min/1.73 sqM); Potassium 4.6 mmol/L (3.5-5.1); Sodium 137 mmol/L (137-145)
[2023-12-26 08:23] VITALS: PULSE 96; TEMP 98.3
[2023-12-26] MEDS: FAMOTIDINE 20 MG TAB PO SCH (09:18)
[2023-12-26 09:50] VITALS: BP 127/95
--- NOTE | 2023-12-26 11:45 | P.PN ---
Subjective patient is seen for follow-up for chronic kidney disease and volume overload. He is currently being diuresed. Status post kidney biopsy performed yesterday. patient is comfortable with no acute distress. He has an indwelling Smith catheter. renal function is fairly stable with serum creatinine at 1.9-2 Objective - Vital Signs Vital signs: Vital Signs Temp 98.3 F 12/26/23 08:00 Pulse 96 12/26/23 08:45 Resp 16 12/26/23 08:45 BP 127/95 12/26/23 09:33 Pulse Ox 96 12/26/23 08:00 FiO2 Intake & Output 12/25/23 12/26/23 12/26/23 18:59 06:59 18:59 Intake Total 240 110 Output Total 400 400 Balance -400 -160 110 Weight 96.7 kg Intake: Oral 240 110 Output: Urine 400 400 Other: Voiding Method Indwelling Catheter Indwelling Catheter Indwelling Catheter # Bowel Movements 1 - Exam patient is awake, comfortable, no acute distress Intellectual disability Examination of the heart S1 and S2 Examination of the lungs decreased breath sounds at the bases Abdomen is soft nontender Examination lower extremity shows edema 2-3+ bilaterally. Both extremities are wrapped - Labs CBC & Chem 7: 12/26/23 07:47 12/26/23 07:47 Labs: Abnormal Lab Results - Last 24 Hours (Table) 12/26/23 12/26/23 Range/Units 07:47 07:47 WBC 11.4 H (3.8-10.6) k/uL RBC 3.89 L (4.30-5.90) m/uL Hgb 12.0 L (13.0-17.5) gm/dL Hct 38.5 L (39.0-53.0) % Neutrophils # 8.5 H (1.3-7.7) k/uL Chloride 117 H (98-107) mmol/L Carbon Dioxide 18 L (22-30) mmol/L BUN 32 H (9-20) mg/dL Creatinine 2.02 H (0.66-1.25) mg/dL Glucose 103 H (74-99) mg/dL Calcium 7.4 L (8.4-10.2) mg/dL Assessment and Plan Assessment: 1. Chronic kidney disease stage IIIb with baseline creatinine 1.7-1.8. Suspect underlying glomerulonephritis. status post kidney biopsy 12/24/2023 2. Volume overload secondary to nephrotic syndrome. Improving with diuresis. 3. Hypervolemic hyponatremia. Better. 4. Developmental delay. 5. Acute kidney injury secondary to vasomotor nephropathy from diuresis. Creatinine 1.9 today. 6. Metabolic acidosis secondary to chronic kidney disease maintained on oral bicarb. Plan: continue sodium bicarb Continue current dose of Lasix Follow-up on results of kidney biopsy continue prednisone
--- NOTE | 2023-12-28 05:31 | P.DS ---
Providers Date of admission: 12/20/23 11:05 Expected date of discharge: 12/25/23 Attending physician: Bakari Espinoza Consults: 12/19/23 21:31 Consult Physician Routine Consulting Provider: Tamar Pinedo Consult Reason/Comments: CHF Do you want consulting provider notified?: Yes 12/20/23 17:15 Consult Physician Routine Consulting Provider: Norm Rodriguez Consult Reason/Comments: CKD Do you want consulting provider notified?: Yes Primary care physician: Kyler Zaman MD Hospital Course: Final diagnosis -Acute congestive heart failure exacerbation from diastolic dysfunction EF 50 to 55%, precipitated by IV fluids: Slow to respond transition to oral Lasix, continue fluid restrictions -Recent UTI caused by suprapubic catheter -Cerebral palsy with neurocognitive delay -Metabolic acidosis secondary to kidney disease -Chronic kidney disease stage III likely nephrosclerosis; Baseline creatinine around 1.7 on October 2023, nephrology following, renal biopsy done on 12/24/2023 -Hypertension -Urinary bladder outflow obstruction; patient has suprapubic catheter in place -Hypothyroidism -Depression/anxiety history -DVT prophylaxis; SCDs -GI prophylaxis -No code Discharge disposition Patient is being discharged in a stable condition with guarded prognosis to [facility] where he resides. Patient will follow-up with Dr. Darshana Barahona in the outpatient setting upon discharge. Patient is to continue with medications as prescribed and close outpatient follow-up with nephrology as scheduled. Total time taken is greater than 35 minutes. Hospital course This is a 58year-old male who was recently admitted with CHF exacerbation being closely monitored with nephrology following. Patient maintained on diuretics although having worsening kidney functions has been transition to oral Lasix and is also status post renal biopsy. Patient will follow-up with nephrology outpatient for biopsy results. Recommend repeat labs in the outpatient setting and fluid restrictions. Patient has been cleared by consultation. Please refer to consultation note for further HPI. Currently no reports of chest pain, shortness of breath, or palpitations. Patient is afebrile. No reports of nausea or vomiting and patient is tolerating diet. Patient will be discharged to [facility] today. Guarded prognosis and high risk for readmissions Physical exam: Gen: This is a 58-year-old male who is awake, alert and oriented x 2-3, baseline, elderly appearing, obese HEENT: Head is atraumatic, normocephalic. Pupils equal, round. Sclerae is anicteric. NECK: Supple. No JVD. No lymphadenopathy. No thyromegaly. LUNGS: Diminished breath sounds bilaterally otherwise clear to auscultation. No wheezes or rhonchi. No intercostal retractions. HEART: S1, S2 are muffled ABDOMEN: Soft. Obese bowel sounds are present. No masses. No tenderness. EXTREMITIES: No pedal edema. No calf tenderness. NEUROLOGICAL: Patient is awake, alert and oriented x3. Diffusely weak Please refer to medication reconciliation sheet for a list of medications. The impression and plan of care has been dictated by Dipti Gaytan, Nurse Practitioner as directed. Dr. Hoang MD I have performed a history and examination and MDM of this patient, discussed the same with the dictator, and agree with the dictator's assessment and plan as written ,documented as a scribe. Based on total visit time, I have performed more than 50% of the visit. Patient Condition at Discharge: Stable Plan - Discharge Summary Discharge Rx Participant: No New Discharge Prescriptions: New hydrALAZINE HCL [Apresoline] 50 mg PO BID #60 tab Dapagliflozin Propanediol [Farxiga] 5 mg PO DAILY #30 tab Furosemide [Lasix] 60 mg PO BID@0900,1600 #60 tab predniSONE 50 mg PO DAILY #30 tab Spironolactone [Aldactone] 12.5 mg PO DAILY #30 tab Atorvastatin [Lipitor] 20 mg PO DAILY #30 tab Calcium Carbonate [Tums] 1,000 mg PO Q4HR PRN tab PRN Reason: Dyspepsia Acetaminophen Tab [Tylenol] 650 mg PO Q6HR PRN tab PRN Reason: Mild Pain Or Fever > 100.5 Continue Cholecalciferol [Vitamin D3 (25 Mcg = 1000 Iu)] 50 mcg PO HS risperiDONE [RisperDAL] 1 mg PO DAILY FLUoxetine HCL [PROzac] 40 mg PO DAILY Doxazosin [Cardura] 2 mg PO DAILY Loperamide HCl [Imodium A-D] 2 - 4 mg PO QID PRN PRN Reason: Diarrhea busPIRone HCL 10 mg PO TID Levothyroxine Sodium [Synthroid] 50 mcg PO DAILY Metoprolol Succinate (ER) [Toprol XL] 50 mg PO DAILY Multivitamins, Thera [Multivitamin (formulary)] 1 tab PO DAILY Senna-Time 8.6mg 8.6 mg PO HS Delsym Cough And Congestion Dm 10 ml PO Q6H PRN PRN Reason: Cough Potassium Chloride ER [K-Dur 20] 20 meq PO DAILY Ipratropium-Albuterol Nebulize [Duoneb 0.5 mg-3 mg/3 ml Soln] 3 ml INHALATION RT-Q4H PRN PRN Reason: Shortness Of Breath Sodium Bicarbonate Tab 650 mg PO BID #60 tablet Furosemide [Lasix] 40 mg PO DAILY #30 tablet Discontinued cefUROXime axetiL [Ceftin] 500 mg PO BID #8 tab Discharge Medication List Cholecalciferol [Vitamin D3 (25 Mcg = 1000 Iu)] 50 mcg PO HS 01/31/21 [History] FLUoxetine HCL [PROzac] 40 mg PO DAILY 01/31/21 [History] Levothyroxine Sodium [Synthroid] 50 mcg PO DAILY 01/31/21 [History] Metoprolol Succinate (ER) [Toprol XL] 50 mg PO DAILY 01/31/21 [History] busPIRone HCL 10 mg PO TID 01/31/21 [History] risperiDONE [RisperDAL] 1 mg PO DAILY 01/31/21 [History] Multivitamins, Thera [Multivitamin (formulary)] 1 tab PO DAILY 05/13/21 [History] Doxazosin [Cardura] 2 mg PO DAILY 10/25/23 [History] Senna-Time 8.6mg 8.6 mg PO HS 10/25/23 [History] Delsym Cough And Congestion Dm 10 ml PO Q6H PRN 12/16/23 [History] Ipratropium-Albuterol Nebulize [Duoneb 0.5 mg-3 mg/3 ml Soln] 3 ml INHALATION RT-Q4H PRN 12/16/23 [History] Loperamide HCl [Imodium A-D] 2 - 4 mg PO QID PRN 12/16/23 [History] Potassium Chloride ER [K-Dur 20] 20 meq PO DAILY 12/16/23 [History] Furosemide [Lasix] 40 mg PO DAILY #30 tablet 12/19/23 [Rx] Sodium Bicarbonate Tab 650 mg PO BID #60 tablet 12/19/23 [Rx] Acetaminophen Tab [Tylenol] 650 mg PO Q6HR PRN tab 12/25/23 [Rx] Atorvastatin [Lipitor] 20 mg PO DAILY #30 tab 12/25/23 [Rx] Calcium Carbonate [Tums] 1,000 mg PO Q4HR PRN tab 12/25/23 [Rx] Dapagliflozin Propanediol [Farxiga] 5 mg PO DAILY #30 tab 12/25/23 [Rx] Furosemide [Lasix] 60 mg PO BID@0900,1600 #60 tab 12/25/23 [Rx] Spironolactone [Aldactone] 12.5 mg PO DAILY #30 tab 12/25/23 [Rx] hydrALAZINE HCL [Apresoline] 50 mg PO BID #60 tab 12/25/23 [Rx] predniSONE 50 mg PO DAILY #30 tab 12/25/23 [Rx] Follow up Appointment(s)/Referral(s): Gabriela Nunez MD [STAFF PHYSICIAN] - 01/02/24 1:00 pm Kyler Zaman MD [Primary Care Provider] - 1-2 days Ambulatory/Diagnostic Orders: Complete Blood Count w/diff [LAB.AMB] Time Frame: 3 Days, Location: None Selected Patient Instructions/Handouts: Spironolactone (By mouth), Furosemide (By mouth), Prednisone (By mouth), Hydralazine (By mouth), Dapagliflozin (By mouth), Heart Failure (DC), Urinary Tract Infection in Men (DC), Hydronephrosis (DC), Percutaneous Kidney Biopsy (DC) Activity/Diet/Wound Care/Special Instructions: at d/c call [facility] to see if staff is available to transport the pt - Patient to follow-up with primary care provider on discharge Continue with medications as prescribed and close outpatient follow-up Follow-up with nephrology in the next 1 week, discuss biopsy results with nephrology Repeat labs of CBC, CMP, magnesium in 2 to 3 days Diet as tolerated Activity Limited until seen by DR. [place] Disposition: HOME WITH HOME HEALTH SERVICES
== END 2023-12-26 13:31 | disposition home health service (06) | DRG 291 ==
LOC: EC 21:00 → 5NMEDONC 21:32 → OBSVTOIN 12-20 11:05 → 6NMEDSUR 12-25 22:55 → 5NMEDONC 12-25 23:11
PROVIDERS: ADMIT Hospitalist; ATTEND Hospitalist
PROC: 0T913ZX Drainage of Left Kidney, Percutaneous Approach, Diagnostic (ICD-10-PCS; principal; 2023-12-24)
DX: I13.0 Hypertensive heart and chronic kidney disease with heart failure and stage 1 through stage 4 chronic kidney disease, or unspecified chronic kidney disease (principal); I50.33 Acute on chronic diastolic (congestive) heart failure; N17.0 Acute kidney failure with tubular necrosis; T83.510A Infection and inflammatory reaction due to cystostomy catheter, initial encounter; N39.0 Urinary tract infection, site not specified; E87.20 Acidosis, unspecified; E87.1 Hypo-osmolality and hyponatremia; Y84.6 Urinary catheterization as the cause of abnormal reaction of the patient, or of later complication, without mention of misadventure at the time of the procedure; G80.9 Cerebral palsy, unspecified; N18.32 Chronic kidney disease, stage 3b; N32.0 Bladder-neck obstruction; Z87.440 Personal history of urinary (tract) infections; F34.1 Dysthymic disorder; F41.9 Anxiety disorder, unspecified; F42.9 Obsessive-compulsive disorder, unspecified; E03.9 Hypothyroidism, unspecified; Z79.890 Hormone replacement therapy; E11.22 Type 2 diabetes mellitus with diabetic chronic kidney disease; F81.89 Other developmental disorders of scholastic skills; G47.33 Obstructive sleep apnea (adult) (pediatric); E87.70 Fluid overload, unspecified; G47.00 Insomnia, unspecified; I45.10 Unspecified right bundle-branch block; K59.00 Constipation, unspecified; Z79.899 Other long term (current) drug therapy; Z96.642 Presence of left artificial hip joint; Z98.41 Cataract extraction status, right eye
CPT/HCPCS: 36415; 71046; 77012; 80048; 80053; 80074; 81001; 83735; 83880; 84165; 84484; 85025; 85610; 85730; 86038; 86160; 86162; 86225; 86255; 86334; 86335; 86850; 86900; 86901; 87086; 93005; 93306; 94760; 99285

== ENCOUNTER 2023-12-30 11:14 | Inpatient (IN) | payer MEDICARE, OTHER ==
--- NOTE | 2023-12-30 11:53 | ED ---
Extremity Problem HPI - General Chief complaint: Extremity Problem,Nontraumatic Stated complaint: ELVIN Time Seen by Provider: 12/30/23 11:20 Source: patient, RN notes reviewed Mode of arrival: EMS Limitations: no limitations - History of Present Illness Initial comments: 79-year-old male with history of nephrotic syndrome, hypoalbuminemia, hypertension, cerebral palsy with neurocognitive delay, congestive heart failure presents to the ER via EMS for bilateral leg swelling. Patient resides at [facility]. Patient was recently discharged several days ago where there was a renal biopsy done and nephrotic syndrome with hypoalbuminemia was c onfirmed. Patient is also endorsing cough and chest discomfort. Liver events reported that patient has had a 6 pound weight gain in 3 days despite taking all medications. Patient has neurocognitive delay and is only able to answer simple questions. Patient follows closely with primary care doctor Vanda Zaman - Related Data Home Medications Medication Instructions Recorded Confirmed Cholecalciferol [Vitamin D3 (25 50 mcg PO HS 01/31/21 12/20/23 Mcg = 1000 Iu)] FLUoxetine HCL [PROzac] 40 mg PO DAILY 01/31/21 12/20/23 Levothyroxine Sodium [Synthroid] 50 mcg PO DAILY 01/31/21 12/20/23 Metoprolol Succinate (ER) [Toprol 50 mg PO DAILY 01/31/21 12/20/23 XL] busPIRone HCL 10 mg PO TID 01/31/21 12/20/23 risperiDONE [RisperDAL] 1 mg PO DAILY 01/31/21 12/20/23 Multivitamins, Thera [Multivitamin 1 tab PO DAILY 05/13/21 12/20/23 (formulary)] Doxazosin [Cardura] 2 mg PO DAILY 10/25/23 12/20/23 Senna-Time 8.6mg 8.6 mg PO HS 10/25/23 12/20/23 Delsym Cough And Congestion Dm 10 ml PO Q6H PRN 12/16/23 12/20/23 Ipratropium-Albuterol Nebulize 3 ml INHALATION RT-Q4H PRN 12/16/23 12/20/23 [Duoneb 0.5 mg-3 mg/3 ml Soln] Loperamide HCl [Imodium A-D] 2 - 4 mg PO QID PRN 12/16/23 12/20/23 Potassium Chloride ER [K-Dur 20] 20 meq PO DAILY 12/16/23 12/20/23 Previous Rx's Medication Instructions Recorded Furosemide [Lasix] 40 mg PO DAILY #30 tablet 12/19/23 Sodium Bicarbonate Tab 650 mg PO BID #60 tablet 12/19/23 Acetaminophen Tab [Tylenol] 650 mg PO Q6HR PRN tab 12/25/23 Atorvastatin [Lipitor] 20 mg PO DAILY #30 tab 12/25/23 Calcium Carbonate [Tums] 1,000 mg PO Q4HR PRN tab 12/25/23 Dapagliflozin Propanediol [Farxiga] 5 mg PO DAILY #30 tab 12/25/23 Furosemide [Lasix] 60 mg PO BID@0900,1600 #60 tab 12/25/23 Spironolactone [Aldactone] 12.5 mg PO DAILY #30 tab 12/25/23 hydrALAZINE HCL [Apresoline] 50 mg PO BID #60 tab 12/25/23 predniSONE 50 mg PO DAILY #30 tab 12/25/23 Allergies Allergy/AdvReac Type Severity Reaction Status Date / Time amoxicillin [From Augmentin] Allergy Rash/Hives Verified 12/30/23 11:37 clavulanic acid Allergy Rash/Hives Verified 12/30/23 11:37 [From Augmentin] Review of Systems ROS Statement: Those systems with pertinent positive or pertinent negative responses have been documented in the HPI. ROS Other: All systems not noted in ROS Statement are negative. Past Medical History Past Medical History: Hypertension, Neurologic Disorder, Sleep Apnea/CPAP/BIPAP Additional Past Medical History / Comment(s): developmentally delayed, infantile cerebral palsy-uses walker, incontinent occas,able to follow simple directions,speech is understandible,OCD, dysthmic disorder History of Any Multi-Drug Resistant Organisms: ESBL Date of last positivie culture/infection: 01/24/22 MDRO Source:: URINE ESBL Past Surgical History: Joint Replacement Additional Past Surgical History / Comment(s): Right eye cataract surgery, left hip replacement Past Anesthesia/Blood Transfusion Reactions: No Reported Reaction Past Psychological History: Anxiety, Depression Smoking Status: Never smoker Past Alcohol Use History: None Reported Past Drug Use History: None Reported - Past Family History Mother Family Medical History: Cancer Additional Family Medical History / Comment(s): mother from lung cancer Father Family Medical History: No Reported History Brother(s) Family Medical History: Cancer Additional Family Medical History / Comment(s): from lung cancer General Exam Limitations: no limitations General appearance: alert Eye exam: Present: normal appearance ENT exam: Present: normal exam, mucous membranes moist Respiratory exam: Present: rales (Rales auscultated in all lung hutson bilaterally). Absent: respiratory distress, wheezes, rhonchi, stridor Cardiovascular Exam: Present: regular rate, normal rhythm, normal heart sounds. Absent: systolic murmur, diastolic murmur, rubs, gallop, clicks GI/Abdominal exam: Present: soft, normal bowel sounds. Absent: distended, tenderness, guarding, rebound, rigid Extremities exam: Present: normal capillary refill, pedal edema (2+ pitting edema in lower extremities bilaterally) Back exam: Absent: CVA tenderness (R), CVA tenderness (L) Psychiatric exam: Present: normal affect, normal mood Skin exam: Present: warm, dry, intact Course Vital Signs 12/30/23 12/30/23 12/30/23 11:16 11:39 12:17 Temperature 97 F L Pulse Rate 87 127 H 93 Respiratory 20 Rate Blood Pressure 104/55 O2 Sat by Pulse 96 Oximetry Medical Decision Making - Medical Decision Making Was pt. sent in by a medical professional or institution (MARA Gillespie, [employer], urgent care, hospital, or fdc...) When possible be specific @ -[facility] Did you speak to anyone other than the patient for history (EMS, parent, family, police, friend...)? What history was obtained from this source @ -[No] Did you review nursing and triage notes (agree or disagree)? Why? @ -[I reviewed and agree with nursing and triage notes] Were old charts reviewed (outside hosp., previous admission, EMS record, old EKG, old radiological studies, urgent care reports/EKG's, fdc records)? Report findings @ -[No old charts were reviewed] Differential Diagnosis (chest pain, altered mental status, abdominal pain women, abdominal pain men, vaginal bleeding, weakness, fever, dyspnea, syncope, heada alexis, dizziness, GI bleed, back pain, seizure, CVA, palpatations, mental health, musculoskeletal)? @ -Differential Chest Pain: CHF exacerbation, stable Angina, Unstable Angina, STEMI, NSTEMI Aortic Di ssection, Pneumothorax, Musculoskeletal, Esophageal Spasm GERD, Cholecystitis, Pancreatitis, Zoster, this is not meant to be an all-inclusive list. EKG interpreted by me (3pts min.). @ -As above X-rays interpreted by me (1pt min.). @ -Mild cardiomegaly with hyperinflation and interstitial density CT interpreted by me (1pt min.). @ -[None done] U/S interpreted by me (1pt. min.). @ -[None done] What testing was considered but not performed or refused? (CT, X-rays, U/S, labs)? Why? @ -[None] What meds were considered but not given or refused? Why? @ -[None] Did you discuss the management of the patient with other professionals (professionals i.e. , PA, [employer], lab, RT, psych nurse, protective services social worker, underwriter solicitation director, teacher, quarantine officer, onsite case manager)? Give summary @ -Discussed case with sound physician team and agreed on admission to observation unit Was smoking cessation discussed for >3mins.? @ -[No] Was critical care preformed (if so, how long)? @ -[No] Were there social determinants of health that impacted care today? How? (Homelessness, low income, unemployed, alcoholism, drug addiction, transportation, low edu. Level, literacy, decrease access to med. care, retirement, rehab)? @ -[No] Was there de-escalation of care discussed even if they declined (Discuss DNR or withdrawal of care, Hospice)? DNR status @ -[No] What co-morbidities impacted this encounter? (DM, HTN, Smoking, COPD, CAD, Ca ncer, CVA, ARF, Chemo, Hep., AIDS, mental health diagnosis, sleep apnea, morbid obesity)? @ -Nephrotic syndrome, congestive heart failure, hypertension Was patient admitted / discharged? Hospital course, mention meds given and route, prescriptions, significant lab abnormalities, going to OR and other pertinent info. @ -Patient was admitted. Patient was seen and evaluated for difficulty breathing and bilateral leg swelling. Blood pressure was elevated upon examination and there was 2+ pitting edema bilaterally. Rales were present in all lung hutson. Lab work significant for elevated white blood cell count and elevated kidney function. Urine revealed likely UTI. BNP 4540. Chest x-ray co nsistent with congestive heart failure. Patient was admitted to Dr. Douglass. Case discussed with Dr. Chew Undiagnosed new problem with uncertain prognosis? @ -[No] Drug Therapy requiring intensive monitoring for toxicity (Heparin, Nitro, Insulin, Cardizem)? @ -[No] Were any procedures done? @ -[No] Diagnosis/symptom? @ -Acute congestive heart failure exacerbation Acute, or Chronic, or Acute on Chronic? @ -Acute Uncomplicated (without systemic symptoms) or Complicated (systemic symptoms)? @ -Complicated Side effects of treatment? @ -[No] Exacerbation, Progression, or Severe Exacerbation? @ -Exacerbation Poses a threat to life or bodily function? How? (Chest pain, USA, AL, pneumonia, PE, COPD, DKA, ARF, appy, cholecystitis, CVA, Diverticulitis, Homicidal, Suicidal, threat to staff... and all critical care pts) @ -Yes - Lab Data Result diagrams: 12/30/23 12:06 12/30/23 12:06 Lab Results 12/30/23 12/30/23 12/30/23 Range/Units 12:06 12:06 12:06 WBC 19.9 H (3.8-10.6) k/uL RBC 3.70 L (4.30-5.90) m/uL Hgb 11.5 L (13.0-17.5) gm/dL Hct 36.3 L (39.0-53.0) % MCV 98.2 (80.0-100.0) fL MCH 31.1 (25.0-35.0) pg MCHC 31.6 (31.0-37.0) g/dL RDW 14.3 (11.5-15.5) % Plt Count 263 (150-450) k/uL MPV 8.8 Neutrophils % 84 % Lymphocytes % 8 % Monocytes % 7 % Eosinophils % 0 % Basophils % 0 % Neutrophils # 16.7 H (1.3-7.7) k/uL Lymphocytes # 1.5 (1.0-4.8) k/uL Monocytes # 1.5 H (0-1.0) k/uL Eosinophils # 0.0 (0-0.7) k/uL Basophils # 0.1 (0-0.2) k/uL Sodium 139 (137-145) mmol/L Potassium 4.4 (3.5-5.1) mmol/L Chloride 118 H (98-107) mmol/L Carbon Dioxide 23 (22-30) mmol/L Anion Gap -2 mmol/L BUN 52 H (9-20) mg/dL Creatinine 2.45 H (0.66-1.25) mg/dL Est GFR (CKD-EPI)AfAm 32 (>60 ml/min/1.73 sqM) Est GFR (CKD-EPI)NonAf 28 (>60 ml/min/1.73 sqM) Glucose 116 H (74-99) mg/dL Calcium 7.5 L (8.4-10.2) mg/dL Total Bilirubin 0.2 (0.2-1.3) mg/dL AST 20 (17-59) U/L ALT 15 (4-49) U/L Alkaline Phosphatase 92 (38-126) U/L Troponin I <0.012 (0.000-0.034) ng/mL NT-Pro-B Natriuret Pep 4540 pg/mL Total Protein 3.2 L (6.3-8.2) g/dL Albumin 1.3 L (3.5-5.0) g/dL Urine Color Urine Appearance (Clear) Urine pH (5.0-8.0) Ur Specific [place] (1.001-1.035) Urine Protein (Negative) Urine Glucose (UA) (Negative) Urine Ketones (Negative) Urine Blood (Negative) Urine Nitrite (Negative) Urine Bilirubin (Negative) Urine Urobilinogen (<2.0) mg/dL Ur Leukocyte Esterase (Negative) Urine RBC (0-5) /hpf Urine WBC (0-5) /hpf Urine WBC Clumps (None) /hpf Urine Bacteria (None) /hpf Urine Mucus (None) /hpf 12/30/23 Range/Units 12:06 WBC (3.8-10.6) k/uL RBC (4.30-5.90) m/uL Hgb (13.0-17.5) gm/dL Hct (39.0-53.0) % MCV (80.0-100.0) fL MCH (25.0-35.0) pg MCHC (31.0-37.0) g/dL RDW (11.5-15.5) % Plt Count (150-450) k/uL MPV Neutrophils % % Lymphocytes % % Monocytes % % Eosinophils % % Basophils % % Neutrophils # (1.3-7.7) k/uL Lymphocytes # (1.0-4.8) k/uL Monocytes # (0-1.0) k/uL Eosinophils # (0-0.7) k/uL Basophils # (0-0.2) k/uL Sodium (137-145) mmol/L Potassium (3.5-5.1) mmol/L Chloride (98-107) mmol/L Carbon Dioxide (22-30) mmol/L Anion Gap mmol/L BUN (9-20) mg/dL Creatinine (0.66-1.25) mg/dL Est GFR (CKD-EPI)AfAm (>60 ml/min/1.73 sqM) Est GFR (CKD-EPI)NonAf (>60 ml/min/1.73 sqM) Glucose (74-99) mg/dL Calcium (8.4-10.2) mg/dL Total Bilirubin (0.2-1.3) mg/dL AST (17-59) U/L ALT (4-49) U/L Alkaline Phosphatase (38-126) U/L Troponin I (0.000-0.034) ng/mL NT-Pro-B Natriuret Pep pg/mL Total Protein (6.3-8.2) g/dL Albumin (3.5-5.0) g/dL Urine Color Yellow Urine Appearance Turbid (Clear) Urine pH 6.0 (5.0-8.0) Ur Specific [place] 1.021 (1.001-1.035) Urine Protein 2+ H (Negative) Urine Glucose (UA) Trace H (Negative) Urine Ketones Negative (Negative) Urine Blood Small H (Negative) Urine Nitrite Negative (Negative) Urine Bilirubin Negative (Negative) Urine Urobilinogen <2.0 (<2.0) mg/dL Ur Leukocyte Esterase Large H (Negative) Urine RBC 96 H (0-5) /hpf Urine WBC >182 H (0-5) /hpf Urine WBC Clumps Many H (None) /hpf Urine Bacteria Many H (None) /hpf Urine Mucus Occasional H (None) /hpf - EKG Data -: EKG Interpreted by Me EKG Comments: EKG reveals normal sinus rhythm. Ventricular rate 88 bpm, CT interval 146, QRS duration 119, QT/QTc 375/421 When compared to previous EKG there are: no significant change Disposition Clinical Impression: Acute exacerbation of CHF (congestive heart failure) Disposition: ADMITTED IP TO THIS HOSP Condition: Stable Referrals: Kyler Zaman MD [Primary Care Provider] - 1-2 days Time of Disposition: 15:40
[2023-12-30 12:21] LABS: Basophils # (A) 0.1 k/uL (0-0.2); Basophils % (A) 0 %; Eosinophils % (A) 0 %; HCT 36.3 % (39.0-53.0); HGB 11.5 gm/dL (13.0-17.5); Lymphocytes # (A) 1.5 k/uL (1.0-4.8); Lymphocytes % (A) 8 %; MCH 31.1 pg (25.0-35.0); MCHC 31.6 g/dL (31.0-37.0); MCV 98.2 fL (80.0-100.0); Mean Platelet Volume 8.8; Monocytes # (A) 1.5 k/uL (0-1.0); Monocytes % (A) 7 %; Neutrophils # (A) 16.7 k/uL (1.3-7.7); Neutrophils % (A) 84 %; Platelet Count 263 k/uL (150-450); RDW 14.3 % (11.5-15.5); WBC 19.9 k/uL (3.8-10.6)
[2023-12-30 12:31] LABS: ALT 15 U/L (4-49); AST 20 U/L (17-59); African American GFR (CKD) 32 (>60 ml/min/1.73 sqM); Albumin 1.3 g/dL (3.5-5.0); Alkaline Phosphatase 92 U/L (38-126); Anion Gap -2 mmol/L; Blood Urea Nitrogen 52 mg/dL (9-20); Calcium 7.5 mg/dL (8.4-10.2); Carbon Dioxide 23 mmol/L (22-30); Chloride 118 mmol/L (98-107); Glucose 116 mg/dL (74-99); Non-African American GFR(CKD) 28 (>60 ml/min/1.73 sqM); Potassium 4.4 mmol/L (3.5-5.1); Sodium 139 mmol/L (137-145); Total Bilirubin 0.2 mg/dL (0.2-1.3); Total Protein 3.2 g/dL (6.3-8.2)
[2023-12-30 12:40] LABS: NT-Pro-B-Type Natriuretic Pept 4540 pg/mL
[2023-12-30 12:49] LABS: Appearance,Urine Turbid (Clear); Bacteria,Urine Many /hpf; Bilirubin,Urine Negative (Negative); Blood,Urine Small (Negative); Color,Urine Yellow; Glucose,Urine (UA) Trace (Negative); Ketones,Urine Negative (Negative); Leukocyte Esterase,Urine Large (Negative); Mucus,Urine Occasional /hpf; Nitrite,Urine Negative (Negative); Protein,Urine 2+ (Negative); RBC,Urine 96 /hpf (0-5); Urobilinogen,Urine <2.0 mg/dL (<2.0); WBC,Urine >182 /hpf (0-5)
[2023-12-30 12:52] LABS: Specific Gravity,Urine 1.021 (1.001-1.035)
--- NOTE | 2023-12-30 12:56 | XR ---
EXAMINATION TYPE: XR chest 2V DATE OF EXAM: 12/30/2023 COMPARISON: 12/20/2023 HISTORY: 58-year-old male difficulty in breathing, shortness of breath TECHNIQUE: AP and lateral views FINDINGS: Heart mildly enlarged. Hyperinflation. Interstitial density mid and lower lungs with possible trace e ffusions. IMPRESSION: Correlate for CHF and pulmonary vascular congestion.
[2023-12-30] MEDS ORDERED: DEXTROSE 50% SYRINGE 50 ML IVP PRN ×2 (16:06)
--- NOTE | 2023-12-30 16:32 | P.HPIM ---
History of Present Illness H&P Date: 12/30/23 Chief Complaint: Increased weight gain and worsening bilateral lower extremity edema Patient 58-year-old male with a past medical history of nephrotic syndrome, hypoalbuminemia, hypertension, cerebral palsy with neurocognitive delay, congestive diastolic heart failure who presents to the ED because of bilateral lower extremity swelling. Patient presents from his foster alf. 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 Patient is a poor historian so history obtained from the chart. It is reported that the patient had a 6 pound weight gain in 3 days despite taking all his medications. Patient is currently denying any complaints. In the ED patient WBC was 19.9. UA showed large leukocyte Estrace and many WBC. Patient does have a chronic indwelling Smith catheter. Patient's creatinine was 2.45. Patient baseline creatinine is around 2. Patient's albumin was 1.3. Chest x-ray showed vascular congestion. ROS: 10 ROS reviewed and are negative except as noted in HPI Physical exam General: [Alert and oriented, well nourished, no acute distress]. Eye: [PERRL, EOMI, normal conjunctiva]. HENT: [Normocephalic, clear tympanic membranes, normal hearing, dry oral mucosa, no scleral icterus, no sinus tenderness]. Neck: [Supple, non-tender, no carotid bruits, no JVD, no lymphadenopathy]. Lungs: [Diminished breath sounds bilaterally, non-labored respiration]. Heart: [Normal rate, regular rhythm, no murmur, gallop, + 3 pitting edema in bilateral lower extremities]. Abdomen: [Soft, non-tender, non-distended, normal bowel sounds, no masses]. Musculoskeletal: [4 out of 5 strength in bilateral upper extremities]. Neurologic: [Awake, alert, and oriented X2(name and place only), CN II-XII intact]. Psychiatric: [Cooperative, pleasant, mental delay]. Assessment and plan Volume overload Nephrotic syndrome with recent biopsy showing focal global glomerulosclerosis Hypoalbuminemia Acute on chronic diastolic heart failure Start IV Lasix 40 mg twice daily and resume spironolactone 2000 cc fluid restriction Daily weight and strict I's and O's Nephrology to manage diuretics Resume prednisone 50 mg p.o. daily. Hold off on metoprolol as patient is bradycardic I did speak to the patient's mother who is frustrated because the patient has been in and out of the hospital multiple times. She is wondering if [facility] would have any thing to offer the patient. I did tell the mother that I doubt [facility] would have anything more to offer. I also told the mother to discuss with nephrology. Since patient does have a poor prog nosis would consider palliative care or hospice on discharge if family amenable Acute kidney injury on CKD stage III Will continue with diuresing for now as patient is volume overloaded and monitor renal function closely Continue with sodium bicarb Nephrology consult Urinary tract infection secondary to chronic Smith indwelling catheter with sepsis on admission (leukocytosis and tachycardia and tachypnea) Patient has a history of ESBL Will start meropenem Obtain urine culture Obtain blood culture Will exchange Smith catheter Diabetes mellitus? Patient is on Farxiga at home. I believe this is started due to heart failure. Mother denies any history of diabetes. Sliding scale insulin Check hemoglobin A1c Hypothyroidism Continue with Synthroid Hypertension Blood pressure is on the soft side so we will hold off on BP meds which include hydralazine, metoprolol, doxazosin Hyperlipidemia Continue with statin COPD Stable Continue with nebulizers Anxiety Continue with home psych meds Cerebral palsy with neurocognitive delay Stable DVT prophylaxis: Subcu heparin Past Medical History Past Medical History: Hypertension, Neurologic Disorder, Sleep Apnea/CPAP/BIPAP Additional Past Medical History / Comment(s): developmentally delayed, infantile cerebral palsy-uses walker, incontinent occas,able to follow simple directions,speech is understandible,OCD, dysthmic disorder History of Any Multi-Drug Resistant Organisms: ESBL Date of last positivie culture/infection: 01/24/22 MDRO Source:: URINE ESBL Past Surgical History: Joint Replacement Additional Past Surgical History / Comment(s): Right eye cataract surgery, left hip replacement Past Anesthesia/Blood Transfusion Reactions: No Reported Reaction Past Psychological History: Anxiety, Depression Smoking Status: Never smoker Past Alcohol Use History: None Reported Past Drug Use History: None Reported - Past Family History Mother Family Medical History: Cancer Additional Family Medical History / Comment(s): mother from lung cancer Father Family Medical History: No Reported History Brother(s) Family Medical History: Cancer Additional Family Medical History / Comment(s): from lung cancer Medications and Allergies Home Medications Medication Instructions Recorded Confirmed Type Cholecalciferol [Vitamin D3 (25 50 mcg PO HS 01/31/21 12/30/23 History Mcg = 1000 Iu)] FLUoxetine HCL [PROzac] 40 mg PO DAILY 01/31/21 12/30/23 History Levothyroxine Sodium [Synthroid] 50 mcg PO DAILY 01/31/21 12/30/23 History Metoprolol Succinate (ER) [Toprol 50 mg PO DAILY 01/31/21 12/30/23 History XL] busPIRone HCL 10 mg PO TID 01/31/21 12/30/23 History risperiDONE [RisperDAL] 1 mg PO DAILY 01/31/21 12/30/23 History Multivitamins, Thera [Multivitamin 1 tab PO DAILY 05/13/21 12/30/23 History (formulary)] Doxazosin [Cardura] 2 mg PO DAILY 10/25/23 12/20/23 History Senna-Time 8.6mg 8.6 mg PO HS 10/25/23 12/30/23 History Ipratropium-Albuterol Nebulize 3 ml INHALATION RT-Q4H PRN 12/16/23 12/30/23 History [Duoneb 0.5 mg-3 mg/3 ml Soln] Loperamide HCl [Imodium A-D] 2 - 4 mg PO QID PRN 12/16/23 12/30/23 History Potassium Chloride ER [K-Dur 20] 20 meq PO DAILY 12/16/23 12/30/23 History Sodium Bicarbonate Tab 650 mg PO BID #60 tablet 12/19/23 12/30/23 Rx Furosemide [Lasix] 60 mg PO BID@0900,1600 #60 tab 12/25/23 12/30/23 Rx hydrALAZINE HCL [Apresoline] 50 mg PO BID #60 tab 12/25/23 12/30/23 Rx Atorvastatin [Lipitor] 20 mg PO HS 12/30/23 12/30/23 History Dapagliflozin Propanediol [Farxiga] 5 mg PO HS 12/30/23 12/30/23 History Nystatin [Nystop] 1 applic TOPICAL BID 12/30/23 12/30/23 History Spironolactone [Aldactone] 12.5 mg PO HS 12/30/23 12/30/23 History predniSONE 50 mg PO HS 12/30/23 12/30/23 History Allergies Allergy/AdvReac Type Severity Reaction Status Date / Time amoxicillin [From Augmentin] Allergy Rash/Hives Verified 12/30/23 11:37 clavulanic acid Allergy Rash/Hives Verified 12/30/23 11:37 [From Augmentin] Physical Exam Osteopathic Statement: *. No significant issues noted on an osteopathic structural exam other than those noted in the History and Physical/Consult. Vitals: Vital Signs Temp Pulse Resp BP Pulse Ox 12/30/23 12:17 93 12/30/23 11:39 127 H 104/55 12/30/23 11:16 97 F L 87 20 96 Intake and Output 12/30/23 12/30/23 12/30/23 06:59 14:59 22:59 Other: Weight 79.379 kg Results CBC & Chem 7: 12/30/23 12:06 12/30/23 12:06 Labs: Abnormal Lab Results - Last 24 Hours (Table) 12/30/23 12/30/23 12/30/23 Range/Units 12:06 12:06 12:06 WBC 19.9 H (3.8-10.6) k/uL RBC 3.70 L (4.30-5.90) m/uL Hgb 11.5 L (13.0-17.5) gm/dL Hct 36.3 L (39.0-53.0) % Neutrophils # 16.7 H (1.3-7.7) k/uL Monocytes # 1.5 H (0-1.0) k/uL Chloride 118 H (98-107) mmol/L BUN 52 H (9-20) mg/dL Creatinine 2.45 H (0.66-1.25) mg/dL Glucose 116 H (74-99) mg/dL Calcium 7.5 L (8.4-10.2) mg/dL Total Protein 3.2 L (6.3-8.2) g/dL Albumin 1.3 L (3.5-5.0) g/dL Urine Protein 2+ H (Negative) Urine Glucose (UA) Trace H (Negative) Urine Blood Small H (Negative) Ur Leukocyte Esterase Large H (Negative) Urine RBC 96 H (0-5) /hpf Urine WBC >182 H (0-5) /hpf Urine WBC Clumps Many H (None) /hpf Urine Bacteria Many H (None) /hpf Urine Mucus Occasional H (None) /hpf
[2023-12-30] MEDS: MEROPENEM 1 GM in SODIUM CHLORIDE 0.9% 100 ML IVPB SCH (17:44)
[2023-12-30] MEDS ORDERED: MEROPENEM 500 MG in SODIUM CHLORIDE 0.9% 100 ML IVPB SCH (18:00)
[2023-12-30] MEDS: IPRATROPIUM-ALBUTEROL 3 ML NEB INHALATION PRN (20:14)
[2023-12-30 20:57] LABS: Glucose,Whole Blood 99 mg/dL (70-110)
[2023-12-30] MEDS: INSULIN ASPART (NovoLOG) 100 UNIT/ML VIAL SQ SCH (21:50)
[2023-12-30] MEDS: SODIUM BICARBONATE TAB 650 MG TAB PO SCH (22:54)
[2023-12-30] MEDS: FUROSEMIDE 10 MG/ML 4 ML VIAL IV SCH (22:54)
[2023-12-30] MEDS: SPIRONOLACTONE 25 MG TAB PO SCH (22:54)
[2023-12-30] MEDS: busPIRone HCl 10 MG TAB PO SCH (22:54)
[2023-12-30] MEDS: ATORVASTATIN 20 MG TAB PO SCH (22:54)
[2023-12-30] MEDS: predniSONE 50 MG TAB PO SCH (22:54)
[2023-12-31] MEDS: LEVOTHYROXINE 50 MCG TAB PO SCH (05:53)
[2023-12-31 06:36] LABS: Glucose,Whole Blood 99 mg/dL (70-110)
[2023-12-31] MEDS: FLUoxetine HCL 20 MG CAP PO SCH (08:39)
[2023-12-31] MEDS: risperiDONE 1 MG TAB PO SCH (08:39)
[2023-12-31] MEDS: ALBUMIN HUMAN 25% 50 ML in EMPTY BAG 1 BAG IVPB SCH ×2 (09:02→16:31)
[2023-12-31 11:27] LABS: BUN/Creat Ratio 20.48 Ratio (12.00-20.00); Blood Urea Nitrogen 51.2 mg/dL (9.0-27.0); Calcium 7.7 mg/dL (8.7-10.3); Carbon Dioxide 19.5 mmol/L (21.6-31.8); Chloride 114 mmol/L (96-109); Glucose 107 mg/dL (70-110); Magnesium 2.2 mg/dL (1.5-2.4); Potassium 4.7 mmol/L (3.5-5.5); Sodium 144 mmol/L (135-145)
--- NOTE | 2023-12-31 11:34 | P.NPCON ---
History of Present Illness - Reason for Consult acute renal failure, chronic renal failure - History of Present Illness Reason for consultation: Acute kidney injury on chronic kidney disease History of present illness: Patient is a 58-year-old male seen in renal consultation for acute kidney injury on chronic kidney disease. Patient has chronic kidney disease stage IIIb with baseline creatinine 1.8-2. There is concern for underlying glomerulonephritis. Patient underwent kidney biopsy about a week ago which was inconclusive due to limited sample size. Patient received IV diuretics last admission and went home on oral diuretics. However patient came back to the hospital due to worsening edema. Patient has history of developmental delay is not a very reliable historian. He is currently receiving IV Lasix. Albumin is noted to be low at 1.3. Nonoliguric. Denies vomiting or diarrhea. Denies chest pain or shortness of breath. Hemodynamically stable. Afebrile. I do not see any NSAIDs on his home medication list. Vital signs are stable. General: No acute distress. HEENT: Head exam is unremarkable. On nasal cannula. LUNGS: No audible rhonchi or wheezes. HEART: Rate and Rhythm are regular. ABDOMEN: Nontender. EXTREMITITES: 2+ edema. Past Medical History Past Medical History: Hypertension, Neurologic Disorder, Sleep Apnea/CPAP/BIPAP Additional Past Medical History / Comment(s): developmentally delayed, infantile cerebral palsy-uses walker, incontinent occas,able to follow simple directions,speech is understandible,OCD, dysthmic disorder History of Any Multi-Drug Resistant Organisms: ESBL Date of last positivie culture/infection: 01/24/22 MDRO Source:: URINE ESBL Past Surgical History: Joint Replacement Additional Past Surgical History / Comment(s): Right eye cataract surgery, left hip replacement Past Anesthesia/Blood Transfusion Reactions: No Reported Reaction Past Psychological History: Anxiety, Depression Additional [facility] History [facility] Comment[facility] Smoking Status: Never smoker Past Alcohol Use History: None Reported Past Drug Use History: None Reported - Past Family History Mother Family Medical History: Cancer Additional Family Medical History / Comment(s): mother from lung cancer Father Family Medical History: No Reported History Brother(s) Family Medical History: Cancer Additional Family Medical History / Comment(s): from lung cancer Medications and Allergies Home Medications Medication Instructions Recorded Confirmed Type Cholecalciferol [Vitamin D3 (25 50 mcg PO HS 01/31/21 12/30/23 History Mcg = 1000 Iu)] FLUoxetine HCL [PROzac] 40 mg PO DAILY 01/31/21 12/30/23 History Levothyroxine Sodium [Synthroid] 50 mcg PO DAILY 01/31/21 12/30/23 History Metoprolol Succinate (ER) [Toprol 50 mg PO DAILY 01/31/21 12/30/23 History XL] busPIRone HCL 10 mg PO TID 01/31/21 12/30/23 History risperiDONE [RisperDAL] 1 mg PO DAILY 01/31/21 12/30/23 History Multivitamins, Thera [Multivitamin 1 tab PO DAILY 05/13/21 12/30/23 History (formulary)] Doxazosin [Cardura] 2 mg PO DAILY 10/25/23 12/20/23 History Senna-Time 8.6mg 8.6 mg PO HS 10/25/23 12/30/23 History Ipratropium-Albuterol Nebulize 3 ml INHALATION RT-Q4H PRN 12/16/23 12/30/23 History [Duoneb 0.5 mg-3 mg/3 ml Soln] Loperamide HCl [Imodium A-D] 2 - 4 mg PO QID PRN 12/16/23 12/30/23 History Potassium Chloride ER [K-Dur 20] 20 meq PO DAILY 12/16/23 12/30/23 History Sodium Bicarbonate Tab 650 mg PO BID #60 tablet 12/19/23 12/30/23 Rx Furosemide [Lasix] 60 mg PO BID@0900,1600 #60 tab 12/25/23 12/30/23 Rx hydrALAZINE HCL [Apresoline] 50 mg PO BID #60 tab 12/25/23 12/30/23 Rx Atorvastatin [Lipitor] 20 mg PO HS 12/30/23 12/30/23 History Dapagliflozin Propanediol [Farxiga] 5 mg PO HS 12/30/23 12/30/23 History Nystatin [Nystop] 1 applic TOPICAL BID 12/30/23 12/30/23 History Spironolactone [Aldactone] 12.5 mg PO HS 12/30/23 12/30/23 History predniSONE 50 mg PO HS 12/30/23 12/30/23 History Allergies Allergy/AdvReac Type Severity Reaction Status Date / Time amoxicillin [From Augmentin] Allergy Rash/Hives Verified 12/30/23 11:37 clavulanic acid Allergy Rash/Hives Verified 12/30/23 11:37 [From Augmentin] Physical Exam Vitals: Vital Signs Temp Pulse Pulse Resp BP BP Pulse Ox 12/31/23 07:00 97.4 F L 85 16 162/107 95 12/31/23 02:24 98.2 F 88 15 151/86 95 12/31/23 02:00 88 12/30/23 21:15 97.2 F L 78 15 138/74 97 12/30/23 20:42 75 20 129/77 95 12/30/23 20:25 76 12/30/23 20:14 79 12/30/23 20:00 78 12/30/23 19:00 72 20 122/86 95 12/30/23 18:00 73 20 118/76 95 12/30/23 12:17 93 12/30/23 11:39 127 H 104/55 Intake and Output 12/30/23 12/31/23 12/31/23 22:59 06:59 14:59 Intake Total 678 Output Total 200 1000 Balance -200 -1000 678 Intake: Oral 678 Output: Urine 200 1000 Other: Weight 79.379 kg 98 kg Results - Lab Results Most recent lab results Calcium 7.5 mg/dL (8.4-10.2) L 12/30/23 12:06 12/30/23 12:06 12/30/23 12:06 Assessment and Plan Plan: Assessment: 1. Acute kidney injury secondary to ATN secondary to diuresis. Creatinine 2.45 today. 2. Chronic kidney disease stage IIIb with baseline creatinine 1.8-2 secondary to underlying GN. Kidney biopsy done earlier this month was inconclusive due to limited sample size. The biopsy did show advanced chronic injury. Serologies negative. Kidney ultrasound from October 2023 showed no hydronephrosis although right kidney was atrophic. 3. Volume overload secondary to nephrotic syndrome. 4. Metabolic acidosis secondary to chronic kidney disease maintained on oral bicarb. 5. Developmental delay. Plan: Increase Lasix to 60 mg IV twice daily. Maintain spironolactone. Add Farxiga. Add 1200 cc fluid restriction and low-salt diet. Scheduled for another kidney biopsy with DDAVP to be given prior to the procedure. 25 g IV albumin x 2 doses today. Will consider anticoagulation after kidney biopsy completed and if albumin level remains below 2. Patient was started on prednisone about a week ago but will hold for now till definitive diagnosis obtained. Thank you for the consultation. I will continue to follow the patient with you during his hospital stay.
[2023-12-31 11:40] LABS: Basophils # (A) 0.06 X 10*3/uL (0.00-0.10); Basophils % (A) 0.4 %; Eosinophils # (A) 1.48 X 10*3/uL (0.04-0.35); Eosinophils % (A) 8.7 %; HCT 35.4 % (39.6-50.0); Lymphocytes # (A) 1.48 X 10*3/uL (0.90-5.00); Lymphocytes % (A) 8.7 %; MCH 30.8 pg (27.0-32.0); MCHC 31.1 g/dL (32.0-37.0); MCV 99.2 FL (80.0-97.0); Mean Platelet Volume 11.9 FL (9.5-12.2); Monocytes # (A) 0.41 X 10*3/uL (0.20-1.00); Monocytes % (A) 2.4 %; NRBC Per 100 WBC 0 X 10*3/uL (0.00-0.01); Neutrophils # (A) 13.05 X 10*3/uL (1.80-7.70); Neutrophils % (A) 77.2 %; Platelet Count 247 X 10*3/uL (140-440); RBC 3.57 X 10*6/uL (4.40-5.60); RBC Morphology Normal (Normal); RDW 15.1 % (11.5-14.5); WBC 16.92 X 10*3/uL (4.50-10.00)
[2023-12-31] MEDS: FUROSEMIDE 10 MG/ML 4 ML VIAL IV SCH (11:52)
[2023-12-31 12:28] LABS: Glucose,Whole Blood 118 mg/dL (70-110)
[2023-12-31] MEDS: DAPAGLIFLOZIN PROPANEDIOL 5 MG TABLET PO SCH (12:45)
[2023-12-31 17:31] LABS: Glucose,Whole Blood 123 mg/dL (70-110)
[2023-12-31 20:39] LABS: Glucose,Whole Blood 116 mg/dL (70-110)
--- NOTE | 2023-12-31 21:01 | P.PN ---
Progress Note - Text Progress Note Date: 12/31/23 Chief Complaint: Increased weight gain and worsening bilateral lower extremity edema Patient 58-year-old male with a past medical history of nephrotic syndrome, hypoalbuminemia, hypertension, cerebral palsy with neurocognitive delay, congestive diastolic heart failure who presents to the ED because of bilateral lower extremity swelling. Patient presents from his foster detention. 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 Patient is a poor historian so history obtained from the chart. It is reported that the patient had a 6 pound weight gain in 3 days despite taking all his medications. Patient is currently denying any complaints. In the ED patient WBC was 19.9. UA showed large leukocyte Estrace and many WBC. Patient does have a chronic indwelling Smith catheter. Patient's creatinine was 2.45. Patient baseline creatinine is around 2. Patient's albumin was 1.3. Chest x-ray showed vascular congestion. December 31, 2023: I assumed care of the patient today. Discussed with Dr. Rodriguez from nephrology. Previous biopsy was very poor. Hence patient needs repeat biopsy. Interventional radiology currently not available to do the biopsy. Dr. Rodriguez did speak to the mother earlier. She is ready for patient to be transferred to higher level of care as currently the service not available. Laying in bed. Not in distress. Because of no clear-cut diagnosis. Prednisone is being discontinued. Later today also spoke to patient's mother at length. Agreeable for transfer for further workup. Total time spent today over 1 hour with over 40 minutes of discussion. Active Medications Albuterol/Ipratropium (Ipratropium-Albuterol 3 Ml Neb) 3 ml INHALATION RT-Q4H PRN PRN Reason: Shortness Of Breath Last Admin: 12/30/23 20:14 Dose: 3 ml Atorvastatin Calcium (Atorvastatin 20 Mg Tab) 20 mg PO HS [facility] Last Admin: 12/30/23 22:54 Dose: 20 mg Buspirone HCl (Buspirone Hcl 10 Mg Tab) 10 mg PO TID [facility]GIN Last Admin: 12/31/23 16:32 Dose: 10 mg Dapagliflozin (Dapagliflozin Propanediol 5 Mg Tablet) 5 mg PO DAILY [facility] Last Admin: 12/31/23 12:45 Dose: 5 mg Dextrose/Water (Dextrose 50% Syringe 50 Ml) 25 ml IVP PER PROTOCOL PRN; Protocol PRN Reason: Hypoglycemia Dextrose/Water (Dextrose 50% Syringe 50 Ml) 50 ml IVP PER PROTOCOL PRN; Protocol PRN Reason: Hypoglycemia Fluoxetine HCl (Fluoxetine Hcl 20 Mg Cap) 40 mg PO DAILY [facility] Last Admin: 12/31/23 08:39 Dose: 40 mg Meropenem 1 gm/ Sodium (Chloride) 100 mls @ 33.333 mls/hr IVPB Q12H [facility] Last Admin: 12/31/23 19:47 Dose: 33.333 mls/hr Insulin Aspart (Insulin Aspart (Novolog) 100 Unit/Ml Vial) 0 unit SQ ACHS [facility]; Protocol Last Admin: 12/31/23 20:40 Dose: Not Given Levothyroxine Sodium (Levothyroxine 50 Mcg Tab) 50 mcg PO DAILY@0630 [facility] Last Admin: 12/31/23 05:53 Dose: 50 mcg Risperidone (Risperidone 1 Mg Tab) 1 mg PO DAILY [facility] Last Admin: 12/31/23 08:39 Dose: 1 mg Sodium Bicarbonate (Sodium Bicarbonate Tab 650 Mg Tab) 650 mg PO BID [facility] Last Admin: 12/31/23 08:39 Dose: 650 mg Spironolactone (Spironolactone 25 Mg Tab) 12.5 mg PO HS [facility] Last Admin: 12/30/23 22:54 Dose: 12.5 mg Physical exam VITAL SIGNS: 97.7, 94, 20, 1 one 3 x 78, 97% room air GENERAL: Reclining in bed , comfortable. EYES: Pupils equal. Conjunctiva normal. HEENT: External appearance of nose and ears normal, oral cavity grossly normal small lower jaw. NECK: JVD not raised; masses not palpable. HEART: First and second heart sounds are normal; edema present LUNGS: Respiratory rate creased, decreased breath sounds ABDOMEN: Soft, nontender, liver spleen not palpable, no masses palpable. Suprapubic catheter. PSYCH: Patient can answer, one-word answers. MUSCULOSKELETAL:No Clubbing/cyanosis;muscles-grossly intact NEUROLOGICAL: Cranial nerves grossly intact; no facial asymmetry, power and sensation grossly intact. INVESTIGATIONS, reviewed in the clinical context: December 30: White count 16.9 hemoglobin 11 platelets 247 sodium 144 potassium 4.7 BUN 51.2 creatinine 2.5 EKG tracing personally reviewed by me-normal sinus rhythm. Incomplete right bundle aashish block. Assessment and plan Volume overload Nephrotic syndrome with recent biopsy not getting proper tissue. Needs to be rebiopsied Prednisone discontinued because of no clinical diagnosis Acute on chronic diastolic heart failure: Slow to respond With IV Lasix 2000 cc fluid restriction Daily weight and strict I's and O's Nephrology to manage diuretics Acute kidney injury secondary to ATN secondary to diuresis Follow-up with nephrology -Chronic kidney disease stage IIIb. Kidney biopsy 2 weeks ago was inconclusive. Needs repeat biopsy. -Right kidney atrophic Urinary tract infection secondary to chronic Smith indwelling catheter with sepsis on admission (leukocytosis and tachycardia and tachypnea) Patient has a history of ESBL Will start meropenem Obtain urine culture Obtain blood culture Will exchange Smith catheter Diabetes mellitus? Patient is on Farxiga at home. I believe this is started due to heart failure. Mother denies any history of diabetes. Sliding scale insulin Hypothyroidism Continue with Synthroid Hypertension Follow closely -Chronic bladder dysfunction with suprapubic catheter Hyperlipidemia Continue with statin COPD Stable Continue with nebulizers Anxiety/depression BuSpar, Risperdal, Prozac Cerebral palsy with neurocognitive delay Stable Will try for transfer. Medications as listed to continue. Past Medical History Past Medical History: Hypertension, Neurologic Disorder, Sleep Apnea/CPAP/BIPAP Additional Past Medical History / Comment(s): developmentally delayed, infantile cerebral palsy-uses walker, incontinent occas,able to follow simple directions,speech is understandible,OCD, dysthmic disorder History of Any Multi-Drug Resistant Organisms: ESBL Date of last positivie culture/infection: 01/24/22 MDRO Source:: URINE ESBL Past Surgical History: Joint Replacement Additional Past Surgical History / Comment(s): Right eye cataract surgery, left hip replacement Past Anesthesia/Blood Transfusion Reactions: No Reported Reaction Past Psychological History: Anxiety, Depression Smoking Status: Never smoker Past Alcohol Use History: None Reported Past Drug Use History: None Reported
[2024-01-01 06:13] LABS: Glucose,Whole Blood 93 mg/dL (70-110)
--- NOTE | 2024-01-01 11:27 | P.PN ---
Subjective Patient is seen in follow-up for acute kidney injury on chronic kidney disease. On IV Lasix. Nonoliguric. Hemodynamically stable. Vital signs are stable. General: No acute distress. HEENT: Head exam is unremarkable. LUNGS: No audible rhonchi or wheezes. HEART: Rate and Rhythm are regular. ABDOMEN: Nontender. EXTREMITITES: 2+ edema. Objective - Vital Signs Vital signs: Vital Signs Temp 97.8 F 01/01/24 07:00 Pulse 86 01/01/24 07:00 Resp 16 01/01/24 07:00 BP 143/83 01/01/24 07:00 Pulse Ox 94 L 01/01/24 07:00 FiO2 Intake & Output 12/31/23 01/01/24 01/01/24 18:59 06:59 18:59 Intake Total 1032 358 Output Total 900 1000 Balance 132 -1000 358 Weight 96 kg Intake: Oral 1032 358 Output: Urine 900 1000 Other: # Voids 2 - Labs CBC & Chem 7: 12/31/23 06:47 12/31/23 06:47 Labs: Abnormal Lab Results - Last 24 Hours (Table) 12/31/23 12/31/23 12/31/23 Range/Units 06:47 06:47 12:27 WBC 16.92 H (4.50-10.00) X 10*3/uL RBC 3.57 L (4.40-5.60) X 10*6/uL Hgb 11.0 L (13.0-17.0) g/dL Hct 35.4 L (39.6-50.0) % MCV 99.2 H (80.0-97.0) FL MCHC 31.1 L (32.0-37.0) g/dL RDW 15.1 H (11.5-14.5) % Immature Gran # 0.44 H (0.00-0.04) X 10*3/uL Neutrophils # 13.05 H (1.80-7.70) X 10*3/uL Eosinophils # 1.48 H (0.04-0.35) X 10*3/uL Chloride 114 H (96-109) mmol/L Carbon Dioxide 19.5 L (21.6-31.8) mmol/L BUN 51.2 H (9.0-27.0) mg/dL Creatinine 2.5 H (0.6-1.5) mg/dL Est GFR (CKD-EPI) 29 L (>=60) BUN/Creatinine Ratio 20.48 H (12.00-20.00) Ratio POC Glucose (mg/dL) 118 H (70-110) mg/dL Calcium 7.7 L (8.7-10.3) mg/dL 12/31/23 12/31/23 Range/Units 17:29 20:38 WBC (4.50-10.00) X 10*3/uL RBC (4.40-5.60) X 10*6/uL Hgb (13.0-17.0) g/dL Hct (39.6-50.0) % MCV (80.0-97.0) FL MCHC (32.0-37.0) g/dL RDW (11.5-14.5) % Immature Gran # (0.00-0.04) X 10*3/uL Neutrophils # (1.80-7.70) X 10*3/uL Eosinophils # (0.04-0.35) X 10*3/uL Chloride (96-109) mmol/L Carbon Dioxide (21.6-31.8) mmol/L BUN (9.0-27.0) mg/dL Creatinine (0.6-1.5) mg/dL Est GFR (CKD-EPI) (>=60) BUN/Creatinine Ratio (12.00-20.00) Ratio POC Glucose (mg/dL) 123 H 116 H (70-110) mg/dL Calcium (8.7-10.3) mg/dL Microbiology - Last 24 Hours (Table) 12/30/23 16:45 Blood Culture - Preliminary Blood 12/30/23 16:30 Blood Culture - Preliminary Blood 12/30/23 12:06 Urine Culture - Preliminary Urine,Voided Gram Neg Bacilli Assessment and Plan Plan: Assessment: 1. Acute kidney injury secondary to ATN secondary to diuresis. Creatinine 2.45 yesterday. 2. Chronic kidney disease stage IIIb with baseline creatinine 1.8-2 secondary to underlying GN. Kidney biopsy done earlier this month was inconclusive due to limited sample size. The biopsy did show advanced chronic injury. Serologies negative. Kidney ultrasound from October 2023 showed no hydronephrosis although right kidney was atrophic. 3. Volume overload secondary to nephrotic syndrome. 4. Metabolic acidosis secondary to chronic kidney disease maintained on oral bicarb. 5. Developmental delay. Plan: Maintain IV Lasix. Maintain spironolactone. Maintain Farxiga. Maintain 1200 cc fluid restriction and low-salt diet. Scheduled for another kidney biopsy next week with DDAVP to be given prior to the procedure. Status post IV albumin this admission. Will consider anticoagulation after kidney biopsy completed and if albumin level remains below 2. Patient was started on prednisone about a week ago but will hold for now till definitive diagnosis obtained. Biopsy cannot be done till late next week at this facility. Plan is to transfer patient to another facility for sooner biopsy. Case was discussed with primary attending physician as well as patient's mother.
[2024-01-01 12:09] LABS: ALT 9 U/L (10-49); AST 15 U/L (14-35); Albumin 2.1 g/dL (3.8-4.9); Albumin/Globulin Ratio 1.91 Ratio (1.60-3.17); Alkaline Phosphatase 71 U/L (41-126); BUN/Creat Ratio 20.48 Ratio (12.00-20.00); Blood Urea Nitrogen 47.1 mg/dL (9.0-27.0); Calcium 7.8 mg/dL (8.7-10.3); Chloride 115 mmol/L (96-109); Globulin 1.1 g/dL (1.6-3.3); Glucose 95 mg/dL (70-110); Magnesium 2.1 mg/dL (1.5-2.4); Potassium 3.8 mmol/L (3.5-5.5); Sodium 146 mmol/L (135-145); Total Bilirubin 0.2 mg/dL (0.3-1.2); Total Protein 3.2 g/dL (6.2-8.2)
[2024-01-01 12:43] LABS: Glucose,Whole Blood 108 mg/dL (70-110)
[2024-01-01] MEDS: guaiFENesin 600 MG TABLET.ER PO SCH (13:44)
[2024-01-01] MEDS: metOLazone 5 MG TAB PO SCH (13:44)
[2024-01-01 17:19] LABS: Glucose,Whole Blood 107 mg/dL (70-110)
--- NOTE | 2024-01-01 19:18 | P.DS ---
Providers Date of admission: 12/31/23 20:46 Expected date of discharge: 01/01/24 Attending physician: Bakari Espinoza Consults: 12/30/23 17:37 Consult Physician Urgent Consulting Provider: Gabriela Nunez Consult Reason/Comments: nephrotic syndrome Do you want consulting provider notified?: Yes Primary care physician: Kyler Zaman MD Hospital Course: Chief Complaint: Increased weight gain and worsening bilateral lower extremity edema Patient 58-year-old male with a past medical history of nephrotic syndrome, hypoalbuminemia, hypertension, cerebral palsy with neurocognitive delay, congestive diastolic heart failure who presents to the ED because of bilateral lower extremity swelling. Patient presents from his foster retirement. 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 Patient is a poor historian so history obtained from the chart. It is reported that the patient had a 6 pound weight gain in 3 days despite taking all his medications. Patient is currently denying any complaints. In the ED patient WBC was 19.9. UA showed large leukocyte Estrace and many WBC. Patient does have a chronic indwelling Smith catheter. Patient's creatinine was 2.45. Patient baseline creatinine is around 2. Patient's albumin was 1.3. Chest x-ray showed vascular congestion. December 31, 2023: I assumed care of the patient today. Discussed with Dr. Rodriguez from nephrology. Previous biopsy was very poor. Hence patient needs repeat biopsy. Interventional radiology currently not available to do the biopsy. Dr. Rodriguez did speak to the mother earlier. She is ready for patient to be transferred to higher level of care as currently the service not available. Laying in bed. Not in distress. Because of no clear-cut diagnosis. Prednisone is being discontinued. Later today also spoke to patient's mother at length. Agreeable for transfer for further workup. Total time spent today over 1 hour with over 40 minutes of discussion. December 31: Patient laying in bed. Comfortable. Patient was on IV Lasix. Switched over to Zaroxolyn by nephrology today. About 2000 cc negative fluid balance. Edema present. Patient in bed. Comfortable. Peripheral congested cough. Urine cultures pending. Showing gram-negative bacilli. On meropenem. Spoke with the transplant steam service inspector [place] from [facility]. I suspect her can intake worker Dr. Francisco Fernandez-who accepted the patient. Discussion and discharge planning more than 35 minutes Physical exam VITAL SIGNS: Recent 0.5, 78, 16, 1 5793, 98% room air GENERAL: Reclining in bed , comfortable. EYES: Pupils equal. Conjunctiva normal. HEENT: External appearance of nose and ears normal, oral cavity grossly normal small lower jaw. NECK: JVD not raised; masses not palpable. HEART: First and second heart sounds are normal; edema present LUNGS: Respiratory rate creased, decreased breath sounds ABDOMEN: Soft, nontender, liver spleen not palpable, no masses palpable. Suprapubic catheter. PSYCH: Patient can answer, one-two -word answers. MUSCULOSKELETAL:No Clubbing/cyanosis;muscles-grossly intact NEUROLOGICAL: Cranial nerves grossly intact; no facial asymmetry, power and sensation grossly intact. INVESTIGATIONS, reviewed in the clinical context: Urine culture: Gram-negative bacilli Blood cultures: Pending December 31: Sodium 146 potassium 3.8 PN 47.1 creatinine 2.3 December 30: White count 16.9 hemoglobin 11 platelets 247 sodium 144 potassium 4.7 BUN 51.2 creatinine 2.5 EKG tracing personally reviewed by me-normal sinus rhythm. Incomplete right bundle aashish block. Assessment and plan Nephrotic syndrome with volume overload with recent biopsy not getting proper tissue. Needs to be rebiopsied Prednisone discontinued because of no clinical diagnosis Patient being transferred to [facility], as interventional radiology currently not available to do renal biopsy. Critical for patient's care is at several readmissions in the recent past. Patient accepted by can intake worker Dr.A Fernandez. Acute on chronic diastolic heart failure: Slow to respond With IV Lasix-switched over to Zaroxolyn today 5 mg. 2000 cc fluid restriction Daily weight and strict I's and O's Nephrology, Dr. Izaiah Rodriguez following Acute kidney injury secondary to ATN secondary to diuresis Follow-renal function. Follow with nephrology. -Chronic kidney disease stage IIIb. Kidney biopsy 2 weeks ago was inconclusive. Needs repeat biopsy. -Right kidney atrophic Urinary tract infection secondary to chronic suprapubic catheter with sepsis on admission (leukocytosis and tachycardia and tachypnea) Patient has a history of ESBL IV meropenem Culture showing gram-negative bacilli. Blood cultures pending Will exchange Smith catheter Diabetes mellitus? Farxiga has been discontinued because of UTI Sliding scale insulin Hypothyroidism Synthroid Hypertension Follow closely -Chronic bladder dysfunction with suprapubic catheter Hyperlipidemia Lipitor COPD Stable Continue with nebulizers Anxiety/depression BuSpar, Risperdal, Prozac Cerebral palsy with neurocognitive delay Stable Full code Legal Guardian: Piedad Hutton (mother) Disposition: [facility]-for higher level of care. Past Medical History Past Medical History: Hypertension, Neurologic Disorder, Sleep Apnea/CPAP/BIPAP Additional Past Medical History / Comment(s): developmentally delayed, infantile cerebral palsy-uses walker, incontinent occas,able to follow simple directions,speech is understandible,OCD, dysthmic disorder History of Any Multi-Drug Resistant Organisms: ESBL Date of last positivie culture/infection: 01/24/22 MDRO Source:: URINE ESBL Past Surgical History: Joint Replacement Additional Past Surgical History / Comment(s): Right eye cataract surgery, left hip replacement Past Anesthesia/Blood Transfusion Reactions: No Reported Reaction Past Psychological History: Anxiety, Depression Smoking Status: Never smoker Past Alcohol Use History: None Reported Past Drug Use History: None Reported Plan - Discharge Summary Discharge Rx Participant: No New Discharge Prescriptions: No Action Cholecalciferol [Vitamin D3 (25 Mcg = 1000 Iu)] 50 mcg PO HS risperiDONE [RisperDAL] 1 mg PO DAILY FLUoxetine HCL [PROzac] 40 mg PO DAILY Doxazosin [Cardura] 2 mg PO DAILY Loperamide HCl [Imodium A-D] 2 - 4 mg PO QID PRN PRN Reason: Diarrhea hydrALAZINE HCL [Apresoline] 50 mg PO BID #60 tab Furosemide [Lasix] 60 mg PO BID@0900,1600 #60 tab Nystatin [Nystop] 1 applic TOPICAL BID predniSONE 50 mg PO HS Dapagliflozin Propanediol [Farxiga] 5 mg PO HS busPIRone HCL 10 mg PO TID Levothyroxine Sodium [Synthroid] 50 mcg PO DAILY Metoprolol Succinate (ER) [Toprol XL] 50 mg PO DAILY Multivitamins, Thera [Multivitamin (formulary)] 1 tab PO DAILY Senna-Time 8.6mg 8.6 mg PO HS Potassium Chloride ER [K-Dur 20] 20 meq PO DAILY Ipratropium-Albuterol Nebulize [Duoneb 0.5 mg-3 mg/3 ml Soln] 3 ml INHALATION RT-Q4H PRN PRN Reason: Shortness Of Breath Sodium Bicarbonate Tab 650 mg PO BID #60 tablet Spironolactone [Aldactone] 12.5 mg PO HS Atorvastatin [Lipitor] 20 mg PO HS Discharge Medication List Cholecalciferol [Vitamin D3 (25 Mcg = 1000 Iu)] 50 mcg PO HS 01/31/21 [History] FLUoxetine HCL [PROzac] 40 mg PO DAILY 01/31/21 [History] Levothyroxine Sodium [Synthroid] 50 mcg PO DAILY 01/31/21 [History] Metoprolol Succinate (ER) [Toprol XL] 50 mg PO DAILY 01/31/21 [History] busPIRone HCL 10 mg PO TID 01/31/21 [History] risperiDONE [RisperDAL] 1 mg PO DAILY 01/31/21 [History] Multivitamins, Thera [Multivitamin (formulary)] 1 tab PO DAILY 05/13/21 [History] Doxazosin [Cardura] 2 mg PO DAILY 10/25/23 [History] Senna-Time 8.6mg 8.6 mg PO HS 10/25/23 [History] Ipratropium-Albuterol Nebulize [Duoneb 0.5 mg-3 mg/3 ml Soln] 3 ml INHALATION RT-Q4H PRN 12/16/23 [History] Loperamide HCl [Imodium A-D] 2 - 4 mg PO QID PRN 12/16/23 [History] Potassium Chloride ER [K-Dur 20] 20 meq PO DAILY 12/16/23 [History] Sodium Bicarbonate Tab 650 mg PO BID #60 tablet 12/19/23 [Rx] Furosemide [Lasix] 60 mg PO BID@0900,1600 #60 tab 12/25/23 [Rx] hydrALAZINE HCL [Apresoline] 50 mg PO BID #60 tab 12/25/23 [Rx] Atorvastatin [Lipitor] 20 mg PO HS 12/30/23 [History] Dapagliflozin Propanediol [Farxiga] 5 mg PO HS 12/30/23 [History] Nystatin [Nystop] 1 applic TOPICAL BID 12/30/23 [History] Spironolactone [Aldactone] 12.5 mg PO HS 12/30/23 [History] predniSONE 50 mg PO HS 12/30/23 [History] Follow up Appointment(s)/Referral(s): Kyler Zaman MD [Primary Care Provider] - 1-2 days Activity/Diet/Wound Care/Special Instructions: Pt is scheduled for out patient Kidney Biopsy January 09 08 arrival. Pt will need to have procedure lab work done 2 days prior to procedure. gis specialist will contact pt/home with procedure instructions. Radiology #[phone]
[2024-01-01 20:25] VITALS: BP 133/68; PULSE 101; RESP 15; TEMP 98.1
== END 2024-01-01 19:45 | disposition short-term general hospital (02) | DRG 291 ==
LOC: EC 11:14 → 6NMEDSUR 15:34 → OBSVTOIN 12-31 20:46
PROVIDERS: ADMIT Hospitalist; ATTEND Hospitalist
DX: I13.0 Hypertensive heart and chronic kidney disease with heart failure and stage 1 through stage 4 chronic kidney disease, or unspecified chronic kidney disease (principal); I50.33 Acute on chronic diastolic (congestive) heart failure; N17.0 Acute kidney failure with tubular necrosis; N39.0 Urinary tract infection, site not specified; T83.511A Infection and inflammatory reaction due to indwelling urethral catheter, initial encounter; T83.510A Infection and inflammatory reaction due to cystostomy catheter, initial encounter; E87.20 Acidosis, unspecified; N18.32 Chronic kidney disease, stage 3b; N26.1 Atrophy of kidney (terminal); T50.2X5A Adverse effect of carbonic-anhydrase inhibitors, benzothiadiazides and other diuretics, initial encounter; Y84.6 Urinary catheterization as the cause of abnormal reaction of the patient, or of later complication, without mention of misadventure at the time of the procedure; Z79.84 Long term (current) use of oral hypoglycemic drugs; Z79.890 Hormone replacement therapy; Z79.899 Other long term (current) drug therapy; Z86.19 Personal history of other infectious and parasitic diseases; Z87.441 Personal history of nephrotic syndrome; Z96.642 Presence of left artificial hip joint; Z98.41 Cataract extraction status, right eye; F41.9 Anxiety disorder, unspecified; F32.9 Major depressive disorder, single episode, unspecified; F42.9 Obsessive-compulsive disorder, unspecified; G80.9 Cerebral palsy, unspecified; E11.22 Type 2 diabetes mellitus with diabetic chronic kidney disease; E88.09 Other disorders of plasma-protein metabolism, not elsewhere classified; E03.9 Hypothyroidism, unspecified; G47.30 Sleep apnea, unspecified; E78.5 Hyperlipidemia, unspecified; J44.9 Chronic obstructive pulmonary disease, unspecified; F32.A Depression, unspecified; X58.XXXA Exposure to other specified factors, initial encounter
CPT/HCPCS: 36415; 71046; 80048; 80053; 81001; 83036; 83735; 83880; 84484; 85025; 87040; 87077; 87086; 87186; 93005; 94640; 96365; 96366; 99285